=== PATIENT | male | born 1970 | race Caucasian/White ===

== ENCOUNTER 2017-11-14 10:12 | Inpatient (IN) | payer MEDICAID, SELFPAY ==
[2017-11-14] VITALS (13 sets, daily range): BP systolic 116–226; BP diastolic 73–149; PULSE 81–112; RESP 14–24; TEMP 35.8–37.2; O2SAT 96–100; BMI 23.8
[2017-11-14 11:03] LABS: Amphetamine Urine VISTA NEGATIVE (<1000 ng/mL); Barbiturate Urine VISTA NEGATIVE (< 200 ng/mL); Benzodiazepine Urine VISTA NEGATIVE (< 200 ng/mL); Cocaine Urine VISTA NEGATIVE (< 300 ng/mL); Ecstacy Urine VISTA NEGATIVE (< 500 ng/mL); Methadone Urine VISTA NEGATIVE (< 300 ng/mL); PCP Urine VISTA NEGATIVE (< 25 ng/mL); THC Urine VISTA NEGATIVE (< 50 ng/mL); Vista UDS pH Range 5
[2017-11-14 11:04] LABS: Absolute Lymphocyte Count 1.09 X10^3/ul (0.83-4.51); Absolute Neutrophil Count 4.4 X10^3/uL (2.0-7.7); Basophil# 0.05 X10^3/uL; Basophil% 0.7 % (0-1); Differential Indicated SCAN CRITERIA MET; Eosinophil# 0.01 X10^3/uL; Eosinophils% 0.1 % (0-5); Hematocrit 39.2 % (40-54); Hemoglobin 13.6 g/dl (13.0-16.5); Lymphocyte # 1.09 X10^3/ul (4.0); Lymphocyte % 14.9 % (19-41); Mean Corp Hgb Conc 34.7 g/gl (32-36); Mean Corpuscular Hgb 35.1 pg (27.0-32.0); Mean Platelet Vol. 9.4 fl (6.2-12.0); Monocyte# 1.79 X10^3/uL; Monocyte% 24.4 % (0-10); Neutrophil # 4.37 X10^3/uL (2.7-7.7); Neutrophil % 59.6 % (47-70); POSITIVE COUNT NO; POSITIVE DIFFERENTIAL YES; POSITIVE MORPHOLOGY NO; Platelet Count 292 K/mm3 (150-450); RBC Distribution Width CV 13.3 % (11.6-14.6); RBC Distribution Width SD 48.6 fl (35.1-43.9); Red Blood Count 3.88 M/mm3 (4.6-6.2); White Blood Count 7.3 K/mm3 (4.4-11.0)
[2017-11-14 11:14] LABS: Anion Gap 12 (5-15); BUN 10 mg/dL (7-18); BUN/Creat Ratio 17.3 RATIO (10-20); Chloride 108 mmol/L (98-107); Creatinine, Serum 0.58 mg/dL (0.70-1.30); EST Glomerular Filtration Rate 159 mL/min (>60); Est Glom Filt Rate - Afr Amer 193 mL/min (>60); Estimated Creatinine Clearance 150.69 ml/min; Glucose 91 mg/dL (74-106); Potassium 3.6 mmol/L (3.5-5.1); Sodium Level 143 mmol/L (136-145)
[2017-11-14 11:21] LABS: Alcohol, Blood (Medical)-Serum < 3.0 mg/dL
--- NOTE | 2017-11-14 11:27 | ED.VISSUMM ---
- ER Visit Summary Date of Service: 11/14/17 Chief Complaint: Paranoid and hallucinations History of Present Illness: The patient is a 47 M who is a very poor informant. He reports he does not see a primary care physician or psychiatrist. Please reports that the patient has been calling in speaking about motorcycle gangs and police in the area. He is very paranoid and is not taking care of himself at home. They report that he is defecating and urinating in his home. Physical Examination: Vitals: Stable. Afebrile. General: Well-nourished and well-developed. Head: Normocephalic atraumatic. Neck: Supple, no lymphadenopathy. No JVD. Nontender. Cardiovascular: Regular rate and rhythm. No murmurs. Respiratory: No respiratory distress. Clear to auscultation bilaterally. Abdominal: Soft, nontender, nondistended, normal bowel sounds. No guarding, rebound, or peritoneal signs. Back: Nontender. Extremities: Nontender, no edema. Skin: Normal color, no rash. Neurologic: Alert and oriented ?3. Cranial nerves II through XII are intact. Normal strength and sensation. Mental status exam: Patient appears their stated age. Good posture and grooming. Good eye contact. Normal rate, volume, and latency of speech. No suicidal homicidal ideation. Patient has obvious delusions and visual hallucinations when spoken to. Flow of thought is logical. Insight and judgment is fair. Test Results: CBC is marked for hematocrit of 39.2, lymphocytes 15, monocytes 24. Chem-7 is more for chloride 108 and creatinine 0.58. Tox screen is negative. Alcohol level is normal. Emergency Department Course and Treatment: Patient is resting comfortably without complaint. Treatment Plan: Patient will be seen by mental health. Police report that the patient needs to be hospitalized. I agree with them. Disposition: Pending Impression: 1. Paranoia. 2. Delusions. This note was generated with [employer] dictation software. It may contain incorrect words, spelling, and punctuation that were not noted in review of the chart prior to signing ED Disposition - Plan for ED Patient: Chief Complaint: Mental Health Referrals: Care Physician,No Primary [Primary Care Provider] -
--- NOTE | 2017-11-14 11:34 | NURSING ---
CALLED CRISIS, TALKED TO [place]. SOMEONE WILL BE OVER.
--- NOTE | 2017-11-14 12:23 | ED.RN ---
PT DOES NOT KNOW HIS MEDICATIONS
--- NOTE | 2017-11-14 13:07 | NURSING ---
crisis in er
--- NOTE | 2017-11-14 13:50 | ED.RN ---
PT OUT AT NURSES STATION ASKING FOR A GLASS TO GET BEER. PT WAS TOLD THAT THE HOSPITAL WOULD NOT BE SERVING BEER TO HIM. HE WAS GIVEN A GLASS OF ICE WATER. PT WAS THEN FOUND USING THE PUSH HANDLE ON THE BED A BEER TAP.
[2017-11-14] MEDS: LORazepam 1 MG Tablet 2 MG PO (18:04)
[2017-11-14] MEDS: Haloperidol 5 MG Tablet PO (18:47)
[2017-11-14] MEDS: DiphenhydrAMINE 50 MG/ML Syringe IM (20:44)
[2017-11-14] MEDS: Ziprasidone IM 20 MG/ML VIAL IM (20:44)
[2017-11-14] MEDS: LORazepam 2 MG/ML Syringe IM (20:44)
--- NOTE | 2017-11-14 20:53 | ED.RN ---
AT APPROX 2030 LOUD NURSES HEARD FROM ROOM. PT FOUND TO BE THROWING THE CHAIRS IN HIS ROOM AGAINST THE DOOR AND WALL. PATIENT ASKED TO CALM DOWN AND EMOTIONAL SUPPORT GIVEN. CHAIRS REMOVED FROM ROOM. DR. TREVINO NOTIFIED AND ORDERS FOR IM MEDICATIONS GIVEN
[2017-11-14] MEDS: Rocuronium Bromide 50 MG/5 ML Vial 100 MG IV (21:38)
[2017-11-14] MEDS: Etomidate 20 MG/10 ML Vial IV (21:38)
[2017-11-14] MEDS: Midazolam 5 MG/ML Syringe IV (21:44)
--- NOTE | 2017-11-14 21:44 | ED.RN ---
2114 PT becoming increasingly more restless and aggressive. pt banging head on side rails. Not able to reorient patient. Pin point pupils. Dr. Lange notified and came to bedside. Upon assessment and communication with PD and SO we learned patient is daily drinker. ETOH was negative on arrival. Withdraw and probable DT's noted. Pt is unsafe and a safety threat to self and staff. Decision made to intubate by Dr. Barakat. Respiratory called to bedside. Pt sedated, intubated and placed on vent as documented.
[2017-11-14] MEDS: Thiamine Hydrochloride 200 MG/2 ML Vial 100 MG IV (21:55)
[2017-11-14] MEDS: Phenobarbital Sodium 130 MG/ML Vial 150 MG IV (22:02)
--- NOTE | 2017-11-14 22:05 | PCM.HP.STD ---
Problem List (1) Delirium tremens Status: Acute (2) Acute respiratory failure Status: Acute History of Present Illness Date of Admission: 11/14/17 Chief Complaint: paranoia and hallucinations The patient is a 47 year old M with a 39-year-old white male is brought in because of paranoid delusions. Patient was reported to be defecating and urinating in his home and complaining of seeing motorcycle gangs and placed in the area when there were not. Patient was pink slip to go to a psych unit this morning. Patient remained in the emergency room awaiting a bed but while he was in the emergency room patient became much more confused and concern was for delirium tremens. Patient was intubated for airway protection and also for further sedation. Currently, the patient is intubated and sedated and unable to provide any history. [] Past Medical History Allergies Penicillins Adverse Reaction (Verified 11/14/17 10:13) Nausea Home Medications: Ambulatory Orders Medication Instructions Recorded Lorazepam [Ativan] 1 mg PO TID PRN PRN #6 tablet 01/02/16 Smoking Status: Current every day smoker Review of Systems Comment: Unable to specify social history, family history, medications, allergies and review of systems with patient as he has been intubated and received sedation with Versed and propofol. VTE Information - Inpt Only VTE Present on Admission: No VTE Pharm Prophylaxis ordered?: Yes Patient Problems: Active and Suspected Problems Delirium tremens (Acute) Acute respiratory failure (Acute) - Physical Exam General: - - Intubated and sedated HEENT: Atraumatic, Normocephalic, - - No scleral icterus Oral: - - The tracheal tube and orogastric tube in place Neck: No Nodes, Thyroid Normal Size and Texture Lungs: Clear to auscultation, Normal air movement, No rhonchi, No wheeze Cardiovascular: Regular rate, Regular Rhythm, Normal S1, Normal S2, No murmurs Abdomen: Bowel Sounds Present, Soft, Non Tender, Non-Distended, No Hepato-splenomegaly Extremities: No edema, No Calf Tenderness Skin: No rashes, No breakdown Musculoskeletal: No Tenderness to Palpation of Joints or Extremities, No Muscle Wasting Neurological: Muscle tone normal, - - No clonus Psych/Mental Status: - - Intubated and sedated. Vital Signs Temp Pulse Resp BP Pulse Ox 36.6 C 93 14 158/101 H 98 11/14/17 21:48 11/14/17 21:48 11/14/17 21:48 11/14/17 21:48 11/14/17 21:48 Oxygen Delivery Method Mechanical Ventilator Weight: 71 kg Body Mass Index (BMI) 23.8 Laboratory Tests Past 24 Hrs 11/14/17 11/14/17 11/14/17 10:40 10:46 10:46 WBC 7.3 RBC 3.88 L Hgb 13.6 Hct 39.2 L MCV 101.0 H MCH 35.1 H MCHC 34.7 RDW 13.3 RDW Differential 48.6 H Plt Count 292 MPV 9.4 Immature Gran % (Auto) 0.300 Neut % (Auto) 59.6 Lymph % (Auto) 14.9 L [place] % (Auto) 24.4 H Eos % (Auto) 0.1 Baso % (Auto) 0.7 Absolute Neuts (auto) 4.4 Absolute Lymphs (auto) 1.09 Total Counted Not Reportable Sodium 143 Potassium 3.6 Chloride 108 H Carbon Dioxide 23.0 Anion Gap 12 BUN 10 Creatinine 0.58 L Estim Creat Clear Calc 150.69 Est GFR (MDRD) Af Amer 193 Est GFR (MDRD) Non-Af 159 BUN/Creatinine Ratio 17.3 Glucose 91 Calcium 9.0 Urine Opiates Screen NEGATIVE Urine Methadone Screen NEGATIVE Ur Barbiturates Screen NEGATIVE Ur Phencyclidine Scrn NEGATIVE Ur Amphetamines Screen NEGATIVE U Methamphetamin-MDMA NEGATIVE U Benzodiazepines Scrn NEGATIVE Urine Cocaine Screen NEGATIVE U Cannabinoids Screen NEGATIVE Ur Drug Screen Comment Ethyl Alcohol 11/14/17 10:46 WBC RBC Hgb Hct MCV MCH MCHC RDW RDW Differential Plt Count MPV Immature Gran % (Auto) Neut % (Auto) Lymph % (Auto) [place] % (Auto) Eos % (Auto) Baso % (Auto) Absolute Neuts (auto) Absolute Lymphs (auto) Total Counted Sodium Potassium Chloride Carbon Dioxide Anion Gap BUN Creatinine Estim Creat Clear Calc Est GFR (MDRD) Af Amer Est GFR (MDRD) Non-Af BUN/Creatinine Ratio Glucose Calcium Urine Opiates Screen Urine Methadone Screen Ur Barbiturates Screen Ur Phencyclidine Scrn Ur Amphetamines Screen U Methamphetamin-MDMA U Benzodiazepines Scrn Urine Cocaine Screen U Cannabinoids Screen Ur Drug Screen Comment Ethyl Alcohol < 3.0 Assessment/Plan Active and Suspected Problems Delirium tremens (Acute) Acute respiratory failure (Acute) 1. Delirium tremens Presumed. Unable to elaborate how much patient actually drinks. Patient is intubated for airway protection and will be placed on a Precedex drip 2. Acute respiratory failure Primarily for impending airway compromise and also for sedation purposes Patient will be on the vent with assist control at this point time. Critical care will be on consultation for further assistance in regards to ventilator management Follow-up chest x-ray pending 3. Paranoia and delusions Patient does have previous psych history but comp getting this is what appears to be delirium tremens Patient will require further psychiatric involvement after he has been extubated and more medically stable. 4. DVT prophylaxis with Lovenox Code Visit Inpatient E&M: 70558 Init Hosp L3
[2017-11-14] MEDS: Propofol 10MG/Ml 1,000 MG/100 ML Bottle 2.13 MG CONT INF (22:10)
--- NOTE | 2017-11-14 22:12 | HP.PCM_ITS ---
Problem List (1) Delirium tremens Status: Acute (2) Acute respiratory failure Status: Acute History of Present Illness Date of Admission: 11/14/17 Chief Complaint: paranoia and hallucinations The patient is a 47 year old M with a 39-year-old white male is brought in because of paranoid delusions. Patient was reported to be defecating and urinating in his home and complaining of seeing motorcycle gangs and placed in the area when there were not. Patient was pink slip to go to a psych unit this morning. Patient remained in the emergency room awaiting a bed but while he was in the emergency room patient became much more confused and concern was for delirium tremens. Patient was intubated for airway protection and also for further sedation. Currently, the patient is intubated and sedated and unable to provide any history. [] Past Medical History Allergies Penicillins Adverse Reaction (Verified 11/14/17 10:13) Nausea Home Medications: Ambulatory Orders Medication Instructions Recorded Lorazepam [Ativan] 1 mg PO TID PRN PRN #6 tablet 01/02/16 Smoking Status: Current every day smoker Review of Systems Comment: Unable to specify social history, family history, medications, allergies and review of systems with patient as he has been intubated and received sedation with Versed and propofol. VTE Information - Inpt Only VTE Present on Admission: No VTE Pharm Prophylaxis ordered?: Yes Patient Problems: Active and Suspected Problems Delirium tremens (Acute) Acute respiratory failure (Acute) - Physical Exam General: - - Intubated and sedated HEENT: Atraumatic, Normocephalic, - - No scleral icterus Oral: - - The tracheal tube and orogastric tube in place Neck: No Nodes, Thyroid Normal Size and Texture Lungs: Clear to auscultation, Normal air movement, No rhonchi, No wheeze Cardiovascular: Regular rate, Regular Rhythm, Normal S1, Normal S2, No murmurs Abdomen: Bowel Sounds Present, Soft, Non Tender, Non-Distended, No Hepato- splenomegaly Extremities: No edema, No Calf Tenderness Skin: No rashes, No breakdown Musculoskeletal: No Tenderness to Palpation of Joints or Extremities, No Muscle Wasting Neurological: Muscle tone normal, - - No clonus Psych/Mental Status: - - Intubated and sedated. Vital Signs Temp Pulse Resp BP Pulse Ox 36.6 C 93 14 158/101 H 98 11/14/17 21:48 11/14/17 21:48 11/14/17 21:48 11/14/17 21:48 11/14/17 21:48 Oxygen Delivery Method Mechanical Ventilator Weight: 71 kg Body Mass Index (BMI) 23.8 Laboratory Tests Past 24 Hrs 11/14/17 11/14/17 11/14/17 10:40 10:46 10:46 WBC 7.3 RBC 3.88 L Hgb 13.6 Hct 39.2 L MCV 101.0 H MCH 35.1 H MCHC 34.7 RDW 13.3 RDW Differential 48.6 H Plt Count 292 MPV 9.4 Immature Gran % (Auto) 0.300 Neut % (Auto) 59.6 Lymph % (Auto) 14.9 L [place] % (Auto) 24.4 H Eos % (Auto) 0.1 Baso % (Auto) 0.7 Absolute Neuts (auto) 4.4 Absolute Lymphs (auto) 1.09 Total Counted Not Reportable Sodium 143 Potassium 3.6 Chloride 108 H Carbon Dioxide 23.0 Anion Gap 12 BUN 10 Creatinine 0.58 L Estim Creat Clear Calc 150.69 Est GFR (MDRD) Af Amer 193 Est GFR (MDRD) Non-Af 159 BUN/Creatinine Ratio 17.3 Glucose 91 Calcium 9.0 Urine Opiates Screen NEGATIVE Urine Methadone Screen NEGATIVE Ur Barbiturates Screen NEGATIVE Ur Phencyclidine Scrn NEGATIVE Ur Amphetamines Screen NEGATIVE U Methamphetamin-MDMA NEGATIVE U Benzodiazepines Scrn NEGATIVE Urine Cocaine Screen NEGATIVE U Cannabinoids Screen NEGATIVE Ur Drug Screen Comment Ethyl Alcohol 11/14/17 10:46 WBC RBC Hgb Hct MCV MCH MCHC RDW RDW Differential Plt Count MPV Immature Gran % (Auto) Neut % (Auto) Lymph % (Auto) [place] % (Auto) Eos % (Auto) Baso % (Auto) Absolute Neuts (auto) Absolute Lymphs (auto) Total Counted Sodium Potassium Chloride Carbon Dioxide Anion Gap BUN Creatinine Estim Creat Clear Calc Est GFR (MDRD) Af Amer Est GFR (MDRD) Non-Af BUN/Creatinine Ratio Glucose Calcium Urine Opiates Screen Urine Methadone Screen Ur Barbiturates Screen Ur Phencyclidine Scrn Ur Amphetamines Screen U Methamphetamin-MDMA U Benzodiazepines Scrn Urine Cocaine Screen U Cannabinoids Screen Ur Drug Screen Comment Ethyl Alcohol < 3.0 Assessment/Plan Active and Suspected Problems Delirium tremens (Acute) Acute respiratory failure (Acute) 1. Delirium tremens * Presumed. Unable to elaborate how much patient actually drinks. * Patient is intubated for airway protection and will be placed on a Precedex drip 2. Acute respiratory failure * Primarily for impending airway compromise and also for sedation purposes * Patient will be on the vent with assist control at this point time. * Critical care will be on consultation for further assistance in regards to ventilator management * Follow-up chest x-ray pending 3. Paranoia and delusions * Patient does have previous psych history but comp getting this is what appears to be delirium tremens * Patient will require further psychiatric involvement after he has been extubated and more medically stable. 4. DVT prophylaxis with Lovenox Code Visit Inpatient E&M: 47349 Init Hosp L3
--- NOTE | 2017-11-14 22:20 | RAD_ITS ---
STUDY: X-RAY CHEST REASON FOR EXAM: Male, 47 years old. Intubation NG tube placement TECHNIQUE: Single frontal view COMPARISON: January 11, 2015 FINDINGS: Endotracheal tube with tip 40 mm above the milagros. Nasogastric tube extends into the stomach with the sidehole at the GE junction. It should be advanced by another 4 cm. The lungs are clear and expanded. There is no demonstrated pleural abnormality. Normal size heart. Normal mediastinum and pavan. Normal visualized pulmonary arteries. Normal visualized aortic arch and descending thoracic aorta. Normal visualized thoracic spine. Old right clavicular fracture. There is no demonstrated abnormality of the visualized soft tissue structures of the upper abdomen. RAD/Chest 1 View (Portable) IMPRESSION: No acute pulmonary pathology. NG tube with sidehole at the GE junction. It should be expanded 4 cm further into the stomach. Electronically Signed: Sam Hancock DO at 22:44 EDT Tel [phone], Service support ,
[2017-11-14 22:38] LABS: Lactic Acid 0.7 mmol/L (0.4-2.0)
[2017-11-14 22:39] LABS: AST(SGOT) 69 U/L (15-37); Alanine Aminotransfer ALT/SGPT 170 U/L (16-61); Albumin, Serum 3.3 g/dL (3.2-5.0); Alkaline Phosphatase 51 U/L (45-117); Bilirubin, Direct 0.28 mg/dL (0.00-0.30); CPK Total, Creatine Kinase 588 U/L (39-308); Globulin 2.9 g/dL (2.2-4.2); Protein, Total 6.2 g/dL (6.4-8.2)
[2017-11-15] VITALS (46 sets, daily range): BP systolic 106–170; BP diastolic 74–122; PULSE 72–101; RESP 14–28; TEMP 35.6–38.7; O2SAT 99–100; BMI 23.8
--- NOTE | 2017-11-15 01:30 | RAD_ITS ---
STUDY: X-RAY CHEST REASON FOR EXAM: Male, 47 years old. ETT and OG tube placement TECHNIQUE: Single frontal view of the chest. COMPARISON: 11/14/2017 FINDINGS: Endotracheal tube tip is now 3.4 cm from milagros, in appropriate position. Enteric tube tip is now in the fundus of the stomach. The lungs are clear and expanded. There is no demonstrated pleural abnormality. Normal size heart. Normal mediastinum and pavan. Normal visualized pulmonary arteries. Normal visualized aortic arch and descending thoracic aorta. Carotid calcifications. Normal visualized thoracic spine. Normal visualized ribs, clavicles, and shoulders. There is no demonstrated abnormality of the visualized soft tissue structures of the upper abdomen. RAD/Chest 1 View (Portable) IMPRESSION: Endotracheal tube tip is now 3.4 cm from milagros, in appropriate position. Enteric tube tip is now in the fundus of the stomach. Electronically Signed: Tom Rios MD at 2:24 EDT Tel , Service support ,
[2017-11-15] MEDS: 0.9% NaCl Peripheral Flush Adult/Peds IV ×8 (01:33→23:51)
[2017-11-15] MEDS: LORazepam 2 MG/ML Syringe IV ×8 (01:33→23:51)
[2017-11-15] MEDS: Chlorhexidine 15 ML PO ×3 (02:00→21:48)
[2017-11-15 02:01] LABS: Base Excess -5 mmol/L (-2 to +2); Bicarbonate 21.5 mmol/L (22-26); Blood Gas Specimen Type ART; FI02 30; Mode A-C; O2 Delivery Device Vent; PEEP 5; PO2 95 mmHG (75-100); RR 14; SITE R Radial; SO2 96 % (95-99); Time Given 148; Total Carbon Dioxide 23 mmol/L; Vt 450; pCO2 44.1 mmHg (35-45)
[2017-11-15 03:22] LABS: M R Staph aureus DNA By PCR Negative (Negative); Probe Check PASS; Specimen Processing Control PASS
[2017-11-15] MEDS: Propofol 10MG/Ml 1,000 MG/100 ML Bottle 2.136 MG CONT INF ×5 (03:46→23:27)
[2017-11-15 04:30] LABS: Hematocrit 36.2 % (40-54); Hemoglobin 12.1 g/dl (13.0-16.5); Mean Corp Hgb Conc 33.4 g/gl (32-36); Mean Corpuscular Hgb 34.9 pg (27.0-32.0); Mean Corpuscular Volume 104.3 fL (80-94); Mean Platelet Vol. 9.3 fl (6.2-12.0); Platelet Count 272 K/mm3 (150-450); RBC Distribution Width CV 13.5 % (11.6-14.6); RBC Distribution Width SD 50.7 fl (35.1-43.9); Red Blood Count 3.47 M/mm3 (4.6-6.2); Scan Indicated on CBC? Y/N NO; White Blood Count 5.9 K/mm3 (4.4-11.0)
[2017-11-15 04:42] LABS: Anion Gap 9 (5-15); BUN 12 mg/dL (7-18); BUN/Creat Ratio 25.2 RATIO (10-20); Calcium,Total 8.2 mg/dL (8.5-10.1); Chloride 111 mmol/L (98-107); Creatinine, Serum 0.48 mg/dL (0.70-1.30); EST Glomerular Filtration Rate 199 mL/min (>60); Est Glom Filt Rate - Afr Amer 240 mL/min (>60); Estimated Creatinine Clearance 182.08 ml/min; Glucose 73 mg/dL (74-106); Potassium 3.5 mmol/L (3.5-5.1); Sodium Level 143 mmol/L (136-145)
[2017-11-15 04:50] LABS: CPK Total, Creatine Kinase 504 U/L (39-308); Triglycerides 65 mg/dL
[2017-11-15] MEDS: Albuterol 2.5 MG/3 ML VIAL.NEB. INHALATION ×5 (06:33→22:06)
--- NOTE | 2017-11-15 07:21 | PCM.CON.CC ---
Problem List (1) Delirium tremens Status: Suspected (2) Acute respiratory failure Status: Acute Qualifiers: Respiratory failure complication: unspecified whether with hypoxia or hypercapnia Qualified Code(s): J96.00 - Acute respiratory failure, unspecified whether with hypoxia or hypercapnia (3) Schizophrenia, chronic with acute exacerbation Status: Suspected Reason for Consult Date of Consultation: 11/15/17 Reason for Consultation: Respiratory failure History of Present Illness: The patient is a 47 year old M with past medical history listed below, who presented to [facility] on 11/14/2017 secondary to paranoia and hallucinations. Patient reportedly was defecating and urinating in his home while complaining of motorcycle gangs in the area. Patient was seen by police and had a pink slip to go to a psych unit. Patient was awaiting a bed in the emergency room, but became more confused and there was some concern for the development of DTs. Patient was reportedly given Geodon among other medications to attempt to control behavior. Per report, patient was throwing chairs and hitting his head against the side rail. Patient was intubated for airway protection and so that further sedation could be used. Overnight, patient had significant hypertension and anxiety with any decrease in sedation. Patient did have Ativan added to propofol and an attempt to keep behavior controlled. Nursing did report significant thin clear secretions, but no fever or hemodynamic instability. Patient did not have a spontaneous breathing trial this morning secondary to recent intubation and failure of sedation trial. History is very limited and patient is unable to provide any more information at this time. He is unknown where he fills his prescriptions, his psychiatrist or his drinking history at this time. Past Medical History Allergies Penicillins Adverse Reaction (Verified 11/14/17 10:13) Nausea Home Medications: Ambulatory Orders Medication Instructions Recorded Lorazepam [Ativan] 1 mg PO TID PRN PRN #6 tablet 01/02/16 Smoking Status: Current every day smoker Review of Systems Unable to obtain accurate/complete ROS d/t: Intubated and sedated Patient Problems: Active and Suspected Problems Delirium tremens (Suspected) Acute respiratory failure (Acute) Schizophrenia, chronic with acute exacerbation (Suspected) Objective: All imaging was personally reviewed. No infiltrates are appreciated on chest x-ray. Supportive devices are in appropriate position. - Physical Exam General: - - Intubated and sedated. RASS -3. Fair vent synchrony noted. HEENT: Atraumatic, PERRLA, EOMI, Normocephalic, - - Scleral icterus or injection noted. Oral: Moist Mucosa, No Gingival or Mucosal Lesions/ Ulcerations, - - Fair to good dentition noted. Slight underbite noted. Neck: Supple, No JVD, No Nodes, Trachea Midline Lungs: Clear to auscultation, Normal air movement, No rhonchi, No wheeze, No rales, - - Symmetric expansion. No dullness to percussion. Cardiovascular: Regular rate, Regular Rhythm, Normal S1, Normal S2, No murmurs, No rub noted, No Gallop Abdomen: Bowel Sounds Present, Soft, Non Tender, Non-Distended Extremities: No clubbing, No cyanosis, No edema Skin: No rashes, No breakdown, - - No ecchymosis noted of the head or extremities. Musculoskeletal: No Tenderness to Palpation of Joints or Extremities, No Muscle Wasting Lymphatic: No Cervical, Supraclavicular, or Inguinal Adenopathy Neurological: Cranial nerves II-XII grossly intact, Neuro grossly intact, Motor Exam 5/5 strength throughout, - - Responds to stimulus appropriately. Positive cough and gag reflex Psych/Mental Status: Flat Affect Vital Signs Temp Pulse Resp BP Pulse Ox 37.2 C 84 16 124/83 H 100 11/15/17 06:00 11/15/17 07:12 11/15/17 07:12 11/15/17 06:00 11/15/17 07:12 Oxygen Delivery Method Mechanical Ventilator Weight: 71.2 kg Body Mass Index (BMI) 23.8 Intake and Output for Last 24 Hours 11/13/17 11/14/17 11/15/17 23:59 23:59 23:59 Intake Total 708 / 708 Output Total 800 / 800 Balance -92 / -92 Laboratory Tests Past 24 Hrs 11/14/17 11/14/17 11/15/17 22:06 22:06 00:40 WBC RBC Hgb Hct MCV MCH MCHC RDW RDW Differential Plt Count MPV Specimen Type Sample Site pH Bicarbonate Actual POC Total CO2 Base Excess O2 Saturation O2 % ABG pCO2 ABG pO2 Respiration Rate O2 Delivery Device Minute Volume Vent Mode Tidal Volume POC PEEP Blood Gas Notified Whom Blood Gas Notified Time Sodium Potassium Chloride Carbon Dioxide Anion Gap BUN Creatinine Estim Creat Clear Calc Est GFR (MDRD) Af Amer Est GFR (MDRD) Non-Af BUN/Creatinine Ratio Glucose Lactic Acid 0.7 Calcium Magnesium 2.0 Total Bilirubin 0.70 Direct Bilirubin 0.28 AST 69 H ALT 170 H Alkaline Phosphatase 51 Total Creatine Kinase 588 H Total Protein 6.2 L Albumin 3.3 Globulin 2.9 Triglycerides MRSA (PCR) Negative 11/15/17 11/15/17 11/15/17 01:55 04:15 04:15 WBC 5.9 RBC 3.47 L Hgb 12.1 L Hct 36.2 L MCV 104.3 H MCH 34.9 H MCHC 33.4 RDW 13.5 RDW Differential 50.7 H Plt Count 272 MPV 9.3 Specimen Type ART Sample Site R Radial pH 7.30 L Bicarbonate Actual 21.5 L POC Total CO2 23 Base Excess -5 L O2 Saturation 96 O2 % 30 ABG pCO2 44.1 ABG pO2 95 Respiration Rate 14 O2 Delivery Device Vent Minute Volume 6.00 Vent Mode A-C Tidal Volume 450 POC PEEP 5 Blood Gas Notified Whom [facility] Blood Gas Notified Time 148 Sodium 143 Potassium 3.5 Chloride 111 H Carbon Dioxide 23.0 Anion Gap 9 BUN 12 Creatinine 0.48 L Estim Creat Clear Calc 182.08 Est GFR (MDRD) Af Amer 240 Est GFR (MDRD) Non-Af 199 BUN/Creatinine Ratio 25.2 H Glucose 73 L Lactic Acid Calcium 8.2 L Magnesium Total Bilirubin Direct Bilirubin AST ALT Alkaline Phosphatase Total Creatine Kinase Total Protein Albumin Globulin Triglycerides MRSA (PCR) 11/15/17 04:15 WBC RBC Hgb Hct MCV MCH MCHC RDW RDW Differential Plt Count MPV Specimen Type Sample Site pH Bicarbonate Actual POC Total CO2 Base Excess O2 Saturation O2 % ABG pCO2 ABG pO2 Respiration Rate O2 Delivery Device Minute Volume Vent Mode Tidal Volume POC PEEP Blood Gas Notified Whom Blood Gas Notified Time Sodium Potassium Chloride Carbon Dioxide Anion Gap BUN Creatinine Estim Creat Clear Calc Est GFR (MDRD) Af Amer Est GFR (MDRD) Non-Af BUN/Creatinine Ratio Glucose Lactic Acid Calcium Magnesium Total Bilirubin Direct Bilirubin AST ALT Alkaline Phosphatase Total Creatine Kinase 504 H Total Protein Albumin Globulin Triglycerides 65 MRSA (PCR) Clinical Impression(s) from Imaging Studies Chest X-Ray 11/14/17 22:20 IMPRESSION: No acute pulmonary pathology. NG tube with sidehole at the GE junction. It should be expanded 4 cm further into the stomach. Electronically Signed: Sam Hancock DO at 22:44 EDT Tel [phone], Service support , Chest X-Ray 11/15/17 01:30 IMPRESSION: Endotracheal tube tip is now 3.4 cm from milagros, in appropriate position. Enteric tube tip is now in the fundus of the stomach. Electronically Signed: Tom Rios MD at 2:24 EDT Tel , Service support , Assessment/Plan Active and Suspected Problems Delirium tremens (Suspected) Acute respiratory failure (Acute) Schizophrenia, chronic with acute exacerbation (Suspected) RECOMMENDATIONS: 1. Attempt to find patient psychiatrist 2. Observe for DTs 3. Reinitiate psychiatric medications when available 4. Spontaneous breathing and awakening trials as indicated 5. Possible need for Precedex to facilitate extubation IMPRESSIONS: 1. Possible delirium tremens ER is reporting that law enforcement had stated the patient does have an issue with alcohol in the past. No information from patient's family or patient was available to indicate the patient had stopped drinking. Unknown baseline consumption. We will continue with propofol for now. Monitor for signs and symptoms of withdrawal. Patient does not have a significant leukocytosis, infiltrate or fever at this time to suggest aspiration pneumonia. Likely initiate tube feeds later today. 2. Acute respiratory failure Patient required intubation secondary to airway protection. Patient had received significant amounts of sedation in an attempt to control behavior. ABG following intubation showed a mixed metabolic and respiratory acidosis. Supportive devices are in appropriate position. Spontaneous awakening and breathing trials as indicated. May require Precedex to facilitate extubation given history of behavior. Will attempt to reinitiate antipsychotic medications as soon as possible once further information can be obtained. 3. Reported schizophrenia Patient was having active hallucinations when picked up and brought to the emergency room. It is unclear what patient's baseline medications are. Will attempt to contact patient's psychiatrist through crisis evaluation. Reinitiate medications once home regimen is known. This will likely be necessary prior to any attempts at extubation. TIME: 33 minutes of critical care time spent addressing patient's possible DTs, acute respiratory failure, review of all data and collaboration with care team. Code Visit 9xxxx: [id number] Critical care first hour
[2017-11-15] MEDS: 0.9% Normal Saline 1,000 ML 100 ML IV ×2 (09:46→20:12)
[2017-11-15] MEDS: Enoxaparin 40 MG/0.4 ML Syringe SC (09:47)
--- NOTE | 2017-11-15 11:11 | CASEMGMT ---
Social Work Pt came to the ER yesterday and was seen by Paulette from Crisis. Pt is currently intubated and not able to respond. Physician requesting information regarding pt psychiatrist and current psychiatric medications. Phone call to the Crisis Center and spoke with Michael as Paulette is out. Pt is not a client at the [facility]. Per Michael, Pt was seen by crisis in [facility] ED on 11/13/17 with similar symptoms as pt presented with at this current hospitalization. Michael reports that pt informed him he does not fill his medications as he does not have financial resources. Michael states Pt did have three medicine bottles for Seroquel, Librium and Trazodone that were empty and out of date. Pt informed Michael that he was at [place] in 2015 and two prescriptions were from that time and the third from a pcp (uncertain which one). SW inquired if pt has a relationship with his mother which is listed on pt face sheet. Michael states that on Saturday pt informed him that his parents are his primary support and he was intending to call them for a ride home. Dr. Correa updated with above information. When pt is extubated and medically stable, Crisis will meet with pt to pursue psychiatric hospitalization. Phone call placed to pt mother listed on demographic sheet Arlen Hernandez. No answer and no voice mail set up. KENDAL Paredes
[2017-11-15] MEDS: RisperiDONE 0.5 MG Tablet PO (14:59)
--- NOTE | 2017-11-15 15:45 | NURSING ---
Received call from pt's father, Galileo Steiner. Unable to provide much info on pt hx other than he last spoke to pt on Saturday and that he was hallucinating at the time. Pt's father does not confirm that pt has ever been diagnosed with any mental illness nor that he takes any medications on a regular basis. Father states that he lives alone as well. Updated that pt was currently stable and that ideally, he will be placed in a psychiatric facility upon discharge. Pt's father verbalized understanding.
--- NOTE | 2017-11-15 15:54 | CASEMGMT ---
Social Work Attempts to contact pt mother have been unsuccessful. No answer and voicemail has not been set up. RN notified. KENDAL Paredes
[2017-11-15] MEDS: Vital AF 1.2 Cal Liquid 1,000 ML 60 ML GT (16:00)
--- NOTE | 2017-11-15 18:58 | PN_ITS ---
Patient Problems: Active and Suspected Problems Delirium tremens (Suspected) Acute respiratory failure (Acute) Schizophrenia, chronic with acute exacerbation (Suspected) Subjective: Patient was seen and examined today, I discussed his care with pulmonary medicine. Patient remains on the ventilator at this time and he is sedated. - Physical Exam General: No apparent distress, Well developed, Confused HEENT: Atraumatic, PERRLA, Normocephalic Oral: Moist Mucosa Neck: Supple, No JVD, No Nuchal Rigidity, Trachea Midline, Thyroid Normal Size and Texture Lungs: Clear to auscultation, Normal air movement, No rhonchi, No wheeze, No rales Cardiovascular: Regular rate, Regular Rhythm, Normal S1, Normal S2, No murmurs, No Ectopic Activity, PMI Normal, No rub noted, No Gallop Abdomen: Bowel Sounds Present, Soft, Non Tender, Non-Distended, No hernias noted Extremities: No clubbing, No cyanosis, No edema, Capillary Refill Less than 3 Seconds Skin: No rashes, No breakdown Neurological: - - Patient is sedated and on the ventilator at this time Psych/Mental Status: - - Sedated on ventilator at this time Vital Signs Temp Pulse Resp BP Pulse Ox 100.8 F H 88 17 132/87 H 100 11/15/17 18:00 11/15/17 18:00 11/15/17 18:00 11/15/17 18:00 11/15/17 18:00 Oxygen Delivery Method Mechanical Ventilator Weight: 71.2 kg Body Mass Index (BMI) 23.8 Intake and Output for Last 24 Hours 11/13/17 11/14/17 11/15/17 23:59 23:59 23:59 Intake Total 2330 / 2330 Output Total 1650 / 1650 Balance 680 / 680 Microbiology Past 72 Hours 11/15/17 06:25 Gram Stain - Final Sputum, Induced/Lukens Laboratory Tests Past 24 Hrs 11/14/17 11/14/17 11/15/17 22:06 22:06 00:40 WBC RBC Hgb Hct MCV MCH MCHC RDW RDW Differential Plt Count MPV Specimen Type Sample Site pH Bicarbonate Actual POC Total CO2 Base Excess O2 Saturation O2 % ABG pCO2 ABG pO2 Respiration Rate O2 Delivery Device Minute Volume Vent Mode Tidal Volume POC PEEP Blood Gas Notified Whom Blood Gas Notified Time Sodium Potassium Chloride Carbon Dioxide Anion Gap BUN Creatinine Estim Creat Clear Calc Est GFR (MDRD) Af Amer Est GFR (MDRD) Non-Af BUN/Creatinine Ratio Glucose Lactic Acid 0.7 Calcium Magnesium 2.0 Total Bilirubin 0.70 Direct Bilirubin 0.28 AST 69 H ALT 170 H Alkaline Phosphatase 51 Total Creatine Kinase 588 H Total Protein 6.2 L Albumin 3.3 Globulin 2.9 Triglycerides MRSA (PCR) Negative 11/15/17 11/15/17 11/15/17 01:55 04:15 04:15 WBC 5.9 RBC 3.47 L Hgb 12.1 L Hct 36.2 L MCV 104.3 H MCH 34.9 H MCHC 33.4 RDW 13.5 RDW Differential 50.7 H Plt Count 272 MPV 9.3 Specimen Type ART Sample Site R Radial pH 7.30 L Bicarbonate Actual 21.5 L POC Total CO2 23 Base Excess -5 L O2 Saturation 96 O2 % 30 ABG pCO2 44.1 ABG pO2 95 Respiration Rate 14 O2 Delivery Device Vent Minute Volume 6.00 Vent Mode A-C Tidal Volume 450 POC PEEP 5 Blood Gas Notified Whom [facility] MD Blood Gas Notified Time 148 Sodium 143 Potassium 3.5 Chloride 111 H Carbon Dioxide 23.0 Anion Gap 9 BUN 12 Creatinine 0.48 L Estim Creat Clear Calc 182.08 Est GFR (MDRD) Af Amer 240 Est GFR (MDRD) Non-Af 199 BUN/Creatinine Ratio 25.2 H Glucose 73 L Lactic Acid Calcium 8.2 L Magnesium Total Bilirubin Direct Bilirubin AST ALT Alkaline Phosphatase Total Creatine Kinase Total Protein Albumin Globulin Triglycerides MRSA (PCR) 11/15/17 04:15 WBC RBC Hgb Hct MCV MCH MCHC RDW RDW Differential Plt Count MPV Specimen Type Sample Site pH Bicarbonate Actual POC Total CO2 Base Excess O2 Saturation O2 % ABG pCO2 ABG pO2 Respiration Rate O2 Delivery Device Minute Volume Vent Mode Tidal Volume POC PEEP Blood Gas Notified Whom Blood Gas Notified Time Sodium Potassium Chloride Carbon Dioxide Anion Gap BUN Creatinine Estim Creat Clear Calc Est GFR (MDRD) Af Amer Est GFR (MDRD) Non-Af BUN/Creatinine Ratio Glucose Lactic Acid Calcium Magnesium Total Bilirubin Direct Bilirubin AST ALT Alkaline Phosphatase Total Creatine Kinase 504 H Total Protein Albumin Globulin Triglycerides 65 MRSA (PCR) Medical Necessity - Tobacco Use Smoking Status: Current every day smoker Assessment/Plan Active and Suspected Problems Delirium tremens (Suspected) Acute respiratory failure (Acute) Schizophrenia, chronic with acute exacerbation (Suspected) #1 possible delirium tremens-patient remains sedated on the ventilator at this time, pulmonary medicine is participating in his care #2 mechanical ventilation secondary to airway protection #3 history of schizophrenia Code Visit Inpatient E&M: [id number] Subs Hosp L2
[2017-11-15] MEDS: RisperiDONE 0.5 MG Tablet GT (21:47)
[2017-11-16] VITALS (38 sets, daily range): BP systolic 84–156; BP diastolic 54–101; PULSE 72–130; RESP 16–26; TEMP 37.4–38.9; O2SAT 97–100
[2017-11-16] MEDS: Acetaminophen 650 MG/20 ML UDC 500 MG GT ×2 (00:53→17:51)
[2017-11-16] MEDS: Albuterol 2.5 MG/3 ML VIAL.NEB. INHALATION ×6 (02:55→23:25)
[2017-11-16] MEDS: Propofol 10MG/Ml 1,000 MG/100 ML Bottle 2.136 MG CONT INF ×3 (03:37→19:50)
[2017-11-16] MEDS: LORazepam 2 MG/ML Syringe IV ×5 (04:23→23:44)
[2017-11-16] MEDS: 0.9% NaCl Peripheral Flush Adult/Peds IV ×4 (04:23→23:44)
--- NOTE | 2017-11-16 05:00 | RAD_ITS ---
STUDY: X-RAY CHEST REASON FOR EXAM: Male, 47 years old. Shortness of breath TECHNIQUE: Single frontal view COMPARISON: November 15, 2017 FINDINGS: Endotracheal tube with tip 38 mm above the milagros. Nasogastric tube extends into the stomach. The lungs are clear and expanded. There is no demonstrated pleural abnormality. Normal size heart. Normal mediastinum and pavan. Normal visualized pulmonary arteries. Normal visualized aortic arch and descending thoracic aorta. Normal visualized thoracic spine. Normal visualized ribs, clavicles, and shoulders. There is no demonstrated abnormality of the visualized soft tissue structures of the upper abdomen. RAD/Chest 1 View (Portable) IMPRESSION: No pulmonary infiltrates or effusion. Electronically Signed: Sam Hancock DO at 9:24 EDT Tel [phone], Service support ,
[2017-11-16 05:23] LABS: Anion Gap 7 (5-15); BUN 4 mg/dL (7-18); BUN/Creat Ratio 7.1 RATIO (10-20); Calcium,Total 8.5 mg/dL (8.5-10.1); Chloride 110 mmol/L (98-107); Creatinine, Serum 0.56 mg/dL (0.70-1.30); EST Glomerular Filtration Rate 164 mL/min (>60); Est Glom Filt Rate - Afr Amer 198 mL/min (>60); Estimated Creatinine Clearance 156.07 ml/min; Glucose 97 mg/dL (74-106); Magnesium 2.2 mg/dL (1.6-2.6); Sodium Level 144 mmol/L (136-145)
[2017-11-16] MEDS: 0.9% Normal Saline 1,000 ML 100 ML IV ×2 (06:28→18:01)
[2017-11-16] MEDS: CHLORHEXIDINE GLUC 2% CLOTH 1 EACH TOWELETTE TOPICAL (06:28)
[2017-11-16] MEDS: RisperiDONE 1 MG Tablet PO ×2 (07:34→21:19)
--- NOTE | 2017-11-16 08:00 | NURSING ---
unable to perform CAM assessment patient unable to cooperate at this time.
--- NOTE | 2017-11-16 08:03 | NURSING ---
unable to complete cam d/t pt condition
--- NOTE | 2017-11-16 08:48 | PN_ITS ---
Subjective: Patient did okay overnight. Patient has remained on high sedatives to allow for events synchronization. Patient did develop a fever overnight and nursing is reporting copious oral secretions. Patient did have a change in endotracheal secretions, so culture was sent. Patient's mother and father have called in, but are unable to provide much history other than the fact the patient is a known drinker. Exact quantities are unclear. Patient has been tolerating tube feeds. Patient was able to tolerate only 8 minutes of spontaneous awakening trial. Objective: Chest x-ray was personally reviewed and shows no acute infiltrate. General: - - Intubated and sedated. RASS -4 HEENT: Atraumatic, PERRLA, EOMI, Normocephalic, - - Lateral injection without icterus Oral: Moist Mucosa, No Gingival or Mucosal Lesions/ Ulcerations, - - Fair dentition Neck: Supple, No JVD, No Nodes, Trachea Midline Lungs: Clear to auscultation, Normal air movement, No rhonchi, No wheeze, No rales, - - Symmetric expansion. No dullness to percussion. Cardiovascular: Regular rate, Regular Rhythm, Normal S1, Normal S2, No murmurs, No rub noted, No Gallop Abdomen: Bowel Sounds Present, Soft, Non Tender, Non-Distended Extremities: No clubbing, No cyanosis, No edema, Capillary Refill Less than 3 Seconds Skin: No rashes, No breakdown Musculoskeletal: No Tenderness to Palpation of Joints or Extremities Lymphatic: No Cervical, Supraclavicular, or Inguinal Adenopathy Neurological: - - Positive cough and gag reflex is noted. Appropriate response to stimulus. Not following commands. Vital Signs Temp Pulse Resp BP Pulse Ox 37.9 C H 89 17 121/87 H 100 11/16/17 06:00 11/16/17 06:52 11/16/17 06:52 11/16/17 06:00 11/16/17 06:52 Oxygen Delivery Method Mechanical Ventilator Weight: 72.7 kg Body Mass Index (BMI) 23.8 Intake and Output for Last 24 Hours 11/14/17 11/15/17 11/16/17 23:59 23:59 23:59 Intake Total 3337 / 3337 1241 / 1241 Output Total 2300 / 2300 1100 / 1100 Balance 1037 / 1037 141 / 141 Labs (Last 48 Hours) 03/11/14/17 11/15/17 22:06 22:06 00:40 WBC RBC Hgb Hct MCV MCH MCHC RDW RDW Differential Plt Count MPV Specimen Type Sample Site pH Bicarbonate Actual POC Total CO2 Base Excess O2 Saturation O2 % ABG pCO2 ABG pO2 Respiration Rate O2 Delivery Device Minute Volume Vent Mode Tidal Volume POC PEEP Blood Gas Notified Whom Blood Gas Notified Time Sodium Potassium Chloride Carbon Dioxide Anion Gap BUN Creatinine Estim Creat Clear Calc Est GFR (MDRD) Af Amer Est GFR (MDRD) Non-Af BUN/Creatinine Ratio Glucose Lactic Acid 0.7 Calcium Phosphorus Magnesium 2.0 Total Bilirubin 0.70 Direct Bilirubin 0.28 AST 69 H ALT 170 H Alkaline Phosphatase 51 Total Creatine Kinase 588 H Total Protein 6.2 L Albumin 3.3 Globulin 2.9 Triglycerides MRSA (PCR) Negative 11/15/17 11/15/17 11/15/17 01:55 04:15 04:15 WBC 5.9 RBC 3.47 L Hgb 12.1 L Hct 36.2 L MCV 104.3 H MCH 34.9 H MCHC 33.4 RDW 13.5 RDW Differential 50.7 H Plt Count 272 MPV 9.3 Specimen Type ART Sample Site R Radial pH 7.30 L Bicarbonate Actual 21.5 L POC Total CO2 23 Base Excess -5 L O2 Saturation 96 O2 % 30 ABG pCO2 44.1 ABG pO2 95 Respiration Rate 14 O2 Delivery Device Vent Minute Volume 6.00 Vent Mode A-C Tidal Volume 450 POC PEEP 5 Blood Gas Notified Whom [facility] Blood Gas Notified Time 148 Sodium 143 Potassium 3.5 Chloride 111 H Carbon Dioxide 23.0 Anion Gap 9 BUN 12 Creatinine 0.48 L Estim Creat Clear Calc 182.08 Est GFR (MDRD) Af Amer 240 Est GFR (MDRD) Non-Af 199 BUN/Creatinine Ratio 25.2 H Glucose 73 L Lactic Acid Calcium 8.2 L Phosphorus Magnesium Total Bilirubin Direct Bilirubin AST ALT Alkaline Phosphatase Total Creatine Kinase Total Protein Albumin Globulin Triglycerides MRSA (PCR) 11/15/17 11/16/17 04:15 05:00 WBC RBC Hgb Hct MCV MCH MCHC RDW RDW Differential Plt Count MPV Specimen Type Sample Site pH Bicarbonate Actual POC Total CO2 Base Excess O2 Saturation O2 % ABG pCO2 ABG pO2 Respiration Rate O2 Delivery Device Minute Volume Vent Mode Tidal Volume POC PEEP Blood Gas Notified Whom Blood Gas Notified Time Sodium 144 Potassium 4.0 Chloride 110 H Carbon Dioxide 27.0 Anion Gap 7 BUN 4 L Creatinine 0.56 L Estim Creat Clear Calc 156.07 Est GFR (MDRD) Af Amer 198 Est GFR (MDRD) Non-Af 164 BUN/Creatinine Ratio 7.1 L Glucose 97 Lactic Acid Calcium 8.5 Phosphorus 3.0 Magnesium 2.2 Total Bilirubin Direct Bilirubin AST ALT Alkaline Phosphatase Total Creatine Kinase 504 H Total Protein Albumin Globulin Triglycerides 65 MRSA (PCR) Microbiology 11/15/17 06:25 Sputum, Induced/Lukens Gram Stain - Final Medical Necessity - Tobacco Use Smoking Status: Current every day smoker Assessment/Plan Active and Suspected Problems Delirium tremens (Suspected) Acute respiratory failure (Acute) Schizophrenia, chronic with acute exacerbation (Suspected) RECOMMENDATIONS: 1. Titrate up risperidone as tolerated 2. Observe for DTs 3. Spontaneous breathing and awakening trials as indicated 4. Possible need for Precedex to facilitate extubation IMPRESSIONS: 1. Possible delirium tremens Family is supporting reports the patient does drink alcohol in excess. Unfortunately, they are unable to quantify intake. Unknown last drink. Unclear if patient is using alcohol to treat underlying schizophrenia. Conflicting reports on hallucination frequency. 2. Acute respiratory failure Patient required intubation secondary to airway protection. Patient had received significant amounts of sedation in an attempt to control behavior. ABG following intubation showed a mixed metabolic and respiratory acidosis. Supportive devices are in appropriate position. Spontaneous awakening and breathing trials as indicated. May require Precedex to facilitate extubation given history of behavior. Initiated risperidone therapy. We will continue to titrate up as tolerated. Patient does have a history of back pain at baseline, so a fentanyl drip will be added to see if this will allow for decrease in propofol sedation. 3. Reported schizophrenia Patient was having active hallucinations when picked up and brought to the emergency room. It is unclear what patient's baseline medications are. Unable to find a psychiatrist of record. Patient is being initiated on risperidone therapy. TIME: 37 minutes of critical care time spent addressing patient's possible DTs, acute respiratory failure, review of all data and collaboration with care team. (5:30 AM to 7:30 AM) Code Visit 9xxxx: [id number] Critical care first hour
[2017-11-16] MEDS: Enoxaparin 40 MG/0.4 ML Syringe SC (10:34)
[2017-11-16] MEDS: Chlorhexidine 15 ML PO ×2 (10:36→21:19)
--- NOTE | 2017-11-16 11:21 | PN_ITS ---
Patient Problems: Active and Suspected Problems Delirium tremens (Suspected) Acute respiratory failure (Acute) Schizophrenia, chronic with acute exacerbation (Suspected) Subjective: Patient was seen and examined. Intubated in ICU. He was said to be very aggressive, failed spontaneous awakening trial. On fentanyl and propofol. Objective: Physical exam: General: Intubated and sedated, not pale of jaundiced HEENT: Atraumatic, PERRLA, EOMI, Normocephalic, Oral: Moist Mucosa, No Gingival or Mucosal Lesions/ Ulcerations, Neck: Supple, No JVD, No Nodes, Trachea Midline Lungs: Clear to auscultation, Normal air movement, No rhonchi, No wheeze, No rales, - - Symmetric expansion. No dullness to percussion. Cardiovascular: Regular rate, Regular Rhythm, Normal S1, Normal S2, No murmurs, No rub noted, No Gallop Abdomen: Bowel Sounds Present, Soft, Non Tender, Non-Distended Extremities: No edema, Capillary Refill Less than 3 Seconds Skin: No rashes, No breakdown Musculoskeletal: No Tenderness to Palpation of Joints or Extremities Lymphatic: No Cervical, Supraclavicular, or Inguinal Adenopathy Neurological: -Sedated Vitals/I&O's: Vital Signs Temp Pulse Resp BP Pulse Ox 100.2 F H 81 16 121/87 H 98 11/16/17 06:00 11/16/17 10:18 11/16/17 10:18 11/16/17 06:00 11/16/17 10:18 Oxygen Delivery Method Mechanical Ventilator Weight: 72.7 kg Body Mass Index (BMI) 23.8 Intake and Output for Last 24 Hours 11/14/17 11/15/17 11/16/17 23:59 23:59 23:59 Intake Total 3337 / 3337 1241 / 1241 Output Total 2300 / 2300 1100 / 1100 Balance 1037 / 1037 141 / 141 Microbiology Past 72 Hours 11/15/17 06:25 Sputum, Induced/Lukens Gram Stain - Final 11/15/17 06:25 Sputum, Induced/Lukens Respiratory Culture - Preliminary Appears to be normal respiratory rishi. Further studies to follow. Laboratory Results 11/16/17 05:00: Sodium 144, Potassium 4.0, Chloride 110 H, Carbon Dioxide 27.0, Anion Gap 7, BUN 4 L, Creatinine 0.56 L, Estim Creat Clear Calc 156.07, Est GFR (MDRD) Af Amer 198, Est GFR (MDRD) Non-Af 164, BUN/Creatinine Ratio 7.1 L, Glucose 97, Calcium 8.5, Phosphorus 3.0, Magnesium 2.2 Current Medications Acetaminophen (Tylenol Liquid) 500 mg GT Q4H PRN PRN PRN Reason: fever/pain Last Admin: 11/16/17 00:53 Dose: 500 mg Albuterol Sulfate (Ventolin Aerosols) 2.5 mg INHALATION Q2H PRN PRN PRN Reason: SHORTNESS OF BREATH Albuterol Sulfate (Ventolin Aerosols) 2.5 mg INHALATION Q4H.RT [facility] Last Admin: 11/16/17 10:17 Dose: 2.5 mg Chlorhexidine Gluconate () 15 ml PO BID [facility] Last Admin: 11/16/17 10:36 Dose: 15 ml Chlorhexidine Gluconate () 1 each TOPICAL DAILY [facility] Last Admin: 11/16/17 06:28 Dose: 1 each Enoxaparin Sodium (Lovenox) 40 mg SC DAILY@1000 [facility] Last Admin: 11/16/17 10:34 Dose: 40 mg Sodium Chloride () 1,000 mls @ 100 mls/hr IV .Q10H [facility] Last Admin: 11/16/17 06:28 Dose: 100 mls/hr Sodium Chloride () 250 mls @ 15 mls/hr IV .[id number] PRN PRN Reason: SALINE FLUSH Propofol (Diprivan) 1,000 mg in 100 mls @ 2.136 mls/hr CONT INF .Q12H [facility]; 5 MCG/KG/MIN PRN Reason: Protocol Last Admin: 11/16/17 03:37 Dose: 2.136 mls/hr Famotidine (Pepcid 20mg) 20 mg in 50 mls @ 150 mls/hr IV Q12 [facility] Last Admin: 11/16/17 10:38 Dose: 150 mls/hr Enteral Nutritional Formula (Vital Af 1.2 James Liquid) 1,000 mls @ 60 mls/hr GT .[id number] [facility] Last Admin: 11/15/17 16:00 Dose: 60 mls/hr Lorazepam (Ativan) 2 mg IV Q2H PRN PRN PRN Reason: AGITATION Last Admin: 11/16/17 11:16 Dose: 2 mg Magnesium Hydroxide (Milk Of Magnesia) 30 ml GT DAILY PRN PRN PRN Reason: Constipation Risperidone (Risperdal) 1 mg PO BID [facility] Last Admin: 11/16/17 07:34 Dose: 1 mg Sodium Chloride () 5 - 30 ml IV UD PRN PRN Reason: SALINE FLUSH Last Admin: 11/16/17 11:16 Dose: 30 ml Medical Necessity - Tobacco Use Smoking Status: Current every day smoker Tobacco Use: Cigarettes Assessment/Plan Active and Suspected Problems Delirium tremens (Suspected) Acute respiratory failure (Acute) Schizophrenia, chronic with acute exacerbation (Suspected) 47-year-old male with chronic alcohol dependence comes in with delusions, worsening confusion and concern for delirium tremens. 1. Status post intubated for airway protection, remains on mechanical ventilation, unable to wean off this morning, on fentanyl and propofol, billing machine operator following, possible trial of spontaneous awakening trial tomorrow 2. possible delirium tremens, remains sedated, no electrolyte imbalances, billing machine operator following, on ativan prn 3. history of schizophrenia, with agitation, on risperdal 4. DVT PPx - Lovenox SC Code Visit Inpatient E&M: 17255 Subs Hosp L3
[2017-11-16] MEDS: Vital AF 1.2 Cal Liquid 1,000 ML 60 ML GT (16:03)
[2017-11-16 17:36] LABS: Bedside Glucose 98 mg/dL (70-110)
[2017-11-16] MEDS: Famotidine 20 MG Tablet GT (21:19)
[2017-11-16] MEDS: Acetaminophen 650 MG/20 ML UDC GT (23:16)
[2017-11-16 23:56] LABS: Bedside Glucose 110 mg/dL (70-110)
[2017-11-17] VITALS (40 sets, daily range): BP systolic 91–118; BP diastolic 55–78; PULSE 65–111; RESP 16–30; TEMP 36.9–38.7; O2SAT 97–100
[2017-11-17] MEDS: CHLORHEXIDINE GLUC 2% CLOTH 1 EACH TOWELETTE TOPICAL (02:31)
[2017-11-17] MEDS: Propofol 10MG/Ml 1,000 MG/100 ML Bottle 2.136 MG CONT INF ×4 (02:31→21:24)
[2017-11-17] MEDS: Albuterol 2.5 MG/3 ML VIAL.NEB. INHALATION ×4 (03:15→18:45)
[2017-11-17] MEDS: 0.9% NaCl Peripheral Flush Adult/Peds IV ×2 (04:27→12:21)
[2017-11-17 04:35] LABS: Absolute Lymphocyte Count 1.24 X10^3/ul (0.83-4.51); Absolute Neutrophil Count 5.8 X10^3/uL (2.0-7.7); Basophil# 0.04 X10^3/uL; Basophil% 0.4 % (0-1); Eosinophil# 0.21 X10^3/uL; Eosinophils% 2.3 % (0-5); Hematocrit 34.9 % (40-54); Hemoglobin 11.6 g/dl (13.0-16.5); Lymphocyte # 1.24 X10^3/ul (4.0); Lymphocyte % 13.7 % (19-41); Mean Corp Hgb Conc 33.2 g/gl (32-36); Mean Corpuscular Hgb 34.7 pg (27.0-32.0); Mean Corpuscular Volume 104.5 fL (80-94); Mean Platelet Vol. 9.2 fl (6.2-12.0); Monocyte# 1.74 X10^3/uL; Monocyte% 19.2 % (0-10); Neutrophil % 64.1 % (47-70); Platelet Count 340 K/mm3 (150-450); RBC Distribution Width CV 13.4 % (11.6-14.6); Red Blood Count 3.34 M/mm3 (4.6-6.2); White Blood Count 9.1 K/mm3 (4.4-11.0)
[2017-11-17 04:37] LABS: Anion Gap 7 (5-15); BUN 4 mg/dL (7-18); BUN/Creat Ratio 9.5 RATIO (10-20); Calcium,Total 7.8 mg/dL (8.5-10.1); Chloride 110 mmol/L (98-107); Creatinine, Serum 0.42 mg/dL (0.70-1.30); EST Glomerular Filtration Rate 229 mL/min (>60); Est Glom Filt Rate - Afr Amer 278 mL/min (>60); Glucose 115 mg/dL (74-106); Potassium 3.2 mmol/L (3.5-5.1); Sodium Level 143 mmol/L (136-145)
[2017-11-17 04:43] LABS: Differential Indicated SCAN CRITERIA MET; POSITIVE COUNT NO; POSITIVE DIFFERENTIAL YES; POSITIVE MORPHOLOGY NO
[2017-11-17] MEDS: LORazepam 2 MG/ML Syringe IV ×3 (04:48→12:21)
[2017-11-17] MEDS: Acetaminophen 650 MG/20 ML UDC GT ×2 (05:52→21:59)
[2017-11-17] MEDS: 0.9% Normal Saline 1,000 ML 100 ML IV ×2 (05:53→18:10)
[2017-11-17 06:01] LABS: Bedside Glucose 119 mg/dL (70-110)
--- NOTE | 2017-11-17 06:22 | PCM.PN.INT ---
Subjective: Patient did okay overnight. Patient has been febrile, but no hemodynamic instability is been reported. Patient did have a spontaneous awakening trial this morning, but after 30 minutes became severely agitated. Patient is tolerating tube feeds, but has had no bowel movements. Patient is not following commands my evaluation, but does open his eyes quickly with verbal stimuli. General: - - RASS -2. Improve synchrony. Diaphoretic. Appears older than stated age. HEENT: Atraumatic, PERRLA, EOMI, Normocephalic, - - No scleral icterus or injection noted. Oral: Moist Mucosa, No Gingival or Mucosal Lesions/ Ulcerations Neck: Supple, No JVD, No Nodes, Trachea Midline Lungs: No wheeze, No rales, Diminished, Rhonchi - Scattered, - - Symmetric expansion. No dullness to percussion. Cardiovascular: Regular rate, Regular Rhythm, Normal S1, Normal S2, No murmurs, No rub noted, No Gallop Abdomen: Bowel Sounds Present, Soft, Non Tender, Non-Distended Extremities: No clubbing, No cyanosis, No edema, Capillary Refill Less than 3 Seconds Skin: No rashes, No breakdown Musculoskeletal: No Tenderness to Palpation of Joints or Extremities Lymphatic: No Cervical, Supraclavicular, or Inguinal Adenopathy Neurological: Cranial nerves II-XII grossly intact, Neuro grossly intact, - - Positive gag and cough reflexes. Psych/Mental Status: Anxious, Restless Vital Signs Temp Pulse Resp BP Pulse Ox 38.5 C H 77 16 98/63 98 11/17/17 06:00 11/17/17 06:00 11/17/17 06:00 11/17/17 06:00 11/17/17 06:00 Oxygen Delivery Method Mechanical Ventilator Weight: 70.9 kg Body Mass Index (BMI) 23.8 Intake and Output for Last 24 Hours 11/15/17 11/16/17 11/17/17 23:59 23:59 23:59 Intake Total 3337 / 3337 5299.7 / 5299.7 1524 / 1524 Output Total 2300 / 2300 2425 / 2425 600 / 600 Balance 1037 / 1037 2874.7 / 2874.7 924 / 924 Labs (Last 48 Hours) 11/16/17 11/16/17 11/16/17 05:00 17:31 23:23 WBC RBC Hgb Hct MCV MCH MCHC RDW RDW Differential Plt Count MPV Immature Gran % (Auto) Neut % (Auto) Lymph % (Auto) [place] % (Auto) Eos % (Auto) Baso % (Auto) Absolute Neuts (auto) Absolute Lymphs (auto) Total Counted Differential Comment Sodium 144 Potassium 4.0 Chloride 110 H Carbon Dioxide 27.0 Anion Gap 7 BUN 4 L Creatinine 0.56 L Estim Creat Clear Calc 156.07 Est GFR (MDRD) Af Amer 198 Est GFR (MDRD) Non-Af 164 BUN/Creatinine Ratio 7.1 L Glucose 97 Calcium 8.5 Phosphorus 3.0 Magnesium 2.2 POC Glucose 98 110 11/17/17 11/17/17 11/17/17 04:10 04:10 05:48 WBC 9.1 RBC 3.34 L Hgb 11.6 L Hct 34.9 L MCV 104.5 H MCH 34.7 H MCHC 33.2 RDW 13.4 RDW Differential 50.0 H Plt Count 340 MPV 9.2 Immature Gran % (Auto) 0.300 Neut % (Auto) 64.1 Lymph % (Auto) 13.[address] [place] % (Auto) 19.2 H Eos % (Auto) 2.3 Baso % (Auto) 0.4 Absolute Neuts (auto) 5.8 Absolute Lymphs (auto) 1.24 Total Counted Not Reportable Differential Comment Sodium 143 Potassium 3.2 L Chloride 110 H Carbon Dioxide 26.0 Anion Gap 7 BUN 4 L Creatinine 0.42 L Estim Creat Clear Calc 208.10 Est GFR (MDRD) Af Amer 278 Est GFR (MDRD) Non-Af 229 BUN/Creatinine Ratio 9.5 L Glucose 115 H Calcium 7.8 L Phosphorus Magnesium POC Glucose 119 H Microbiology 11/15/17 22:10 Sputum, Induced/Lukens Gram Stain - Final 11/15/17 06:25 Sputum, Induced/Lukens Gram Stain - Final 11/15/17 06:25 Sputum, Induced/Lukens Respiratory Culture - Preliminary Appears to be normal respiratory rishi. Further studies to follow. Clinical Impression(s) from Imaging Studies Chest X-Ray 11/16/17 05:00 IMPRESSION: No pulmonary infiltrates or effusion. Electronically Signed: Sam Hancock DO at 9:24 EDT Tel [phone], Service support , Medical Necessity - Tobacco Use Smoking Status: Current every day smoker Tobacco Use: Cigarettes Assessment/Plan Active and Suspected Problems Delirium tremens (Suspected) Acute respiratory failure (Acute) Schizophrenia, chronic with acute exacerbation (Suspected) RECOMMENDATIONS: 1. Titrate up risperidone as tolerated 2. Observe for DTs 3. Spontaneous breathing and awakening trials as indicated 4. Possible need for Precedex to facilitate extubation 5. Replete potassium, possible Lasix later today given increased fluid status 6. Repeat chest x-ray IMPRESSIONS: 1. Possible delirium tremens Family is supporting reports the patient does drink alcohol in excess. Unfortunately, they are unable to quantify intake. Unknown last drink. Unclear if patient is using alcohol to treat underlying schizophrenia. Patient remains on propofol, Ativan and fentanyl was added yesterday. Patient appears to be tolerating spontaneous awakening trial better, but still has not been able to have a spontaneous breathing trial. 2. Acute respiratory failure Patient required intubation secondary to airway protection. Patient had received significant amounts of sedation in an attempt to control behavior. Nursing has reported increased secretions, but patient's oxygenation remained stable. Will obtain a chest x-ray. Patient does not have any leukocytosis to suggest a ventilator associated infection. Clinical suspicion for increased secretions secondary to increased sympathetic tone. Hold on antibiotics for now. Previous sputum cultures come back with only normal rishi. 3. Reported schizophrenia Patient was having active hallucinations when picked up and brought to the emergency room. Patient's mother is reporting that he has been on Seroquel 300 mg nightly previously, along with trazodone. Patient also reportedly was on Librium. Unable to find a psychiatrist of record. Patient is being initiated on risperidone therapy. 4. Fever Exact etiology is unclear at this time. Sputum cultures have yielded only normal rishi. Patient is not having any leukocytosis. Clinical suspicion for drug fever versus withdrawal. No infectious source noted at this time. Patient does not have any invasive lines. If fever were to persist, evaluation for possible DVT be appropriate. No diarrhea has been reported. TIME: 44 minutes of critical care time spent addressing patient's possible DTs, acute respiratory failure, review of all data and collaboration with care team. (5:30 AM to 6:30 AM) Code Visit 9xxxx: [id number] Critical care first hour
--- NOTE | 2017-11-17 06:30 | RAD_ITS ---
STUDY: X-RAY CHEST REASON FOR EXAM: Male, 47 years old. Fever TECHNIQUE: Single frontal view COMPARISON: November 16, 2017 FINDINGS: Endotracheal tube with tip 47 mm above the milagros. Nasogastric tube extends into the stomach. The lungs are clear and expanded. Mild left basilar atelectasis.Mild right basilar interstitial prominence medially. Normal size heart. Normal mediastinum and pavan. Normal visualized pulmonary arteries. Normal visualized aortic arch and descending thoracic aorta. Normal visualized thoracic spine. Old right clavicular fracture. There is no demonstrated abnormality of the visualized soft tissue structures of the upper abdomen. RAD/Chest 1 View (Portable) IMPRESSION: Mild left basilar atelectasis. Mild right basilar interstitial prominence. Electronically Signed: Sam Hancock DO at 9:29 EDT Tel [phone], Service support ,
--- NOTE | 2017-11-17 08:01 | PN_ITS ---
Patient Problems: Active and Suspected Problems Delirium tremens (Suspected) Acute respiratory failure (Acute) Schizophrenia, chronic with acute exacerbation (Suspected) Subjective: Patient was seen and examined. Remains sedated and intubated. On fentanyl and propofol drip. Attempt at spontaneous awakening trial lasted 30mins compared to previous 8 mins the dy prior. He failed and became very agitated. Been febrile the whole night. CXR shows no infiltrates. Tube feeds are ongoing. Objective: Physical exam: General: Intubated and sedated, not pale of jaundiced HEENT: Atraumatic, PERRLA, EOMI, Normocephalic, Oral: Moist Mucosa, No Gingival or Mucosal Lesions/ Ulcerations, Neck: Supple, No JVD, No Nodes, Trachea Midline Lungs: Clear to auscultation, Normal air movement, No rhonchi, No wheeze, No rales, - - Symmetric expansion. No dullness to percussion. Cardiovascular: Regular rate, Regular Rhythm, Normal S1, Normal S2, No murmurs, No rub noted, No Gallop Abdomen: Bowel Sounds Present, Soft, Non Tender, Non-Distended Extremities: No edema, Capillary Refill Less than 3 Seconds Skin: No rashes, No breakdown Musculoskeletal: No Tenderness to Palpation of Joints or Extremities Lymphatic: No Cervical, Supraclavicular, or Inguinal Adenopathy Neurological: Sedated Vitals/I&O's: Vital Signs Temp Pulse Resp BP Pulse Ox 100.5 F H 74 16 95/62 98 11/17/17 07:00 11/17/17 07:25 11/17/17 07:25 11/17/17 07:00 11/17/17 07:25 Oxygen Delivery Method Mechanical Ventilator Weight: 70.9 kg Body Mass Index (BMI) 23.8 Intake and Output for Last 24 Hours 11/15/17 11/16/17 11/17/17 23:59 23:59 23:59 Intake Total 3337 / 3337 5299.7 / 5299.7 1524 / 1524 Output Total 2300 / 2300 2425 / 2425 600 / 600 Balance 1037 / 1037 2874.7 / 2874.7 924 / 924 Microbiology Past 72 Hours 11/15/17 22:10 Sputum, Induced/Lukens Gram Stain - Final 11/15/17 06:25 Sputum, Induced/Lukens Gram Stain - Final 11/15/17 06:25 Sputum, Induced/Lukens Respiratory Culture - Preliminary Appears to be normal respiratory rishi. Further studies to follow. Laboratory Results 11/16/17 17:31: POC Glucose 98 11/16/17 23:23: POC Glucose 110 11/17/17 04:10: WBC 9.1, RBC 3.34 L, Hgb 11.6 L, Hct 34.9 L, MCV 104.5 H, MCH 34.7 H, MCHC 33.2, RDW 13.4, RDW Differential 50.0 H, Plt Count 340, MPV 9.2, Immature Gran % (Auto) 0.300, Neut % (Auto) 64.1, Lymph % (Auto) 13.7 L, [place] % (Auto) 19.2 H, Eos % (Auto) 2.3, Baso % (Auto) 0.4, Absolute Neuts (auto) 5.8, Absolute Lymphs (auto) 1.24, Total Counted Not Reportable, Differential Comment 11/17/17 04:10: Sodium 143, Potassium 3.2 L, Chloride 110 H, Carbon Dioxide 26.0 , Anion Gap 7, BUN 4 L, Creatinine 0.42 L, Estim Creat Clear Calc 208.10, Est GFR (MDRD) Af Amer 278, Est GFR (MDRD) Non-Af 229, BUN/Creatinine Ratio 9.5 L, Glucose 115 H, Calcium 7.8 L 11/17/17 05:48: POC Glucose 119 H Current Medications Acetaminophen (Tylenol Liquid) 650 mg GT Q6H PRN PRN PRN Reason: fever/pain Last Admin: 11/17/17 05:52 Dose: 650 mg Albuterol Sulfate (Ventolin Aerosols) 2.5 mg INHALATION Q2H PRN PRN PRN Reason: SHORTNESS OF BREATH Albuterol Sulfate (Ventolin Aerosols) 2.5 mg INHALATION Q4H.RT [facility] Last Admin: 11/17/17 07:26 Dose: 2.5 mg Chlorhexidine Gluconate () 15 ml PO BID [facility] Last Admin: 11/16/17 21:19 Dose: 15 ml Chlorhexidine Gluconate () 1 each TOPICAL DAILY [facility] Last Admin: 11/17/17 02:31 Dose: 1 each Enoxaparin Sodium (Lovenox) 40 mg SC DAILY@1000 [facility] Last Admin: 11/16/17 10:34 Dose: 40 mg Famotidine (Pepcid) 20 mg GT BID [facility] Last Admin: 11/16/17 21:19 Dose: 20 mg Sodium Chloride () 1,000 mls @ 100 mls/hr IV .Q10H [facility] Last Admin: 11/17/17 05:53 Dose: 100 mls/hr Sodium Chloride () 250 mls @ 15 mls/hr IV .[id number] PRN PRN Reason: SALINE FLUSH Propofol (Diprivan) 1,000 mg in 100 mls @ 2.136 mls/hr CONT INF .Q12H [facility]; 5 MCG/KG/MIN PRN Reason: Protocol Last Admin: 11/17/17 02:31 Dose: 2.136 mls/hr Enteral Nutritional Formula (Vital Af 1.2 James Liquid) 1,000 mls @ 60 mls/hr GT .[id number] [facility] Last Admin: 11/17/17 00:08 Dose: Not Given Fentanyl () 100 mls @ 5 mls/hr IV .Q20H [facility] Last Admin: 11/16/17 23:47 Dose: 5 mls/hr Lorazepam (Ativan) 2 mg IV Q2H PRN PRN PRN Reason: AGITATION Last Admin: 11/17/17 04:48 Dose: 2 mg Magnesium Hydroxide (Milk Of Magnesia) 30 ml GT DAILY PRN PRN PRN Reason: Constipation Polyethylene Glycol (Miralax) 17 gm GT BID [facility] Potassium Bicarb/Potassium Chloride (Potassium Chl 25 Meq Eff (For Liquid)) [facility] Stop: 11/17/17 17:01 Risperidone (Risperdal) 1.5 mg PO BID [facility] Sodium Chloride () 5 - 30 ml IV UD PRN PRN Reason: SALINE FLUSH Last Admin: 11/17/17 04:27 Dose: 20 ml Medical Necessity - Tobacco Use Smoking Status: Current every day smoker Tobacco Use: Cigarettes Assessment/Plan Active and Suspected Problems Delirium tremens (Suspected) Acute respiratory failure (Acute) Schizophrenia, chronic with acute exacerbation (Suspected) 47-year-old male with chronic alcohol dependence comes in with delusions, worsening confusion and concern for delirium tremens. Patient was brought in with paranoid delusions/hallucinations. He was reported to be defecating and urinating all over. He was reported treated with antipsychotic, benzodiazepines with no improvements. He was tachycardic and diaphoretic with worsening hallucinations. He was intubated and admitted to ICU. 1. Fever, unclear etiology, no source of infection, not likely due to neuroleptic malignant syndrome, may be medication-related vs atelectasis, will get blood cultures, CXR negative for infiltrates, will continue to monitor. 2. Status post intubated for airway protection, remains on mechanical ventilation, failed spontaneous awakening trials, on fentanyl and propofol, java j2ee technical lead following. 3. possible delirium tremens, remains sedated, no electrolyte imbalances, java j2ee technical lead following, on ativan prn 4. history of schizophrenia, with agitation, on increased dose of risperdal 4. DVT PPx - Lovenox SC Code Visit Inpatient E&M: 34054 Subs Hosp L2
[2017-11-17] MEDS: Enoxaparin 40 MG/0.4 ML Syringe SC (10:18)
[2017-11-17] MEDS: Chlorhexidine 15 ML PO ×2 (10:18→21:50)
[2017-11-17] MEDS: Polyethylene Glycol 3350 17 GM PACKET GT ×2 (10:19→21:49)
[2017-11-17] MEDS: RisperiDONE 0.5 MG Tablet 1.5 MG PO ×2 (10:20→21:50)
[2017-11-17] MEDS: Famotidine 20 MG Tablet GT ×2 (10:24→21:49)
[2017-11-17] MEDS: Vital AF 1.2 Cal Liquid 1,000 ML 60 ML GT (10:36)
[2017-11-17 12:11] LABS: Bedside Glucose 105 mg/dL (70-110)
--- NOTE | 2017-11-17 19:02 | NURSING ---
charting completed by others reviewed.
[2017-11-17 19:06] LABS: Bedside Glucose 94 mg/dL (70-110)
[2017-11-18] VITALS (40 sets, daily range): BP systolic 91–132; BP diastolic 60–86; PULSE 59–100; RESP 16–22; TEMP 37.3–38.4; O2SAT 97–100
[2017-11-18 00:26] LABS: Bedside Glucose 114 mg/dL (70-110)
[2017-11-18] MEDS: Albuterol 2.5 MG/3 ML VIAL.NEB. INHALATION ×4 (01:16→18:27)
[2017-11-18] MEDS: Propofol 10MG/Ml 1,000 MG/100 ML Bottle 2.136 MG CONT INF ×5 (02:56→21:17)
[2017-11-18] MEDS: CHLORHEXIDINE GLUC 2% CLOTH 1 EACH TOWELETTE TOPICAL (03:08)
[2017-11-18] MEDS: LORazepam 2 MG/ML Syringe IV ×3 (04:41→23:26)
[2017-11-18] MEDS: 0.9% NaCl Peripheral Flush Adult/Peds IV ×4 (04:48→23:26)
[2017-11-18] MEDS: Vital AF 1.2 Cal Liquid 1,000 ML 60 ML GT ×2 (05:17→23:26)
[2017-11-18 05:20] LABS: Bedside Glucose 92 mg/dL (70-110)
[2017-11-18 05:26] LABS: Anion Gap 8 (5-15); BUN 5 mg/dL (7-18); BUN/Creat Ratio 10.6 RATIO (10-20); Calcium,Total 8.5 mg/dL (8.5-10.1); Chloride 110 mmol/L (98-107); Creatinine, Serum 0.47 mg/dL (0.70-1.30); EST Glomerular Filtration Rate 201 mL/min (>60); Est Glom Filt Rate - Afr Amer 243 mL/min (>60); Estimated Creatinine Clearance 185.96 ml/min; Glucose 107 mg/dL (74-106); Potassium 3.9 mmol/L (3.5-5.1); Sodium Level 144 mmol/L (136-145)
[2017-11-18 05:27] LABS: Absolute Neutrophil Count 5.8 X10^3/uL (2.0-7.7); Basophil# 0.04 X10^3/uL; Basophil% 0.4 % (0-1); Eosinophil# 0.35 X10^3/uL; Eosinophils% 3.4 % (0-5); Hematocrit 36.9 % (40-54); Hemoglobin 12.1 g/dl (13.0-16.5); Lymphocyte % 17.4 % (19-41); Mean Corp Hgb Conc 32.8 g/gl (32-36); Mean Corpuscular Hgb 34.7 pg (27.0-32.0); Mean Corpuscular Volume 105.7 fL (80-94); Monocyte# 2.25 X10^3/uL; Monocyte% 21.8 % (0-10); Neutrophil # 5.84 X10^3/uL (2.7-7.7); Neutrophil % 56.6 % (47-70); Platelet Count 374 K/mm3 (150-450); RBC Distribution Width CV 13.6 % (11.6-14.6); RBC Distribution Width SD 51.4 fl (35.1-43.9); Red Blood Count 3.49 M/mm3 (4.6-6.2); White Blood Count 10.3 K/mm3 (4.4-11.0)
[2017-11-18 06:01] LABS: Differential Indicated SCAN CRITERIA MET; POSITIVE COUNT NO; POSITIVE DIFFERENTIAL YES; POSITIVE MORPHOLOGY NO
[2017-11-18 06:12] LABS: Differential Comment SCANNED
[2017-11-18] MEDS: Furosemide 20 MG/2 ML VIAL IV (06:25)
[2017-11-18] MEDS: levoFLOXacin IV 750 MG/150 ML BAG 100 MG IV (06:25)
[2017-11-18] MEDS: 0.9% NaCl IVPB Med Flush (250 mL) 15 ML IV (06:25)
--- NOTE | 2017-11-18 07:03 | PCM.PN.INT ---
Subjective: Patient did okay overnight. Nursing is reporting patient is following commands better than previously. Patient continues to spike fevers, but secretions have not changed. Patient was able to make it only 30 minutes on spontaneous awakening trial today prior to agitation leading to vent dyssynchrony. General: - - RASS -1 to +2. Fair vent synchrony noted. HEENT: Atraumatic, PERRLA, EOMI, Normocephalic, - - Light scleral injection without icterus Oral: Moist Mucosa, No Gingival or Mucosal Lesions/ Ulcerations Neck: Supple, No JVD, No Nodes, Trachea Midline Lungs: No rhonchi, No wheeze, No rales, Diminished, - - Check expansion. No dullness to percussion. Cardiovascular: Regular rate, Regular Rhythm, Normal S1, Normal S2, No murmurs, No rub noted, No Gallop Abdomen: Bowel Sounds Present, Soft, Non Tender, Non-Distended, - - Tolerating tube feeds Extremities: No clubbing, No cyanosis, No edema, Capillary Refill Less than 3 Seconds Skin: No rashes, No breakdown Musculoskeletal: No Tenderness to Palpation of Joints or Extremities Lymphatic: No Cervical, Supraclavicular, or Inguinal Adenopathy Neurological: Cranial nerves II-XII grossly intact, Neuro grossly intact, Motor Exam 5/5 strength throughout, - - Positive gag and cough reflexes. Psych/Mental Status: Anxious, Impulsive Vital Signs Temp Pulse Resp BP Pulse Ox 37.9 C H 69 16 104/68 99 11/18/17 06:00 11/18/17 06:00 11/18/17 06:00 11/18/17 06:00 11/18/17 06:00 Oxygen Delivery Method Mechanical Ventilator Weight: 76.5 kg Body Mass Index (BMI) 23.8 Intake and Output for Last 24 Hours 11/16/17 11/17/17 11/18/17 23:59 23:59 23:59 Intake Total 5299.7 / 5299.7 4677 / 4677 2650 / 2650 Output Total 2425 / 2425 1850 / 1850 1600 / 1600 Balance 2874.7 / 2874.7 2827 / 2827 1050 / 1050 Labs (Last 48 Hours) 11/16/17 11/16/17 11/17/17 17:31 23:23 04:10 WBC 9.1 RBC 3.34 L Hgb 11.6 L Hct 34.9 L MCV 104.5 H MCH 34.7 H MCHC 33.2 RDW 13.4 RDW Differential 50.0 H Plt Count 340 MPV 9.2 Immature Gran % (Auto) 0.300 Neut % (Auto) 64.1 Lymph % (Auto) 13.7 L [place] % (Auto) 19.2 H Eos % (Auto) 2.3 Baso % (Auto) 0.4 Absolute Neuts (auto) 5.8 Absolute Lymphs (auto) 1.24 Total Counted Not Reportable Differential Comment Sodium Potassium Chloride Carbon Dioxide Anion Gap BUN Creatinine Estim Creat Clear Calc Est GFR (MDRD) Af Amer Est GFR (MDRD) Non-Af BUN/Creatinine Ratio Glucose Calcium POC Glucose 98 110 11/17/17 11/17/17 11/17/17 04:10 05:48 11:45 WBC RBC Hgb Hct MCV MCH MCHC RDW RDW Differential Plt Count MPV Immature Gran % (Auto) Neut % (Auto) Lymph % (Auto) [place] % (Auto) Eos % (Auto) Baso % (Auto) Absolute Neuts (auto) Absolute Lymphs (auto) Total Counted Differential Comment Sodium 143 Potassium 3.2 L Chloride 110 H Carbon Dioxide 26.0 Anion Gap 7 BUN 4 L Creatinine 0.42 L Estim Creat Clear Calc 208.10 Est GFR (MDRD) Af Amer 278 Est GFR (MDRD) Non-Af 229 BUN/Creatinine Ratio 9.5 L Glucose 115 H Calcium 7.8 L POC Glucose 119 H 105 11/17/17 11/18/17 11/18/17 19:02 00:03 04:45 WBC 10.3 RBC 3.49 L Hgb 12.1 L Hct 36.9 L MCV 105.7 H MCH 34.7 H MCHC 32.8 RDW 13.6 RDW Differential 51.4 H Plt Count 374 MPV 10.0 Immature Gran % (Auto) 0.400 Neut % (Auto) 56.6 Lymph % (Auto) 17.4 L [place] % (Auto) 21.8 H Eos % (Auto) 3.4 Baso % (Auto) 0.4 Absolute Neuts (auto) 5.8 Absolute Lymphs (auto) 1.80 Total Counted Not Reportable Differential Comment SCANNED Sodium Potassium Chloride Carbon Dioxide Anion Gap BUN Creatinine Estim Creat Clear Calc Est GFR (MDRD) Af Amer Est GFR (MDRD) Non-Af BUN/Creatinine Ratio Glucose Calcium POC Glucose 94 114 H 11/18/17 11/18/17 04:45 05:05 WBC RBC Hgb Hct MCV MCH MCHC RDW RDW Differential Plt Count MPV Immature Gran % (Auto) Neut % (Auto) Lymph % (Auto) [place] % (Auto) Eos % (Auto) Baso % (Auto) Absolute Neuts (auto) Absolute Lymphs (auto) Total Counted Differential Comment Sodium 144 Potassium 3.9 Chloride 110 H Carbon Dioxide 26.0 Anion Gap 8 BUN 5 L Creatinine 0.47 L Estim Creat Clear Calc 185.96 Est GFR (MDRD) Af Amer 243 Est GFR (MDRD) Non-Af 201 BUN/Creatinine Ratio 10.6 Glucose 107 H Calcium 8.5 POC Glucose 92 Microbiology 11/15/17 22:10 Sputum, Induced/Lukens Gram Stain - Final 11/15/17 22:10 Sputum, Induced/Lukens Respiratory Culture - Preliminary Gram negative cocco bacillus Gram negative diplococci 11/15/17 06:25 Sputum, Induced/Lukens Gram Stain - Final 11/15/17 06:25 Sputum, Induced/Lukens Respiratory Culture - Final Mixed normal respiratory rishi. No Haemophilus, Streptococcus pneumoniae, beta-hemolytic Streptococcus or Staphylococcus aureus isolated. Clinical Impression(s) from Imaging Studies Chest X-Ray 11/17/17 06:30 IMPRESSION: Mild left basilar atelectasis. Mild right basilar interstitial prominence. Electronically Signed: Sam Hancock DO at 9:29 EDT Tel [phone], Service support , Medical Necessity - Tobacco Use Smoking Status: Current every day smoker Tobacco Use: Cigarettes Assessment/Plan Active and Suspected Problems Delirium tremens (Suspected) Acute respiratory failure (Acute) Schizophrenia, chronic with acute exacerbation (Suspected) RECOMMENDATIONS: 1. Continue with current dose of risperidone 2. Possible transition to Precedex in 24 hours 3. Spontaneous breathing and awakening trials as indicated 4. Dose with Lasix given positive fluid status 5. Replete potassium, possible Lasix later today given increased fluid status 6. Empiric antibiotics until culture of sputum resulted IMPRESSIONS: 1. Possible delirium tremens Family is supporting reports the patient does drink alcohol in excess. Unfortunately, they are unable to quantify intake. Unknown last drink. Unclear if patient is using alcohol to treat underlying schizophrenia. Patient remains on propofol, Ativan and fentanyl. Patient appears to be tolerating spontaneous awakening trial better, but still has not been able to have a spontaneous breathing trial. Patient has required only 1 dose of IV Ativan over the last 24 hours, which is a significant improvement from previous. Possible transition to Precedex therapy tomorrow to facilitate liberation from the ventilator if continues to improve. 2. Acute respiratory failure Patient required intubation secondary to airway protection. Patient had received significant amounts of sedation in an attempt to control behavior. Nursing has reported increased secretions initially, but patient's oxygenation remained stable. X-ray completed yesterday was relatively unremarkable. Patient does not have any leukocytosis to suggest a ventilator associated infection. Clinical suspicion for increased secretions secondary to increased sympathetic tone. Recent sputum culture does have a positive Gram stain. It is unclear if this is just normal rishi. However, given persistent fevers, will initiate empiric Levaquin therapy until culture resulted. Previous sputum cultures have come back with only normal rishi. 3. Reported schizophrenia Patient was having active hallucinations when picked up and brought to the emergency room. Patient's mother is reporting that he has been on Seroquel 300 mg nightly previously, along with trazodone. Patient also reportedly was on Librium. None of these medications were continued reportedly because mother thought they were temporary. Unable to find a psychiatrist of record. Patient is currently on risperidone therapy and moderate dosing. 4. Fever Exact etiology is unclear at this time. Sputum cultures have yielded only normal rishi. Patient is not having any leukocytosis. Clinical suspicion for drug fever versus withdrawal. Sputum Gram stain is now showing organisms. Empiric antibiotics have been initiated.. Patient does not have any invasive lines. If fever were to persist, evaluation for possible DVT be appropriate. No diarrhea has been reported. TIME: 32 minutes of critical care time spent addressing patient's possible DTs, acute respiratory failure, review of all data and collaboration with care team. (5:30 AM to 6:30 AM) Code Visit 9xxxx: [id number] Critical care first hour
[2017-11-18] MEDS: Chlorhexidine 15 ML PO ×2 (07:45→21:15)
[2017-11-18] MEDS: Enoxaparin 40 MG/0.4 ML Syringe SC (09:38)
[2017-11-18] MEDS: Famotidine 20 MG Tablet GT ×2 (09:38→21:16)
[2017-11-18] MEDS: RisperiDONE 0.5 MG Tablet 1.5 MG GT (09:39)
[2017-11-18] MEDS: Magnesium Citrate 300 ML 150 ML GT ×2 (11:36→14:01)
[2017-11-18 12:26] LABS: Bedside Glucose 103 mg/dL (70-110)
[2017-11-18] MEDS: RisperiDONE 0.5 MG Tablet GT (12:40)
--- NOTE | 2017-11-18 17:45 | PCM.PROGNOTE ---
Patient Problems: Active and Suspected Problems Delirium tremens (Suspected) Acute respiratory failure (Acute) Schizophrenia, chronic with acute exacerbation (Suspected) Subjective: Patient was seen and examined today, he remains on the ventilator, sputum culture grew out Haemophilus influenza and Moraxella. Patient is now on Levaquin, I talked to pulmonary medicine briefly about his care today, patient is unable to follow spontaneous breathing trial according to pulmonary medicine. - Physical Exam General: No apparent distress HEENT: Atraumatic, PERRLA, EOMI, Normocephalic Oral: Moist Mucosa Neck: Supple, No JVD, No Nuchal Rigidity, Trachea Midline, Thyroid Normal Size and Texture Lungs: Clear to auscultation, Normal air movement, No rales, Wheezes - Scattered expiratory wheezes are noted bilaterally Cardiovascular: Regular rate, Regular Rhythm, Normal S1, Normal S2, No murmurs, No Ectopic Activity, PMI Normal, No rub noted, No Gallop Abdomen: Bowel Sounds Present, Soft, Non Tender, Non-Distended, No hernias noted Extremities: No clubbing, No cyanosis, No edema, Capillary Refill Less than 3 Seconds Skin: No rashes, No breakdown Musculoskeletal: No Tenderness to Palpation of Joints or Extremities Neurological: Cranial nerves II-XII grossly intact, - - Is sedated and on the ventilator Psych/Mental Status: - - Patient is sedated and on the ventilator Vital Signs Temp Pulse Resp BP Pulse Ox 100.3 F H 71 16 118/84 H 99 11/18/17 16:00 11/18/17 17:10 11/18/17 17:10 11/18/17 16:00 11/18/17 17:10 Oxygen Delivery Method Mechanical Ventilator Weight: 76.5 kg Body Mass Index (BMI) 23.8 Intake and Output for Last 24 Hours 11/16/17 11/17/17 11/18/17 23:59 23:59 23:59 Intake Total 5299.7 / 5299.7 4677 / 4677 4197 / 4197 Output Total 2425 / 2425 1850 / 1850 3400 / 3400 Balance 2874.7 / 2874.7 2827 / 2827 797 / 797 Microbiology Past 72 Hours 11/15/17 22:10 Gram Stain - Final Sputum, Induced/Lukens Respiratory Culture - Final Haemophilus influenzae Moraxella(Cher.)Catarrhalis 11/15/17 06:25 Gram Stain - Final Sputum, Induced/Lukens Respiratory Culture - Final Mixed normal respiratory rishi. No Haemophilus, Streptococcus pneumoniae, beta-hemolytic Streptococcus or Staphylococcus aureus isolated. Laboratory Tests Past 24 Hrs 11/18/17 11/18/17 04:45 04:45 WBC 10.3 RBC 3.49 L Hgb 12.1 L Hct 36.9 L MCV 105.7 H MCH 34.7 H MCHC 32.8 RDW 13.6 RDW Differential 51.4 H Plt Count 374 MPV 10.0 Immature Gran % (Auto) 0.400 Neut % (Auto) 56.6 Lymph % (Auto) 17.4 L [place] % (Auto) 21.8 H Eos % (Auto) 3.4 Baso % (Auto) 0.4 Absolute Neuts (auto) 5.8 Absolute Lymphs (auto) 1.80 Total Counted Not Reportable Differential Comment SCANNED Sodium 144 Potassium 3.9 Chloride 110 H Carbon Dioxide 26.0 Anion Gap 8 BUN 5 L Creatinine 0.47 L Estim Creat Clear Calc 185.96 Est GFR (MDRD) Af Amer 243 Est GFR (MDRD) Non-Af 201 BUN/Creatinine Ratio 10.6 Glucose 107 H Calcium 8.5 POC Glucose 11/18/17 11/18/17 11/18/17 12:23 05:05 00:03 POC Glucose 103 92 114 H 11/17/17 19:02 POC Glucose 94 Medical Necessity - Tobacco Use Smoking Status: Current every day smoker Tobacco Use: Cigarettes Assessment/Plan Active and Suspected Problems Delirium tremens (Suspected) Acute respiratory failure (Acute) Schizophrenia, chronic with acute exacerbation (Suspected) #1 possible delirium tremens-patient remains sedated on the ventilator at this time, pulmonary medicine is participating in his care #2 mechanical ventilation secondary to airway protection #3 history of schizophrenia #4 community-acquired pneumonia-right lower lobe- Haemophilus influenza and Moraxella, day #1 Levaquin, not detected on admission Code Visit Inpatient E&M: 89350 Subs Hosp L2
[2017-11-18 18:31] LABS: Bedside Glucose 99 mg/dL (70-110)
--- NOTE | 2017-11-18 19:04 | NURSING ---
henry Arana's charting and agree with assessments
[2017-11-18] MEDS: RisperiDONE 0.5 MG Tablet 2 MG GT (21:16)
[2017-11-18] MEDS: Acetaminophen 650 MG/20 ML UDC GT (21:16)
[2017-11-19] VITALS (34 sets, daily range): BP systolic 89–169; BP diastolic 60–106; PULSE 60–105; RESP 16–34; TEMP 37.1–38.6; O2SAT 97–100
[2017-11-19] MEDS: Albuterol 2.5 MG/3 ML VIAL.NEB. INHALATION ×4 (00:20→19:06)
[2017-11-19 00:51] LABS: Bedside Glucose 97 mg/dL (70-110)
[2017-11-19] MEDS: CHLORHEXIDINE GLUC 2% CLOTH 1 EACH TOWELETTE TOPICAL (01:53)
[2017-11-19] MEDS: Propofol 10MG/Ml 1,000 MG/100 ML Bottle 2.136 MG CONT INF (01:54)
[2017-11-19] MEDS: 0.9% NaCl Peripheral Flush Adult/Peds IV ×2 (04:44→10:32)
[2017-11-19 05:03] LABS: Absolute Lymphocyte Count 1.45 X10^3/ul (0.83-4.51); Absolute Neutrophil Count 5.1 X10^3/uL (2.0-7.7); Basophil# 0.08 X10^3/uL; Basophil% 0.9 % (0-1); Eosinophil# 0.38 X10^3/uL; Eosinophils% 4.4 % (0-5); Hematocrit 37.1 % (40-54); Hemoglobin 12.1 g/dl (13.0-16.5); Lymphocyte # 1.45 X10^3/ul (4.0); Lymphocyte % 16.8 % (19-41); Mean Corp Hgb Conc 32.6 g/gl (32-36); Mean Corpuscular Hgb 34.4 pg (27.0-32.0); Mean Corpuscular Volume 105.4 fL (80-94); Mean Platelet Vol. 9.5 fl (6.2-12.0); Monocyte# 1.59 X10^3/uL; Monocyte% 18.4 % (0-10); Neutrophil # 5.13 X10^3/uL (2.7-7.7); Neutrophil % 59.3 % (47-70); Platelet Count 414 K/mm3 (150-450); RBC Distribution Width CV 13.5 % (11.6-14.6); RBC Distribution Width SD 51.3 fl (35.1-43.9); Red Blood Count 3.52 M/mm3 (4.6-6.2); White Blood Count 8.7 K/mm3 (4.4-11.0)
[2017-11-19 05:04] LABS: Differential Indicated SCAN CRITERIA MET; POSITIVE COUNT NO; POSITIVE DIFFERENTIAL YES; POSITIVE MORPHOLOGY NO
[2017-11-19 05:12] LABS: Anion Gap 8 (5-15); BUN 8 mg/dL (7-18); BUN/Creat Ratio 17.9 RATIO (10-20); Calcium,Total 8.6 mg/dL (8.5-10.1); Chloride 106 mmol/L (98-107); Creatinine, Serum 0.45 mg/dL (0.70-1.30); EST Glomerular Filtration Rate 214 mL/min (>60); Est Glom Filt Rate - Afr Amer 259 mL/min (>60); Estimated Creatinine Clearance 194.22 ml/min; Glucose 113 mg/dL (74-106); Sodium Level 144 mmol/L (136-145)
[2017-11-19 05:26] LABS: Bedside Glucose 115 mg/dL (70-110)
--- NOTE | 2017-11-19 06:50 | PN_ITS ---
Subjective: The patient was seen and examined at the bedside this morning. Events from the last 24 hours have been reviewed. The patient is currently febrile with a temperature of 101.4?F. He remains hemodynamically stable. He has been tolerant of CPAP this morning. Minimal secretions were noted by the nursing staff. The patient is alert and appropriately interactive. Objective: The patient's most recent lab work, culture data and imaging studies have all been personally reviewed. Sputum culture dated November 15 was positive for both Haemophilus influenza and Moraxella. Blood cultures are pending. General: Alert, Cooperative, - - Remains intubated. Currently tolerating CPAP mode mechanical ventilation. HEENT: Atraumatic, PERRLA, Normocephalic Oral: - - Endotracheal and OG tubes in place Neck: Supple, No Nodes, Trachea Midline Lungs: No rhonchi, No wheeze, No rales, Diminished Cardiovascular: Normal S1, Normal S2, No murmurs, Tachycardic - Mild Abdomen: Bowel Sounds Present, Soft, Non Tender, Non-Distended Extremities: No clubbing, No cyanosis, No edema Skin: No rashes, No breakdown Musculoskeletal: No Tenderness to Palpation of Joints or Extremities Lymphatic: No Cervical, Supraclavicular, or Inguinal Adenopathy Neurological: - - No focal neurological deficits. Moves all extremities spontaneously. Alert and following commands appropriately. Psych/Mental Status: Restless Vital Signs Temp Pulse Resp BP Pulse Ox 101.4 F H 98 25 H 149/93 H 99 11/19/17 06:00 11/19/17 06:00 11/19/17 06:00 11/19/17 06:00 11/19/17 06:00 Oxygen Delivery Method Mechanical Ventilator Weight: 165 lb 2.02 oz Body Mass Index (BMI) 23.8 Intake and Output for Last 24 Hours 11/17/17 11/18/17 11/19/17 23:59 23:59 23:59 Intake Total 4677 / 4677 5603 / 5603 1007 / 1007 Output Total 1850 / 1850 4650 / 4650 375 / 375 Balance 2827 / 2827 953 / 953 632 / 632 Labs (Last 48 Hours) 11/17/17 11/17/17 11/18/17 11:45 19:02 00:03 WBC RBC Hgb Hct MCV MCH MCHC RDW RDW Differential Plt Count MPV Immature Gran % (Auto) Neut % (Auto) Lymph % (Auto) [place] % (Auto) Eos % (Auto) Baso % (Auto) Absolute Neuts (auto) Absolute Lymphs (auto) Total Counted Differential Comment Sodium Potassium Chloride Carbon Dioxide Anion Gap BUN Creatinine Estim Creat Clear Calc Est GFR (MDRD) Af Amer Est GFR (MDRD) Non-Af BUN/Creatinine Ratio Glucose Calcium POC Glucose 105 94 114 H 11/18/17 11/18/17 11/18/17 04:45 04:45 05:05 WBC 10.3 RBC 3.49 L Hgb 12.1 L Hct 36.9 L MCV 105.7 H MCH 34.7 H MCHC 32.8 RDW 13.6 RDW Differential 51.4 H Plt Count 374 MPV 10.0 Immature Gran % (Auto) 0.400 Neut % (Auto) 56.6 Lymph % (Auto) 17.4 L [place] % (Auto) 21.8 H Eos % (Auto) 3.4 Baso % (Auto) 0.4 Absolute Neuts (auto) 5.8 Absolute Lymphs (auto) 1.80 Total Counted Not Reportable Differential Comment SCANNED Sodium 144 Potassium 3.9 Chloride 110 H Carbon Dioxide 26.0 Anion Gap 8 BUN 5 L Creatinine 0.47 L Estim Creat Clear Calc 185.96 Est GFR (MDRD) Af Amer 243 Est GFR (MDRD) Non-Af 201 BUN/Creatinine Ratio 10.6 Glucose 107 H Calcium 8.5 POC Glucose 92 11/18/17 11/18/17 11/19/17 12:23 18:24 00:46 WBC RBC Hgb Hct MCV MCH MCHC RDW RDW Differential Plt Count MPV Immature Gran % (Auto) Neut % (Auto) Lymph % (Auto) [place] % (Auto) Eos % (Auto) Baso % (Auto) Absolute Neuts (auto) Absolute Lymphs (auto) Total Counted Differential Comment Sodium Potassium Chloride Carbon Dioxide Anion Gap BUN Creatinine Estim Creat Clear Calc Est GFR (MDRD) Af Amer Est GFR (MDRD) Non-Af BUN/Creatinine Ratio Glucose Calcium POC Glucose 103 99 97 11/19/17 11/19/17 11/19/17 04:50 04:50 05:09 WBC 8.7 RBC 3.52 L Hgb 12.1 L Hct 37.1 L MCV 105.4 H MCH 34.4 H MCHC 32.6 RDW 13.5 RDW Differential 51.3 H Plt Count 414 MPV 9.5 Immature Gran % (Auto) 0.200 Neut % (Auto) 59.3 Lymph % (Auto) 16.8 L [place] % (Auto) 18.4 H Eos % (Auto) 4.4 Baso % (Auto) 0.9 Absolute Neuts (auto) 5.1 Absolute Lymphs (auto) 1.45 Total Counted Not Reportable Differential Comment Sodium 144 Potassium 4.0 Chloride 106 Carbon Dioxide 30.0 Anion Gap 8 BUN 8 Creatinine 0.45 L Estim Creat Clear Calc 194.22 Est GFR (MDRD) Af Amer 259 Est GFR (MDRD) Non-Af 214 BUN/Creatinine Ratio 17.9 Glucose 113 H Calcium 8.6 POC Glucose 115 H Microbiology 11/15/17 22:10 Sputum, Induced/Lukens Gram Stain - Final 11/15/17 22:10 Sputum, Induced/Lukens Respiratory Culture - Final Haemophilus influenzae Moraxella(Cher.)Catarrhalis 11/15/17 06:25 Sputum, Induced/Lukens Gram Stain - Final 11/15/17 06:25 Sputum, Induced/Lukens Respiratory Culture - Final Mixed normal respiratory rishi. No Haemophilus, Streptococcus pneumoniae, beta-hemolytic Streptococcus or Staphylococcus aureus isolated. Clinical Impression(s) from Imaging Studies Chest X-Ray 11/14/17 22:20 IMPRESSION: No acute pulmonary pathology. NG tube with sidehole at the GE junction. It should be expanded 4 cm further into the stomach. Electronically Signed: Sam Hancock DO at 22:44 EDT Tel [phone], Service support , Chest X-Ray 11/15/17 01:30 IMPRESSION: Endotracheal tube tip is now 3.4 cm from milagros, in appropriate position. Enteric tube tip is now in the fundus of the stomach. Electronically Signed: Tom Rios MD at 2:24 EDT Tel , Service support , Chest X-Ray 11/16/17 05:00 IMPRESSION: No pulmonary infiltrates or effusion. Electronically Signed: Sam Hancock DO at 9:24 EDT Tel [phone], Service support , Chest X-Ray 11/17/17 06:30 IMPRESSION: Mild left basilar atelectasis. Mild right basilar interstitial prominence. Electronically Signed: Sam Hancock DO at 9:29 EDT Tel [phone], Service support , Medical Necessity - Tobacco Use Smoking Status: Current every day smoker Tobacco Use: Cigarettes Assessment/Plan Active and Suspected Problems Delirium tremens (Suspected) Acute respiratory failure (Acute) Schizophrenia, chronic with acute exacerbation (Suspected) RECOMMENDATIONS: 1. Proceed with a trial of extubation 2. Once extubated, wean supplemental oxygen to maintain saturations at or above 90% 3. Perform bedside swallow evaluation. 4. Discontinue Ativan 5. Decreased dose of Risperdal 6. Continue antibiotics 7. Send urine for culture 8. Encourage incentive spirometer use and mobilize patient as tolerated IMPRESSIONS: 1. Possible delirium tremens Family is supporting reports the patient does drink alcohol in excess. Unfortunately, they are unable to quantify intake. Unknown last drink. Unclear if patient is using alcohol to treat underlying schizophrenia. The patient did require an initial heavy sedation, but this has been weaned. The patient passed a spontaneous breathing trial and is a candidate for extubation. Would plan to discontinue Ativan at this time. Will decrease the patient's Risperdal dose. 2. Acute respiratory failure Patient required intubation secondary to airway protection. Patient had received significant amounts of sedation in an attempt to control behavior. The patient has improved clinically and will be extubated accordingly. Would wean oxygen as tolerated and perform bedside swallow evaluation once extubated. 3. Haemophilus/Moraxella tracheobronchitis Continue antibiotics as ordered. Given persistent low-grade fevers, will also send urine for culture. 4. Reported schizophrenia Patient was having active hallucinations when picked up and brought to the emergency room. Patient's mother is reporting that he has been on Seroquel 300 mg nightly previously, along with trazodone. Patient also reportedly was on Librium. None of these medications were continued reportedly because mother thought they were temporary. Unable to find a psychiatrist of record. Patient is currently on risperidone therapy with plans to decrease dosing today. Plan for behavioral health evaluation once medically stable. TIME: 35 minutes of critical care time, independent of procedures, was spent addressing the patient's alcohol withdrawal/delirium tremens, acute respiratory failure, tracheobronchitis, suspected schizophrenia, review of all data and collaboration with the care team. ([id number]) Code Visit 9xxxx: [id number] Critical care first hour
[2017-11-19] MEDS: Enoxaparin 40 MG/0.4 ML Syringe SC (10:32)
[2017-11-19] MEDS: levoFLOXacin IV 750 MG/150 ML BAG 100 MG IV (10:32)
[2017-11-19] MEDS: Acetaminophen 650 MG Suppository RECTAL (13:46)
--- NOTE | 2017-11-19 16:16 | PCM.PROGNOTE ---
Patient Problems: Active and Suspected Problems Delirium tremens (Suspected) Acute respiratory failure (Acute) Schizophrenia, chronic with acute exacerbation (Suspected) Subjective: Seen and examined today, he was extubated earlier this morning he remains off the ventilator at this time - Physical Exam General: Alert, Oriented x3, Cooperative, No apparent distress, Well developed HEENT: Atraumatic, PERRLA, EOMI, Normocephalic Oral: Moist Mucosa Neck: Supple, No JVD, No Nuchal Rigidity, Trachea Midline, Thyroid Normal Size and Texture Lungs: Clear to auscultation, Normal air movement, No rhonchi, No wheeze, No rales Cardiovascular: Regular rate, Regular Rhythm, Normal S1, Normal S2, No murmurs, No Ectopic Activity Abdomen: Bowel Sounds Present, Soft, Non Tender, Non-Distended Extremities: No clubbing, No cyanosis, No edema, Capillary Refill Less than 3 Seconds Skin: No rashes, No breakdown Musculoskeletal: No Tenderness to Palpation of Joints or Extremities, No Muscle Wasting Neurological: Cranial nerves II-XII grossly intact, Neuro grossly intact, Sensory exam intact to light touch and pain, Coordination normal Psych/Mental Status: Normal Affect, Appropriate, - - Patient is alert and responds to simple questions appropriately Vital Signs Temp Pulse Resp BP Pulse Ox 100.6 F H 89 22 H 142/89 H 98 11/19/17 15:00 11/19/17 15:32 11/19/17 15:00 11/19/17 15:00 11/19/17 15:00 Oxygen Flow Rate (L/min) 2 Oxygen Delivery Method Room Air Weight: 74.9 kg Body Mass Index (BMI) 23.8 Intake and Output for Last 24 Hours 11/17/17 11/18/17 11/19/17 23:59 23:59 23:59 Intake Total 4677 / 4677 5603 / 5603 1215 / 1215 Output Total 1850 / 1850 4650 / 4650 1425 / 1425 Balance 2827 / 2827 953 / 953 -210 / -210 Microbiology Past 72 Hours 11/17/17 08:15 Blood Culture - Preliminary Blood Culture (Wb) - Left Hand No growth in 48 hours. 11/17/17 08:00 Blood Culture - Preliminary Blood Culture (Wb) - Femoral Artery No growth in 48 hours. 11/15/17 22:10 Gram Stain - Final Sputum, Induced/Lukens Respiratory Culture - Final Haemophilus influenzae Moraxella(Cher.)Catarrhalis 11/15/17 06:25 Gram Stain - Final Sputum, Induced/Lukens Respiratory Culture - Final Mixed normal respiratory rishi. No Haemophilus, Streptococcus pneumoniae, beta-hemolytic Streptococcus or Staphylococcus aureus isolated. Laboratory Tests Past 24 Hrs 11/19/17 11/19/17 04:50 04:50 WBC 8.7 RBC 3.52 L Hgb 12.1 L Hct 37.1 L MCV 105.4 H MCH 34.4 H MCHC 32.6 RDW 13.5 RDW Differential 51.3 H Plt Count 414 MPV 9.5 Immature Gran % (Auto) 0.200 Neut % (Auto) 59.3 Lymph % (Auto) 16.8 L [place] % (Auto) 18.4 H Eos % (Auto) 4.4 Baso % (Auto) 0.9 Absolute Neuts (auto) 5.1 Absolute Lymphs (auto) 1.45 Total Counted Not Reportable Sodium 144 Potassium 4.0 Chloride 106 Carbon Dioxide 30.0 Anion Gap 8 BUN 8 Creatinine 0.45 L Estim Creat Clear Calc 194.22 Est GFR (MDRD) Af Amer 259 Est GFR (MDRD) Non-Af 214 BUN/Creatinine Ratio 17.9 Glucose 113 H Calcium 8.6 POC Glucose 11/19/17 11/19/17 11/18/17 05:09 00:46 18:24 POC Glucose 115 H 97 99 Medical Necessity - Tobacco Use Smoking Status: Current every day smoker Tobacco Use: Cigarettes Assessment/Plan Active and Suspected Problems Delirium tremens (Suspected) Acute respiratory failure (Acute) Schizophrenia, chronic with acute exacerbation (Suspected) #1 possible delirium tremens-this appears to have resolved, patient will be seen by crisis intervention soon #2 mechanical ventilation secondary to airway protection- patient is now extubated #3 history of schizophrenia #4 community-acquired pneumonia-right lower lobe- Haemophilus influenza and Moraxella, day #2 Levaquin, not detected on admission, repeat chest x-ray tomorrow Code Visit Inpatient E&M: 07275 Subs Hosp L2
--- NOTE | 2017-11-19 18:56 | NURSING ---
reviewed Emile ruth RN charting and agree with assessments
[2017-11-20] VITALS (16 sets, daily range): BP systolic 111–151; BP diastolic 66–98; PULSE 65–89; RESP 11–32; TEMP 37–38.1; O2SAT 96–100
[2017-11-20 04:22] LABS: Absolute Lymphocyte Count 1.74 X10^3/ul (0.83-4.51); Absolute Neutrophil Count 4.9 X10^3/uL (2.0-7.7); Basophil# 0.09 X10^3/uL; Eosinophil# 0.33 X10^3/uL; Eosinophils% 3.7 % (0-5); Hematocrit 38.2 % (40-54); Hemoglobin 12.7 g/dl (13.0-16.5); Lymphocyte # 1.74 X10^3/ul (4.0); Lymphocyte % 19.6 % (19-41); Mean Corp Hgb Conc 33.2 g/gl (32-36); Mean Corpuscular Hgb 34.1 pg (27.0-32.0); Mean Corpuscular Volume 102.7 fL (80-94); Mean Platelet Vol. 9.3 fl (6.2-12.0); Monocyte# 1.76 X10^3/uL; Monocyte% 19.8 % (0-10); Neutrophil # 4.92 X10^3/uL (2.7-7.7); Neutrophil % 55.4 % (47-70); Platelet Count 457 K/mm3 (150-450); RBC Distribution Width CV 13.2 % (11.6-14.6); RBC Distribution Width SD 49.4 fl (35.1-43.9); Red Blood Count 3.72 M/mm3 (4.6-6.2); White Blood Count 8.9 K/mm3 (4.4-11.0)
[2017-11-20 04:23] LABS: Differential Indicated SCAN CRITERIA MET; POSITIVE COUNT NO; POSITIVE DIFFERENTIAL YES; POSITIVE MORPHOLOGY NO
[2017-11-20 05:00] LABS: Bacteria 0 SEEN /hpf (None Seen); Mucous, Urine 0 SEEN /hpf (<or=2+); Squamous Epithelial Cells - UA 0 SEEN /hpf (0-5); White Blood Cells 0 SEEN /hpf (0-5)
[2017-11-20 05:25] LABS: Color, Urine Amber (Yellow); Glucose, Dipstick Normal (Normal); Ketone-Dipstick 15 mg/dl (Negative); Leukocyte Esterase-Dipstick 25 /ul (Negative); Nitrite-Dipstick Negative (Negative); Occult Blood-Urine 250 /ul (Negative); Protein-Dipstick 30 mg/dl (Negative); Urine Bilirubin Dipstick Negative (Negative); Urine Clarity Sl. Cloudy (Clear); Urine Urobilinogen 1 mg/dl (Normal)
[2017-11-20 05:43] LABS: Red Blood Cells-Urine > 100 SEEN /hpf (0-5)
--- NOTE | 2017-11-20 05:55 | RAD_ITS ---
STUDY: X-RAY CHEST REASON FOR EXAM: Male, 47 years old. Shortness of breath. TECHNIQUE: Single AP upright portable chest image. COMPARISON: 11/17/2017 through 11/15/2017. FINDINGS: Since last chest study/, endotracheal and NG tubes have been removed. EKG wires overlie chest. The lungs appear clear and well expanded. There is no demonstrated pleural abnormality. No large gross pneumothorax suggested. Normal size heart. Normal mediastinum and pavan. Normal visualized pulmonary arteries. Normal visualized aortic arch and descending thoracic aorta. Normal visualized thoracic spine. Normal visualized ribs, clavicles, and shoulders. There is no demonstrated abnormality of the visualized soft tissue structures of the upper abdomen. No subdiaphragmatic free air seen grossly. RAD/Chest 1 View (Portable) IMPRESSION: Normal x-ray examination of the chest. No finding of active cardiopulmonary disease identified. Electronically Signed: Jacobo Cisneros, at 8:18 EDT Tel , Service support ,
--- NOTE | 2017-11-20 06:58 | PCM.PN.INT ---
Subjective: The patient was seen and examined at the bedside this morning. Events from the last 24 hours have been reviewed. The patient currently has a low-grade fever but remains hemodynamically stable. He is currently maintaining appropriate oxygen saturations on room air. The patient did fail his swallow evaluation by speech therapy yesterday. He remains n.p.o. accordingly. Objective: The patient's most recent lab work, culture data and imaging studies have all been personally reviewed. Sputum culture dated November 15 was positive for the presence of both Haemophilus influenza and Moraxella catarrhalis. Blood and urine cultures have shown no growth to date. General: Alert, Cooperative, No apparent distress HEENT: Atraumatic, PERRLA, Normocephalic Oral: Dry Mucosa Neck: Supple, No Nodes, Trachea Midline Lungs: No rhonchi, No wheeze, No rales, Diminished Cardiovascular: Regular rate, Regular Rhythm, Normal S1, Normal S2, No murmurs Abdomen: Soft, Non Tender, Hypoactive Bowel Sounds Extremities: No clubbing, No cyanosis, No edema Skin: No rashes, No breakdown Musculoskeletal: No Tenderness to Palpation of Joints or Extremities Lymphatic: No Cervical, Supraclavicular, or Inguinal Adenopathy Neurological: Neuro grossly intact Psych/Mental Status: Flat Affect Vital Signs Temp Pulse Resp BP Pulse Ox 99.5 F H 69 26 H 121/79 H 100 11/20/17 06:00 11/20/17 06:00 11/20/17 06:00 11/20/17 06:00 11/20/17 06:00 Oxygen Flow Rate (L/min) 2 Oxygen Delivery Method Room Air Weight: 163 lb 12.855 oz Body Mass Index (BMI) 23.8 Intake and Output for Last 24 Hours 11/18/17 11/19/17 11/20/17 23:59 23:59 23:59 Intake Total 5603 / 5603 1215 / 1215 Output Total 4650 / 4650 2275 / 2275 1165 / 1165 Balance 953 / 953 -1060 / -1060 -1165 / -1165 Labs (Last 48 Hours) 11/18/17 11/18/17 11/19/17 12:23 18:24 00:46 WBC RBC Hgb Hct MCV MCH MCHC RDW RDW Differential Plt Count MPV Immature Gran % (Auto) Neut % (Auto) Lymph % (Auto) [place] % (Auto) Eos % (Auto) Baso % (Auto) Absolute Neuts (auto) Absolute Lymphs (auto) Total Counted Sodium Potassium Chloride Carbon Dioxide Anion Gap BUN Creatinine Estim Creat Clear Calc Est GFR (MDRD) Af Amer Est GFR (MDRD) Non-Af BUN/Creatinine Ratio Glucose Calcium Urine Color Urine Clarity Urine pH Ur Specific Agar Urine Protein Urine Glucose (UA) Urine Ketones Urine Occult Blood Urine Nitrite Urine Bilirubin Urine Urobilinogen Ur Leukocyte Esterase Urine RBC Urine WBC Ur Squamous Epith Cells Urine Bacteria Urine Mucus POC Glucose 103 99 97 11/19/17 11/19/17 11/19/17 04:50 04:50 05:09 WBC 8.7 RBC 3.52 L Hgb 12.1 L Hct 37.1 L MCV 105.4 H MCH 34.4 H MCHC 32.6 RDW 13.5 RDW Differential 51.3 H Plt Count 414 MPV 9.5 Immature Gran % (Auto) 0.200 Neut % (Auto) 59.3 Lymph % (Auto) 16.8 L [place] % (Auto) 18.4 H Eos % (Auto) 4.4 Baso % (Auto) 0.9 Absolute Neuts (auto) 5.1 Absolute Lymphs (auto) 1.45 Total Counted Not Reportable Sodium 144 Potassium 4.0 Chloride 106 Carbon Dioxide 30.0 Anion Gap 8 BUN 8 Creatinine 0.45 L Estim Creat Clear Calc 194.22 Est GFR (MDRD) Af Amer 259 Est GFR (MDRD) Non-Af 214 BUN/Creatinine Ratio 17.9 Glucose 113 H Calcium 8.6 Urine Color Urine Clarity Urine pH Ur Specific Agar Urine Protein Urine Glucose (UA) Urine Ketones Urine Occult Blood Urine Nitrite Urine Bilirubin Urine Urobilinogen Ur Leukocyte Esterase Urine RBC Urine WBC Ur Squamous Epith Cells Urine Bacteria Urine Mucus POC Glucose 115 H 11/20/17 11/20/17 04:12 05:00 WBC 8.9 RBC 3.72 L Hgb 12.7 L Hct 38.2 L MCV 102.7 H MCH 34.1 H MCHC 33.2 RDW 13.2 RDW Differential 49.4 H Plt Count 457 H MPV 9.3 Immature Gran % (Auto) 0.500 Neut % (Auto) 55.4 Lymph % (Auto) 19.6 [place] % (Auto) 19.8 H Eos % (Auto) 3.7 Baso % (Auto) 1.0 Absolute Neuts (auto) 4.9 Absolute Lymphs (auto) 1.74 Total Counted Not Reportable Sodium Potassium Chloride Carbon Dioxide Anion Gap BUN Creatinine Estim Creat Clear Calc Est GFR (MDRD) Af Amer Est GFR (MDRD) Non-Af BUN/Creatinine Ratio Glucose Calcium Urine Color Kerri Urine Clarity Sl. Cloudy Urine pH 7.0 Ur Specific [place] 1.010 Urine Protein 30 H Urine Glucose (UA) Normal Urine Ketones 15 H Urine Occult Blood 250 H Urine Nitrite Negative Urine Bilirubin Negative Urine Urobilinogen 1 H Ur Leukocyte Esterase 25 H Urine RBC > 100 SEEN Urine WBC 0 SEEN Ur Squamous Epith Cells 0 SEEN Urine Bacteria 0 SEEN Urine Mucus 0 SEEN POC Glucose Microbiology 11/17/17 08:15 Blood Culture (Wb) - Left Hand Blood Culture - Preliminary No growth in 48 hours. 11/17/17 08:00 Blood Culture (Wb) - Femoral Artery Blood Culture - Preliminary No growth in 48 hours. 11/15/17 22:10 Sputum, Induced/Lukens Gram Stain - Final 11/15/17 22:10 Sputum, Induced/Lukens Respiratory Culture - Final Haemophilus influenzae Moraxella(Cher.)Catarrhalis Clinical Impression(s) from Imaging Studies Chest X-Ray 11/14/17 22:20 IMPRESSION: No acute pulmonary pathology. NG tube with sidehole at the GE junction. It should be expanded 4 cm further into the stomach. Electronically Signed: Sam Hancock DO at 22:44 EDT Tel [phone], Service support , Chest X-Ray 11/15/17 01:30 IMPRESSION: Endotracheal tube tip is now 3.4 cm from milagros, in appropriate position. Enteric tube tip is now in the fundus of the stomach. Electronically Signed: Tom Rios MD at 2:24 EDT Tel , Service support , Chest X-Ray 11/16/17 05:00 IMPRESSION: No pulmonary infiltrates or effusion. Electronically Signed: Sam Hancock DO at 9:24 EDT Tel [phone], Service support , Chest X-Ray 11/17/17 06:30 IMPRESSION: Mild left basilar atelectasis. Mild right basilar interstitial prominence. Electronically Signed: Sam HancockDO at 9:29 EDT Tel [phone], Service support , Medical Necessity - Tobacco Use Smoking Status: Current every day smoker Tobacco Use: Cigarettes Assessment/Plan Active and Suspected Problems Delirium tremens (Suspected) Acute respiratory failure (Acute) Schizophrenia, chronic with acute exacerbation (Suspected) RECOMMENDATIONS: 1. Await reevaluation by speech therapy and advance diet accordingly 2. Continue Unasyn until swallow evaluation is completed. If the patient passes, he can be transitioned to Augmentin. 3. Change aerosol treatments to as needed 4. Physical therapy to work with patient 5. Case management to assist with disposition needs 6. Encourage incentive spirometer use and mobilize patient as tolerated IMPRESSIONS: 1. Possible delirium tremens Family is supporting reports the patient does drink alcohol in excess. Unfortunately, they are unable to quantify intake. Unknown last drink. Unclear if patient is using alcohol to treat underlying schizophrenia. The patient did require initial heavy sedation, but this has been weaned. The patient has done well from a respiratory perspective following extubation. Continue to encourage incentive spirometer use and mobilize patient as tolerated. 2. Acute respiratory failure Patient required intubation secondary to airway protection. Patient had received significant amounts of sedation in an attempt to control behavior. The patient has improved clinically and was extubated accordingly. 3. Haemophilus/Moraxella tracheobronchitis Continue antibiotics as ordered. There does not appear to be a focal infiltrate on plain film chest imaging. 4. Reported schizophrenia Patient was having active hallucinations when picked up and brought to the emergency room. Patient's mother is reporting that he has been on Seroquel 300 mg nightly previously, along with trazodone. Patient also reportedly was on Librium. None of these medications were continued reportedly because mother thought they were temporary. Unable to find a psychiatrist of record. Anticipate need for some form of alf upon disposition. This note was generated with [employer] software. It may contain incorrect words, spelling, and punctuation that were not noted in checking the note before signing. DISPOSITION: The patient is medically stable for transfer out of the intensive care unit. Given his lack of ongoing ICU needs, will sign off. Please call with any additional questions. Code Visit Inpatient E&M: 14715 Subs Hosp L3
--- NOTE | 2017-11-20 09:48 | CASEMGMT ---
Addendum entered by Milly Weinstein 11/20/17 10:37: Received call from Veronica at [facility] and they are going to decline patient as he may be more than what they can handle. Patient has now moved to [facility] so CHARY called [facility] SW and left her a voice mail and sent packet to her. Milly REESE LAB TECH Original Note: In rounds this am patient's mom said patient would like to go to [facility] for rehab at d/c. Crisis is also to see patient, however if he requires assist with daily activities he would likely not be able to go to a psych unit. Crisis would still be able to make sure he is connected with mental health resources. CHARY called [facility] and left a voice mail with referral as well as faxed over referral. Patient will be moving to [facility] so CHARY also passed along this information to [facility] CHARY. Plan: Crisis to see patient when medically ready. Referral made to [facility] as patient would like to go here for rehab. Milly REESE LAB TECH
[2017-11-20] MEDS: Enoxaparin 40 MG/0.4 ML Syringe SC (10:00)
--- NOTE | 2017-11-20 10:12 | NURSING ---
report called to med-surg3 for transfer to room 301 per bed with belongings, mother present & aware of transfer
[2017-11-20] MEDS: 0.9% NaCl Peripheral Flush Adult/Peds IV ×2 (10:41→15:27)
--- NOTE | 2017-11-20 11:22 | NURSING ---
female phoned in states she was Karma Bryant from crisis center- states she will be up to see pt around 1300, states she has other appointments to attend to.
--- NOTE | 2017-11-20 12:01 | CASEMGMT ---
Social Work Note Met with pt to discuss discharge planning and to assist needs. Per CHON Atkins, pt was interested in fpc facility placement at discharge. CHON Atkins states that she faxed a referral to [facility] but they are unable to accept patient. CHARY met with patient to inform him of this and asked if he had other options for [facility] placement. Pt states that he is interested in [facility]. SW informed pt that this worker will make the referral to [facility] but encouraged client to have other options in case [facility] can't accept. SW provided pt with list of nursing homes that accept his insurance. SW informed pt that he is doing fairly well with therapy and his insurance may not accept pt. SW asked pt if he felt that he needed the extra rehabilitation at discharge. Pt states well I don't know it just depends on how I continue to do. SW informed pt that this social service technician will make the referral to [facility] and if the pt decides he doesn't need placement after discharge to let SW or staff know. Hot Braider will continue to follow. Pt denied additional needs at this time. SW called [facility] and spoke with Kate to inform her of referral. SW faxed referral to [facility]. Plan: Discharge to [facility] pending acceptance from facility. Kiki Orozco TICKET COLLECTOR OR USHER, CEMENT PRODUCTION PLANT OPERATOR.
[2017-11-20] MEDS: 0.9% NaCl IVPB Med Flush (250 mL) 15 ML IV (15:26)
--- NOTE | 2017-11-20 15:33 | CASEMGMT ---
[facility] unable to accept patient. SW informed client of this and asked what other facilities he would like to try. Pt states [facility] and [facility]. SW faxed referrals to SW and W. Placed call to SW and W to inform of referral. Television Engineering Teacher will continue to follow. Plan: Discharge to SNF pending acceptance from facility. Kiki Orozco MSW, TELEGRAPH OFFICE TELEPHONE CLERK.
--- NOTE | 2017-11-20 16:20 | CASEMGMT ---
Social Work Note [facility] can't accept patient. Event Technician will continue to follow and assist with discharge planning. Plan: Discharge to alf facility pending acceptance from a facility.
--- NOTE | 2017-11-20 19:51 | PCM.PROGNOTE ---
Patient Problems: Active and Suspected Problems Delirium tremens (Suspected) Acute respiratory failure (Acute) Schizophrenia, chronic with acute exacerbation (Suspected) Subjective: Patient was seen and examined today, he was alert and totally appropriate. Patient denied any history of schizophrenia or bipolar disorder, I talked at length with the patient and his mother who was in his room later on. Patient evidently had a psychotic episode approximately 2 years ago, according to the patient and his mother, patient has never been through structured detox and has been a continuous drinker for many years. I felt the patient could be moved out to the [facility] floor, crisis saw the patient later on today and felt that he did not need to be hospitalized in a psych facility and could follow-up as an outpatient at the counseling center. Records from [facility] that were reviewed by crisis intervention revealed the patient had no definite diagnosis of schizophrenia or bipolar disorder but had a psychotic episode with an overlying withdrawal from alcohol approximately 2 years ago. At this time, I do not feel the patient needs respite all, I will place him on trazodone at night for sleep, he had been taking this in the past. PT and OT will work with the patient, I told him it may be necessary for him to go to a assisted facility short-term due to his overall weakness. Patient had no problems with this approach - Physical Exam General: Alert, Oriented x3, Cooperative, No apparent distress, Well developed HEENT: Atraumatic, PERRLA, EOMI, Normocephalic Oral: Moist Mucosa Neck: Supple, No JVD, Negative Carotid Bruits Lungs: Clear to auscultation, Normal air movement, No rhonchi, No wheeze, No rales Cardiovascular: Regular rate, Regular Rhythm, Normal S1, Normal S2, No murmurs, No Ectopic Activity, PMI Normal, No rub noted, No Gallop Abdomen: Bowel Sounds Present, Soft, Non Tender, Non-Distended, No hernias noted Extremities: No clubbing, No cyanosis, No edema, Capillary Refill Less than 3 Seconds Skin: No rashes, No breakdown Musculoskeletal: No Tenderness to Palpation of Joints or Extremities Neurological: Cranial nerves II-XII grossly intact, Neuro grossly intact, Sensory exam intact to light touch and pain, Coordination normal Psych/Mental Status: Normal Affect, Appropriate, Alert and oriented to time, place, person, mood and affect Vital Signs Temp Pulse Resp BP Pulse Ox 98.9 F 89 16 114/66 98 11/20/17 15:35 11/20/17 15:35 11/20/17 15:35 11/20/17 15:35 11/20/17 15:35 Oxygen Flow Rate (L/min) 2 Oxygen Delivery Method Room Air Weight: 74.3 kg Body Mass Index (BMI) 23.8 Intake and Output for Last 24 Hours 11/18/17 11/19/17 11/20/17 23:59 23:59 23:59 Intake Total 5603 / 5603 1215 / 1215 800 / 800 Output Total 4650 / 4650 2275 / 2275 1165 / 1165 Balance 953 / 953 -1060 / -1060 -365 / -365 Microbiology Past 72 Hours 11/19/17 12:16 Urine Culture - Preliminary Urine Catheter - Reed Culture exhibits no growth. 11/17/17 08:15 Blood Culture - Preliminary Blood Culture (Wb) - Left Hand No growth in 48 hours. 11/17/17 08:00 Blood Culture - Preliminary Blood Culture (Wb) - Femoral Artery No growth in 48 hours. 11/15/17 22:10 Gram Stain - Final Sputum, Induced/Lukens Respiratory Culture - Final Haemophilus influenzae Moraxella(Cher.)Catarrhalis Laboratory Tests Past 24 Hrs 11/20/17 11/20/17 04:12 05:00 WBC 8.9 RBC 3.72 L Hgb 12.7 L Hct 38.2 L MCV 102.7 H MCH 34.1 H MCHC 33.2 RDW 13.2 RDW Differential 49.4 H Plt Count 457 H MPV 9.3 Immature Gran % (Auto) 0.500 Neut % (Auto) 55.4 Lymph % (Auto) 19.6 [place] % (Auto) 19.8 H Eos % (Auto) 3.7 Baso % (Auto) 1.0 Absolute Neuts (auto) 4.9 Absolute Lymphs (auto) 1.74 Total Counted Not Reportable Urine Color Kerri Urine Clarity Sl. Cloudy Urine pH 7.0 Ur Specific [place] 1.010 Urine Protein 30 H Urine Glucose (UA) Normal Urine Ketones 15 H Urine Occult Blood 250 H Urine Nitrite Negative Urine Bilirubin Negative Urine Urobilinogen 1 H Ur Leukocyte Esterase 25 H Urine RBC > 100 SEEN Urine WBC 0 SEEN Ur Squamous Epith Cells 0 SEEN Urine Bacteria 0 SEEN Urine Mucus 0 SEEN Medical Necessity - Tobacco Use Smoking Status: Current every day smoker Tobacco Use: Cigarettes Assessment/Plan Active and Suspected Problems Delirium tremens (Suspected) Acute respiratory failure (Acute) Schizophrenia, chronic with acute exacerbation (Suspected) #1 possible delirium tremens-this appears to have resolved, patient will be placed on trazodone for sleep at night, PT and OT will see the patient, he may need temporary placement in a assisted facility #2 mechanical ventilation secondary to airway protection- patient is now extubated, doing well #3 No documented history of schizophrenia #4 Tracheobronchitis with haemophilus influenza and Moraxella, appears to be no evidence of pneumonia, patient will continue on Augmentin Code Visit Inpatient E&M: [id number] Subs Hosp L2
--- NOTE | 2017-11-20 19:58 | PN_ITS ---
Patient Problems: Active and Suspected Problems Delirium tremens (Suspected) Acute respiratory failure (Acute) Schizophrenia, chronic with acute exacerbation (Suspected) Subjective: Patient was seen and examined today, he was alert and totally appropriate. Patient denied any history of schizophrenia or bipolar disorder, I talked at length with the patient and his mother who was in his room later on. Patient evidently had a psychotic episode approximately 2 years ago, according to the patient and his mother, patient has never been through structured detox and has been a continuous drinker for many years. I felt the patient could be moved out to the [facility] floor, crisis saw the patient later on today and felt that he did not need to be hospitalized in a psych facility and could follow-up as an outpatient at the counseling center. Records from [facility] that were reviewed by crisis intervention revealed the patient had no definite diagnosis of schizophrenia or bipolar disorder but had a psychotic episode with an overlying withdrawal from alcohol approximately 2 years ago. At this time, I do not feel the patient needs respite all, I will place him on trazodone at night for sleep, he had been taking this in the past. PT and OT will work with the patient, I told him it may be necessary for him to go to a jail facility short-term due to his overall weakness. Patient had no problems with this approach - Physical Exam General: Alert, Oriented x3, Cooperative, No apparent distress, Well developed HEENT: Atraumatic, PERRLA, EOMI, Normocephalic Oral: Moist Mucosa Neck: Supple, No JVD, Negative Carotid Bruits Lungs: Clear to auscultation, Normal air movement, No rhonchi, No wheeze, No rales Cardiovascular: Regular rate, Regular Rhythm, Normal S1, Normal S2, No murmurs, No Ectopic Activity, PMI Normal, No rub noted, No Gallop Abdomen: Bowel Sounds Present, Soft, Non Tender, Non-Distended, No hernias noted Extremities: No clubbing, No cyanosis, No edema, Capillary Refill Less than 3 Seconds Skin: No rashes, No breakdown Musculoskeletal: No Tenderness to Palpation of Joints or Extremities Neurological: Cranial nerves II-XII grossly intact, Neuro grossly intact, Sensory exam intact to light touch and pain, Coordination normal Psych/Mental Status: Normal Affect, Appropriate, Alert and oriented to time, place, person, mood and affect Vital Signs Temp Pulse Resp BP Pulse Ox 98.9 F 89 16 114/66 98 11/20/17 15:35 11/20/17 15:35 11/20/17 15:35 11/20/17 15:35 11/20/17 15:35 Oxygen Flow Rate (L/min) 2 Oxygen Delivery Method Room Air Weight: 74.3 kg Body Mass Index (BMI) 23.8 Intake and Output for Last 24 Hours 11/18/17 11/19/17 11/20/17 23:59 23:59 23:59 Intake Total 5603 / 5603 1215 / 1215 800 / 800 Output Total 4650 / 4650 2275 / 2275 1165 / 1165 Balance 953 / 953 -1060 / -1060 -365 / -365 Microbiology Past 72 Hours 11/19/17 12:16 Urine Culture - Preliminary Urine Catheter - Reed Culture exhibits no growth. 11/17/17 08:15 Blood Culture - Preliminary Blood Culture (Wb) - Left Hand No growth in 48 hours. 11/17/17 08:00 Blood Culture - Preliminary Blood Culture (Wb) - Femoral Artery No growth in 48 hours. 11/15/17 22:10 Gram Stain - Final Sputum, Induced/Lukens Respiratory Culture - Final Haemophilus influenzae Moraxella(Cher.)Catarrhalis Laboratory Tests Past 24 Hrs 11/20/17 11/20/17 04:12 05:00 WBC 8.9 RBC 3.72 L Hgb 12.7 L Hct 38.2 L MCV 102.7 H MCH 34.1 H MCHC 33.2 RDW 13.2 RDW Differential 49.4 H Plt Count 457 H MPV 9.3 Immature Gran % (Auto) 0.500 Neut % (Auto) 55.4 Lymph % (Auto) 19.6 [place] % (Auto) 19.8 H Eos % (Auto) 3.7 Baso % (Auto) 1.0 Absolute Neuts (auto) 4.9 Absolute Lymphs (auto) 1.74 Total Counted Not Reportable Urine Color Kerri Urine Clarity Sl. Cloudy Urine pH 7.0 Ur Specific [place] 1.010 Urine Protein 30 H Urine Glucose (UA) Normal Urine Ketones 15 H Urine Occult Blood 250 H Urine Nitrite Negative Urine Bilirubin Negative Urine Urobilinogen 1 H Ur Leukocyte Esterase 25 H Urine RBC > 100 SEEN Urine WBC 0 SEEN Ur Squamous Epith Cells 0 SEEN Urine Bacteria 0 SEEN Urine Mucus 0 SEEN Medical Necessity - Tobacco Use Smoking Status: Current every day smoker Tobacco Use: Cigarettes Assessment/Plan Active and Suspected Problems Delirium tremens (Suspected) Acute respiratory failure (Acute) Schizophrenia, chronic with acute exacerbation (Suspected) #1 possible delirium tremens-this appears to have resolved, patient will be placed on trazodone for sleep at night, PT and OT will see the patient, he may need temporary placement in a jail facility #2 mechanical ventilation secondary to airway protection- patient is now extubated, doing well #3 No documented history of schizophrenia #4 Tracheobronchitis with haemophilus influenza and Moraxella, appears to be no evidence of pneumonia, patient will continue on Augmentin Code Visit Inpatient E&M: [id number] Subs Hosp L2
[2017-11-20] MEDS: traZODone 100 MG Tablet PO (22:36)
[2017-11-20] MEDS: Amox/Clavulanate 875 MG Tablet PO (22:36)
[2017-11-21 03:03] VITALS: BP 145/86; PULSE 58; RESP 16; TEMP 36.9; O2SAT 100
--- NOTE | 2017-11-21 09:44 | CASEMGMT ---
Social Work Note Placed call to [facility] to check on their determination regarding referral. According to [facility] they are waiting to hear back from corporate regarding ability to accept. Arianna inquires if the pt would be willing to go to their sister facility in [place] if [facility] was unable to accept. Pt lives in [place] towards [place] and inform that if [facility] is not able to accept and [facility] is SW will explore this option with the pt. Arianna to notify once determination made. Will continue to follow and assist with discharge planning. Plan: SNF pending acceptance and pre-cert. Lupe Amador, U.S. SENATOR, COUNTER TOP MAKER
[2017-11-21 09:58] VITALS: BP 117/76; PULSE 75; RESP 20; TEMP 37; O2SAT 95
[2017-11-21] MEDS: Amox/Clavulanate 875 MG Tablet PO (10:02)
[2017-11-21] MEDS: Enoxaparin 40 MG/0.4 ML Syringe SC (10:04)
[2017-11-21 10:50] VITALS: O2SAT 95
--- NOTE | 2017-11-21 11:56 | CASEMGMT ---
Social Work Note [facility] can't accept pt but their sister facility [facility] can accept pt. SW met with pt to discuss this information with him. Pt states that he will be going home. 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 Plan: Discharge Home Kiki Orozco PROCUREMENT CLERK, AUTO DISMANTLER.
--- NOTE | 2017-11-21 13:52 | PCM.DC ---
- Discharge Diagnoses Current Active Problems: Current Active and Chronic Problems Acute respiratory failure (Acute) You will use the following diet at home:: No restrictions Your food should be the consistency of: Regular Your liquids should be the consistency of: Regular/Thin Discharge Activity: Return to Normal Activity Weight Bearing Status: Full weight bearing Allergies/Adverse Reactions: Allergies Penicillins Adverse Reaction (Verified 11/14/17 10:13) Nausea Medications to take at Discharge Amox/Clavulanate Tablet [Augmentin Tablet] 875 mg PO BID #14 tab 11/21/17 traZODone [Desyrel] 100 mg PO QHS #30 tab 11/21/17 The following prescriptions were given: traZODone [Desyrel] 100 mg PO QHS #30 tab Amox/Clavulanate Tablet [Augmentin Tablet] 875 mg PO BID #14 tab Primary Care Physician: Care Physician,No Primary [Primary Care Provider] - Please follow up with your Primary Care Physician in: in 2 weeks Please Follow Up With: [facility] When: 11/25/17 at 9:45 am
[2017-11-21 14:52] VITALS: BP 123/79; PULSE 73; RESP 18; TEMP 37.2; O2SAT 97
--- NOTE | 2017-11-23 19:17 | PCM.DC.SUM ---
Discharge Date and Diagnosis Date of Admission: 11/14/17 Date of Discharge: 11/21/17 - Primary Discharge Diagnosis #1 delirium tremens #2 prolonged mechanical ventilation secondary to need for airway protection from DTs #3 chronic alcoholism #4 tracheobronchitis more Moraxella and Haemophilus influenza Hospital Course and Treatment Consultations 11/20/17 10:08 Consult: Mental Health/Crisis Routine Reason for consult?: please have then re-eval patient. questionable schizophrenia Date Notified:: 11/20/17 Time notified:: 10:08 Operations: None Procedures: None Summary of Care Provided: The patient is a 47 year old M who came to the emergency room at [facility] by the [employer] Department due to paranoid behavior and hallucinations. Please reported that he was defecating and urinating in his home, he was brought in for evaluation. Patient had a past history of alcohol abuse and alcohol withdrawal. Evaluation in the emergency room revealed the patient to be a poor historian, he had delusional speech and was noted to have visual hallucinations when spoken to. We will being evaluated in the emergency room, patient had worsening delirium and he became tachycardic and diaphoretic. Despite treatments with antipsychotics and benzodiazepines in the emergency room, the patient's symptoms worsened and he was intubated in order to sedate him more effectively and preserve his airway. Patient was given phenobarbital, Versed, and propofol. Patient was admitted to the ICU and seen by critical care. It was not known whether the patient was on chronic medications for any psychiatric illness. Patient underwent a prolonged period of ventilatory support in the ICU, sputum cultures were positive for Moraxella and Haemophilus and this was felt to be tracheobronchitis. He was treated with antibiotics. Patient was finally extubated and was able to tell examiners that he was not on any occasions chronically and that he was a heavy drinker. He was seen by crisis intervention and not felt to be dangerous to himself to warrant a psychiatric hospitalization. Patient was subsequently moved to the medical floor. On 11/21/17, patient was seen and examined felt to be in stable condition for discharge home, he was due to follow up with the counseling center in [facility] within a few days of discharge. Discharge Activity: Return to Normal Activity Weight Bearing Status: Full weight bearing Home Medications: Medications to take at Discharge Amox/Clavulanate Tablet [Augmentin Tablet] 875 mg PO BID #14 tab 11/21/17 traZODone [Desyrel] 100 mg PO QHS #30 tab 11/21/17 Following Prescrptions Were Given to Patient: traZODone [Desyrel] 100 mg PO QHS #30 tab Amox/Clavulanate Tablet [Augmentin Tablet] 875 mg PO BID #14 tab Primary Care Physician: Care Physician,No Primary [Primary Care Provider] - Please follow up with your Primary Care Physician in: in 2 weeks Please Follow Up With: [facility] When: 11/25/17 at 9:45 am Disposition: Home Minutes spent on discharge:: 32 Patient Condition:: Stable Medical Necessity - Tobacco Use Smoking Status: Current every day smoker Tobacco Use: Cigarettes Meaningful Use Info Meaningful Use Diagnoses (Choose all that apply): None applicable Code Visit Inpatient E&M: 04259 Disch Hosp
== END 2017-11-21 15:01 | disposition home or self-care (01) | DRG 434 ==
LOC: ED 18:28 → ICU 22:34 → MS3 11-20 10:27
PROVIDERS: Emergency Medicine; Internal Medicine; Internal Medicine Critical Care Medicine; Emergency Provider Emergency Medicine; Visit Provider Internal Medicine
DX: F10.231 Alcohol dependence with withdrawal delirium (principal); J96.00 Acute respiratory failure, unspecified whether with hypoxia or hypercapnia; E87.4 Mixed disorder of acid-base balance; F20.9 Schizophrenia, unspecified; Z79.899 Other long term (current) drug therapy; F17.210 Nicotine dependence, cigarettes, uncomplicated; F41.9 Anxiety disorder, unspecified; J40 Bronchitis, not specified as acute or chronic
CPT/HCPCS: 31500; 31720; 36415; 36600; 51702; 71045; 80048; 80076; 80307; 80320; 81001; 82550; 82803; 82962; 83605; 83735; 84100; 84478; 85025; 85027; 87040; 87070; 87077; 87086; 87205; 87641; 92526; 94002; 94003; 94640; 94660; 95831; 97110; 97116; 97162; 97165; 97530; 97802; 99251; 99285; J7030; J7050; A4216; G0463; G0480; J0295; J1940; J3486; J3490

== ENCOUNTER 2020-07-27 12:12 | Inpatient (IN) | payer MEDICAID, SELFPAY ==
[2020-07-27] VITALS (7 sets, daily range): BP systolic 154–176; BP diastolic 93–130; PULSE 92–121; RESP 18–32; TEMP 36.7–37.2; O2SAT 96–99; BMI 23.6; BMI 21.7; BMI 21.8
[2020-07-27] MEDS: LORazepam 2 MG/ML Syringe 1 MG IV (12:51)
[2020-07-27] MEDS: Ondansetron 4 MG/2 ML Vial IV (12:51)
[2020-07-27] MEDS: Phenobarbital 32.4 MG Tablet 97.2 MG PO (12:53)
--- NOTE | 2020-07-27 13:11 | RAD_ITS ---
STUDY: X-RAY CHEST REASON FOR EXAM: Male, 50 years old. Cough, alcohol detox TECHNIQUE: Single AP portable view of the chest. COMPARISON: Comparison is made with prior study dated 11/20/2017. FINDINGS: EKG electrode are seen. The lungs are clear and expanded. There is no demonstrated pleural abnormality. Normal size heart. Normal mediastinum and pavan. Normal visualized pulmonary arteries. Normal visualized aortic arch and descending thoracic aorta. Normal visualized thoracic spine. Normal visualized ribs, clavicles, and shoulders. There is no demonstrated abnormality of the visualized soft tissue structures of the upper abdomen. RAD/Chest 1 View (Portable) IMPRESSION: Normal x-ray examination of the chest. Electronically Signed: Shadi Addison, at 13:26 EST , Service support ,
[2020-07-27 13:15] LABS: ALB/GLOB Ratio 0.9 RATIO (0.9-2.4); AST(SGOT) 154 U/L (15-37); Alanine Aminotransfer ALT/SGPT 111 U/L (16-61); Albumin, Serum 3.5 g/dL (3.2-5.0); Alkaline Phosphatase 111 U/L (45-117); Anion Gap 16 (5-15); BUN 7 mg/dL (7-18); BUN/Creat Ratio 8.3 RATIO (10-20); Calcium,Total 8.8 mg/dL (8.5-10.1); Chloride 105 mmol/L (98-107); Creatinine, Serum 0.84 mg/dL (0.70-1.30); EST Glomerular Filtration Rate 102 mL/min (>60); Est Glom Filt Rate - Afr Amer 123 mL/min (>60); Estimated Creatinine Clearance 100.65 ml/min; Globulin 4.1 g/dL (2.2-4.2); Glucose 83 mg/dL (74-106); Lipase 273 U/L (73-393); Potassium 3.6 mmol/L (3.5-5.1); Protein, Total 7.6 g/dL (6.4-8.2); Sodium Level 142 mmol/L (136-145)
[2020-07-27 13:16] LABS: Absolute Lymphocyte Count 0.43 X10^3/uL (0.83-4.51); Absolute Neutrophil Count 6.4 X10^3/uL (2.0-7.7); Basophil# 0.04 X10^3/uL; Basophil% 0.5 % (0-1); Eosinophil# 1.07 X10^3/uL; Eosinophils% 12.1 % (0-5); Hematocrit 38.3 % (40-54); Hemoglobin 13.1 g/dL (13.0-16.5); Lymphocyte # 0.43 X10^3/ul (4.0); Lymphocyte % 4.9 % (19-41); Mean Corp Hgb Conc 34.2 g/dL (32-36); Mean Corpuscular Hgb 33.6 pg (27.0-32.0); Mean Corpuscular Volume 98.2 fL (80-94); Mean Platelet Vol. 9.5 fl (6.2-12.0); Monocyte# 0.78 X10^3/uL; Monocyte% 8.8 % (0-10); NRBC Flagged by Analyzer 0 % (0-5); Neutrophil # 6.44 X10^3/uL (2.7-7.7); Neutrophil % 72.9 % (47-70); POSITIVE DIFFERENTIAL YES; POSITIVE MORPHOLOGY YES; Platelet Count 153 K/mm3 (150-450); RBC Distribution Width CV 14.6 % (11.6-14.6); RBC Distribution Width SD 52.8 fl (35.1-43.9); White Blood Count 8.8 K/mm3 (4.4-11.0)
[2020-07-27 13:22] LABS: Differential Indicated SCAN CRITERIA MET
--- NOTE | 2020-07-27 13:52 | ED.VISSUMM ---
- ER Visit Summary Date of Service: 07/27/20 Chief Complaint: Alcohol withdrawal History of Present Illness: The patient is a 50 M with no primary care physician. He is a poor informant. When asked how much he drinks he reports I can drink half a gallon a day. He states that he drinks vodka and beer. His last drink was 3 days ago. He would like help with his alcohol withdrawal. On review of systems patient complains of objective fever and chills. He has a sore throat. He had a cough productive of white sputum for the past week. No blood in his sputum. He has had mild shortness of breath. He has had abdominal pain for the past day and been nauseated. No vomiting or diarrhea. He has an aching headache that 7 out of 10 severity. He does have a history of similar headaches. Physical Examination: Vitals: 98.9, 167/103, 112, 22, 99% on room air which is not hypoxic. General: Well-nourished and well-developed. Unkempt. Head: Normocephalic atraumatic. Neck: Supple, no lymphadenopathy. No JVD. Nontender. Cardiovascular: Tachycardic regular rhythm no murmurs. Respiratory: No respiratory distress. Clear to auscultation bilaterally. Abdominal: Soft, mild epigastric tenderness to palpation, nondistended, normal bowel sounds. No guarding, rebound, or peritoneal signs. Back: Nontender. Extremities: Nontender, no edema. Skin: Normal color, no rash. Neurologic: Alert and oriented ?3. Cranial nerves II through XII are intact. Normal strength and sensation. Tremulous Psych: Depressed affect. Test Results: CBC shows segmented 2 is a 73 lymphocytes of 5. Chem-7 shows an anion gap of 16. I suspect this is from ketosis. LFTs show total bili 1.1, ALT of 111, AST 154. Lipase is normal. COVID-19 is negative. Clinical Impression(s) from Imaging Studies Chest X-Ray 07/27/20 13:11 IMPRESSION: Normal x-ray examination of the chest. Electronically Signed: Shadi Addison, at 13:26 EST , Service support , Emergency Department Course and Treatment: Patient is clearly in alcohol withdrawal. He was given Zofran and Ativan IV. He was given phenobarbital and Tylenol p.o. He is resting more comfortably. Treatment Plan: Patient was discussed with Dr. Suarez. He will be admitted the hospital for further evaluation and treatment. Disposition: Admitted in serious condition. Impression: 1. Alcohol withdrawal. This note was generated with [employer] dictation software. It may contain incorrect words, spelling, and punctuation that were not noted in review of the chart prior to signing ED Disposition - Plan for ED Patient: Referrals: Care Physician,No Primary [Primary Care Provider] -
[2020-07-27 13:55] LABS: Alcohol, Blood (Medical)-Serum < 3.0 mg/dL
--- NOTE | 2020-07-27 14:19 | NURSING ---
Rebecca CHADWICK ALCOHOL WITHDRAWAL
[2020-07-27 14:53] LABS: Amphetamine Urine VISTA NEGATIVE (<1000 ng/mL); Barbiturate Urine VISTA POSITIVE (< 200 ng/mL); Benzodiazepine Urine VISTA NEGATIVE (< 200 ng/mL); Cocaine Urine VISTA NEGATIVE (< 300 ng/mL); Ecstacy Urine VISTA NEGATIVE (< 500 ng/mL); Methadone Urine VISTA NEGATIVE (< 300 ng/mL); PCP Urine VISTA NEGATIVE (< 25 ng/mL); THC Urine VISTA NEGATIVE (< 50 ng/mL); Vista UDS pH Range 7
--- NOTE | 2020-07-27 15:19 | HP.PCM_ITS ---
Problem List (1) Alcohol withdrawal Status: Acute (2) Alcoholism Status: Chronic (3) HTN (hypertension) Status: Chronic (4) Nicotine abuse Status: Chronic (5) Homelessness Status: Chronic History of Present Illness Date of Admission: 07/27/20 Chief Complaint: alcohol withdrawal The patient is a 50 year old M with pmhx of alcoholism, homelessness, untreated htn, nicotine abuse who presented to the ER with alcohol withdrawal and requested assistance with detox. He presented with severe tremor and had not drank in 3 days. He has last been through detox 5 years prior. He has difficulty walking as well. He reports drinking a mix of vodka and beer, but he is not sure on the quantities. He denies a hx of withdrawal seizure. He states he has been in an ICU for detox before. He received ativan and phenobarbital in the ER and is now much less tremulous and relaxed in bed. He denies other drug use, and smokes about 1.5 ppd.[] Past Medical History Past Medical History (Chronic Problems): Chronic Problems Alcoholism (Chronic) HTN (hypertension) (Chronic) Nicotine abuse (Chronic) Homelessness (Chronic) Allergies Penicillins Adverse Reaction (Verified 07/27/20 12:22) Nausea Home Medications: Ambulatory Orders Medication Instructions Recorded NK 07/27/20 Surgical History: no surgical history Psychiatric History: No pertinent psych hx Lives: Homeless Smoking Status: Current every day smoker Tobacco Use: Cigarettes Alcohol: Heavy Drugs: None - *Family History Maternal History Items: Dementia, Hypertension Review of Systems Constitutional: Denies: Chills, Fever, Weight Change HEENT: Denies: Head Aches, Sinus Congestion, Sinus Drainage Cardiovascular: Denies: Chest Pain, Palpitations Respiratory: Denies: Cough, Shortness of breath at rest, Sputum production Gastrointestinal: Denies: Abdominal Pain, Nausea, Vomiting Genitourinary: Denies: Dysuria Musculoskeletal: Denies: Joint Pain, Joint Tenderness Skin: Denies: Rash, Wounds Neurological: Reports: Tremor. Denies: Focal weakness, Numbness, Tingling Psychiatric: Denies: Anxiety, Depression, Homicidal Ideations, Suicidal Ideations Hematologic/ Lymphatic: Denies: Easy Bruising, Easy Bleeding VTE Information - Inpt Only VTE Present on Admission: No VTE Mechan Device Prophylaxis: None VTE Pharm Prophylaxis ordered?: Yes - Physical Exam Vitals/I&O's: Vital Signs Temp Pulse Resp BP Pulse Ox 98.2 F 113 H 19 H 168/99 H 98 07/27/20 14:06 07/27/20 14:06 07/27/20 14:06 07/27/20 14:06 07/27/20 14:06 Oxygen Delivery Method Room Air Weight: 155 lb 3.287 oz Body Mass Index (BMI) 23.6 General: Alert, Oriented x3, Cooperative, - - malodorous, unkempt HEENT: Atraumatic, PERRLA, EOMI, Normocephalic Neck: Supple, No JVD, Negative Carotid Bruits Lungs: Clear to auscultation, Normal air movement Cardiovascular: Regular rate, No murmurs Abdomen: Bowel Sounds Present, Soft, Non Tender Extremities: No edema, Capillary Refill Less than 3 Seconds Skin: No rashes, No breakdown Musculoskeletal: No Tenderness to Palpation of Joints or Extremities Neurological: Cranial nerves II-XII grossly intact, - - mild tremor BL UE Psych/Mental Status: Normal Affect, Appropriate, Alert and oriented to time, place, person, mood and affect Microbiology Past 72 Hours 07/27/20 12:45 Mucosa - Nose SARS-CoV-2 Antigen (Rapid) - Final Laboratory Results 07/27/20 12:40: WBC 8.8, RBC 3.90 L, Hgb 13.1, Hct 38.3 L, MCV 98.2 H, MCH 33.6 H, MCHC 34.2, RDW Std Deviation 52.8 H, RDW Coeff of Roger 14.6, Plt Count 153, MPV 9.5, Immature Gran % (Auto) 0.800, Neut % (Auto) 72.9 H, Lymph % (Auto) 4.9 L, [place] % (Auto) 8.8, Eos % (Auto) 12.1 H, Baso % (Auto) 0.5, Absolute Neuts (auto) 6.4, Absolute Lymphs (auto) 0.43 L, Nucleated RBC % 0, Differential Comment 07/27/20 12:45: Sodium 142, Potassium 3.6, Chloride 105, Carbon Dioxide 21.0, Anion Gap 16 H, BUN 7, Creatinine 0.84, Estim Creat Clear Calc 100.65, Est GFR (MDRD) Af Amer 123, Est GFR (MDRD) Non-Af 102, BUN/Creatinine Ratio 8.3 L, Glucose 83, Calcium 8.8, Total Bilirubin 1.10 H, AST 154 H, ALT 111 H, Alkaline Phosphatase 111, Total Protein 7.6, Albumin 3.5, Globulin 4.1, Albumin/Globulin Ratio 0.9, Lipase 273 07/27/20 12:45: Ethyl Alcohol < 3.0 07/27/20 14:00: Urine Opiates Screen NEGATIVE, Urine Methadone Screen NEGATIVE, Ur Barbiturates Screen POSITIVE H, Ur Phencyclidine Scrn NEGATIVE, Ur Amphetamines Screen NEGATIVE, U Methamphetamin-MDMA NEGATIVE, U Benzodiazepines Scrn NEGATIVE, Urine Cocaine Screen NEGATIVE, U Cannabinoids Screen NEGATIVE, Ur Drug Screen Comment Assessment/Plan All Active Problems Alcohol withdrawal (Acute) Acute respiratory failure (Acute) Schizophrenia, chronic with acute exacerbation (Ruled-out) 1. Alcoholism with withdrawal - phenobarbital and ativan started in the ER. Denies hx w/d seizure however he admits to ICU admits for withdrawal. He is not sure how much he is drinking. 2. Uncontrolled HTN - start clonidine 3. Nicotine abuse -1.5 ppd - provide patch 4. Abnormal LFTs - likely due to alcoholism - needs followed as o/p DC planning: pt is homeless, complicating the above and worsening prognosis significantly. This patient was seen by Jason Diamond PA-C under the supervision of Dr. Suarez
[2020-07-27] MEDS: cloNIDine HCl 0.1 MG Tablet PO ×2 (16:04→22:43)
[2020-07-27] MEDS: Phenobarbital 32.4 MG Tablet PO ×2 (16:05→20:12)
[2020-07-27] MEDS: LORazepam 1 MG Tablet 2 MG PO (16:57)
[2020-07-27] MEDS: Ibuprofen 600 MG Tablet PO (20:20)
[2020-07-28] MEDS: Phenobarbital 32.4 MG Tablet PO ×6 (00:18→19:41)
[2020-07-28 02:30] VITALS: BP 163/99; PULSE 85; RESP 18; TEMP 36.7; O2SAT 100
[2020-07-28] MEDS: LORazepam 1 MG Tablet 2 MG PO (04:09)
--- NOTE | 2020-07-28 07:34 | PCM.PN.HOSP ---
Patient Problems: Active and Suspected Problems Alcohol withdrawal (Acute) Reason for Visit: Follow-up for acute alcohol withdrawal syndrome. Objective: Patient admitted with acute alcohol withdrawal syndrome, homeless. Systolic blood pressure is in 160s elevated. No fever. Heart rate is controlled. Patient very drowsy, tremors, lethargic and rolling on the bed with restlessness. Severe anxiety. Feeling nausea. Patient also has mild diarrhea and abdominal cramps. Physical exam General: Drowsy, confused. Oriented x3, HEENT: Atraumatic, PERRLA, EOMI, Normocephalic Oral: No Gingival or Mucosal Lesions/ Ulcerations Neck: Supple, No JVD, Negative Carotid Bruits Lungs: Air entry diminished in bilateral lung bases. No crepitation/rhonchi Cardiovascular: Regular rate, Regular Rhythm, Normal S1, Normal S2, No murmurs Abdomen: Bowel Sounds Present, Soft, Non Tender, Non-Distended : No renal angle tenderness. No suprapubic tenderness. Extremities: No edema, Capillary Refill Less than 3 Seconds Skin: No rashes, No breakdown Musculoskeletal: No Tenderness to Palpation of Joints or Extremities. Mild tremors. Neurological: Cranial nerves II-XII grossly intact, Deep Tendon Reflexes 2+/4 and Symmetrical, Neuro grossly intact Psych/Mental Status: Normal Affect, Appropriate. Vitals/I&O's: Vital Signs Temp Pulse Resp BP Pulse Ox 98.1 F 85 18 163/99 H 100 07/28/20 02:30 07/28/20 02:30 07/28/20 02:30 07/28/20 02:30 07/28/20 02:30 Oxygen Delivery Method Room Air Weight: 143 lb 3.2 oz Body Mass Index (BMI) 21.7 Intake and Output for Last 24 Hours 07/26/20 07/27/20 07/28/20 23:59 23:59 23:59 Intake Total 1000 / 1000 300 / 300 Output Total 950 / 950 450 / 450 Balance 50 / 50 -150 / -150 Microbiology Past 72 Hours 07/27/20 12:45 Mucosa - Nose SARS-CoV-2 Antigen (Rapid) - Final Laboratory Results 07/27/20 12:40: WBC 8.8, RBC 3.90 L, Hgb 13.1, Hct 38.3 L, MCV 98.2 H, MCH 33.6 H, MCHC 34.2, RDW Std Deviation 52.8 H, RDW Coeff of Roger 14.6, Plt Count 153, MPV 9.5, Immature Gran % (Auto) 0.800, Neut % (Auto) 72.9 H, Lymph % (Auto) 4.9 L, [place] % (Auto) 8.8, Eos % (Auto) 12.1 H, Baso % (Auto) 0.5, Absolute Neuts (auto) 6.4, Absolute Lymphs (auto) 0.43 L, Nucleated RBC % 0, Differential Comment 07/27/20 12:45: Sodium 142, Potassium 3.6, Chloride 105, Carbon Dioxide 21.0, Anion Gap 16 H, BUN 7, Creatinine 0.84, Estim Creat Clear Calc 100.65, Est GFR (MDRD) Af Amer 123, Est GFR (MDRD) Non-Af 102, BUN/Creatinine Ratio 8.3 L, Glucose 83, Calcium 8.8, Total Bilirubin 1.10 H, AST 154 H, ALT 111 H, Alkaline Phosphatase 111, Total Protein 7.6, Albumin 3.5, Globulin 4.1, Albumin/Globulin Ratio 0.9, Lipase 273 07/27/20 12:45: Ethyl Alcohol < 3.0 07/27/20 14:00: Urine Opiates Screen NEGATIVE, Urine Methadone Screen NEGATIVE, Ur Barbiturates Screen POSITIVE H, Ur Phencyclidine Scrn NEGATIVE, Ur Amphetamines Screen NEGATIVE, U Methamphetamin-MDMA NEGATIVE, U Benzodiazepines Scrn NEGATIVE, Urine Cocaine Screen NEGATIVE, U Cannabinoids Screen NEGATIVE, Ur Drug Screen Comment Current Medications Acetaminophen (Acetaminophen 500 Mg Tablet) 500 mg PO Q4H PRN PRN PRN Reason: Temp > 100.4 F Clonidine (Clonidine Hcl 0.1 Mg Tablet) 0.1 mg PO BID COUNTS INCLUDE 234 BEDS AT THE [facility] Last Admin: 07/27/20 22:43 Dose: 0.1 mg Documented by: Folic Acid (Folic Acid 1 Mg Tablet) 1 mg PO DAILY@0800 COUNTS INCLUDE 234 BEDS AT THE [facility] Ibuprofen (Ibuprofen 600 Mg Tablet) 600 mg PO Q8H PRN PRN PRN Reason: Pain Score 1-10 Last Admin: 07/27/20 20:20 Dose: 600 mg Documented by: Lorazepam (Lorazepam 1 Mg Tablet) 2 mg PO Q2H PRN PRN; Protocol PRN Reason: CIWA score > 8 but <15 Last Admin: 07/28/20 04:09 Dose: 2 mg Documented by: Lorazepam (Lorazepam 1 Mg Tablet) 2 mg PO UD PRN; Protocol PRN Reason: CIWA score >/=15. Last Admin: 07/27/20 16:57 Dose: 2 mg Documented by: Lorazepam (Lorazepam 2 Mg/Ml Syringe) 2 mg IV Q2H PRN PRN; Protocol PRN Reason: CIWA score > 8 but <15 Lorazepam (Lorazepam 2 Mg/Ml Syringe) 2 mg IV UD PRN; Protocol PRN Reason: CIWA score >/=15. Nicotine (Nicotine 21 Mg Patch) 21 mg TD DAILY PADMINI Last Admin: 07/27/20 18:57 Dose: 21 mg Documented by: Ondansetron HCl (Ondansetron 8 Mg Tablet) 8 mg PO Q8H PRN PRN PRN Reason: NAUSEA Phenobarbital (Phenobarbital 32.4 Mg Tablet) 97.2 mg PO Q4H PADMINI; Taper Stop: 07/31/20 23:59 Last Admin: 07/28/20 04:09 Dose: 97.2 mg Documented by: Sodium Chloride (0.9% Saline Lock 10 Ml Syringe) 10 - 40 ml IV UD PRN PRN Reason: SALINE FLUSH Thiamine HCl (Thiamine Hydrochloride 100 Mg Tablet) 100 mg PO DAILYCM PADMINI Medical Necessity - Tobacco Use Smoking Status: Current every day smoker Tobacco Use: Cigarettes Assessment/Plan All Active Problems Alcohol withdrawal (Acute) Acute respiratory failure (Acute) Schizophrenia, chronic with acute exacerbation (Ruled-out) This is a 50-year-old gentleman with history of schizophrenia, hypertension and homelessness is admitted with acute alcohol withdrawal 1. Acute alcohol withdrawal syndrome with history of chronic alcohol use and dependence: Patient is admitted on MedSurg floor. She looks dehydrated therefore started on Ringer lactate 125 mill per hour. On phenobarbitone scheduled and taper as per protocol. Other supportive medications include trazodone, hydroxyzine, gabapentin and dicyclomine as needed. Patient does not have seizure withdrawal. 2. Uncontrolled HTN - Blood pressure is controlled. Clonidine continued with holding parameters. 3. Nicotine abuse -1.5 ppd -on nicotine patch. 4. Acute on chronic alcoholic hepatitis with chronic alcohol use and dependence. AST and ALT are chronically elevated since 2016. Advised quitting alcohol. Follow-up with PCP for further work-up. Microbiology Past 72 Hours 07/27/20 12:45 Mucosa - Nose SARS-CoV-2 Antigen (Rapid) - Final Laboratory Results 07/27/20 14:00: Urine Opiates Screen NEGATIVE, Urine Methadone Screen NEGATIVE, Ur Barbiturates Screen POSITIVE H, Ur Phencyclidine Scrn NEGATIVE, Ur Amphetamines Screen NEGATIVE, U Methamphetamin-MDMA NEGATIVE, U Benzodiazepines Scrn NEGATIVE, Urine Cocaine Screen NEGATIVE, U Cannabinoids Screen NEGATIVE Inpatient E&M: 13607 Subs Hosp L2
[2020-07-28 07:59] VITALS: BP 151/106; PULSE 89; RESP 18; TEMP 36.7; O2SAT 96
[2020-07-28] MEDS: Ibuprofen 600 MG Tablet PO (08:08)
[2020-07-28] MEDS: Thiamine Hydrochloride 100 MG Tablet PO (08:09)
[2020-07-28] MEDS: cloNIDine HCl 0.1 MG Tablet PO ×2 (08:09→22:03)
[2020-07-28] MEDS: Folic Acid 1 MG Tablet PO (08:09)
--- NOTE | 2020-07-28 09:48 | CASEMGMT ---
Social Work Note Pt is RAMP pt. SW placed a call to Lynn at [facility] and left message that pt will need to be seen. Kiki Orozco BUSINESS PERFORMANCE SPECIALIST, RESEARCH DEVELOPMENT DIRECTOR
--- NOTE | 2020-07-28 10:17 | ADDICTION ---
This information writer attempted to meet with patient in his room this morning. Patient was alert but requested to complete assessments and to begin d/c planning tomorrow as he is not feeling well and is having some trouble staying awake. This information writer plans to meet with patient to complete assessments and d/c planning on 07/29/2020.
--- NOTE | 2020-07-28 10:54 | CASEMGMT ---
Social Work Note SW reviewed chart. Pt is currently homeless. SW in to speak with pt. SW introduced self and role at [facility]. Pt is alert and orientated. Pt confirms that he is currently homeless. SW provided pt with housing resources including [facility], [place] [id number], Homeless shelters, [facility] housing information. SW informed pt that [facility] will be back in tomorrow to continue discussion of treatment options for pt. Pt states understanding, denied additional needs or concerns at this time. Kiki Orozco EMERGENCY ROOM CLERK, SPECIAL WARFARE COMBATANT CREWMAN
[2020-07-28 11:47] VITALS: BP 127/83; PULSE 89; RESP 18; TEMP 35.8; O2SAT 99
[2020-07-28 16:00] VITALS: BP 139/93; PULSE 110; RESP 18; TEMP 36.7; O2SAT 100
[2020-07-28] MEDS: hydrOXYzine PAM 25 MG Capsule 50 MG PO (16:04)
[2020-07-28 19:40] VITALS: BP 141/94; PULSE 105; RESP 18; TEMP 37.2; O2SAT 99
[2020-07-28] MEDS: traZODone 100 MG Tablet PO (22:08)
[2020-07-29] VITALS (7 sets, daily range): BP systolic 97–149; BP diastolic 66–95; PULSE 71–103; RESP 16–20; TEMP 36.3–37.1; O2SAT 98–100
[2020-07-29] MEDS: Phenobarbital 32.4 MG Tablet PO ×6 (00:26→20:23)
[2020-07-29] MEDS: hydrOXYzine PAM 25 MG Capsule 50 MG PO ×2 (02:19→22:59)
[2020-07-29 06:42] LABS: ALB/GLOB Ratio 0.8 RATIO (0.9-2.4); AST(SGOT) 214 U/L (15-37); Alanine Aminotransfer ALT/SGPT 149 U/L (16-61); Albumin, Serum 3.1 g/dL (3.2-5.0); Alkaline Phosphatase 109 U/L (45-117); Anion Gap 6 (5-15); BUN 12 mg/dL (7-18); BUN/Creat Ratio 23.5 RATIO (10-20); Calcium,Total 8.8 mg/dL (8.5-10.1); Chloride 102 mmol/L (98-107); Creatinine, Serum 0.51 mg/dL (0.70-1.30); EST Glomerular Filtration Rate 181 mL/min (>60); Est Glom Filt Rate - Afr Amer 220 mL/min (>60); Estimated Creatinine Clearance 157.43 ml/min; Globulin 4.1 g/dL (2.2-4.2); Glucose 81 mg/dL (74-106); Potassium 3.6 mmol/L (3.5-5.1); Protein, Total 7.2 g/dL (6.4-8.2); Sodium Level 136 mmol/L (136-145)
[2020-07-29 07:58] LABS: Magnesium 1.9 mg/dL (1.6-2.6)
[2020-07-29] MEDS: Thiamine Hydrochloride 100 MG Tablet PO (08:29)
[2020-07-29] MEDS: Gabapentin 300 MG Capsule PO (08:29)
[2020-07-29] MEDS: Folic Acid 1 MG Tablet PO (08:30)
--- NOTE | 2020-07-29 10:16 | ADDICTION ---
This senior mortgage underwriter met with patient in his room to conduct ASAM, MSE and AUDIT assessments and to plan for discharge. Patient plans to remain at [facility] until Saturday08/01/2020. He is interested in Residential treatment. This senior mortgage underwriter contacted multiple residential facilities in the area- all full. This senior mortgage underwriter will attempt to continue to coordinate discharge plan in preparation for his discharge on Saturday.
--- NOTE | 2020-07-29 14:04 | CASEMGMT ---
Social Work Note SW received call from Lynn at [facility] stating pt has been accepted to [facility] in [place]. Peer Support from [facility] will be in Saturday at 11:00am to transport pt. Kiki Orozco BRANCH CUSTOMER SERVICE REPRESENTATIVE, BUSINESS WRITER
--- NOTE | 2020-07-29 14:44 | PN_ITS ---
Patient Problems: Active and Suspected Problems Alcohol withdrawal (Acute) Objective: Patient is more awake alert. Symptoms of shaking, tremors anxiety, nausea and abdominal cramps are much better controlled today. Physical exam General: Alert, Oriented x3, Cooperative HEENT: Atraumatic, PERRLA, EOMI, Normocephalic Oral: No Gingival or Mucosal Lesions/ Ulcerations Neck: Supple, No JVD, Negative Carotid Bruits Lungs: Air entry diminished in bilateral lung bases. No crepitation/rhonchi Cardiovascular: Regular rate, Regular Rhythm, Normal S1, Normal S2, No murmurs Abdomen: Bowel Sounds Present, Soft, Non Tender, Non-Distended : No renal angle tenderness. No suprapubic tenderness. Extremities: No edema, Capillary Refill Less than 3 Seconds Skin: No rashes, No breakdown Musculoskeletal: No Tenderness to Palpation of Joints or Extremities Neurological: Mild tremors generalized. Cranial nerves II-XII grossly intact, Deep Tendon Reflexes 2+/4 and Symmetrical, Neuro grossly intact Psych/Mental Status: Normal Affect, Appropriate. Vitals/I&O's: Vital Signs Temp Pulse Resp BP Pulse Ox 98.0 F 98 16 97/66 100 07/29/20 08:33 07/29/20 08:33 07/29/20 08:33 07/29/20 08:33 07/29/20 08:33 Oxygen Delivery Method Room Air Weight: 143 lb 3.185 oz Body Mass Index (BMI) 21.7 Intake and Output for Last 24 Hours 07/27/20 07/28/20 07/29/20 23:59 23:59 23:59 Intake Total 1000 / 1000 1900 / 1900 600 / 600 Output Total 950 / 950 850 / 850 400 / 400 Balance 50 / 50 1050 / 1050 200 / 200 Microbiology Past 72 Hours 07/27/20 12:45 Mucosa - Nose SARS-CoV-2 Antigen (Rapid) - Final Laboratory Results 07/29/20 05:51: Sodium 136, Potassium 3.6, Chloride 102, Carbon Dioxide 28.0, Anion Gap 6, BUN 12, Creatinine 0.51 L, Estim Creat Clear Calc 157.43, Est GFR (MDRD) Af Amer 220, Est GFR (MDRD) Non-Af 181, BUN/Creatinine Ratio 23.5 H, Glucose 81, Calcium 8.8, Total Bilirubin 1.20 H, AST 214 H, ALT 149 H, Alkaline Phosphatase 109, Total Protein 7.2, Albumin 3.1 L, Globulin 4.1, Albumin/Globulin Ratio 0.8 L 07/29/20 05:51: Magnesium 1.9 Current Medications Acetaminophen (Acetaminophen 500 Mg Tablet) 500 mg PO Q4H PRN PRN PRN Reason: Temp > 100.4 F Al Hydroxide/Mg Hydroxide (Mag Hydrox/Al Hydrox/Simeth 30 Ml Udc) 30 ml PO Q6H PRN PRN PRN Reason: dyspesia Bisacodyl (Bisacodyl 10 Mg Suppository) 10 mg RECTAL DAILY PRN PRN Reason: Constipation Clonidine (Clonidine Hcl 0.1 Mg Tablet) 0.1 mg PO BID [facility] Last Admin: 07/29/20 11:21 Dose: Not Given Documented by: Dicyclomine HCl (Dicyclomine 10 Mg Capsule) 20 mg PO Q6H PRN PRN PRN Reason: abdominal discomfort Folic Acid (Folic Acid 1 Mg Tablet) 1 mg PO DAILY@0800 [facility] Last Admin: 07/29/20 08:30 Dose: 1 mg Documented by: Gabapentin (Gabapentin 300 Mg Capsule) 300 mg PO Q8H PRN PRN PRN Reason: moderate to severe anxiety Last Admin: 07/29/20 08:29 Dose: 300 mg Documented by: Hydroxyzine Pamoate (Hydroxyzine Lupis 25 Mg Capsule) 50 mg PO Q4H PRN PRN PRN Reason: mild anxiety Last Admin: 07/29/20 02:19 Dose: 50 mg Documented by: Ibuprofen (Ibuprofen 600 Mg Tablet) 600 mg PO Q8H PRN PRN PRN Reason: Pain Score 1-10 Last Admin: 07/28/20 08:08 Dose: 600 mg Documented by: Loperamide HCl (Loperamide 2 Mg Capsule) 2 mg PO Q4H PRN PRN PRN Reason: LOOSE STOOLS Lorazepam (Lorazepam 1 Mg Tablet) 2 mg PO Q2H PRN PRN; Protocol PRN Reason: CIWA score > 8 but <15 Last Admin: 07/28/20 04:09 Dose: 2 mg Documented by: Lorazepam (Lorazepam 1 Mg Tablet) 2 mg PO UD PRN; Protocol PRN Reason: CIWA score >/=15. Last Admin: 07/27/20 16:57 Dose: 2 mg Documented by: Lorazepam (Lorazepam 2 Mg/Ml Syringe) 2 mg IV Q2H PRN PRN; Protocol PRN Reason: CIWA score > 8 but <15 Lorazepam (Lorazepam 2 Mg/Ml Syringe) 2 mg IV UD PRN; Protocol PRN Reason: CIWA score >/=15. Nicotine (Nicotine 21 Mg Patch) 21 mg TD DAILY [facility] Last Admin: 07/29/20 08:48 Dose: 21 mg Documented by: Ondansetron HCl (Ondansetron 8 Mg Tablet) 8 mg PO Q8H PRN PRN PRN Reason: NAUSEA Phenobarbital (Phenobarbital 32.4 Mg Tablet) 64.8 mg PO Q4H [facility]; Taper Stop: 07/31/20 23:59 Last Admin: 07/29/20 11:31 Dose: 64.8 mg Documented by: Potassium Chloride (Potassium Chloride 20 Meq Tablet) 40 meq PO DAILYCM [facility] Stop: 07/31/20 08:01 Last Admin: 07/29/20 08:29 Dose: 40 meq Documented by: Senna (Senna Tablet) 2 tablet PO QHS PRN PRN Reason: Constipation Sodium Chloride (0.9% Saline Lock 10 Ml Syringe) 10 - 40 ml IV UD PRN PRN Reason: SALINE FLUSH Thiamine HCl (Thiamine Hydrochloride 100 Mg Tablet) [facility] Last Admin: 07/29/20 08:29 Dose: 100 mg Documented by: Trazodone HCl (Trazodone 100 Mg Tablet) 100 mg PO QHS PRN PRN Reason: INSOMNIA Last Admin: 07/28/20 22:08 Dose: 100 mg Documented by: Medical Necessity - Tobacco Use Smoking Status: Current every day smoker Tobacco Use: Cigarettes Assessment/Plan All Active Problems Alcohol withdrawal (Acute) Acute respiratory failure (Acute) Schizophrenia, chronic with acute exacerbation (Ruled-out) This is a 50-year-old gentleman with history of schizophrenia, hypertension and homelessness is admitted with acute alcohol withdrawal 1. Acute alcohol withdrawal syndrome with history of chronic alcohol use and dependence: Patient is admitted on MedSurg floor. She looks dehydrated therefore started on Ringer lactate 125 mill per hour. On phenobarbitone scheduled and taper as per protocol. Other supportive medications include trazodone, hydroxyzine, gabapentin and dicyclomine as needed. Patient does not have seizure withdrawal. 12/4: K3.6, K. Dur 40 M EQ 1 dose. Electrolytes are in normal range. 2. Uncontrolled HTN - Blood pressure is controlled. 07/29: Blood pressure is on the lower side. Clonidine discontinued. 3. Nicotine abuse -1.5 ppd -on nicotine patch. 4. Acute on chronic alcoholic hepatitis with chronic alcohol use and dependence. AST and ALT are chronically elevated since 2016. ALT and AST el evated but improving. Albumin 3.1 history of chronic alcoholic liver disease. Advised quitting alcohol. Follow-up with PCP for further work-up. Microbiology Past 72 Hours 07/27/20 12:45 Mucosa - Nose SARS-CoV-2 Antigen (Rapid) - Final Laboratory Results 07/29/20 05:51: Sodium 136, Potassium 3.6, Chloride 102, Carbon Dioxide 28.0, Anion Gap 6, BUN 12, Creatinine 0.51 L, Estim Creat Clear Calc 157.43, Est GFR (MDRD) Af Amer 220, Est GFR (MDRD) Non-Af 181, BUN/Creatinine Ratio 23.5 H, Glucose 81, Calcium 8.8, Total Bilirubin 1.20 H, AST 214 H, ALT 149 H, Alkaline Phosphatase 109, Total Protein 7.2, Albumin 3.1 L, Globulin 4.1, Albumin/Globulin Ratio 0.8 L 07/29/20 05:51: Magnesium 1.9 Inpatient E&M: 46865 Subs Hosp L2
[2020-07-29] MEDS: LORazepam 1 MG Tablet 2 MG PO ×2 (15:29→22:59)
[2020-07-29] MEDS: Ibuprofen 600 MG Tablet PO (20:24)
[2020-07-29] MEDS: traZODone 100 MG Tablet PO (20:24)
[2020-07-30 05:30] VITALS: BP 138/88; PULSE 70; RESP 16; TEMP 36.6; O2SAT 97
[2020-07-30 05:47] VITALS: BP 138/88; PULSE 70; RESP 16; TEMP 36.6; O2SAT 97
[2020-07-30] MEDS: Phenobarbital 32.4 MG Tablet PO ×3 (05:57→17:15)
--- NOTE | 2020-07-30 06:10 | NURSING ---
Pt assisted into bathroom. Gait unsteady. Wanted to take a shower but did not feel it was safe at this time. Clean gown given & complete bed change done. Returned to bed safely. Bed exit on.
[2020-07-30 08:36] LABS: ALB/GLOB Ratio 0.7 RATIO (0.9-2.4); AST(SGOT) 158 U/L (15-37); Alanine Aminotransfer ALT/SGPT 161 U/L (16-61); Alkaline Phosphatase 108 U/L (45-117); Anion Gap 7 (5-15); BUN 16 mg/dL (7-18); BUN/Creat Ratio 33.1 RATIO (10-20); Calcium,Total 8.7 mg/dL (8.5-10.1); Chloride 110 mmol/L (98-107); Creatinine, Serum 0.48 mg/dL (0.70-1.30); EST Glomerular Filtration Rate 193 mL/min (>60); Est Glom Filt Rate - Afr Amer 234 mL/min (>60); Estimated Creatinine Clearance 167.27 ml/min; Globulin 4.1 g/dL (2.2-4.2); Glucose 88 mg/dL (74-106); Potassium 4.1 mmol/L (3.5-5.1); Protein, Total 7.1 g/dL (6.4-8.2); Sodium Level 139 mmol/L (136-145)
[2020-07-30] MEDS: Folic Acid 1 MG Tablet PO (09:57)
[2020-07-30] MEDS: Thiamine Hydrochloride 100 MG Tablet PO (09:58)
[2020-07-30 11:42] VITALS: BP 156/99; PULSE 85; RESP 22; TEMP 37.4; O2SAT 99
--- NOTE | 2020-07-30 15:32 | PCM.PN.HOSP ---
Patient Problems: Active and Suspected Problems Alcohol withdrawal (Acute) Reason for Visit: Follow-up for alcohol withdrawal syndrome. Objective: Nursing staff states that patient has a moist cough. When I saw the patient in the morning he was having shaking in the 3 movements. Blood pressure elevated after clonidine was discontinued. Yesterday her blood pressure dropped down to 97/66. Physical exam General: Alert, Oriented x3, Cooperative HEENT: Atraumatic, PERRLA, EOMI, Normocephalic Oral: No Gingival or Mucosal Lesions/ Ulcerations Neck: Supple, No JVD, Negative Carotid Bruits Lungs: Air entry diminished in bilateral lung bases. No crepitation/rhonchi Cardiovascular: Regular rate, Regular Rhythm, Normal S1, Normal S2, No murmurs Abdomen: Bowel Sounds Present, Soft, Non Tender, Non-Distended : No renal angle tenderness. No suprapubic tenderness. Extremities: No edema, Capillary Refill Less than 3 Seconds Skin: No rashes, No breakdown Musculoskeletal: No Tenderness to Palpation of Joints or Extremities Neurological: Cranial nerves II-XII grossly intact, Deep Tendon Reflexes 2+/4 and Symmetrical, Neuro grossly intact Psych/Mental Status: Normal Affect, Appropriate. Vitals/I&O's: Vital Signs Temp Pulse Resp BP Pulse Ox 99.4 F H 85 22 H 156/99 H 99 07/30/20 11:42 07/30/20 11:42 07/30/20 11:42 07/30/20 11:42 07/30/20 11:42 Oxygen Delivery Method Room Air Weight: 143 lb 3.185 oz Body Mass Index (BMI) 21.7 Intake and Output for Last 24 Hours 07/28/20 07/29/20 07/30/20 23:59 23:59 23:59 Intake Total 1900 / 1900 600 / 600 200 / 200 Output Total 850 / 850 900 / 900 Balance 1050 / 1050 -300 / -300 200 / 200 Microbiology Past 72 Hours 07/27/20 12:45 Mucosa - Nose SARS-CoV-2 Antigen (Rapid) - Final Laboratory Results 07/30/20 08:00: Sodium 139, Potassium 4.1, Chloride 110 H, Carbon Dioxide 22.0, Anion Gap 7, BUN 16, Creatinine 0.48 L, Estim Creat Clear Calc 167.27, Est GFR (MDRD) Af Amer 234, Est GFR (MDRD) Non-Af 193, BUN/Creatinine Ratio 33.1 H, Glucose 88, Calcium 8.7, Total Bilirubin 0.70, AST 158 H, ALT 161 H, Alkaline Phosphatase 108, Total Protein 7.1, Albumin 3.0 L, Globulin 4.1, Albumin/Globulin Ratio 0.7 L Current Medications Acetaminophen (Acetaminophen 500 Mg Tablet) 500 mg PO Q4H PRN PRN PRN Reason: Temp > 100.4 F Al Hydroxide/Mg Hydroxide (Mag Hydrox/Al Hydrox/Simeth 30 Ml Udc) 30 ml PO Q6H PRN PRN PRN Reason: dyspesia Bisacodyl (Bisacodyl 10 Mg Suppository) 10 mg RECTAL DAILY PRN PRN Reason: Constipation Dicyclomine HCl (Dicyclomine 10 Mg Capsule) 20 mg PO Q6H PRN PRN PRN Reason: abdominal discomfort Folic Acid (Folic Acid 1 Mg Tablet) 1 mg PO DAILY@0800 [facility] Last Admin: 07/30/20 09:57 Dose: 1 mg Documented by: Gabapentin (Gabapentin 300 Mg Capsule) 300 mg PO Q8H PRN PRN PRN Reason: moderate to severe anxiety Last Admin: 07/29/20 08:29 Dose: 300 mg Documented by: Hydroxyzine Pamoate (Hydroxyzine Lupis 25 Mg Capsule) 50 mg PO Q4H PRN PRN PRN Reason: mild anxiety Last Admin: 07/29/20 22:59 Dose: 50 mg Documented by: Ibuprofen (Ibuprofen 600 Mg Tablet) 600 mg PO Q8H PRN PRN PRN Reason: Pain Score 1-10 Last Admin: 07/29/20 20:24 Dose: 600 mg Documented by: Loperamide HCl (Loperamide 2 Mg Capsule) 2 mg PO Q4H PRN PRN PRN Reason: LOOSE STOOLS Lorazepam (Lorazepam 1 Mg Tablet) 2 mg PO Q2H PRN PRN; Protocol PRN Reason: CIWA score > 8 but <15 Last Admin: 07/29/20 15:29 Dose: 2 mg Documented by: Lorazepam (Lorazepam 1 Mg Tablet) 2 mg PO UD PRN; Protocol PRN Reason: CIWA score >/=15. Last Admin: 07/29/20 22:59 Dose: 2 mg Documented by: Lorazepam (Lorazepam 2 Mg/Ml Syringe) 2 mg IV Q2H PRN PRN; Protocol PRN Reason: CIWA score > 8 but <15 Lorazepam (Lorazepam 2 Mg/Ml Syringe) 2 mg IV UD PRN; Protocol PRN Reason: CIWA score >/=15. Nicotine (Nicotine 21 Mg Patch) 21 mg TD DAILY [facility] Last Admin: 07/30/20 09:58 Dose: 21 mg Documented by: Ondansetron HCl (Ondansetron 8 Mg Tablet) 8 mg PO Q8H PRN PRN PRN Reason: NAUSEA Phenobarbital (Phenobarbital 32.4 Mg Tablet) 64.8 mg PO Q6H [facility]; Taper Stop: 07/31/20 23:59 Last Admin: 07/30/20 11:47 Dose: 64.8 mg Documented by: Potassium Chloride (Potassium Chloride 20 Meq Tablet) [facility] Stop: 07/31/20 08:01 Last Admin: 07/30/20 09:57 Dose: 40 meq Documented by: Senna (Senna Tablet) 2 tablet PO QHS PRN PRN Reason: Constipation Sodium Chloride (0.9% Saline Lock 10 Ml Syringe) 10 - 40 ml IV UD PRN PRN Reason: SALINE FLUSH Thiamine HCl (Thiamine Hydrochloride 100 Mg Tablet) [facility] Last Admin: 07/30/20 09:58 Dose: 100 mg Documented by: Trazodone HCl (Trazodone 100 Mg Tablet) 100 mg PO QHS PRN PRN Reason: INSOMNIA Last Admin: 07/29/20 20:24 Dose: 100 mg Documented by: STROKE Vital Signs/Narrative: Vital Signs Temp Pulse Resp BP Pulse Ox 07/30/20 11:42 99.4 F H 85 22 H 156/99 H 99 Medical Necessity - Tobacco Use Smoking Status: Current every day smoker Tobacco Use: Cigarettes Assessment/Plan All Active Problems Alcohol withdrawal (Acute) Acute respiratory failure (Acute) Schizophrenia, chronic with acute exacerbation (Ruled-out) This is a 50-year-old gentleman with history of schizophrenia, hypertension and homelessness is admitted with acute alcohol withdrawal 1. Acute alcohol withdrawal syndrome with history of chronic alcohol use and dependence: Patient is admitted on MedSurg floor. She looks dehydrated therefore started on Ringer lactate 125 mill per hour. On phenobarbitone scheduled and taper as per protocol. Other supportive medications include trazodone, hydroxyzine, gabapentin and dicyclomine as needed. Patient does not have seizure withdrawal. 07/29: K3.6, K. Dur 40 M EQ 1 dose. Electrolytes are in normal range. 07/30: Patient had moist cough. Rapid COVID-19 antigen is negative. Electrolytes are in normal limit. 2. Uncontrolled HTN - Blood pressure is controlled. 07/29: Blood pressure is on the lower side. Clonidine discontinued. 07/30: Blood pressure elevated. Put back on clonidine 0.1 mg twice daily with holding parameters. 3. Nicotine abuse -1.5 ppd -on nicotine patch. 4. Acute on chronic alcoholic hepatitis with chronic alcohol use and dependence. AST and ALT are chronically elevated since 2016. ALT and AST elevated but improving. Albumin 3.1 history of chronic alcoholic liver disease. Advised quitting alcohol. Follow-up with PCP for further work-up. 07/30: Serum AST is decreasing but ALT slightly going up. Monitor liver chemistry. Microbiology Past 72 Hours 07/27/20 12:45 Mucosa - Nose SARS-CoV-2 Antigen (Rapid) - Final Laboratory Results 07/30/20 08:00: Sodium 139, Potassium 4.1, Chloride 110 H, Carbon Dioxide 22.0, Anion Gap 7, BUN 16, Creatinine 0.48 L, Estim Creat Clear Calc 167.27, Est GFR (MDRD) Af Amer 234, Est GFR (MDRD) Non-Af 193, BUN/Creatinine Ratio 33.1 H, Glucose 88, Calcium 8.7, Total Bilirubin 0.70, AST 158 H, ALT 161 H, Alkaline Phosphatase 108, Total Protein 7.1, Albumin 3.0 L, Globulin 4.1, Albumin/Globulin Ratio 0.7 L Inpatient E&M: 86182 Subs Hosp L2
[2020-07-30] MEDS: cloNIDine HCl 0.1 MG Tablet PO ×2 (17:15→21:13)
[2020-07-30 17:19] VITALS: BP 170/120; PULSE 95; RESP 18; TEMP 36.4; O2SAT 99
[2020-07-30 21:00] VITALS: BP 156/85; PULSE 72; RESP 18; TEMP 36.8; O2SAT 97
[2020-07-30] MEDS: hydrOXYzine PAM 25 MG Capsule 50 MG PO (21:13)
[2020-07-30] MEDS: traZODone 100 MG Tablet PO (21:13)
[2020-07-31] VITALS (7 sets, daily range): BP systolic 126–197; BP diastolic 85–171; PULSE 64–85; RESP 16–18; TEMP 36.3–36.9; O2SAT 99–100
[2020-07-31] MEDS: Phenobarbital 32.4 MG Tablet PO ×4 (00:20→16:57)
[2020-07-31 06:40] LABS: ALB/GLOB Ratio 0.7 RATIO (0.9-2.4); AST(SGOT) 115 U/L (15-37); Alanine Aminotransfer ALT/SGPT 152 U/L (16-61); Alkaline Phosphatase 105 U/L (45-117); Anion Gap 6 (5-15); BUN 14 mg/dL (7-18); BUN/Creat Ratio 23.5 RATIO (10-20); Calcium,Total 8.6 mg/dL (8.5-10.1); Chloride 107 mmol/L (98-107); EST Glomerular Filtration Rate 152 mL/min (>60); Est Glom Filt Rate - Afr Amer 184 mL/min (>60); Estimated Creatinine Clearance 133.82 ml/min; Globulin 4.3 g/dL (2.2-4.2); Glucose 94 mg/dL (74-106); Potassium 4.1 mmol/L (3.5-5.1); Protein, Total 7.3 g/dL (6.4-8.2); Sodium Level 138 mmol/L (136-145)
[2020-07-31] MEDS: Folic Acid 1 MG Tablet PO (08:09)
[2020-07-31] MEDS: cloNIDine HCl 0.1 MG Tablet PO ×2 (08:10→20:05)
[2020-07-31] MEDS: Thiamine Hydrochloride 100 MG Tablet PO (08:10)
[2020-07-31] MEDS: LORazepam 1 MG Tablet 2 MG PO (10:07)
[2020-07-31 11:13] LABS: Phosphorus 3.8 mg/dL (2.5-4.9)
[2020-07-31] MEDS: Lactated Ringers 1,000 ML 100 ML IV (12:41)
--- NOTE | 2020-07-31 12:54 | PN_ITS ---
Patient Problems: Active and Suspected Problems Alcohol withdrawal (Acute) Reason for Visit: Follow-up for acute alcohol withdrawal Objective: Seen and examined. Patient undergoing alcohol withdrawal and has sweating. He also having weird dreams and hallucinations. No seizures. Physical exam General: Alert, Oriented x3, Cooperative HEENT: Atraumatic, PERRLA, EOMI, Normocephalic Oral: No Gingival or Mucosal Lesions/ Ulcerations. Tongue looks dry Neck: Supple, No JVD, Negative Carotid Bruits Lungs: Air entry diminished in bilateral lung bases. No crepitation/rhonchi Cardiovascular: Regular rate, Regular Rhythm, Normal S1, Normal S2, No murmurs Abdomen: Bowel Sounds Present, Soft, Non Tender, Non-Distended : No renal angle tenderness. No suprapubic tenderness. Extremities: No edema, Capillary Refill Less than 3 Seconds Skin: No rashes, No breakdown Musculoskeletal: No Tenderness to Palpation of Joints or Extremities Neurological: Cranial nerves II-XII grossly intact, Deep Tendon Reflexes 2+/4 and Symmetrical, Neuro grossly intact. Tremors Psych/Mental Status: Restless, anxious, hallucinations Vitals/I&O's: Vital Signs Temp Pulse Resp BP Pulse Ox 97.3 F L 78 18 149/98 H 99 07/31/20 10:04 07/31/20 08:07 07/31/20 08:07 07/31/20 08:07 07/31/20 08:07 Oxygen Delivery Method Room Air Weight: 143 lb 3.185 oz Body Mass Index (BMI) 21.7 Intake and Output for Last 24 Hours 07/29/20 07/30/20 07/31/20 23:59 23:59 23:59 Intake Total 600 / 600 800 / 1600 1750 / 1750 Output Total 900 / 900 400 / 400 400 / 400 Balance -300 / -300 400 / 1200 1350 / 1350 Laboratory Results 07/31/20 06:00: Sodium 138, Potassium 4.1, Chloride 107, Carbon Dioxide 25.0, Anion Gap 6, BUN 14, Creatinine 0.60 L, Estim Creat Clear Calc 133.82, Est GFR (MDRD) Af Amer 184, Est GFR (MDRD) Non-Af 152, BUN/Creatinine Ratio 23.5 H, Glucose 94, Calcium 8.6, Total Bilirubin 0.50, AST 115 H, ALT 152 H, Alkaline Phosphatase 105, Total Protein 7.3, Albumin 3.0 L, Globulin 4.3 H, Albumin/Globulin Ratio 0.7 L 07/31/20 06:00: Phosphorus 3.8, Magnesium 2.0 Current Medications Acetaminophen (Acetaminophen 500 Mg Tablet) 500 mg PO Q4H PRN PRN PRN Reason: Temp > 100.4 F Al Hydroxide/Mg Hydroxide (Mag Hydrox/Al Hydrox/Simeth 30 Ml Udc) 30 ml PO Q6H PRN PRN PRN Reason: dyspesia Bisacodyl (Bisacodyl 10 Mg Suppository) 10 mg RECTAL DAILY PRN PRN Reason: Constipation Clonidine (Clonidine Hcl 0.1 Mg Tablet) 0.1 mg PO BID [facility] Last Admin: 07/31/20 08:10 Dose: 0.1 mg Documented by: Dicyclomine HCl (Dicyclomine 10 Mg Capsule) 20 mg PO Q6H PRN PRN PRN Reason: abdominal discomfort Folic Acid (Folic Acid 1 Mg Tablet) 1 mg PO DAILY@0800 [facility] Last Admin: 07/31/20 08:09 Dose: 1 mg Documented by: Gabapentin (Gabapentin 300 Mg Capsule) 300 mg PO Q8H PRN PRN PRN Reason: moderate to severe anxiety Last Admin: 07/29/20 08:29 Dose: 300 mg Documented by: Hydroxyzine Pamoate (Hydroxyzine Lupis 25 Mg Capsule) 50 mg PO Q4H PRN PRN PRN Reason: mild anxiety Last Admin: 07/30/20 21:13 Dose: 50 mg Documented by: Lactated Ringer's () 1,000 mls @ 100 mls/hr IV .Q10H [facility] Stop: 08/01/20 06:44 Last Admin: 07/31/20 12:41 Dose: 100 mls/hr Documented by: Ibuprofen (Ibuprofen 600 Mg Tablet) 600 mg PO Q8H PRN PRN PRN Reason: Pain Score 1-10 Last Admin: 07/29/20 20:24 Dose: 600 mg Documented by: Loperamide HCl (Loperamide 2 Mg Capsule) 2 mg PO Q4H PRN PRN PRN Reason: LOOSE STOOLS Lorazepam (Lorazepam 1 Mg Tablet) 2 mg PO Q2H PRN PRN; Protocol PRN Reason: CIWA score > 8 but <15 Last Admin: 07/31/20 10:07 Dose: 2 mg Documented by: Lorazepam (Lorazepam 1 Mg Tablet) 2 mg PO UD PRN; Protocol PRN Reason: CIWA score >/=15. Last Admin: 07/29/20 22:59 Dose: 2 mg Documented by: Lorazepam (Lorazepam 2 Mg/Ml Syringe) 2 mg IV Q2H PRN PRN; Protocol PRN Reason: CIWA score > 8 but <15 Lorazepam (Lorazepam 2 Mg/Ml Syringe) 2 mg IV UD PRN; Protocol PRN Reason: CIWA score >/=15. Nicotine (Nicotine 21 Mg Patch) 21 mg TD DAILY [facility] Last Admin: 07/31/20 08:10 Dose: 21 mg Documented by: Ondansetron HCl (Ondansetron 8 Mg Tablet) 8 mg PO Q8H PRN PRN PRN Reason: NAUSEA Phenobarbital (Phenobarbital 32.4 Mg Tablet) 32.4 mg PO Q6H [facility]; Taper Stop: 07/31/20 23:59 Last Admin: 07/31/20 08:09 Dose: 32.4 mg Documented by: Senna (Senna Tablet) 2 tablet PO QHS PRN PRN Reason: Constipation Sodium Chloride (0.9% Saline Lock 10 Ml Syringe) 10 - 40 ml IV UD PRN PRN Reason: SALINE FLUSH Thiamine HCl (Thiamine Hydrochloride 100 Mg Tablet) 100 mg PO DAILYCM [facility] Last Admin: 07/31/20 08:10 Dose: 100 mg Documented by: Trazodone HCl (Trazodone 100 Mg Tablet) 100 mg PO QHS PRN PRN Reason: INSOMNIA Last Admin: 07/30/20 21:13 Dose: 100 mg Documented by: STROKE Vital Signs/Narrative: Vital Signs Temp 07/31/20 10:04 97.3 F L Medical Necessity - Tobacco Use Smoking Status: Current every day smoker Tobacco Use: Cigarettes Assessment/Plan All Active Problems Alcohol withdrawal (Acute) Acute respiratory failure (Acute) Schizophrenia, chronic with acute exacerbation (Ruled-out) This is a 50-year-old gentleman with history of schizophrenia, hypertension and homelessness is admitted with acute alcohol withdrawal 1. Acute alcohol withdrawal syndrome with history of chronic alcohol use and dependence: Patient is admitted on MedSurg floor. She looks dehydrated therefore started on Ringer lactate 125 mill per hour. On phenobarbitone scheduled and taper as per protocol. Other supportive medications include trazodone, hydroxyzine, gabapentin and dicyclomine as needed. Patient does not have seizure withdrawal. 07/29: K3.6, K. Dur 40 M EQ 1 dose. Electrolytes are in normal range. 07/30: Patient had moist cough. Rapid COVID-19 antigen is negative. Electrolytes are in normal limit. 10/01: Patient looks dehydrated with a lot of sweating and diaphoresis. Ringer lactate 100 mL/h for 2 L. 2. Uncontrolled HTN - Blood pressure is controlled. 07/29: Blood pressure is on the lower side. Clonidine discontinued. 07/30: Blood pressure elevated. Put back on clonidine 0.1 mg twice daily with holding parameters. Magnesium 2.0, phosphorus 3.8 potassium 4.1. 3. Nicotine abuse -1.5 ppd -on nicotine patch. 4. Acute on chronic alcoholic hepatitis with chronic alcohol use and dependence. AST and ALT are chronically elevated since 2016. ALT and AST elevated but improving. Albumin 3.1 history of chronic alcoholic liver disease. Advised quitting alcohol. Follow-up with PCP for further work-up. 07/30: Serum AST is decreasing but ALT slightly going up. Monitor liver chemistry. 07/31: Improving trend on AST and ALT. Laboratory Results 07/31/20 06:00: Sodium 138, Potassium 4.1, Chloride 107, Carbon Dioxide 25.0, Anion Gap 6, BUN 14, Creatinine 0.60 L, Estim Creat Clear Calc 133.82, Est GFR (MDRD) Af Amer 184, Est GFR (MDRD) Non-Af 152, BUN/Creatinine Ratio 23.5 H, Glucose 94, Calcium 8.6, Total Bilirubin 0.50, AST 115 H, ALT 152 H, Alkaline Phosphatase 105, Total Protein 7.3, Albumin 3.0 L, Globulin 4.3 H, Albumin/Globulin Ratio 0.7 L 07/31/20 06:00: Phosphorus 3.8, Magnesium 2.0 Discharge plan: 180 nurse is following the patient. Plan for discharge to inpatient alcohol rehab to [facility] on Saturday. Inpatient E&M: [id number] [facility] Hosp L2
[2020-07-31] MEDS: Clonidine HCl 0.1 MG, Clonidine HCl 0.2 MG 0.3 MG PO (16:25)
[2020-07-31] MEDS: hydrOXYzine PAM 25 MG Capsule 50 MG PO (20:05)
[2020-07-31] MEDS: Gabapentin 300 MG Capsule PO (20:05)
[2020-07-31] MEDS: Ibuprofen 600 MG Tablet PO (20:05)
[2020-07-31] MEDS: traZODone 100 MG Tablet PO (22:38)
[2020-08-01 03:57] VITALS: BP 112/74; PULSE 62; RESP 16; TEMP 36.5; O2SAT 100
--- NOTE | 2020-08-01 08:40 | ADDICTION ---
This lead technical writer contacted [facility] to plan for client's discharge. This lead technical writer was informed that they could not accept patient due to lack of significant mental health barriers noted in documentation. This lead technical writer was told on 07/29/2020 that he would be accepted and that intake planning is done same-day with this agency. He will be discharging to the community. Patient will be picked up by [facility] peer supporter, Bal, at 11 am and will be transported to [facility]'s main office for assessment. Patient will be notified. Hospital staff will be notified.
[2020-08-01 08:52] VITALS: BP 140/88; PULSE 89; RESP 18; TEMP 36.3; O2SAT 100
[2020-08-01] MEDS: Folic Acid 1 MG Tablet PO (08:53)
[2020-08-01] MEDS: Thiamine Hydrochloride 100 MG Tablet PO (08:53)
[2020-08-01] MEDS: cloNIDine HCl 0.1 MG Tablet PO (08:54)
--- NOTE | 2020-08-01 09:21 | CASEMGMT ---
Social Work Note SW received call from Lynn at [facility] stating she spoke with [employer], residential door installer, who is willing to accept pt to [facility] next Saturday. Lynn confirms plan is still for [facility] to be at [facility] at 11:00am to transport pt to [facility] for initial assessment today. Kiki Orozco CAREER TRANSITION SPECIALIST, LIGHTING TECHNICIAN
--- NOTE | 2020-08-01 09:36 | DCINST_ITS ---
- Discharge Diagnoses Current Active Problems: Current Active and Chronic Problems Alcoholism (Chronic) Alcohol withdrawal (Acute) HTN (hypertension) (Chronic) Nicotine abuse (Chronic) Homelessness (Chronic) You will use the following diet at home:: No restrictions Discharge Activity: Return to Normal Activity Call your doctor if you observe: Shortness of breath, Dizziness, Fainting spells, Chest pain Allergies/Adverse Reactions: Allergies Penicillins Adverse Reaction (Verified 07/27/20 12:22) Nausea Medications to take at Discharge NK 07/27/20 Primary Care Physician: Care Physician,No Primary [Primary Care Provider] - Please follow up with your Primary Care Physician in: 1 Week Test Results: Test results from this visit will be discussed in further detail at your follow- up appointment, if applicable. Proposed Discharge Date: 08/01/20
--- NOTE | 2020-08-01 09:38 | PCM.DC.SUM ---
<Lupe Garcia NP - Last Filed: 08/01/20 09:43> Discharge Date and Diagnosis - Problem List Patient Problems: Active and Suspected Problems Alcohol withdrawal (Acute) Date of Admission: 07/27/20 Date of Discharge: 08/01/20 - Primary Discharge Diagnosis Acute Problems: Active Problems 1. Acute alcohol withdrawal on chronic alcohol dependence 2. Tobacco dependence 3. Alcoholic hepatitis 4. Elevated blood pressure without history of hypertension - Secondary Discharge Diagnosis Chronic Problems: Chronic Problems Alcoholism (Chronic) HTN (hypertension) (Chronic) Nicotine abuse (Chronic) Homelessness (Chronic) Hospital Course and Treatment Imaging Results: Diagnostic Data Chest X-Ray 07/27/20 13:11 IMPRESSION: Normal x-ray examination of the chest. Electronically Signed: Shadi Azael, at 13:26 EST , Service support , [facility] Operations[facility] None Procedures: None Summary of Care Provided: The patient is a 50 year old M admitted 07/27/2020 due to alcohol withdrawal. 1. Acute alcohol withdrawal on chronic alcohol dependence-medical stabilization per protocol. Completed phenobarb taper. Follow-up with [facility] as scheduled. 2. Tobacco dependence-encourage cessation. 3. Alcoholic hepatitis-chronically elevated. Outpatient follow-up. 4. Elevated blood pressure without history of hypertension-blood pressure has fluctuated during admission, suspect secondary to acute alcohol withdrawal. Will not begin regimen at this time, recommend outpatient follow-up for further monitoring. Patient seen and examined prior to discharge. Physical assessment as noted below. Patient is stable for discharge with follow up recommendations as noted above. This patient was seen by Lupe Garcia NP-C under the supervision of Dr. Sanchez. Patient Problems: Active and Suspected Problems Alcohol withdrawal (Acute) - Physical Exam Vitals/I&O's: Vital Signs Temp Pulse Resp BP Pulse Ox 97.4 F L 89 18 140/88 H 100 08/01/20 08:52 08/01/20 08:52 08/01/20 08:52 08/01/20 08:52 08/01/20 08:52 Oxygen Delivery Method Room Air Weight: 143 lb 3.185 oz Body Mass Index (BMI) 21.7 Intake and Output for Last 24 Hours 07/30/20 07/31/20 08/01/20 23:59 23:59 23:59 Intake Total 800 / 1600 2098.33 / 8.33 Output Total 400 / 400 400 / 400 Balance 400 / 1200 1698.33 / 1698.33 General: Alert, Oriented x3, Cooperative HEENT: Atraumatic, PERRLA, EOMI, Normocephalic Neck: Supple, No JVD, Negative Carotid Bruits Lungs: Clear to auscultation, Normal air movement Cardiovascular: Regular rate, No murmurs Abdomen: Bowel Sounds Present, Soft, Non Tender Extremities: No clubbing, No cyanosis, No edema, Capillary Refill Less than 3 Seconds Skin: No rashes, No breakdown Musculoskeletal: No Tenderness to Palpation of Joints or Extremities Neurological: Cranial nerves II-XII grossly intact, Neuro grossly intact Psych/Mental Status: Flat Affect Laboratory Results 07/31/20 06:00: Phosphorus 3.8, Magnesium 2.0 Current Medications Acetaminophen (Acetaminophen 500 Mg Tablet) 500 mg PO Q4H PRN PRN PRN Reason: Temp > 100.4 F Al Hydroxide/Mg Hydroxide (Mag Hydrox/Al Hydrox/Simeth 30 Ml Udc) 30 ml PO Q6H PRN PRN PRN Reason: dyspesia Bisacodyl (Bisacodyl 10 Mg Suppository) 10 mg RECTAL DAILY PRN PRN Reason: Constipation Clonidine (Clonidine Hcl 0.1 Mg Tablet) 0.1 mg PO BID [facility] Last Admin: 08/01/20 08:54 Dose: 0.1 mg Documented by: Dicyclomine HCl (Dicyclomine 10 Mg Capsule) 20 mg PO Q6H PRN PRN PRN Reason: abdominal discomfort Folic Acid (Folic Acid 1 Mg Tablet) 1 mg PO DAILY@0800 [facility] Last Admin: 08/01/20 08:53 Dose: 1 mg Documented by: Gabapentin (Gabapentin 300 Mg Capsule) 300 mg PO Q8H PRN PRN PRN Reason: moderate to severe anxiety Last Admin: 07/31/20 20:05 Dose: 300 mg Documented by: Hydroxyzine Pamoate (Hydroxyzine Lupis 25 Mg Capsule) 50 mg PO Q4H PRN PRN PRN Reason: mild anxiety Last Admin: 07/31/20 20:05 Dose: 50 mg Documented by: Ibuprofen (Ibuprofen 600 Mg Tablet) 600 mg PO Q8H PRN PRN PRN Reason: Pain Score 1-10 Last Admin: 07/31/20 20:05 Dose: 600 mg Documented by: Loperamide HCl (Loperamide 2 Mg Capsule) 2 mg PO Q4H PRN PRN PRN Reason: LOOSE STOOLS Lorazepam (Lorazepam 1 Mg Tablet) 2 mg PO Q2H PRN PRN; Protocol PRN Reason: CIWA score > 8 but <15 Last Admin: 07/31/20 10:07 Dose: 2 mg Documented by: Lorazepam (Lorazepam 1 Mg Tablet) 2 mg PO UD PRN; Protocol PRN Reason: CIWA score >/=15. Last Admin: 07/29/20 22:59 Dose: 2 mg Documented by: Lorazepam (Lorazepam 2 Mg/Ml Syringe) 2 mg IV Q2H PRN PRN; Protocol PRN Reason: CIWA score > 8 but <15 Lorazepam (Lorazepam 2 Mg/Ml Syringe) 2 mg IV UD PRN; Protocol PRN Reason: CIWA score >/=15. Nicotine (Nicotine 21 Mg Patch) 21 mg TD DAILY [facility] Last Admin: 08/01/20 08:54 Dose: 21 mg Documented by: Ondansetron HCl (Ondansetron 8 Mg Tablet) 8 mg PO Q8H PRN PRN PRN Reason: NAUSEA Senna (Senna Tablet) 2 tablet PO QHS PRN PRN Reason: Constipation Sodium Chloride (0.9% Saline Lock 10 Ml Syringe) 10 - 40 ml IV UD PRN PRN Reason: SALINE FLUSH Thi[facility] ([facility] Last Admin: 08/01/20 08:53 Dose: 100 mg Documented by: Trazodone HCl (Trazodone 100 Mg Tablet) 100 mg PO QHS PRN PRN Reason: INSOMNIA Last Admin: 07/31/20 22:38 Dose: 100 mg Documented by: Discharge Diet: No Restrictions Discharge Activity: Return to Normal Activity Call your doctor if you observe: Shortness of breath, Dizziness, Fainting spells, Chest pain Home Medications: Medications to take at Discharge NK 07/27/20 Primary Care Physician: Care Physician,No Primary [Primary Care Provider] - Please follow up with your Primary Care Physician in: 1 Week Disposition: Home Minutes spent on discharge:: 35 Patient Condition:: Stable Medical Necessity - Tobacco Use Smoking Status: Current every day smoker Tobacco Use: Cigarettes Meaningful Use Info Meaningful Use Diagnoses (Choose all that apply): None applicable <Asad Sanchez - Last Filed: 08/01/20 14:16> Discharge Date and Diagnosis - Primary Discharge Diagnosis Acute Problems: Active Problems Alcohol withdrawal (Acute) - Secondary Discharge Diagnosis Chronic Problems: Chronic Problems Alcoholism (Chronic) HTN (hypertension) (Chronic) Nicotine abuse (Chronic) Homelessness (Chronic) Hospital Course and Treatment Operations: None Procedures: None Summary of Care Provided: Patient seen and examined independently. Data reviewed. I agree with the above note by the nurse practitioner. The patient is a 50 year old M presents with acute alcohol withdrawal. Patient was placed on a phenobarbital taper. Patient did well during the course of his hospitalization. Patient will be discharged to [facility].[] - Physical Exam Vitals/I&O's: Vital Signs Temp Pulse Resp BP Pulse Ox 36.3 C L 89 18 140/88 H 100 08/01/20 08:52 08/01/20 08:52 08/01/20 08:52 08/01/20 08:52 08/01/20 08:52 Oxygen Delivery Method Room Air Weight: 64.954 kg Body Mass Index (BMI) 21.7 Intake and Output for Last 24 Hours 07/30/20 07/31/20 08/01/20 23:59 23:59 23:59 Intake Total 800 / 1600 2098.33 / 2098.33 360 / 360 Output Total 400 / 400 400 / 400 Balance 400 / 1200 1698.33 / 1698.33 360 / 360 General: Alert HEENT: Atraumatic, Normocephalic Discharge Diet: No Restrictions Discharge Activity: Return to Normal Activity Call your doctor if you observe: Shortness of breath, Dizziness, Fainting spells, Chest pain Disposition: Home Minutes spent on discharge:: 35 Patient Condition:: Stable Medical Necessity - Tobacco Use Smoking Status: Current every day smoker Tobacco Use: Cigarettes Meaningful Use Info Meaningful Use Diagnoses (Choose all that apply): None applicable Inpatient E&M: 42914 Disch Hosp
== END 2020-08-01 11:25 | disposition home or self-care (01) | DRG 775 ==
LOC: ED 13:02 → MS3 14:34
PROVIDERS: Internal Medicine; Admitting Provider Internal Medicine; Emergency Provider Emergency Medicine
DX: F10.239 Alcohol dependence with withdrawal, unspecified (principal); I10 Essential (primary) hypertension; Z59.0 Homelessness; F17.210 Nicotine dependence, cigarettes, uncomplicated; K70.10 Alcoholic hepatitis without ascites; E86.0 Dehydration
CPT/HCPCS: 36415; 71045; 80053; 80307; 80320; 83690; 83735; 84100; 85025; 87426; 92610; 97802; 99285; 99406; J7120; G0480; J2405

== ENCOUNTER 2020-08-30 13:50 | Emergency (ER) | payer MEDICAID, SELFPAY ==
[2020-07-27 16:52] VITALS: BMI 21.7
[2020-08-30 13:53] VITALS: BP 142/102; PULSE 104; RESP 16; TEMP 37.2; O2SAT 97
--- NOTE | 2020-08-30 14:14 | RAD_ITS ---
STUDY: X-RAY CHEST REASON FOR EXAM: Male, 50 years old. CHEST PAIN TECHNIQUE: Single AP portable view of the chest. COMPARISON: None. FINDINGS: The lungs are clear and expanded. There is no demonstrated pleural abnormality. Normal size heart. Normal mediastinum and pavan. Normal visualized pulmonary arteries. Normal visualized aortic arch and descending thoracic aorta. There are diffuse degenerative changes of the visualized thoracic spine. Healed right midclavicular fracture. There is no demonstrated abnormality of the visualized soft tissue structures of the upper abdomen. RAD/Chest 1 View (Portable) IMPRESSION: Healed right midclavicular fracture. The lungs are clear. Electronically Signed: Shadi Addison, at 14:32 EST , Service support ,
--- NOTE | 2020-08-30 14:14 | EKG12_ITS ---
Test Reason : CP Blood Pressure : / mmHG Vent. Rate : 084 BPM Atrial Rate : 084 BPM P-R Int : 148 ms QRS Dur : 080 ms QT Int : 358 ms P-R-T Axes : 066 013 039 degrees QTc Int : 423 ms Normal sinus rhythm Septal infarct , age undetermined , cannot be excluded Abnormal ECG Confirmed by CAMILA WOOD, CRUZ ([id number]), art editor LUIS ALBERTO LITTLE ([id number]) on 08/31/2020 9:34:42 AM Referred By: ALAN Confirmed By:CRUZ JENSEN MD
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
[2020-08-30 14:40] LABS: Absolute Neutrophil Count 2.9 X10^3/uL (2.0-7.7); Basophil# 0.08 X10^3/uL; Basophil% 1.1 % (0-1); Eosinophils% 4.2 % (0-5); Hematocrit 46.1 % (40-54); Hemoglobin 16.3 g/dL (13.0-16.5); Lymphocyte % 43.1 % (19-41); Mean Corp Hgb Conc 35.4 g/dL (32-36); Mean Corpuscular Hgb 34.2 pg (27.0-32.0); Mean Corpuscular Volume 96.6 fL (80-94); Mean Platelet Vol. 9.2 fl (6.2-12.0); Monocyte# 0.77 X10^3/uL; Monocyte% 10.7 % (0-10); NRBC Flagged by Analyzer 0 % (0-5); Neutrophil # 2.94 X10^3/uL (2.7-7.7); Neutrophil % 40.8 % (47-70); Platelet Count 307 K/mm3 (150-450); RBC Distribution Width CV 12.1 % (11.6-14.6); RBC Distribution Width SD 43.7 fl (35.1-43.9); Red Blood Count 4.77 M/mm3 (4.6-6.2); White Blood Count 7.2 K/mm3 (4.4-11.0)
[2020-08-30 14:54] LABS: Anion Gap 11 (5-15); BUN 8 mg/dL (7-18); BUN/Creat Ratio 12.6 RATIO (10-20); Calcium,Total 9.3 mg/dL (8.5-10.1); Chloride 108 mmol/L (98-107); Creatinine, Serum 0.63 mg/dL (0.70-1.30); EST Glomerular Filtration Rate 142 mL/min (>60); Est Glom Filt Rate - Afr Amer 171 mL/min (>60); Glucose 96 mg/dL (74-106); Potassium 4.2 mmol/L (3.5-5.1); Sodium Level 143 mmol/L (136-145)
[2020-08-30 15:17] VITALS: BP 131/79; PULSE 81; RESP 16; O2SAT 97
--- NOTE | 2020-08-30 15:23 | ED.RN ---
THIS NURSE REVIEWED D/C INSTRUCTIONS WITH PT. PT VERBALIZED UNDERSTANDING OF INSTRUCTIONS. PT IV D/C. IV CATHETER INTACT. PT TOLERATED WELL. PT DENIES FURTHER NEEDS OR QUESTIONS AT THIS TIME
== END 2020-08-30 15:24 | disposition home or self-care (01) ==
PROVIDERS: Emergency Provider Emergency Medicine
DX: F41.9 Anxiety disorder, unspecified (principal); R07.9 Chest pain, unspecified; F17.200 Nicotine dependence, unspecified, uncomplicated
CPT/HCPCS: 71045; 80048; 84484; 85025; 93005; 99285; A4216

== ENCOUNTER 2020-12-24 00:04 | Emergency (ER) | payer MEDICAID, SELFPAY ==
[2020-12-24 00:05] VITALS: BP 175/103; PULSE 92; RESP 16; TEMP 36.4; O2SAT 100; BMI 21.8
[2020-12-24 00:21] VITALS: BP 131/84; PULSE 82; RESP 16; O2SAT 96
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
[2020-12-24 04:04] VITALS: BP 102/71; PULSE 99; RESP 16; O2SAT 100
== END 2020-12-24 04:07 | disposition home or self-care (01) ==
PROVIDERS: Emergency Provider Emergency Medicine
DX: F41.0 Panic disorder [episodic paroxysmal anxiety] (principal); F41.9 Anxiety disorder, unspecified; F17.200 Nicotine dependence, unspecified, uncomplicated
CPT/HCPCS: 99283

== ENCOUNTER 2020-12-24 08:44 | Emergency (ER) | payer MEDICAID, SELFPAY ==
[2020-12-24] VITALS (8 sets, daily range): BP systolic 100–155; BP diastolic 69–101; PULSE 69–90; RESP 15–23; TEMP 36.5; O2SAT 95–98; BMI 21.8; BMI 21.7
--- NOTE | 2020-12-24 09:12 | EKG12_ITS ---
Test Reason : CP Blood Pressure : / mmHG Vent. Rate : 078 BPM Atrial Rate : 078 BPM P-R Int : 164 ms QRS Dur : 094 ms QT Int : 382 ms P-R-T Axes : 045 045 046 degrees QTc Int : 435 ms Normal sinus rhythm Normal ECG Confirmed by CAMILA WOOD, CRUZ ([id number]), video effects editor LUIS ALBERTO LITTLE ([id number]) on 12/27/2020 11:03:17 AM Referred By: MARIAN Confirmed By:CRUZ JENSEN MD
[2020-12-24] MEDS: hydrOXYzine PAM 25 MG Capsule 50 MG PO (09:34)
[2020-12-24] MEDS: Ondansetron 4 MG/2 ML Vial IV (09:35)
--- NOTE | 2020-12-24 09:37 | RAD_ITS ---
STUDY: X-RAY CHEST REASON FOR EXAM: Male, 50 years old. Chest pain TECHNIQUE: Single AP portable view of the chest. COMPARISON: 08/30/2020 FINDINGS: The lungs are clear and expanded. There is no demonstrated pleural abnormality. Normal size heart. Normal mediastinum and pavan. Normal visualized pulmonary arteries. Normal visualized aortic arch and descending thoracic aorta. Normal visualized thoracic spine. Healed fracture the right clavicle. There is no demonstrated abnormality of the visualized soft tissue structures of the upper abdomen. RAD/Chest 1 View (Portable) IMPRESSION: Normal x-ray examination of the chest. Electronically Signed: Bartolome Pennington MD at 10:28 EDT Tel , Service support ,
--- NOTE | 2020-12-24 09:38 | EDS_ITS ---
HPI History of Present Illness Chief Complaint: Anxiety Narrative Narrative: Patient reports that he had a panic attack last night and then has had another one this morning. Reports that during these he feels as though his heart is racing, he feels disoriented, he is short of breath and nauseated. He reports that he feels foggy during these. Patient is unable to give further details about the chest pain and is of a poor informant. He denies chest pain currently. He reports that he was nauseated and vomited with this last night. He denies any shortness of breath or cough. No fever or chills. He does complain of a slight headache. Patient does admit to anxiety. Reports that he does not see a psychiatrist. He used to be on trazodone years ago but is not on anything now. He denies any suicidal or homicidal ideation. No auditory or visual hallucinations. PFSH PFSH Home Medications hydroxyzine pamoate 50 mg PO TID PRN PRN #30 cap 12/24/20 [Rx Last Taken Unknown] Allergy/AdvReac Type Severity Reaction Status Date / Time Penicillins AdvReac Nausea Verified 12/24/20 08:45 Social History Smoking Status: Current every day smoker ROS ROS ED Constitutional Constitutional ED: Denies chills, fever(s) or sweats Eyes Eyes: Denies change in vision ENT ENT ED: Denies sore throat Cardiovascular Cardiovascular: Reports chest pain and palpitations Respiratory/Chest Respiratory/Chest: Denies cough, dyspnea or dyspnea on exertion Gastrointestinal Gastrointestinal: Reports nausea and vomiting; Denies abdominal pain, diarrhea or melena Genitourinary Genitourinary ED: Denies dysuria or urinary frequency Musculoskeletal Musculoskeletal: Denies myalgias Integumentary Denies rash Neurologic Neurologic: Reports headache(s); Denies paresthesias or weakness Psychiatric Psychiatric: Reports anxiety and other Details: No auditory or visual hallucinations. ; Denies depression, suicidal ideation or suicidal thoughts EXAM Physical Exam Const Vital Signs: 12/24/20 08:45 12/24/20 09:53 12/24/20 12:53 Temperature 97.7 F L Temperature Source Oral Pulse Rate 78 69 73 Respiratory Rate 16 16 16 Blood Pressure 155/101 H Blood Pressure Mean 119 Pulse Ox 98 98 97 Oxygen Delivery Method Room Air Room Air Room Air 12/24/20 14:33 Temperature Temperature Source Pulse Rate 73 Respiratory Rate 18 Blood Pressure 113/79 Blood Pressure Mean 90 Pulse Ox 96 Oxygen Delivery Method Room Air Positive well nourished and well developed General Appearance ED: well developed HEENT normocephalic and atraumatic Eyes PERRL Neck no lymphadenopathy, supple and no JVD General: Negative for tenderness Chest Wall Chest: Negative for tenderness Resp clear to auscultation bilaterally Effort and Inspection: Negative for respiratory distress Cardio regular rate, regular rhythm and no murmurs GI normal to inspection, nondistended, normoactive bowel sounds, soft to palpation and non-tender GI Narrative: No guarding, rebound, or peritoneal signs. Back/Spine no thoracic nor lumbar tenderness Extremity General Extremety ED: Negative for edema or tenderness General Extremity: Negative for edema Neuro oriented x3, CN's II-XII intact bilaterally and no sensory deficits noted Sensorium / Orientation: awake and alert Motor Exam: strength 5/5 throughout Psych Psych Narrative: Mental status exam: Patient appears their stated age. Good posture and grooming. Good eye contact. Normal rate, volume, and latency of speech. No suicidal or homicidal ideation. No auditory or visual hallucinations. Flow of thought is tangential. Insight and judgment is poor. Skin no rashes or lesions noted MDM MDM MDM Narrative Medical decision making narrative: Patient was given a dose of Vistaril p.o. He is resting more comfortably. Unfortunately the patient does not have someone that can come and pick him up. His blood alcohol level is 387 at 9:35 AM. The patient was discussed with case management who spoke with counseling center. They have been in contact with him multiple times today. He has had intermittent complaints of suicidal ideation. The patient is far too intoxicated at this point to be able to accurately assess or have him seen by the counseling center. He will be observed until his blood alcohol level is less than 100 and then will be discussed with the counseling center. Disposition: Pending. Lab Data Labs: Laboratory Results - last 24 hr 12/24/20 12/24/20 12/24/20 09:35 09:35 09:35 WBC 6.6 RBC 4.85 Hgb 15.8 Hct 44.7 MCV 92.2 MCH 32.6 H MCHC 35.3 RDW Std Deviation 44.2 H RDW Coeff of Roger 13.0 Plt Count 114 L MPV 9.8 Immature Gran % (Auto) 0.500 Neut % (Auto) 46.7 L Lymph % (Auto) 32.6 [place] % (Auto) 19.3 H Eos % (Auto) 0.3 Baso % (Auto) 0.6 Absolute Neuts (auto) 3.1 Absolute Lymphs (auto) 2.16 Nucleated RBC % 0 Sodium 136 Potassium 3.1 L Chloride 97 L Carbon Dioxide 30.0 Anion Gap 9 BUN 10 Creatinine 0.79 Estim Creat Clear Calc 101.55 Est GFR (MDRD) Af Amer 133 Est GFR (MDRD) Non-Af 110 BUN/Creatinine Ratio 12.7 Glucose 99 Calcium 9.2 Total Bilirubin 0.50 AST 135 H ALT 124 H Alkaline Phosphatase 67 Troponin I < 0.015 Total Protein 8.7 H Albumin 4.3 Globulin 4.4 H Albumin/Globulin Ratio 1.0 Lipase 546 H Urine Opiates Screen Urine Methadone Screen Ur Barbiturates Screen Ur Phencyclidine Scrn Ur Amphetamines Screen U Methamphetamin-MDMA U Benzodiazepines Scrn Urine Cocaine Screen U Cannabinoids Screen Ur Drug Screen Comment Ethyl Alcohol 387.0 H* 12/24/20 14:30 WBC RBC Hgb Hct MCV MCH MCHC RDW Std Deviation RDW Coeff of Roger Plt Count MPV Immature Gran % (Auto) Neut % (Auto) Lymph % (Auto) [place] % (Auto) Eos % (Auto) Baso % (Auto) Absolute Neuts (auto) Absolute Lymphs (auto) Nucleated RBC % Sodium Potassium Chloride Carbon Dioxide Anion Gap BUN Creatinine Estim Creat Clear Calc Est GFR (MDRD) Af Amer Est GFR (MDRD) Non-Af BUN/Creatinine Ratio Glucose Calcium Total Bilirubin AST ALT Alkaline Phosphatase Troponin I Total Protein Albumin Globulin Albumin/Globulin Ratio Lipase Urine Opiates Screen NEGATIVE Urine Methadone Screen NEGATIVE Ur Barbiturates Screen NEGATIVE Ur Phencyclidine Scrn NEGATIVE Ur Amphetamines Screen NEGATIVE U Methamphetamin-MDMA NEGATIVE U Benzodiazepines Scrn NEGATIVE Urine Cocaine Screen NEGATIVE U Cannabinoids Screen NEGATIVE Ur Drug Screen Comment Ethyl Alcohol Radiography Diagnostic Testing: Radiology Impression Chest X-Ray 12/24/20 09:37 IMPRESSION: Normal x-ray examination of the chest. Electronically Signed: Bartolome Pennington MD at 10:28 EDT Tel , Service support , EKG Initial EKG: Attestation: I personally reviewed and interpreted this EKG as follows: Interpretation: Sinus Rhythm and Non-Specific ST Changes Comments: [id number]@78 Prior: Unchanged (From August 2020.) Discharge Plan Triage Chief Complaint: Anxiety ED Provider: Chiki Irizarry Dx/Rx/DC Orders Clinical Impression: Alcohol abuse, Anxiety Instructions: ED Alcohol Abuse Prescriptions: New hydroxyzine pamoate [hydroxyzine pamoate] 25 MG capsule 50 mg PO TID PRN PRN (Reason: Anxiety) Qty: 30 RF: 0 Primary Care Provider: Care Physician,No Primary Referrals: Nina Cao [NON-STAFF] - 2 Days Care Physician,No Primary [Primary Care Provider] - [facility] [STAFF PHYSICIAN] - As soon as possible
[2020-12-24 09:49] LABS: Absolute Lymphocyte Count 2.16 X10^3/uL (0.83-4.51); Absolute Neutrophil Count 3.1 X10^3/uL (2.0-7.7); Basophil# 0.04 X10^3/uL; Basophil% 0.6 % (0-1); Eosinophil# 0.02 X10^3/uL; Eosinophils% 0.3 % (0-5); Hematocrit 44.7 % (40-54); Hemoglobin 15.8 g/dL (13.0-16.5); Lymphocyte # 2.16 X10^3/ul (0.83-4.51); Lymphocyte % 32.6 % (19-41); Mean Corp Hgb Conc 35.3 g/dL (32-36); Mean Corpuscular Hgb 32.6 pg (27.0-32.0); Mean Corpuscular Volume 92.2 fL (80-94); Mean Platelet Vol. 9.8 fl (6.2-12.0); Monocyte# 1.28 X10^3/uL; Monocyte% 19.3 % (0-10); NRBC Flagged by Analyzer 0 % (0-5); Neutrophil % 46.7 % (47-70); Platelet Count 114 K/mm3 (150-450); RBC Distribution Width SD 44.2 fl (35.1-43.9); Red Blood Count 4.85 M/mm3 (4.6-6.2); White Blood Count 6.6 K/mm3 (4.4-11.0)
[2020-12-24 10:17] LABS: AST(SGOT) 135 U/L (15-37); Alanine Aminotransfer ALT/SGPT 124 U/L (16-61); Albumin, Serum 4.3 g/dL (3.2-5.0); Alkaline Phosphatase 67 U/L (45-117); Anion Gap 9 (5-15); BUN 10 mg/dL (7-18); BUN/Creat Ratio 12.7 RATIO (10-20); Calcium,Total 9.2 mg/dL (8.5-10.1); Chloride 97 mmol/L (98-107); Creatinine, Serum 0.79 mg/dL (0.70-1.30); EST Glomerular Filtration Rate 110 mL/min (>60); Est Glom Filt Rate - Afr Amer 133 mL/min (>60); Estimated Creatinine Clearance 101.55 ml/min; Globulin 4.4 g/dL (2.2-4.2); Glucose 99 mg/dL (74-106); Lipase 546 U/L (73-393); Potassium 3.1 mmol/L (3.5-5.1); Protein, Total 8.7 g/dL (6.4-8.2); Sodium Level 136 mmol/L (136-145)
--- NOTE | 2020-12-24 12:40 | CM.ED ---
SOCIAL WORK Discussed case with Dr. Irizarry. Patient intoxicated. Reviewed chart and spoke with Candelaria from Crisis as they assessed patient early this morning. Per Paulette Gaona assessed patient and then Candelaria spoke with patient at 8am this morning prior to patient coming back to ER. Patient refused services. Candelaria reports patient did make a suicidal comment and when further asked denied suicidal ideation. Patient does not have a safe ride home and due to intoxication unable to discharge patient at this time. Dr. Irizarry informed of patient's interaction with Crisis prior to arrival to ER. Patient to continue to be observed at this time. Will continue to follow as needed. May require Crisis consult once no longer intoxicated. Candy Gabriel, LINING MACHINE OPERATOR, CEMETERY COUNSELOR
[2020-12-24 15:03] LABS: Amphetamine Urine VISTA NEGATIVE (<1000 ng/mL); Barbiturate Urine VISTA NEGATIVE (< 200 ng/mL); Benzodiazepine Urine VISTA NEGATIVE (< 200 ng/mL); Cocaine Urine VISTA NEGATIVE (< 300 ng/mL); Ecstacy Urine VISTA NEGATIVE (< 500 ng/mL); Methadone Urine VISTA NEGATIVE (< 300 ng/mL); PCP Urine VISTA NEGATIVE (< 25 ng/mL); THC Urine VISTA NEGATIVE (< 50 ng/mL); Vista UDS pH Range 6
[2020-12-25] VITALS: PULSE 78; RESP 15; O2SAT 99
[2020-12-25 00:08] LABS: Alcohol, Blood (Medical)-Serum < 3.0 mg/dL
[2020-12-25 02:00] VITALS: PULSE 75; RESP 15; O2SAT 95
[2020-12-25 04:38] VITALS: RESP 16
[2020-12-25 06:00] VITALS: RESP 14
== END 2020-12-25 06:41 | disposition home or self-care (01) ==
PROVIDERS: Emergency Medicine; Emergency Provider Emergency Medicine
DX: F10.10 Alcohol abuse, uncomplicated (principal); F41.9 Anxiety disorder, unspecified; F17.200 Nicotine dependence, unspecified, uncomplicated; F41.0 Panic disorder [episodic paroxysmal anxiety]
CPT/HCPCS: 36415; 71045; 80053; 80307; 82077; 83690; 84484; 85025; 87426; 93005; 96374; 99283; 99285; J7040; A4216; J2405

== ENCOUNTER 2021-01-31 11:14 | Emergency (ER) | payer MEDICAID, SELFPAY ==
[2020-12-24 08:45] VITALS: BMI 21.7
[2021-01-31 11:15] VITALS: BP 154/91; PULSE 84; RESP 16; TEMP 36.2; O2SAT 99; BMI 22.8
--- NOTE | 2021-01-31 11:32 | EX.ED.DYSGE1 ---
HPI History of Present Illness Chief Complaint: Wound Informant: patient Onset/Context/Timing Onset: Days Current Severity: Mild Maximum Severity: Moderate Narrative Narrative: Patient is a 50-year-old male presents to the emergency department multiple complaints. He states he has blisters on bilateral feet, pain in both wrists that has had for months, and a bump on his face. He states his big concern is that he has a red bump just to the lateral aspect of his eye. He states he noticed it today. He denies any fevers or chills. He has not tried anything for it. He states that he also has to walk a significant amount for work and because of this, will get blisters on his feet. 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 He denies any trauma. Prior similar symptoms: No Recent Illness/Hospitalization: No PFSH PFSH Home Medications hydroxyzine pamoate 50 mg PO TID PRN PRN #30 cap 12/24/20 [Rx Last Taken Unknown] nystatin 1 applic TOPICAL BID #60 g 01/31/21 [Rx Last Taken Unknown] sulfamethoxazole-trimethoprim [Bactrim DS] 1 tab PO BID #14 tab 01/31/21 [Rx Last Taken Unknown] Allergy/AdvReac Type Severity Reaction Status Date / Time Penicillins AdvReac Nausea Verified 01/31/21 11:16 Social History Smoking Status: Current every day smoker ROS [facility] ED Constitutional Constitutional ED: Denies chills or fever(s) Eyes Eyes: Denies blurry vision or change in vision ENT ENT ED: Denies ear pain or sore throat Cardiovascular Cardiovascular: Denies chest pain or palpitations Respiratory/Chest Respiratory/Chest: Denies cough, dyspnea or dyspnea on exertion Gastrointestinal Gastrointestinal: Denies abdominal pain, nausea or vomiting Genitourinary Genitourinary ED: Denies dysuria or urinary frequency Musculoskeletal Musculoskeletal: Denies arthralgias or myalgias Integumentary Denies rash Neurologic Neurologic: Denies headache(s) or paresthesias Psychiatric Psychiatric: Denies anxiety or depression Endocrine Endocrinology: Denies polydipsia or polyuria Allergic/Immunologic Allergic/Immunologic ED: Denies urticaria EXAM Physical Exam Const Vital Signs: 01/31/21 11:15 Temperature 97.1 F L Temperature Source Temporal Pulse Rate 84 Respiratory Rate 16 Blood Pressure 154/91 H Blood Pressure Mean 112 Pulse Ox 99 Oxygen Delivery Method Room Air Positive well nourished and well developed General Appearance ED: well developed HEENT Reports normocephalic, head/scalp atraumatic and moist mucous membranes HEENT Narrative: Patient has a less than 1 cm ovoid area of abscess to the lateral aspect of the zygomatic arch. There is no cellulitis. There is no significant fluctuance but there is mild induration. Eyes PERRL and EOMs intact bilaterally Neck no lymphadenopathy and supple General: Negative for tenderness Chest Wall inspection of chest normal Resp normal respiratory effort and clear to auscultation bilaterally Cardio regular rate, regular rhythm and no murmurs GI normal to inspection, nondistended, normoactive bowel sounds Palpation: Negative for tender, guarding or rebound tenderness present Back/Spine no CVA tenderness Cervical Spine: Negative for cervical spine tenderness Thoracic Spine / Upper Back: Negative for thoracic spinal tenderness Extremity normal to inspection Extremity Narrative: Patient's wrist have normal pulses. Is diminished range of motion secondary to pain. He said no trauma. Examination of the feet shows small blisters on bilateral feet without evidence of infection. General Extremety ED: Negative for tenderness Neuro oriented x3 and CN's II-XII intact bilaterally Neuro Narrative: No focal deficits appreciated. Sensorium / Orientation: alert Psych mental status grossly normal Skin no rashes or lesions noted, no wounds and skin turgor normal MDM MDM MDM Narrative Medical decision making narrative: Patient presents with multiple complaints. He does have a small facial abscess without significant fluctuance. I do feel the risk of scarring and bleeding is much higher than treating with antibiotics and warm compresses. The patient be placed on Bactrim. He will also be given topical antifungal powder for his feet and was counseled to keep them warm and dry. He will be placed in a Velcro wrist splint for comfort as I do feel he may have underlying carpal tunnel. He will be discharged home. Impression 1. Facial abscess 2. Blisters bilateral feet 3. Bilateral wrist pain Discharge Plan Triage Chief Complaint: Wound ED Provider: Osmar Barakat Dx/Rx/DC Orders Instructions: ED Abscess Antibiotic Treatment Only, ED Skin Avulsion Prescriptions: New sulfamethoxazole-trimethoprim [Bactrim DS] 800-160 mg tablet 1 tab PO BID Qty: 14 RF: 0 nystatin 100,000 unit/gram powder 1 applic topical BID Qty: 60 RF: 0 No Action hydroxyzine pamoate [hydroxyzine pamoate] 25 MG capsule 50 mg PO TID PRN PRN (Reason: Anxiety) Qty: 30 RF: 0 Primary Care Provider: Care Physician,No Primary Referrals: Care Physician,No Primary [Primary Care Provider] -
[2021-01-31] MEDS: HYDROcodone Bitartrate/Apap 5/325 Tablet PO (11:42)
== END 2021-01-31 12:00 | disposition home or self-care (01) ==
PROVIDERS: Emergency Provider Emergency Medicine
DX: L02.01 Cutaneous abscess of face (principal); S90.821A Blister (nonthermal), right foot, initial encounter; S90.822A Blister (nonthermal), left foot, initial encounter; M25.532 Pain in left wrist; M25.531 Pain in right wrist; F17.200 Nicotine dependence, unspecified, uncomplicated; X58.XXXA Exposure to other specified factors, initial encounter
CPT/HCPCS: 99285

== ENCOUNTER 2021-02-24 14:01 | Inpatient (IN) | payer MEDICAID, SELFPAY ==
[2021-02-24] VITALS (8 sets, daily range): BP systolic 125–161; BP diastolic 94–127; PULSE 89–94; RESP 12–16; TEMP 36.8; O2SAT 97–99; BMI 25.0
--- NOTE | 2021-02-24 14:20 | EX.ED.DYSGE1 ---
HPI History of Present Illness Chief Complaint: Mental Health Informant: patient Onset/Context/Timing Onset: Days Context: Gradual Onset Timing: Continuous Current Severity: Mild Maximum Severity: Mild Narrative Narrative: Middle-age male past medical history of alcoholism. Denies any specific diagnosis of psychiatric disease. Currently on no medications. Denies seeing a psychiatrist or counselor. Denies any prior suicide attempt. States he is depressed he has been drinking and he is contemplating suicide but has no specific plan. Prior similar symptoms: Yes Recent Illness/Hospitalization: No PFSH PFSH Medical History Anxiety Depression Hypertension Schizophrenia Home Medications nystatin 1 applic TOPICAL BID #60 g 01/31/21 [Rx Last Taken Unknown] sulfamethoxazole-trimethoprim [Bactrim DS] 1 tab PO BID #14 tab 01/31/21 [Rx Last Taken Unknown] Allergy/AdvReac Type Severity Reaction Status Date / Time Penicillins AdvReac Nausea Verified 02/24/21 14:12 Social History Smoking Status: Current every day smoker tobacco type: cigarettes ROS ROS ED ROS Narrative Denies any recent illness. Review of Systems ROS Unobtainable: Denies due to encephalopathy Constitutional Constitutional ED: Denies chills Eyes Eyes: Denies blindness or change in vision Cardiovascular Cardiovascular: Denies abdominal pain Respiratory/Chest Respiratory/Chest: Denies chest congestion or chest tightness Gastrointestinal Gastrointestinal: Denies cramping or diarrhea Genitourinary Genitourinary ED: Denies flank pain or hematuria Musculoskeletal Musculoskeletal: Denies back pain Integumentary Denies bleeding lesions or jaundice Neurologic Neurologic: Denies abnormal hearing or dizziness Psychiatric Psychiatric: Reports as per HPI, anxiety, depression, suicidal ideation and suicidal thoughts Endocrine Endocrinology: Denies cold intolerance, excessive sweating, fatigue or palpitations Hematologic/Lymphatic Hematologic/Lymphatic: Denies none or easy bruising Allergic/Immunologic Allergic/Immunologic ED: Denies itchy eyes or wheezing EXAM Physical Exam Narrative Exam Narrative: Range male in acute distress. Vital signs stable afebrile. His initial blood pressure is elevated 161/127. He seems anxious. Is somewhat disheveled. But he is awake alert. He is cooperative. H EENT exam unremarkable. Smell of alcohol. Neck nontender. No signs of trauma. Lungs clear to auscultation bilaterally. Heart tachycardic rate about 110 no murmur. Chest wall nontender. Abdomen soft nontender normal bowel sounds no peritoneal signs. Patient moving all 4 extremities. No edema. No trauma or lacerations. Back nontender. Neurologically is awake alert with no focal motor deficits. Const Vital Signs: 02/24/21 14:04 02/24/21 16:23 Temperature 98.2 F Temperature Source Oral Pulse Rate 94 89 Respiratory Rate 16 12 Blood Pressure 161/127 H 140/102 H Blood Pressure Mean 138 114 Pulse Ox 99 97 Oxygen Delivery Method Room Air Room Air Positive well nourished, well developed, unkempt and oriented x3 General Appearance ED: active, cooperative, unkempt and well developed Orientation / Consciousness: awake, oriented to person, oriented to place and oriented to time; Negative for comatose, confused, disoriented or obtunded Exam Limitations: no limitations HEENT Reports normocephalic, head/scalp atraumatic, hearing grossly normal bilaterally, external ears normal, external nose normal and moist mucous membranes normocephalic and normal to inspection Nose: external nose normal Eyes PERRL and EOMs intact bilaterally General Eye ED: Yes normal appearance of both eyes Neck full ROM, No nuchal rigidity, No no lymphadenopathy, supple, no meningeal signs and no JVD General: normal visual inspection Lymph Lymphatic: no lymphadenopathy noted and no lymphedema noted Chest Wall inspection of chest normal and palpation of chest normal Resp normal respiratory effort, normal air movement, no retractions and no use of accessory muscles Resp Narrative: Few scattered wheezes with a history of smoking. Effort and Inspection: able to speak in complete sentences Cardio regular rhythm, S1 normal heart sound, S2 normal heart sound and no murmurs Cardio Narrative: Tachycardic with a rate of 110. Rate: tachycardic GI normal to inspection, nondistended, normoactive bowel sounds, soft to palpation, non-tender and non-distended Back/Spine no CVA tenderness, normal ROM, normal to inspection, thoracic and lumbar spine normal to inspection and no thoracic nor lumbar tenderness Extremity normal to inspection, full ROM, normal capillary refill, no joint enlargement, no clubbing, cyanosis or edema, no calf tenderness and no pedal edema Neuro oriented x3, CN's II-XII intact bilaterally, moves all extremities, no focal motor deficits and no sensory deficits noted Psych mental status grossly normal and speech normal Appearance: unkempt Attitude: calm and engaged Activity / Motor Behavior: appropriate eye contact Speech: normal speech Thought Process: normal thought process Skin no rashes or lesions noted and no wounds MDM MDM MDM Narrative Medical decision making narrative: Middle-age male history of alcohol abuse states has been more depressed and is having thoughts of suicide without a specific plan. Denies any prior attempt. Will go through an ED mental health lab evaluation and also speak with our social sciences department chair and then will determine a plan. Repeat exam the patient is doing well at 4:35 PM. Awaiting alcohol level to substantially reduce and come down to a legal limit before can be thoroughly interviewed and evaluated by social media content manager and/or crisis if needed. Lab Data Attestation: I reviewed the patient's lab results. Lab results narrative: CBC unremarkable white count of 5. Hemoglobin 16. Electrolytes unremarkable gap at 9 normal creatinine. Glucose 110. Tox screen negative. Alcohol elevated at 498. Once the alcohol level comes down to a much more reasonable range the patient will then be interviewed by social sciences department chair. Labs: Laboratory Results - last 24 hr 02/24/21 02/24/21 02/24/21 14:11 14:15 14:15 WBC 5.7 RBC 5.04 Hgb 16.7 H Hct 47.2 MCV 93.7 MCH 33.1 H MCHC 35.4 RDW Std Deviation 42.6 RDW Coeff of Roger 12.4 Plt Count 121 L MPV 9.2 Immature Gran % (Auto) 0.400 Neut % (Auto) 41.5 L Lymph % (Auto) 40.9 [place] % (Auto) 15.3 H Eos % (Auto) 1.2 Baso % (Auto) 0.7 Absolute Neuts (auto) 2.4 Absolute Lymphs (auto) 2.33 Nucleated RBC % 0 Platelet Estimate SLT DEC RBC Morphology NORM C+C Sodium 137 Potassium 3.9 Chloride 105 Carbon Dioxide 23.0 Anion Gap 9 BUN 5 L Creatinine 0.65 L Estim Creat Clear Calc 116.96 Est GFR (MDRD) Af Amer 165 Est GFR (MDRD) Non-Af 137 BUN/Creatinine Ratio 7.7 L Glucose 110 H Calcium 9.1 Urine Opiates Screen NEGATIVE Urine Methadone Screen NEGATIVE Ur Barbiturates Screen NEGATIVE Ur Phencyclidine Scrn NEGATIVE Ur Amphetamines Screen NEGATIVE U Methamphetamin-MDMA NEGATIVE U Benzodiazepines Scrn NEGATIVE Urine Cocaine Screen NEGATIVE U Cannabinoids Screen NEGATIVE Ur Drug Screen Comment Ethyl Alcohol 02/24/21 14:15 WBC RBC Hgb Hct MCV MCH MCHC RDW Std Deviation RDW Coeff of Roger Plt Count MPV Immature Gran % (Auto) Neut % (Auto) Lymph % (Auto) [place] % (Auto) Eos % (Auto) Baso % (Auto) Absolute Neuts (auto) Absolute Lymphs (auto) Nucleated RBC % Platelet Estimate RBC Morphology Sodium Potassium Chloride Carbon Dioxide Anion Gap BUN Creatinine Estim Creat Clear Calc Est GFR (MDRD) Af Amer Est GFR (MDRD) Non-Af BUN/Creatinine Ratio Glucose Calcium Urine Opiates Screen Urine Methadone Screen Ur Barbiturates Screen Ur Phencyclidine Scrn Ur Amphetamines Screen U Methamphetamin-MDMA U Benzodiazepines Scrn Urine Cocaine Screen U Cannabinoids Screen Ur Drug Screen Comment Ethyl Alcohol 498.0 H* Discharge Plan Triage Chief Complaint: Mental Health Other Complaint: Suicidal ED Provider: Michael Nugent Dx/Rx/DC Orders Clinical Impression: Alcoholism, Acute depression, Suicidal ideation, Acute alcohol intoxication Prescriptions: No Action sulfamethoxazole-trimethoprim [Bactrim DS] 800-160 mg tablet 1 tab PO BID Qty: 14 RF: 0 nystatin 100,000 unit/gram powder 1 applic topical BID Qty: 60 RF: 0 Primary Care Provider: Care Physician,No Primary Referrals: Care Physician,No Primary [Primary Care Provider] -
[2021-02-24 14:38] LABS: Anion Gap 9 (5-15); BUN 5 mg/dL (7-18); BUN/Creat Ratio 7.7 RATIO (10-20); Calcium,Total 9.1 mg/dL (8.5-10.1); Chloride 105 mmol/L (98-107); Creatinine, Serum 0.65 mg/dL (0.70-1.30); EST Glomerular Filtration Rate 137 mL/min (>60); Est Glom Filt Rate - Afr Amer 165 mL/min (>60); Estimated Creatinine Clearance 116.96 ml/min; Glucose 110 mg/dL (74-106); Potassium 3.9 mmol/L (3.5-5.1); Sodium Level 137 mmol/L (136-145)
[2021-02-24 14:49] LABS: Amphetamine Urine VISTA NEGATIVE (<1000 ng/mL); Barbiturate Urine VISTA NEGATIVE (< 200 ng/mL); Benzodiazepine Urine VISTA NEGATIVE (< 200 ng/mL); Cocaine Urine VISTA NEGATIVE (< 300 ng/mL); Ecstacy Urine VISTA NEGATIVE (< 500 ng/mL); Methadone Urine VISTA NEGATIVE (< 300 ng/mL); PCP Urine VISTA NEGATIVE (< 25 ng/mL); THC Urine VISTA NEGATIVE (< 50 ng/mL); Vista UDS pH Range 5
[2021-02-24 14:56] LABS: Absolute Lymphocyte Count 2.33 X10^3/uL (0.83-4.51); Absolute Neutrophil Count 2.4 X10^3/uL (2.0-7.7); Basophil# 0.04 X10^3/uL; Basophil% 0.7 % (0-1); Differential Indicated SCAN CRITERIA MET; Eosinophil# 0.07 X10^3/uL; Eosinophils% 1.2 % (0-5); Hematocrit 47.2 % (40-54); Hemoglobin 16.7 g/dL (13.0-16.5); Lymphocyte # 2.33 X10^3/ul (0.83-4.51); Lymphocyte % 40.9 % (19-41); Mean Corp Hgb Conc 35.4 g/dL (32-36); Mean Corpuscular Hgb 33.1 pg (27.0-32.0); Mean Corpuscular Volume 93.7 fL (80-94); Mean Platelet Vol. 9.2 fl (6.2-12.0); Monocyte# 0.87 X10^3/uL; Monocyte% 15.3 % (0-10); NRBC Flagged by Analyzer 0 % (0-5); Neutrophil # 2.37 X10^3/uL (2.7-7.7); Neutrophil % 41.5 % (47-70); POSITIVE COUNT YES; Platelet Count 121 K/mm3 (150-450); RBC Distribution Width CV 12.4 % (11.6-14.6); RBC Distribution Width SD 42.6 fl (35.1-43.9); Red Blood Count 5.04 M/mm3 (4.6-6.2); White Blood Count 5.7 K/mm3 (4.4-11.0)
[2021-02-24 14:58] LABS: Platelet Estimate SLT DEC (ADEQ)
[2021-02-24 14:59] LABS: Red Cell Morphology NORM C+C NORMAL (NORM C&C)
[2021-02-25] VITALS (14 sets, daily range): BP systolic 90–204; BP diastolic 51–131; PULSE 75–104; RESP 14–24; TEMP 36.7–37.1; O2SAT 92–100
--- NOTE | 2021-02-25 05:56 | PCM.HP.STD ---
HPI - General General Date of Admission: 02/25/21 Date of Service: 02/25/21 Chief Complaint: Acute EtOH Withdrawal treatment HPI Narrative The patient is a 50 y/o M w/ PMHx: EtOH abuse w/ Hx DT (> 8 tall boys daily, prior to initial ED presentation last intake ~ 16 hours ago), Tobacco use, Schizophrenia/Anxiety and Depression who presents to the [facility] ED on 02/25/21 with history of initially presented to the ED intoxicated with suicidal ideations however following 15 hours of evaluation treatment in the ED patient then denied suicidal ideations but at that point started to have alcohol withdrawal symptoms and following being approached by the ED physician noted being amenable to alcohol withdrawal treatment with noted nausea, tremors, mild agitation. Work-up in the ED included T 98.2, heart rate 78, BP 138/80, respiratory rate 16, 99% on room air, CBC with WC 5.7, hemoglobin 16.7, platelet 121 without marked shift, BMP with BUN/creatinine 5/0.65 glucose 110, urine drug screen negative, ethyl alcohol level 498 however this was performed at 1415 the day prior to current request evaluation of patient in the ED. In the ED patient ministered 2 mg IV Ativan x1. PFSH Medical History Alcohol abuse Anxiety Depression Hypertension Schizophrenia Tobacco use Home Medications NK 02/25/21 [History Last Taken Unknown] Allergy/AdvReac Type Severity Reaction Status Date / Time Penicillins AdvReac Nausea Verified 02/24/21 14:12 Family History (Updated 02/25/21 @ 06:[address] Michelle Gonzalez MD) Father Heart disease Hypertension HLD (hyperlipidemia) Mother Alzheimer's dementia no surgical history Social History (Updated 02/25/21 @ 06:[address] Michelle Gonzalez MD) housing: homeless Smoking Status: Current every day smoker tobacco type: cigarettes Smoking packs per day: 1 Smoking cigarettes per day: 20.0 alcohol intake: current alcohol intake frequency: other Alcohol type: beer details: > 8 tall boys daily. substance use type: does not use ROS ROS Narrative Admission Review of Systems: CONSTITUTIONAL: No weight loss, fever, chills, + weakness or fatigue. HEENT: Eyes: No visual loss, blurred vision, double vision or yellow sclerae. Ears, Nose, Throat: No hearing loss, sneezing, congestion, runny nose or sore throat. SKIN: No rash or itching, lesions, wounds. CARDIOVASCULAR: No chest pain, chest pressure or chest discomfort, palpitations, edema, orthopnea, syncopal events. RESPIRATORY: No shortness of breath, cough or sputum, wheezing, hemoptysis. GASTROINTESTINAL: + anorexia, No nausea, vomiting or diarrhea, abdominal pain, melena, BRBPR. GENITOURINARY: No dysuria, frequency, urgency or retention. NEUROLOGICAL: + Agitation, tremors, tactile disturbances. No headache, dizziness, syncope, paralysis, ataxia, focal weakness, change in bowel or bladder control, seizure. MUSCULOSKELETAL: + muscle, back pain, joint pain or stiffness. HEMATOLOGIC: No anemia, bleeding or bruising. LYMPHATICS: No enlarged nodes. No history of splenectomy. PSYCHIATRIC: + history of depression or anxiety. ENDOCRINOLOGIC: No reports of sweating, cold or heat intolerance. No polyuria or polydipsia. ALLERGIES: No history of asthma, hives, eczema or rhinitis. Vital Signs Vital Signs Vital Signs: 02/24/21 14:04 02/24/21 16:23 02/24/21 17:12 Temperature 98.2 F Temperature Source Oral Pulse Rate 94 89 Respiratory Rate 16 12 Blood Pressure 161/127 H 140/102 H 125/94 H Blood Pressure Mean 138 114 104 Pulse Ox 99 97 Oxygen Delivery Method Room Air Room Air 02/24/21 18:07 02/24/21 19:25 02/24/21 20:34 Temperature Temperature Source Pulse Rate Respiratory Rate 14 16 16 Blood Pressure Blood Pressure Mean Pulse Ox Oxygen Delivery Method 02/24/21 21:12 02/24/21 22:10 02/25/21 00:20 Temperature Temperature Source Pulse Rate 78 Respiratory Rate 14 16 16 Blood Pressure 130/80 H Blood Pressure Mean 96 Pulse Ox 99 Oxygen Delivery Method Room Air 02/25/21 01:04 02/25/21 04:07 Temperature Temperature Source Pulse Rate Respiratory Rate 14 16 Blood Pressure Blood Pressure Mean Pulse Ox Oxygen Delivery Method Weight Weight: 150 lb 5.684 oz Body Mass Index (BMI) 25.0 Physical Exam Narrative Physical Examination: General: Awake, alert, oriented x 3 and cooperative, seated upright in the ED bed, restless, mildly agitated, denies any SI. Skin: Normal color, normal turgor, no icterus, no cyanosis. HEENT: AT/NC, EOMI, PERRLA, dry MM, no carotid bruits or JVD noted. Lungs: CTA bilaterally, moderate effort, mild decrease BL bases, no rales, ronchi or wheezing. Heart: Regular rate and rhythm; no gallop, rub audible. Abdomen: Soft, NTTP, ND, normal BS, no HSM. Extremities: No cyanosis, clubbing, or edema. Neurological: Patient awake, alert, oriented as noted, cognitive function appears improved, no longer intoxicated; pupils equally reactive to light and accommodation, cranial nerves grossly normal, moving all 4 extremities, no focal deficits, strength moderately globally decreased acutely, restless, tremors evidence. Psychiatric: Affect appears restless, current denies initially reported SI and has been cleared per ED, history of depression or anxiety but currently no evident acute feelings. Results Lab / Micro Data Result Diagrams: 02/24/21 14:15 02/24/21 14:15 Labs: Laboratory Results - last 24 hr 02/24/21 02/24/21 02/24/21 14:11 14:15 14:15 WBC 5.7 RBC 5.04 Hgb 16.7 H Hct 47.2 MCV 93.7 MCH 33.1 H MCHC 35.4 RDW Std Deviation 42.6 RDW Coeff of Roger 12.4 Plt Count 121 L MPV 9.2 Immature Gran % (Auto) 0.400 Neut % (Auto) 41.5 L Lymph % (Auto) 40.9 [place] % (Auto) 15.3 H Eos % (Auto) 1.2 Baso % (Auto) 0.7 Absolute Neuts (auto) 2.4 Absolute Lymphs (auto) 2.33 Nucleated RBC % 0 Platelet Estimate SLT DEC RBC Morphology NORM C+C Sodium 137 Potassium 3.9 Chloride 105 Carbon Dioxide 23.0 Anion Gap 9 BUN 5 L Creatinine 0.65 L Estim Creat Clear Calc 116.96 Est GFR (MDRD) Af Amer 165 Est GFR (MDRD) Non-Af 137 BUN/Creatinine Ratio 7.7 L Glucose 110 H Calcium 9.1 Urine Opiates Screen NEGATIVE Urine Methadone Screen NEGATIVE Ur Barbiturates Screen NEGATIVE Ur Phencyclidine Scrn NEGATIVE Ur Amphetamines Screen NEGATIVE U Methamphetamin-MDMA NEGATIVE U Benzodiazepines Scrn NEGATIVE Urine Cocaine Screen NEGATIVE U Cannabinoids Screen NEGATIVE Ur Drug Screen Comment Ethyl Alcohol 02/24/21 14:15 WBC RBC Hgb Hct MCV MCH MCHC RDW Std Deviation RDW Coeff of Roger Plt Count MPV Immature Gran % (Auto) Neut % (Auto) Lymph % (Auto) [place] % (Auto) Eos % (Auto) Baso % (Auto) Absolute Neuts (auto) Absolute Lymphs (auto) Nucleated RBC % Platelet Estimate RBC Morphology Sodium Potassium Chloride Carbon Dioxide Anion Gap BUN Creatinine Estim Creat Clear Calc Est GFR (MDRD) Af Amer Est GFR (MDRD) Non-Af BUN/Creatinine Ratio Glucose Calcium Urine Opiates Screen Urine Methadone Screen Ur Barbiturates Screen Ur Phencyclidine Scrn Ur Amphetamines Screen U Methamphetamin-MDMA U Benzodiazepines Scrn Urine Cocaine Screen U Cannabinoids Screen Ur Drug Screen Comment Ethyl Alcohol 498.0 H* Assessment & Plan Assessment/Plan (1) Alcohol withdrawal: QUALIFIERS: Complication of substance-induced condition: with unspecified complication Qualified Code(s): F10.239 - Alcohol dependence with withdrawal, unspecified PLAN: The patient is a 50 y/o M w/ PMHx: EtOH abuse w/ Hx DT, HTN, Tobacco use, Schizophrenia/Anxiety and Depression who presents to the [facility] ED on 02/25/21 with history of initially presented to the ED intoxicated with suicidal ideations however following 15 hours of evaluation treatment in the ED patient then denied suicidal ideations but at that point started to have alcohol withdrawal symptoms and following being approached by the ED physician noted being amenable to alcohol withdrawal treatment. 1. Acute EtOH Withdrawal with Hx DT: Will admit to [facility], routine labs obtained in the ED upon presentation. Given interest in sobriety, will initiate and continue on protocol with taper course of Phenobarbital, scheduled gabapentin for seizure prophylaxis, as needed Catapres, Bentyl, Vistaril, IV fluids, IV antiemetics, Tylenol as needed for pain. Will consult Case management for assistance for transition to next level of rehabilitation care. Mag, phos pending. Maintain on CIWA protocol concurrently. 2. Hypertension, Untreated: No current regimen listed and denies, will add lisinopril/hctz and continue to monitor, add/adjust as needed, PRN IV hydralazine. 3. Anxiety depression/schizophrenia with recent suicidal ideations reported: Initially reported suicidal ideations, currently now denying, will plan to continue with crisis evaluation given patient initial presentation. 4. Tobacco Abuse: Encouraged cessation, inpatient consultation per RT, NR if desired. 5. DVT prophylaxis: Low risk, encourage ambulation. Charges/Coding Visit Charges Inpatient E&M: 94750 Init Hosp L3
[2021-02-25] MEDS: LORazepam 2 MG/ML Syringe IV (05:57)
[2021-02-25 06:43] LABS: Magnesium 2.1 mg/dL (1.6-2.6)
[2021-02-25] MEDS: 0.9% Saline Lock 10 ML Syringe IV ×2 (07:05→14:43)
[2021-02-25] MEDS: Phenobarbital 32.4 MG Tablet 64.8 MG PO ×5 (07:06→23:04)
[2021-02-25] MEDS: hydrOXYzine PAM 25 MG Capsule 50 MG PO ×3 (07:06→17:56)
[2021-02-25] MEDS: Ondansetron 8 MG Tablet PO ×2 (07:06→17:56)
[2021-02-25] MEDS: hydrALAZINE 20 MG/ML Vial 10 MG IV (07:06)
[2021-02-25] MEDS: Lactated Ringers 1,000 ML 125 ML IV (07:06)
[2021-02-25] MEDS: hydroCHLOROthiazide 12.5mg 12.5 MG PO (07:07)
[2021-02-25] MEDS: Lisinopril 20 MG Tablet PO (07:07)
--- NOTE | 2021-02-25 07:28 | NURSING ---
spoke with [facility] at [facility]- states will be up to see pt in next hour or so.
[2021-02-25] MEDS: Dicyclomine 10 MG Capsule 20 MG PO ×2 (09:22→17:56)
[2021-02-25] MEDS: Thiamine Hydrochloride 100 MG Tablet PO (09:22)
[2021-02-25] MEDS: Gabapentin 300 MG Capsule PO (09:22)
[2021-02-25] MEDS: Folic Acid 1 MG Tablet PO (09:22)
--- NOTE | 2021-02-25 14:09 | CASEMGMT ---
CHARY Note CHARY Referral Source: [facility] Reason for Referral: Patient reports he was suicidal when in the ED. [facility] and requested call back. CHARY received call back from Alanna. Alanna said that Xiomara from Crisis completed the assessment. She recommended Alcohol, drug treatment and patient declined. She said that patient can be discharged when medically ready. Plan: Home for patient per [facility] Alanna [facility]. Initialized on 02/25/21 13:51 - END OF NOTE
[2021-02-25] MEDS: Mag Hydrox/Al Hydrox/Simeth 30 ML UDC PO (14:41)
[2021-02-25] MEDS: Ibuprofen 600 MG Tablet PO (17:56)
[2021-02-25] MEDS: Loperamide 2 MG Capsule PO (19:35)
[2021-02-25] MEDS: traZODone 100 MG Tablet PO (23:04)
[2021-02-26] MEDS: Phenobarbital 32.4 MG Tablet 64.8 MG PO ×6 (02:55→22:38)
[2021-02-26 06:51] VITALS: BP 94/61; PULSE 75; RESP 16; TEMP 37; O2SAT 96
[2021-02-26 07:15] VITALS: O2SAT 94
[2021-02-26 10:00] VITALS: BP 95/62; PULSE 83; RESP 16; TEMP 36.6; O2SAT 97
[2021-02-26] MEDS: Folic Acid 1 MG Tablet PO (10:39)
[2021-02-26] MEDS: hydroCHLOROthiazide 12.5mg 12.5 MG PO (10:40)
[2021-02-26] MEDS: Thiamine Hydrochloride 100 MG Tablet PO (10:40)
[2021-02-26] MEDS: Lisinopril 20 MG Tablet PO (10:40)
--- NOTE | 2021-02-26 10:42 | PCM.PN.HOSP ---
Subjective Subjective See paper chart for billing and note Objective Data Objective Data Vital Signs: Vital Signs Temp Pulse Resp BP Pulse Ox 98.6 F 75 16 94/61 94 02/26/21 06:51 02/26/21 06:51 02/26/21 06:51 02/26/21 06:51 02/26/21 07:15 Oxygen Delivery Method Room Air Weight: 144 lb Body Mass Index (BMI) 20.0 Intake & Output: Intake and Output for Last 24 Hours 02/25/21 02/26/21 02/27/21 03:59 03:59 03:59 Intake Total 952.08 / 952.08 Balance 952.08 / 952.08 Lab / Micro Data Result Diagrams: 02/24/21 14:15 02/24/21 14:15
[2021-02-26 15:37] VITALS: BP 76/46; PULSE 110; RESP 16; TEMP 36.7; O2SAT 99
[2021-02-26 18:03] VITALS: BP 102/61; PULSE 98; RESP 16; TEMP 36.6; O2SAT 95
[2021-02-26] MEDS: Gabapentin 300 MG Capsule PO (18:46)
[2021-02-26] MEDS: Loperamide 2 MG Capsule PO (18:46)
[2021-02-26] MEDS: hydrOXYzine PAM 25 MG Capsule 50 MG PO (21:00)
[2021-02-26] MEDS: traZODone 100 MG Tablet PO (21:01)
[2021-02-26 21:03] VITALS: BP 102/62; PULSE 91; RESP 16; TEMP 36.8; O2SAT 97
[2021-02-26] MEDS: Acetaminophen 325 MG Tablet 650 MG PO (21:09)
[2021-02-27 02:54] VITALS: BP 119/75; PULSE 76; RESP 16; TEMP 36.5; O2SAT 97
[2021-02-27] MEDS: Phenobarbital 32.4 MG Tablet 64.8 MG PO ×5 (02:54→21:29)
[2021-02-27 07:13] VITALS: O2SAT 97
[2021-02-27] MEDS: Thiamine Hydrochloride 100 MG Tablet PO (08:54)
[2021-02-27] MEDS: Folic Acid 1 MG Tablet PO (08:54)
[2021-02-27] MEDS: hydroCHLOROthiazide 12.5mg 12.5 MG PO (08:55)
[2021-02-27] MEDS: Lisinopril 20 MG Tablet PO (08:55)
--- NOTE | 2021-02-27 09:17 | ADDICTION ---
This science writer met with PT to conduct ASAM, MSE, AUDIT assessments and to plan for d/c. PT A+Ox4 and participated appropriately. All documentation completed, faxed to [facility], and placed in PT chart. PT is scheduled for assessment with [facility] on 02/28/21 and is being referred to [facility] Residential Treatment.
[2021-02-27 10:00] VITALS: BP 124/75; PULSE 70; RESP 16; TEMP 36.9; O2SAT 98
--- NOTE | 2021-02-27 11:04 | PN_ITS ---
Progress Note Doing well, no issues overnight, feels much better. Met with 180 and plan is for inpatient residential treatment on discharge tomorrow. Assessment/Plan (1) Alcohol withdrawal: QUALIFIERS: Complication of substance-induced condition: with unspecified complication Qualified Code(s): F10.239 - Alcohol dependence with withdrawal, unspecified PLAN: 1. Acute EtOH Withdrawal with Hx DT/anxiety/depression/schizophrenia with recent suicidal ideations -Continue with alcohol withdrawal protocol, met with 180 and plan for residenti al treatment on the 02/28/2021 -He does have a history with schizophrenia and recent suicidal ideation though was cleared by crisis -We will need outpatient medication regimen for his mood disorder 2. Hypertension, Untreated -Tolerating the lisinopril and hydrochlorothiazide -We will check a BMP in the morning to monitor renal function 3. Tobacco Abuse -Encouraged cessation, inpatient consultation per RT, NR if desired. DVT: Low risk, encourage ambulation. Physical Exam Narrative Blood pressure 124/75, pulse 70, respiratory rate 16, temp 98.4, O2 sat 98% Const alert, oriented x3 and no apparent distress General Appearance: cooperative HEENT normocephalic and moist oral mucous membranes Eyes PERRL, EOMs intact bilaterally and conjunctivae normal Neck supple and no JVD Resp normal respiratory effort, normal air movement, no retractions, no use of accessory muscles and clear to auscultation bilaterally Auscultation: Negative for crackles, rales, rhonchi or wheezes Cardio regular rate, regular rhythm, S1 normal heart sound, S2 normal heart sound and no murmurs GI soft to palpation, non-tender and non-distended; Negative for hepatosplenomegaly Extremity no clubbing, cyanosis or edema Skin no rashes or lesions noted Neuro no focal motor deficits and no sensory deficits noted Psych affect normal Appearance: appropriate Visit Charges Inpatient E&M: 22262 Subs Hosp L2
[2021-02-27 16:06] VITALS: BP 132/50; PULSE 69; RESP 16; TEMP 37.1; O2SAT 98
--- NOTE | 2021-02-27 17:07 | CHAPLAIN ---
Type of Pastoral Visit _x__ Initial Visit ___ Follow-up Visit ___ On-call Visit ___ General Patient Visit ___ Spiritual Assessment ___ Family Conference ___ Bereavement ___ Rapid Response ___ Code Blue ___ Other (describe below) Pastoral Care Referral From _x__ Patient ___ Family ___ Nurse ___ Physician ___ Field Technical Support Consultant ___ Senior Functional Analyst ___ Other (describe below) Sacrament/Intervention _x__ Active listening ___ Anointing ___ Sikhism ___ Bereavement ___ Communion _x__ Isidra exploration ___ _x__ Life review _x__ Prayer ___ Reconciliation ___ Sacrament of Sick _x__ Supportive presence ___ Wedding ___ Other (describe below) Pastoral Comments patient was standing at his doorway when this buncher machine was going down hallway; pt asked for assistance with his menu; stop for help resulted in this patient talking about his life; time given and the patient revealed some life history, family relationships, and dreams for his future; pt is open to spiritual care support and prayer; affirmed patient desire to get into recovery and move ahead with his life
[2021-02-27 21:24] VITALS: BP 117/67; PULSE 93; RESP 16; TEMP 37.3; O2SAT 99
[2021-02-27] MEDS: traZODone 100 MG Tablet PO (21:29)
[2021-02-27] MEDS: Acetaminophen 325 MG Tablet 650 MG PO (21:29)
[2021-02-28] MEDS: Phenobarbital 32.4 MG Tablet 64.8 MG PO (03:36)
[2021-02-28 03:41] VITALS: BP 113/91; PULSE 81; RESP 16; TEMP 37.2; O2SAT 98
[2021-02-28 06:57] LABS: Anion Gap 3 (5-15); BUN 18 mg/dL (7-18); BUN/Creat Ratio 26.2 RATIO (10-20); Calcium,Total 9.1 mg/dL (8.5-10.1); Chloride 102 mmol/L (98-107); Creatinine, Serum 0.69 mg/dL (0.70-1.30); EST Glomerular Filtration Rate 129 mL/min (>60); Est Glom Filt Rate - Afr Amer 156 mL/min (>60); Estimated Creatinine Clearance 117.01 ml/min; Glucose 91 mg/dL (74-106); Potassium 4.4 mmol/L (3.5-5.1); Sodium Level 134 mmol/L (136-145)
--- NOTE | 2021-02-28 07:02 | PCM.DC ---
Discharge Instructions Diet Discharge Diet: No restrictions Activity Discharge Activity: Return to Normal Activity Dressing / Incision Call your doctor if you observe: Fever of 101 or Higher, Shortness of breath, Dizziness, Swelling in the ankles, Chest pain and Increased palpitations (irregular heartbeat) Follow Up Care Test Results: Test results from this visit will be discussed in further detail at your follow-up appointment, if applicable. Discharge Plan Admission Admit Date/Time: 02/25/21 06:08 Attending Provider: Josef Lieberman Primary Care Provider: Care Physician,Rosalie Primary Instructions Patient Instructions: Hypertension Dc Discharge Orders/Prescriptions Prescriptions: New lisinopril-hydrochlorothiazide 20-12.5 mg tablet 1 tab PO DAILY Qty: 30 RF: 0 No Action NK RF: 0 Referrals / Follow Up: Care Physician,Rosalie Primary [Primary Care Provider] - Disposition Disposition (needs filled in before D/C Order can be placed): Home, Self Care
--- NOTE | 2021-02-28 09:33 | PCM.DC.SUM ---
Providers Date of Admission: 02/25/21 Primary Care Physician: Rosalie Primary Care Phys Reason For Visit: ACUTE ETOH WITHDRAWAL Diagnosis Discharge Diagnosis (1) Alcohol withdrawal: Status: Acute Code(s): F10.239 - Alcohol dependence with withdrawal, unspecified Qualifiers: Complication of substance-induced condition: with unspecified complication Qualified Code(s): F10.239 - Alcohol dependence with withdrawal, unspecified Medications at Discharge Home Medications NK 02/25/21 lisinopril-hydrochlorothiazide 1 tab PO DAILY #30 tab 02/28/21 Hospital Course Operations None Procedures None Summary of Care Provided Minutes Spent on Discharge: 37 Hospital Course: Per HPI: The patient is a 50 y/o M w/ PMHx: EtOH abuse w/ Hx DT (> 8 tall boys daily, prior to initial ED presentation last intake ~ 16 hours ago), Tobacco use, Schizophrenia/Anxiety and Depression who presents to the [facility] ED on 02/25/21 with history of initially presented to the ED intoxicated with suicidal ideations however following 15 hours of evaluation treatment in the ED patient then denied suicidal ideations but at that point started to have alcohol withdrawal symptoms and following being approached by the ED physician noted being amenable to alcohol withdrawal treatment with noted nausea, tremors, mild agitation. Work-up in the ED included T 98.2, heart rate 78, BP 138/80, respiratory rate 16, 99% on room air, CBC with WC 5.7, hemoglobin 16.7, platelet 121 without marked shift, BMP with BUN/creatinine 5/0.65 glucose 110, urine drug screen negative, ethyl alcohol level 498 however this was performed at 1415 the day prior to current request evaluation of patient in the ED. In the ED patient ministered 2 mg IV Ativan x1. Hospital Course: 1. Acute alcohol withdrawal with a history of DTs/anxiety and depression with recent [id number] male with alcohol withdrawal and suicidal ideation presents to the hospital requesting detox. He is try to get into a residential treatment and did complete the alcohol withdrawal protocol very well. Unsure as to where his history of schizophrenia came from he has not taken any medications for this and he denies any hallucinations for me though talking to crisis he did endorse some auditory hallucinations that were nonviolent. I think the best case for him would be residential treatment center so he can obtain that the behavioral and mental health that he needs to be stable and functional in society. Plan will be for discharge today, and I did discuss this with him and he expressed understanding of the risk benefits of going home and would like to go home today and be evaluated for residential treatment. 2. Hypertension-started on lisinopril and hydrochlorothiazide, creatinine has been stable on the day of discharge would recommend he continue this combination pill and have an outpatient BMP performed sometime next week to monitor his renal function. Blood per sugars with initiation of this medication has been stable. Physical Exam Const alert, oriented x3 and no apparent distress General Appearance: cooperative HEENT normocephalic and moist oral mucous membranes Eyes PERRL, EOMs intact bilaterally and conjunctivae normal Neck supple and no JVD Resp normal respiratory effort, normal air movement, no retractions, no use of accessory muscles and clear to auscultation bilaterally Auscultation: Negative for crackles, rales, rhonchi or wheezes Cardio regular rate, regular rhythm, S1 normal heart sound, S2 normal heart sound and no murmurs GI soft to palpation, non-tender and non-distended; Negative for hepatosplenomegaly Extremity no clubbing, cyanosis or edema Skin no rashes or lesions noted Neuro no focal motor deficits and no sensory deficits noted Psych affect normal Appearance: appropriate Weight / BMI Weight Weight: 144 lb Body Mass Index (BMI) 20.0 ABG / Lab / Microbiology Data Result Diagrams: 02/24/21 14:15 02/28/21 06:14 Laboratory: Laboratory Results - last 24 hr 02/28/21 06:14 Sodium 134 L Potassium 4.4 Chloride 102 Carbon Dioxide 29.0 Anion Gap 3 L BUN 18 Creatinine 0.69 L Estim Creat Clear Calc 117.01 Est GFR (MDRD) Af Amer 156 Est GFR (MDRD) Non-Af 129 BUN/Creatinine Ratio 26.2 H Glucose 91 Calcium 9.1 D/C Instructions Discharge Diet: No restrictions Call your doctor if you observe: Fever of 101 or Higher, Shortness of breath, Dizziness, Swelling in the ankles, Chest pain and Increased palpitations (irregular heartbeat) Meaningful Use Info Meaningful Use Diagnoses (Choose all that apply): None applicable Discharge Plan Admission Admit Date/Time: 02/25/21 06:08 Attending Provider: Josef Lieberman Primary Care Provider: Care Physician,No Primary Instructions Patient Instructions: Hypertension Dc Discharge Orders/Prescriptions Prescriptions: New lisinopril-hydrochlorothiazide 20-12.5 mg tablet 1 tab PO DAILY Qty: 30 RF: 0 No Action NK RF: 0 Referrals / Follow Up: Care Physician,No Primary [Primary Care Provider] - Disposition Disposition (needs filled in before D/C Order can be placed): Home, Self Care Charges/Coding Visit Charges Inpatient E&M: 40806 Disch Hosp
== END 2021-02-28 09:00 | disposition home or self-care (01) | DRG 775 ==
LOC: ED 02-25 05:54 → MS3 02-25 06:17
PROVIDERS: Emergency Medicine; Admitting Provider Family Medicine; Emergency Provider Emergency Medicine; Visit Provider Family Medicine
DX: F10.239 Alcohol dependence with withdrawal, unspecified (principal); F10.229 Alcohol dependence with intoxication, unspecified; Y90.8 Blood alcohol level of 240 mg/100 ml or more; I10 Essential (primary) hypertension; R45.851 Suicidal ideations; F32.9 Major depressive disorder, single episode, unspecified; F41.9 Anxiety disorder, unspecified; F17.210 Nicotine dependence, cigarettes, uncomplicated
CPT/HCPCS: 36415; 80048; 80307; 82077; 83735; 84100; 85025; 99285; 99406; J7120; A4216

== ENCOUNTER 2021-03-11 08:34 | Inpatient (IN) | payer MEDICAID, SELFPAY ==
[2021-03-11] VITALS (8 sets, daily range): BP systolic 126–184; BP diastolic 76–124; PULSE 81–115; RESP 16–24; TEMP 37.1–37.3; O2SAT 95–98; BMI 22.4; BMI 21.4
[2021-03-11 09:20] LABS: Absolute Lymphocyte Count 2.62 X10^3/uL (0.83-4.51); Absolute Neutrophil Count 3.3 X10^3/uL (2.0-7.7); Basophil# 0.07 X10^3/uL; Basophil% 1.1 % (0-1); Eosinophil# 0.04 X10^3/uL; Eosinophils% 0.6 % (0-5); Hematocrit 42.9 % (40-54); Hemoglobin 15.1 g/dL (13.0-16.5); Lymphocyte # 2.62 X10^3/ul (0.83-4.51); Lymphocyte % 39.4 % (19-41); Mean Corp Hgb Conc 35.2 g/dL (32-36); Mean Corpuscular Hgb 32.9 pg (27.0-32.0); Mean Corpuscular Volume 93.5 fL (80-94); Mean Platelet Vol. 9.3 fl (6.2-12.0); Monocyte# 0.63 X10^3/uL; Monocyte% 9.5 % (0-10); NRBC Flagged by Analyzer 0 % (0-5); Neutrophil # 3.27 X10^3/uL (2.7-7.7); Neutrophil % 49.1 % (47-70); Platelet Count 167 K/mm3 (150-450); RBC Distribution Width CV 12.6 % (11.6-14.6); RBC Distribution Width SD 43.4 fl (35.1-43.9); Red Blood Count 4.59 M/mm3 (4.6-6.2); White Blood Count 6.7 K/mm3 (4.4-11.0)
[2021-03-11 09:25] LABS: AST(SGOT) 168 U/L (15-37); Alanine Aminotransfer ALT/SGPT 166 U/L (16-61); Albumin, Serum 4.2 g/dL (3.2-5.0); Alkaline Phosphatase 68 U/L (45-117); Anion Gap 15 (5-15); BUN 11 mg/dL (7-18); BUN/Creat Ratio 14.4 RATIO (10-20); Calcium,Total 8.5 mg/dL (8.5-10.1); Chloride 99 mmol/L (98-107); Creatinine, Serum 0.76 mg/dL (0.70-1.30); EST Glomerular Filtration Rate 114 mL/min (>60); Est Glom Filt Rate - Afr Amer 138 mL/min (>60); Estimated Creatinine Clearance 107.75 ml/min; Globulin 4.3 g/dL (2.2-4.2); Glucose 95 mg/dL (74-106); Potassium 3.6 mmol/L (3.5-5.1); Protein, Total 8.5 g/dL (6.4-8.2); Sodium Level 135 mmol/L (136-145)
[2021-03-11] MEDS: LORazepam 2 MG/ML Syringe 1 MG IV (09:40)
[2021-03-11] MEDS: Phenobarbital 32.4 MG Tablet 97.2 MG PO (09:42)
--- NOTE | 2021-03-11 09:50 | PCM.HP.STD ---
HPI - General General Date of Admission: 03/11/21 Date of Service: 03/11/21 Chief Complaint: Acute EtOH withdrawal HPI Narrative The patient is a 50 y/o M w/ PMHx: EtOH abuse w/ Hx DT (> 8 tall boys daily, prior to initial ED presentation last intake ~ 16 hours ago), Tobacco use, ? Schizophrenia/Anxiety and Depression (denied during prior admission, but noted in history and admits to auditory hallucinations even when no in withdrawal) recently admitted to 02/25/21 secondary to EtOH withdrawal who now re-presents to the [facility] ED on 03/11/21 with history of immediately restarting EtOH abuse within 1-2 days of his recent discharge reporting that when he had been evaluated and treated the prior admission he still had EtOH left in him home. He notes prior to current presentation he removed all EtOH from his home. He reports interest in re-attempting treatment/sobriety because he wants to be a better father and grandfather. He notes last intake in the very early AM with mild stomach upset, nausea, tremors, agitation, tactile disturbances. Work-up in the ED included T 99, heart rate 114, BP initially 184/114 with repeat 176/106, respiratory rate 24, 96% on room air, CBC with WBC 6.7, hemoglobin 15.1, platelet 167 without marked shift CMP with sodium 135, total bilirubin 0.80, AST/ALT 168/166, alk phos 68 otherwise not marked appearing hepatic profile, EtOH level 150, UDS pending upon requested evaluation of patient. In the ED patient administered NR, ativan and phenobarbital. PFSH Medical History Alcohol abuse Anxiety Depression Hypertension Migraines Schizophrenia Smoker Tobacco use Home Medications lisinopril-hydrochlorothiazide 1 tab PO DAILY #30 tab 02/28/21 [Rx Last Taken 03/09/21] Allergy/AdvReac Type Severity Reaction Status Date / Time Penicillins AdvReac Nausea Verified 03/11/21 08:40 Family History Father Heart disease Hypertension HLD (hyperlipidemia) Mother Alzheimer's dementia no surgical history Social History housing: homeless Smoking Status: Current every day smoker tobacco type: cigarettes alcohol intake: current alcohol intake frequency: other Alcohol type: beer details: > 8 tall boys daily. substance use type: does not use ROS ROS Narrative Admission Review of Systems: CONSTITUTIONAL: No weight loss, fever, chills, + weakness or fatigue. HEENT: Eyes: No visual loss, blurred vision, double vision or yellow sclerae. Ears, Nose, Throat: No hearing loss, sneezing, congestion, runny nose or sore throat. SKIN: No rash or itching, lesions, wounds. CARDIOVASCULAR: No chest pain, chest pressure or chest discomfort, palpitations, edema, orthopnea, syncopal events. RESPIRATORY: No shortness of breath, cough or sputum, wheezing, hemoptysis. GASTROINTESTINAL: + anorexia, nausea, mild stomach upset, No vomiting, diarrhea, melena, BRBPR. GENITOURINARY: No dysuria, frequency, urgency or retention. NEUROLOGICAL: + Tremors, tactile disturbances. No headache, dizziness, syncope, paralysis, ataxia, focal weakness, change in bowel or bladder control, seizure. MUSCULOSKELETAL: + Muscle, back pain, joint pain or stiffness. HEMATOLOGIC: No anemia, bleeding or bruising. LYMPHATICS: No enlarged nodes. No history of splenectomy. PSYCHIATRIC: + History of depression or anxiety, ? schizophrenia. ENDOCRINOLOGIC: No reports of sweating, cold or heat intolerance. No polyuria or polydipsia. ALLERGIES: No history of asthma, hives, eczema or rhinitis. Vital Signs Vital Signs Vital Signs: 03/11/21 08:36 03/11/21 09:21 03/11/21 09:44 Temperature 99.0 F 99.0 F Temperature Source Oral Oral Pulse Rate 115 H 114 H 107 H Respiratory Rate 24 H 24 H 22 H Blood Pressure 175/124 H 184/114 H 176/106 H Blood Pressure Mean 141 137 129 Blood Pressure Source Monitor Blood Pressure Position Supine Blood Pressure Location Right Arm Pulse Ox 97 95 96 Oxygen Delivery Method Room Air Room Air Room Air Weight Weight: 147 lb 11.355 oz Body Mass Index (BMI) 22.4 Physical Exam Narrative Physical Examination: General: Awake, alert, oriented x 3 and cooperative, seated upright in the ED bed, restless, contrite. Skin: Normal color, normal turgor, no icterus, no cyanosis. HEENT: AT/NC, EOMI, PERRLA, dry MM, no carotid bruits or JVD noted. Lungs: Mildly diminished, > bases, appropriate effort, no rales, ronchi or wheezing. Heart: Tachycardic with regular rhythm; no gallop, rub audible. Abdomen: Soft, NTTP, ND, normal BS, no HSM. Extremities: No cyanosis, clubbing, or edema. Neurological: Patient awake, alert, oriented as noted, cognitive function appears intact; pupils equally reactive to light and accommodation, cranial nerves grossly normal, moving all 4 extremities, no focal deficits, strength mildly globally decreased acutely, tremors evident. Psychiatric: Affect appears fatigued, mild tremors noted, history of depression or anxiety, possibly schizophrenia, denies any SI as had presented prior with this history. Results Lab / Micro Data Result Diagrams: 03/11/21 08:50 03/11/21 08:50 Labs: Laboratory Results - last 24 hr 03/11/21 08:50: WBC 6.7, RBC 4.59 L, Hgb 15.1, Hct 42.9, MCV 93.5, MCH 32.9 H, MCHC 35.2, RDW Std Deviation 43.4, RDW Coeff of Roger 12.6, Plt Count 167, MPV 9.3, Immature Gran % (Auto) 0.300, Neut % (Auto) 49.1, Lymph % (Auto) 39.4, [place] % (Auto) 9.5, Eos % (Auto) 0.6, Baso % (Auto) 1.1 H, Absolute Neuts (auto) 3.3, Absolute Lymphs (auto) 2.62, Nucleated RBC % 0 03/11/21 08:50: Sodium 135 L, Potassium 3.6, Chloride 99, Carbon Dioxide 21.0, Anion Gap 15, BUN 11, Creatinine 0.76, Estim Creat Clear Calc 107.75, Est GFR (MDRD) Af Amer 138, Est GFR (MDRD) Non-Af 114, BUN/Creatinine Ratio 14.4, Glucose 95, Calcium 8.5, Total Bilirubin 0.80, AST 168 H, ALT 166 H, Alkaline Phosphatase 68, Total Protein 8.5 H, Albumin 4.2, Globulin 4.3 H, Albumin/Globulin Ratio 1.0 03/11/21 08:50: Ethyl Alcohol 150.0 Assessment & Plan Assessment/Plan (1) Alcohol withdrawal: QUALIFIERS: Complication of substance-induced condition: with unspecified complication Qualified Code(s): F10.239 - Alcohol dependence with withdrawal, unspecified PLAN: The patient is a 50 y/o M w/ PMHx: EtOH abuse w/ Hx DT, Tobacco use, ? Schizophrenia/Anxiety and Depression recently admitted to 02/25/21 secondary to EtOH withdrawal who now re-presents to the [facility] ED on 03/11/21 with history of immediately restarting EtOH abuse within 1-2 days of his recent discharge reporting that when he had been evaluated and treated the prior admission he still had EtOH left in him home. 1. Acute EtOH Withdrawal with Hx DT: Will admit to [facility], routine labs obtained in the ED upon presentation. Given interest continued interest in sobriety following discussions in the ED as patient recently went through treatment program and started intake again within 24-48 hours, will initiate and continue on protocol with taper course of Phenobarbital, scheduled gabapentin for seizure prophylaxis, as needed Catapres, Bentyl, Vistaril, IV fluids, IV antiemetics, Tylenol as needed for pain. Will consult Case management for assistance for transition to next level of rehabilitation care. Would be a good residential treatment candidate following current treatment. Mag, phos pending. Maintain on CIWA protocol concurrently. 2. Hypertension: BPs elevated in the ED as noted. Will resume patient lisinopril, HCTZ given appropriate CMP and elevated BPs, likely has not been taking per discussions, will monitor BP and alter/add further as needed,PRN IV hydralazine. 3. Chart Hx of Anxiety depression/schizophrenia, recent ED evaluation prior with suicidal ideations: Patient during prior presentation with suicidal ideations however once he clinically improved he denied. He did deny any history of schizophrenia to prior physician however he did admit to auditory hallucinations and confirms that these are even when he is not withdrawing. Do suspect underlying history and would benefit from continued follow-up with counseling. 4. Tobacco Abuse: Encouraged cessation, inpatient consultation per RT, NR if desired. 5. DVT prophylaxis: Low risk, encourage ambulation. Charges/Coding Visit Charges Inpatient E&M: 78242 Init Hosp L3
--- NOTE | 2021-03-11 09:55 | EDS_ITS ---
HPI History of Present Illness Chief Complaint: Substance Abuse Narrative Narrative: Patient presenting for evaluation secondary to alcohol dependence and withdrawal. Patient has a history of alcohol dependence. He typically drinks multiple beers a day. Patient states that he went through the detox program earlier this month, but was not able to stay sober. Patient states that he now is motivated by his children and grandchildren that he would like to stay sober. Last drink was this morning. Patient does state that he has a past history of withdrawal and withdrawal seizures, currently states that he feels tremulous has skin sensations as well as reports having auditory and visual hallucinations and disturbances. He does endorse some nausea. No vomiting. He also states that he has some abdominal pain. Review of systems otherwise negative. PFSH PFSH Medical History Alcohol abuse Anxiety Depression Hypertension Migraines Schizophrenia Smoker Tobacco use Home Medications lisinopril-hydrochlorothiazide 1 tab PO DAILY #30 tab 02/28/21 [Rx Last Taken Unknown] Allergy/AdvReac Type Severity Reaction Status Date / Time Penicillins AdvReac Nausea Verified 03/11/21 08:40 Family History Father Heart disease Hypertension HLD (hyperlipidemia) Mother Alzheimer's dementia Social History housing: homeless Smoking Status: Current every day smoker tobacco type: cigarettes alcohol intake: current alcohol intake frequency: other Alcohol type: beer details: > 8 tall boys daily. substance use type: does not use ROS ROS ED Constitutional Constitutional ED: Denies chills, fever(s) or weight loss Eyes Eyes: Denies change in vision ENT ENT ED: Denies rhinorrhea or sore throat Cardiovascular Cardiovascular: Denies chest pain Respiratory/Chest Respiratory/Chest: Denies cough Gastrointestinal Gastrointestinal: Reports abdominal pain and nausea; Denies constipation, diarrhea or vomiting Genitourinary Genitourinary ED: Denies dysuria Musculoskeletal Musculoskeletal: Denies myalgias Integumentary Reports other Details: Abnormal skin sensations Neurologic Neurologic: Reports other Details: Tremulousness Psychiatric Psychiatric: Reports other Details: Alcohol dependence and hallucinations Endocrine Endocrinology: Denies polydipsia or polyuria Hematologic/Lymphatic Hematologic/Lymphatic: Denies easy bleeding or easy bruising Allergic/Immunologic Allergic/Immunologic ED: Denies urticaria EXAM Physical Exam Const Vital Signs: 03/11/21 08:36 03/11/21 09:21 03/11/21 09:44 Temperature 99.0 F 99.0 F Temperature Source Oral Oral Pulse Rate 115 H 114 H 107 H Respiratory Rate 24 H 24 H 22 H Blood Pressure 175/124 H 184/114 H 176/106 H Blood Pressure Mean 141 137 129 Blood Pressure Source Monitor Blood Pressure Position Supine Blood Pressure Location Right Arm Pulse Ox 97 95 96 Oxygen Delivery Method Room Air Room Air Room Air Positive well nourished and well developed General Appearance ED: well developed and NAD HEENT atraumatic; Negative for tenderness Eyes EOMs intact bilaterally General Eye ED: Negative for pale conjunctiva or scleral icterus Neck no lymphadenopathy and supple Chest Wall inspection of chest normal Resp normal respiratory effort and clear to auscultation bilaterally Cardio regular rhythm, no murmurs and peripheral pulses 2+ throughout Rate: tachycardic GI soft to palpation, non-distended and no masses Rectal Exam: other Other Details: Diffusely tender no guarding or rebound no localization no palpable masses Extremity General Extremety ED: Negative for edema or tenderness General Extremity: Negative for edema Neuro oriented x3 and no sensory deficits noted Neuro Narrative: Patient has a mild tremor at rest Sensorium / Orientation: alert Motor Exam: strength 5/5 throughout Psych mental status grossly normal Psych Narrative: No suicidal homicidal ideations, no signs of hallucinations He does seem somewhat anxious, reports alcohol dependency Skin Skin Narrative: Mild diaphoresis no piloerection Lesions: no lesions Rashes: no rashes MDM MDM MDM Narrative Medical decision making narrative: Patient presented secondary to alcohol dependency. His alcohol was 150 he was tachycardic and exhibiting some evidence of mild withdrawal he was given phenobarbital as well as Ativan. Patient did have some abdominal tenderness but his laboratory work-up is negative his abdominal tenderness is nonlocalizing he does not have a surgical abdomen I do not feel that imaging is indicated. Patient will be admitted for alcohol withdrawal treatment and detox. Lab Data Labs: Laboratory Results - last 24 hr 03/11/21 03/11/21 03/11/21 08:50 08:50 08:50 WBC 6.7 RBC 4.59 L Hgb 15.1 Hct 42.9 MCV 93.5 MCH 32.9 H MCHC 35.2 RDW Std Deviation 43.4 RDW Coeff of Roger 12.6 Plt Count 167 MPV 9.3 Immature Gran % (Auto) 0.300 Neut % (Auto) 49.1 Lymph % (Auto) 39.4 [place] % (Auto) 9.5 Eos % (Auto) 0.6 Baso % (Auto) 1.1 H Absolute Neuts (auto) 3.3 Absolute Lymphs (auto) 2.62 Nucleated RBC % 0 Sodium 135 L Potassium 3.6 Chloride 99 Carbon Dioxide 21.0 Anion Gap 15 BUN 11 Creatinine 0.76 Estim Creat Clear Calc 107.75 Est GFR (MDRD) Af Amer 138 Est GFR (MDRD) Non-Af 114 BUN/Creatinine Ratio 14.4 Glucose 95 Calcium 8.5 Total Bilirubin 0.80 AST 168 H ALT 166 H Alkaline Phosphatase 68 Total Protein 8.5 H Albumin 4.2 Globulin 4.3 H Albumin/Globulin Ratio 1.0 Ethyl Alcohol 150.0 Discharge Plan Triage Chief Complaint: Substance Abuse ED Provider: Osmar Orellana Dx/Rx/DC Orders Clinical Impression: Alcohol withdrawal Prescriptions: No Action lisinopril-hydrochlorothiazide 20-12.5 mg tablet 1 tab PO DAILY Qty: 30 RF: 0 Primary Care Provider: Care Physician,No Primary Referrals: Care Physician,No Primary [Primary Care Provider] - Disposition Disposition: Acute Care [facility]
--- NOTE | 2021-03-11 10:00 | NURSING ---
MED SURG WHITE ALCOHOL WITHDRAWAL
--- NOTE | 2021-03-11 10:10 | ED.RN ---
PT BACKPACK LEFT WITH SECURITY
[2021-03-11 10:37] LABS: Phosphorus 3.4 mg/dL (2.5-4.9)
[2021-03-11] MEDS: Multivitamins,Therapeutic Tablet 1 TABLET PO (10:56)
[2021-03-11] MEDS: Ibuprofen 600 MG Tablet PO (10:56)
[2021-03-11] MEDS: hydrOXYzine PAM 25 MG Capsule 50 MG PO ×2 (10:56→16:29)
[2021-03-11] MEDS: Lactated Ringers 1,000 ML 125 ML IV (10:56)
[2021-03-11] MEDS: Phenobarbital 32.4 MG Tablet 64.8 MG PO ×4 (10:56→23:28)
[2021-03-11] MEDS: Gabapentin 300 MG Capsule PO ×2 (13:17→23:31)
[2021-03-11] MEDS: hydroCHLOROthiazide 12.5mg 12.5 MG PO (13:18)
[2021-03-11] MEDS: Lisinopril 20 MG Tablet PO (13:18)
--- NOTE | 2021-03-11 18:04 | CASEMGMT ---
CHARY Note Referral Source: Case Find Referral Reason: JEREMY DIEZ met with patient in his room. He reports he is not linked with [facility]. He reports his drug of choice is alcohol. He reports he drinks alot which he said was 9 beets tall boys and 1-2 4 Alvino. Patient was in [facility] room and in agreement with contract for [facility] program. Chary called Nedra at [facility] [employer]. Nedra was provided all necessary referral information for patient. Nedra will be in on Monday 03/12 to meet with patient. CHARY remains available if needs arise. Plan: JEREMY REESE
[2021-03-11] MEDS: Loperamide 2 MG Capsule PO (23:31)
[2021-03-11] MEDS: Ondansetron 8 MG Tablet PO (23:31)
[2021-03-11] MEDS: traZODone 100 MG Tablet PO (23:31)
[2021-03-12] MEDS: Phenobarbital 32.4 MG Tablet 64.8 MG PO ×6 (03:33→22:40)
[2021-03-12 05:52] LABS: ALB/GLOB Ratio 1.1 RATIO (0.9-2.4); AST(SGOT) 93 U/L (15-37); Alanine Aminotransfer ALT/SGPT 115 U/L (16-61); Albumin, Serum 3.5 g/dL (3.2-5.0); Alkaline Phosphatase 58 U/L (45-117); Anion Gap 7 (5-15); BUN 16 mg/dL (7-18); BUN/Creat Ratio 28.8 RATIO (10-20); Calcium,Total 8.5 mg/dL (8.5-10.1); Chloride 100 mmol/L (98-107); Creatinine, Serum 0.56 mg/dL (0.70-1.30); EST Glomerular Filtration Rate 165 mL/min (>60); Est Glom Filt Rate - Afr Amer 199 mL/min (>60); Globulin 3.1 g/dL (2.2-4.2); Glucose 91 mg/dL (74-106); Potassium 3.7 mmol/L (3.5-5.1); Protein, Total 6.6 g/dL (6.4-8.2); Sodium Level 135 mmol/L (136-145)
--- NOTE | 2021-03-12 06:17 | PCM.PN.HOSP ---
Subjective Subjective Patient fatigued, but notes that he slept well and has been up and showered this morning. He is attempting to eat breakfast and tremors are more pronounced than day prior, having some difficulty. He does report irritability with staff as he reports they ordered his meals however once discussed with staff he in fact did fill out the paperwork himself but cannot recall likely secondary to his withdrawal component. Patient denies fevers, chills, nausea, emesis, abdominal pain, chest pain or dyspnea. Objective Data Objective Data Vital Signs: Vital Signs Temp Pulse Resp BP Pulse Ox 98.7 F 81 16 126/76 H 98 03/11/21 18:33 03/11/21 18:33 03/11/21 18:33 03/11/21 18:33 03/11/21 18:33 Oxygen Delivery Method Room Air Weight: 141 lb 5.061 oz Body Mass Index (BMI) 21.4 Intake & Output: Intake and Output for Last 24 Hours 03/10/21 03/11/21 03/12/21 23:59 23:59 23:59 Intake Total 1783.33 / 1783.33 Balance 1783.33 / 1783.33 Lab / Micro Data Result Diagrams: 03/11/21 08:50 03/12/21 05:18 Labs: Laboratory Results - last 24 hr 03/11/21 08:50: WBC 6.7, RBC 4.59 L, Hgb 15.1, Hct 42.9, MCV 93.5, MCH 32.9 H, MCHC 35.2, RDW Std Deviation 43.4, RDW Coeff of Roger 12.6, Plt Count 167, MPV 9.3, Immature Gran % (Auto) 0.300, Neut % (Auto) 49.1, Lymph % (Auto) 39.4, [place] % (Auto) 9.5, Eos % (Auto) 0.6, Baso % (Auto) 1.1 H, Absolute Neuts (auto) 3.3, Absolute Lymphs (auto) 2.62, Nucleated RBC % 0 03/11/21 08:50: Sodium 135 L, Potassium 3.6, Chloride 99, Carbon Dioxide 21.0, Anion Gap 15, BUN 11, Creatinine 0.76, Estim Creat Clear Calc 107.75, Est GFR (MDRD) Af Amer 138, Est GFR (MDRD) Non-Af 114, BUN/Creatinine Ratio 14.4, Glucose 95, Calcium 8.5, Total Bilirubin 0.80, AST 168 H, ALT 166 H, Alkaline Phosphatase 68, Total Protein 8.5 H, Albumin 4.2, Globulin 4.3 H, Albumin/Globulin Ratio 1.0 03/11/21 08:50: Ethyl Alcohol 150.0 03/11/21 08:50: Phosphorus 3.4, Magnesium 2.0 03/12/21 05:18: Sodium 135 L, Potassium 3.7, Chloride 100, Carbon Dioxide 28.0, Anion Gap 7, BUN 16, Creatinine 0.56 L, Estim Creat Clear Calc 139.90, Est GFR (MDRD) Af Amer 199, Est GFR (MDRD) Non-Af 165, BUN/Creatinine Ratio 28.8 H, Glucose 91, Calcium 8.5, Total Bilirubin 1.00, AST 93 H, ALT 115 H, Alkaline Phosphatase 58, Total Protein 6.6, Albumin 3.5, Globulin 3.1, Albumin/Globulin Ratio 1.1 Physical Exam Narrative Physical Examination: General: Awake, alert, oriented x 3 and cooperative, laying in the bed, fatigued, tremors evident while attempting to eat. Skin: Normal color, normal turgor, no icterus, no cyanosis. HEENT: AT/NC, EOMI, PERRLA, mildly dry MM. Lungs: Mildly diminished, > bases, appropriate effort, no rales, ronchi or wheezing. Heart: Remains mildly tachycardic with regular rhythm; no gallop, rub audible. Abdomen: Soft, NTTP, ND, hyperactive BS. Extremities: No cyanosis, clubbing, or edema. Neurological: Patient awake, alert, oriented as noted, cognitive function appears intact; pupils equally reactive to light and accommodation, cranial nerves grossly normal, moving all 4 extremities, no focal deficits, strength mildly globally decreased acutely, tremors mildly more pronounced than day prior. Psychiatric: Affect appears fatigued, history of depression or anxiety, possibly schizophrenia, denies any SI as had presented prior with this history. Assessment & Plan Assessment/Plan (1) Alcohol withdrawal: QUALIFIERS: Complication of substance-induced condition: with unspecified complication Qualified Code(s): F10.239 - Alcohol dependence with withdrawal, unspecified PLAN: The patient is a 50 y/o M w/ PMHx: EtOH abuse w/ Hx DT, Tobacco use, ? Schizophrenia/Anxiety and Depression recently admitted to 02/25/21 secondary to EtOH withdrawal who now re-presents to the [facility] ED on 03/11/21 with history of immediately restarting EtOH abuse within 1-2 days of his recent discharge reporting that when he had been evaluated and treated the prior admission he still had EtOH left in him home. 1. Acute EtOH Withdrawal with Hx DT with elevated LFTs: Patient admitted to [facility] routine labs obtained in the ED upon presentation. Given interest continued interest in sobriety following discussions in the ED as patient recently went through treatment program and started intake again within 24-48 hours, patient was initiated and continued on protocol with taper course of Phenobarbital, scheduled gabapentin for seizure prophylaxis, as needed Catapres, Bentyl, Vistaril, IV fluids, IV antiemetics, Tylenol as needed for pain. Case management consulted for assistance for transition to next level of rehabilitation care. Would be a good residential treatment candidate following current treatment. Mag, phos normal. Admission AST/ALT 168/166, judiciously hydrated, likely secondary to higher alcohol intake recently, repeat 03/12/2021 improved, AST/ALT 93/115. 2. Hypertension: BPs elevated in the ED as noted. Upon admission resumed patient lisinopril, HCTZ given appropriate CMP and elevated BPs, likely has not been taking per discussions, will monitor BP and alter/add further as needed, PRN IV hydralazine. CMP with sodium 135. BP elevated this a.m. but improved following medication, may need to consider regimen that is twice daily dosed. 3. Chart Hx of Anxiety depression/schizophrenia, recent ED evaluation prior with suicidal ideations: Patient during prior presentation with suicidal ideations however once he clinically improved he denied. He did deny any history of schizophrenia to prior physician however he did admit to auditory hallucinations and confirms that these are even when he is not withdrawing. Do suspect underlying history and would benefit from continued follow-up with counseling. 4. Tobacco Abuse: Encouraged cessation, inpatient consultation per RT, NR if desired. 5. DVT prophylaxis: Low risk, encourage ambulation. Charges/Coding Visit Charges Inpatient E&M: 15158 Subs Hosp L2
[2021-03-12 06:51] VITALS: BP 98/72; PULSE 61; RESP 16; TEMP 36.7; O2SAT 98
[2021-03-12] MEDS: Thiamine Hydrochloride 100 MG Tablet PO (07:30)
[2021-03-12] MEDS: Folic Acid 1 MG Tablet PO (07:30)
[2021-03-12] MEDS: Multivitamins,Therapeutic Tablet 1 TABLET PO (07:30)
[2021-03-12 07:34] VITALS: O2SAT 96
[2021-03-12 10:47] VITALS: BP 110/71; PULSE 96; RESP 16; TEMP 37; O2SAT 100
[2021-03-12] MEDS: hydroCHLOROthiazide 12.5mg 12.5 MG PO (10:50)
[2021-03-12] MEDS: Lisinopril 20 MG Tablet PO (10:55)
[2021-03-12 16:03] VITALS: RESP 18
[2021-03-12 17:00] VITALS: BP 142/75; PULSE 78; RESP 16; TEMP 37.2; O2SAT 100
[2021-03-12] MEDS: traZODone 100 MG Tablet PO (22:41)
[2021-03-12] MEDS: Ondansetron 8 MG Tablet PO (22:49)
[2021-03-12] MEDS: Loperamide 2 MG Capsule PO (22:49)
[2021-03-12] MEDS: Gabapentin 300 MG Capsule PO (22:49)
[2021-03-12 23:00] VITALS: BP 106/64; PULSE 74; RESP 16; TEMP 36.9; O2SAT 99
[2021-03-13 05:00] VITALS: BP 121/99; PULSE 65; RESP 16; TEMP 36.5; O2SAT 100
[2021-03-13] MEDS: Phenobarbital 32.4 MG Tablet 64.8 MG PO ×4 (06:24→18:12)
[2021-03-13 07:25] VITALS: O2SAT 97
[2021-03-13 09:20] VITALS: BP 121/78; PULSE 88; RESP 16; TEMP 36.6; O2SAT 94
[2021-03-13] MEDS: Thiamine Hydrochloride 100 MG Tablet PO (09:27)
[2021-03-13] MEDS: Folic Acid 1 MG Tablet PO (09:27)
[2021-03-13] MEDS: Multivitamins,Therapeutic Tablet 1 TABLET PO (09:27)
[2021-03-13] MEDS: hydroCHLOROthiazide 12.5mg 12.5 MG PO (09:27)
[2021-03-13] MEDS: Lisinopril 20 MG Tablet PO (09:27)
[2021-03-13] MEDS: hydrOXYzine PAM 25 MG Capsule 50 MG PO ×2 (09:40→14:33)
[2021-03-13] MEDS: Loperamide 2 MG Capsule PO ×2 (09:40→14:33)
[2021-03-13] MEDS: Dicyclomine 10 MG Capsule 20 MG PO (09:40)
--- NOTE | 2021-03-13 10:22 | PCM.PN.HOSP ---
Subjective Subjective No new issues, doing well Objective Data Objective Data Vital Signs: Vital Signs Temp Pulse Resp BP Pulse Ox 97.8 F 88 16 121/78 H 94 03/13/21 09:20 03/13/21 09:20 03/13/21 09:20 03/13/21 09:20 03/13/21 09:20 Oxygen Delivery Method Room Air Weight: 141 lb 5.061 oz Body Mass Index (BMI) 21.4 Intake & Output: Intake and Output for Last 24 Hours 03/12/21 03/13/21 03/14/21 03:59 03:59 03:59 Intake Total 1783.33 / 1783.33 2180 / 2180 Output Total 0 / 0 Balance 1783.33 / 1783.33 2180 / 2180 Lab / Micro Data Result Diagrams: 03/11/21 08:50 03/12/21 05:18 Physical Exam Const alert, oriented x3 and no apparent distress General Appearance: cooperative HEENT normocephalic and moist oral mucous membranes Eyes PERRL, EOMs intact bilaterally and conjunctivae normal Neck supple and no JVD Resp normal respiratory effort, no retractions, no use of accessory muscles and clear to auscultation bilaterally Auscultation: Negative for crackles, rales, rhonchi or wheezes Cardio regular rate, regular rhythm, S1 normal heart sound, S2 normal heart sound and no murmurs GI soft to palpation, non-tender and non-distended; Negative for hepatosplenomegaly Extremity no clubbing, cyanosis or edema Skin no rashes or lesions noted Neuro no focal motor deficits and no sensory deficits noted Psych affect normal Appearance: appropriate Assessment & Plan Assessment/Plan (1) Alcohol withdrawal: QUALIFIERS: Complication of substance-induced condition: with unspecified complication Qualified Code(s): F10.239 - Alcohol dependence with withdrawal, unspecified PLAN: 1. Acute EtOH Withdrawal with Hx DT/anxiety/depression -Continue with alcohol withdrawal protocol, f/u with 180 -Not sure he wants to do residential treatment because of his job -We will need outpatient medication regimen for his mood disorder 2. Hypertension -Tolerating the lisinopril and hydrochlorothiazide -Renal function remains normal 3. Tobacco Abuse -Encouraged cessation, inpatient consultation per RT, NR if desired. DVT: Low risk, encourage ambulation. Charges/Coding Visit Charges Inpatient E&M: 13407 Subs Hosp L2
[2021-03-13 17:00] VITALS: BP 115/83; PULSE 90; RESP 14; TEMP 36.6; O2SAT 98
[2021-03-13 22:16] VITALS: BP 121/86; PULSE 75; RESP 18; TEMP 37.2; O2SAT 100
[2021-03-14] MEDS: Phenobarbital 32.4 MG Tablet 64.8 MG PO ×2 (00:04→06:14)
[2021-03-14 04:10] VITALS: BP 126/61; PULSE 72; RESP 18; TEMP 36.8; O2SAT 100
--- NOTE | 2021-03-14 07:25 | PCM.DC ---
Discharge Instructions Diet Discharge Diet: No restrictions Activity Discharge Activity: Return to Normal Activity Dressing / Incision Call your doctor if you observe: Fever of 101 or Higher, Shortness of breath, Dizziness, Swelling in the ankles, Chest pain and Increased palpitations (irregular heartbeat) Follow Up Care Test Results: Test results from this visit will be discussed in further detail at your follow-up appointment, if applicable. Discharge Plan Admission Admit Date/Time: 03/11/21 09:55 Attending Provider: Josef Lieberman Primary Care Provider: Care Physician,Rosalie Primary Discharge Orders/Prescriptions Prescriptions: Continued lisinopril-hydrochlorothiazide 20-12.5 mg tablet 1 tab PO DAILY Qty: 30 RF: 0 Referrals / Follow Up: Care Physician,No Primary [Primary Care Provider] - Disposition Disposition (needs filled in before D/C Order can be placed): Home, Self Care
[2021-03-14 08:09] VITALS: BP 110/73; PULSE 87; RESP 16; TEMP 36.6; O2SAT 100
[2021-03-14] MEDS: Folic Acid 1 MG Tablet PO (08:11)
[2021-03-14] MEDS: Multivitamins,Therapeutic Tablet 1 TABLET PO (08:11)
[2021-03-14] MEDS: Lisinopril 20 MG Tablet PO (08:12)
[2021-03-14] MEDS: Thiamine Hydrochloride 100 MG Tablet PO (08:12)
[2021-03-14] MEDS: hydroCHLOROthiazide 12.5mg 12.5 MG PO (08:12)
--- NOTE | 2021-03-14 09:42 | PHA.DC.MR ---
Pharmacy Service has performed discharge medication reconciliation for this patient. The patient's discharge medication list was reviewed for discrepancies and discrepancies were resolved. Home Medications lisinopril-hydrochlorothiazide 1 tab PO DAILY #30 tab 02/28/21
--- NOTE | 2021-03-14 11:48 | DS.PCM_ITS ---
Providers Date of Admission: 03/11/21 Primary Care Physician: Rosalie Primary Care Phys Reason For Visit: ETOH ABUSE, WITHDRAWAL Diagnosis Discharge Diagnosis (1) Alcohol withdrawal: Status: Acute Code(s): F10.239 - Alcohol dependence with withdrawal, unspecified Qualifiers: Complication of substance-induced condition: with unspecified complication Qualified Code(s): F10.239 - Alcohol dependence with withdrawal, unspecified Medications at Discharge Home Medications lisinopril-hydrochlorothiazide 1 tab PO DAILY #30 tab 02/28/21 Hospital Course Operations None Procedures None Summary of Care Provided Minutes Spent on Discharge: 35 Hospital Course: Per HPI: The patient is a 50 y/o M w/ PMHx: EtOH abuse w/ Hx DT (> 8 tall boys daily, prior to initial ED presentation last intake ~ 16 hours ago), Tobacco use, ? Schizophrenia/Anxiety and Depression (denied during prior admission, but noted in history and admits to auditory hallucinations even when no in withdrawal) recently admitted to 02/25/21 secondary to EtOH withdrawal who now re-presents to the [facility] ED on 03/11/21 with history of immediately restarting EtOH abuse within 1-2 days of his recent discharge reporting that when he had been evaluated and treated the prior admission he still had EtOH left in him home. He notes prior to current presentation he removed all EtOH from his home. He reports interest in re-attempting treatment/sobriety because he wants to be a better father and grandfather. He notes last intake in the very early AM with mild stomach upset, nausea, tremors, agitation, tactile disturbances. Work-up in the ED included T 99, heart rate 114, BP initially 184/114 with repeat 176/106, respiratory rate 24, 96% on room air, CBC with WBC 6.7, hemoglobin 15.1, platelet 167 without marked shift CMP with sodium 135, total bilirubin 0.80, AST/ALT 168/166, alk phos 68 otherwise not marked appearing hepatic profile, EtOH level 150, UDS pending upon requested evaluation of patient. In the ED patient administered NR, ativan and phenobarbital. Hospital Course: 1. Acute alcohol withdrawal with a history of DTs/anxiety and depression with recent [id number] male with alcohol withdrawal and suicidal ideation presents to the hospital requesting detox. He was offered residential treatment however he refused states that he would like to continue working and trying to do outpatient rehab if possible. On his previous admission it was noted that he was potentially schizophrenic and did have some auditory hallucinations, it is difficult to ascertain how accurate this is as a diagnosis and I discussed with him that it would be beneficial for him to meet with a psychiatrist for management of any medications he may need and to establish a diagnosis. Plan will be for discharge today, and I did discuss this with him and he expressed understanding of the risk benefits of going home and would like to go home today and be evaluated for outpatient therapy. 2. Hypertension-continue on lisinopril and hydrochlorothiazide, creatinine has been stable since his previous admission to today. We will continue with his hypertensive medications on discharge. Physical Exam Const alert, oriented x3 and no apparent distress General Appearance: cooperative HEENT normocephalic and moist oral mucous membranes Eyes PERRL, EOMs intact bilaterally and conjunctivae normal Neck supple and no JVD Resp normal respiratory effort, no retractions, no use of accessory muscles and clear to auscultation bilaterally Auscultation: Negative for crackles, rales, rhonchi or wheezes Cardio regular rate, regular rhythm, S1 normal heart sound, S2 normal heart sound and no murmurs GI soft to palpation, non-tender and non-distended; Negative for hepatosplenomegaly Extremity no clubbing, cyanosis or edema Skin no rashes or lesions noted Neuro no focal motor deficits and no sensory deficits noted Psych affect normal Appearance: appropriate Weight / BMI Weight Weight: 141 lb 5.061 oz Body Mass Index (BMI) 21.4 ABG / Lab / Microbiology Data Result Diagrams: 03/11/21 08:50 03/12/21 05:18 D/C Instructions Discharge Diet: No restrictions Call your doctor if you observe: Fever of 101 or Higher, Shortness of breath, Dizziness, Swelling in the ankles, Chest pain and Increased palpitations (irregular heartbeat) Meaningful Use Info Meaningful Use Diagnoses (Choose all that apply): None applicable Discharge Plan Admission Admit Date/Time: 03/11/21 09:55 Attending Provider: Josef Lieberman Primary Care Provider: Ino Physician,No Primary Discharge Orders/Prescriptions Prescriptions: Continued lisinopril-hydrochlorothiazide 20-12.5 mg tablet 1 tab PO DAILY Qty: 30 RF: 0 Referrals / Follow Up: Care Physician,No Primary [Primary Care Provider] - Disposition Disposition (needs filled in before D/C Order can be placed): Home, Self Care Charges/Coding Visit Charges Inpatient E&M: 69236 Disch Hosp
== END 2021-03-14 11:55 | disposition home or self-care (01) | DRG 775 ==
LOC: ED 09:59 → MS3 10:04
PROVIDERS: Admitting Provider Family Medicine; Emergency Provider Emergency Medicine; Visit Provider Family Medicine
DX: F10.239 Alcohol dependence with withdrawal, unspecified (principal); I10 Essential (primary) hypertension; Z79.899 Other long term (current) drug therapy; Y90.6 Blood alcohol level of 120-199 mg/100 ml; Z59.0 Homelessness; F17.210 Nicotine dependence, cigarettes, uncomplicated
CPT/HCPCS: 36415; 80053; 82077; 83735; 84100; 85025; 99285; J7120; A4216

== ENCOUNTER 2021-03-16 20:20 | Emergency (ER) | payer MEDICAID, SELFPAY ==
[2021-03-11 10:22] VITALS: BMI 21.4
[2021-03-16 20:21] VITALS: BP 94/71; PULSE 115; RESP 18; TEMP 36.6; O2SAT 98; BMI 22.8
--- NOTE | 2021-03-16 20:30 | ED.RN ---
RN CALLED FOR EKG, PULLED OLD EKGS FOR
--- NOTE | 2021-03-16 20:43 | RAD_ITS ---
EXAM: XR CHEST, 1 VIEW : 1970 CLINICAL INDICATION: cp TECHNIQUE: Frontal view of the chest. This report was created using [employer] report generation technology. COMPARISON: 12/24/2020 FINDINGS: LUNGS AND PLEURAL SPACES: Unremarkable. No consolidation or edema. No pneumothorax. No effusion. HEART: Unremarkable. Cardiac silhouette not enlarged. MEDIASTINUM: Central airways and mediastinal contour are unremarkable. BONES/JOINTS: Unremarkable. SOFT TISSUES: Unremarkable. RAD/Chest 1 View (Portable) IMPRESSION: No radiographic evidence of acute cardiopulmonary disease. at 2122 Reported and signed by: Casey Lloyd MD Electronically Signed: Casey Lloyd MD at 21:21 EDT Tel , Service support ,
--- NOTE | 2021-03-16 20:44 | EKG12_ITS ---
Test Reason : CP Blood Pressure : / mmHG Vent. Rate : 094 BPM Atrial Rate : 094 BPM P-R Int : 148 ms QRS Dur : 080 ms QT Int : 334 ms P-R-T Axes : 044 020 032 degrees QTc Int : 417 ms Normal sinus rhythm Possible Left atrial enlargement Borderline ECG Confirmed by CAMILA WOOD, CRUZ ([id number]), pictures editor LUIS ALBERTO LITTLE ([id number]) on 03/20/2021 1:21:02 PM Referred By: FRANCES Confirmed By:CRUZ JENSEN MD
--- NOTE | 2021-03-16 20:45 | EX.ED.DYSGE1 ---
HPI History of Present Illness Chief Complaint: Anxiety Informant: patient Onset/Context/Timing Onset: Today Current Severity: Moderate Maximum Severity: Severe Narrative Narrative: Patient presents with chest pain and dizziness after having a panic attack. Patient was recently admitted to the hospital the to the for alcohol detox. Patient admits he started drinking soon as he was discharged. This evening he had a panic attack and started drinking a lot of alcohol. He also took his blood pressure medication. He now states he has chest pain and is concerned. He feels that the panic attack has resolved but still has chest pressure and feels dizzy. PFSH PFSH Medical History Alcohol abuse Anxiety Depression Hypertension Migraines Schizophrenia Smoker Tobacco use Home Medications lisinopril-hydrochlorothiazide 1 tab PO DAILY #30 tab 02/28/21 [Rx Last Taken 03/09/21] ondansetron 4 mg PO Q8H PRN #10 tab 03/16/21 [Rx Last Taken Unknown] Allergy/AdvReac Type Severity Reaction Status Date / Time Penicillins AdvReac Nausea Verified 03/16/21 20:20 Family History Father Heart disease Hypertension HLD (hyperlipidemia) Mother Alzheimer's dementia Social History housing: homeless Smoking Status: Current every day smoker tobacco type: cigarettes alcohol intake: current alcohol intake frequency: other Alcohol type: beer details: > 8 tall boys daily. substance use type: does not use ROS ROS ED Constitutional Constitutional ED: Denies chills or fever(s) Eyes Eyes: Denies change in vision ENT ENT ED: Denies sore throat Cardiovascular Cardiovascular: Reports chest pain Respiratory/Chest Respiratory/Chest: Denies cough or dyspnea Gastrointestinal Gastrointestinal: Denies abdominal pain, diarrhea, nausea or vomiting Genitourinary Genitourinary ED: Denies dysuria Musculoskeletal Musculoskeletal: Denies back pain Integumentary Denies rash Neurologic Neurologic: Denies headache(s) or weakness Psychiatric Psychiatric: Denies anxiety or depression Endocrine Endocrinology: Denies polydipsia or polyuria Allergic/Immunologic Allergic/Immunologic ED: Denies urticaria EXAM Physical Exam Const Vital Signs: 03/16/21 20:21 03/16/21 21:06 Temperature 97.8 F 98.4 F Temperature Source Temporal Temporal Pulse Rate 115 H 82 Respiratory Rate 18 10 L Blood Pressure 94/71 104/80 Blood Pressure Mean 78 88 Blood Pressure Source Monitor Blood Pressure Position Sitting Blood Pressure Location Right Arm Pulse Ox 98 98 Oxygen Delivery Method Room Air Room Air Positive well nourished and well developed General Appearance ED: well developed HEENT Reports normocephalic and head/scalp atraumatic Eyes PERRL and EOMs intact bilaterally Neck supple Chest Wall inspection of chest normal and palpation of chest normal Resp normal respiratory effort and clear to auscultation bilaterally Cardio regular rate and regular rhythm GI normal to inspection, nondistended, normoactive bowel sounds Palpation: soft Extremity normal to inspection Neuro oriented x3 and no sensory deficits noted Sensorium / Orientation: alert Motor Exam: strength 5/5 throughout Psych mental status grossly normal Skin no rashes or lesions noted MDM MDM MDM Narrative Medical decision making narrative: Patient was placed on cardiac catheterization technician. EKG was obtained. Patient was given Zofran and Protonix. Lab Data Attestation: I reviewed the patient's lab results. Labs: Laboratory Results - last 24 hr 03/16/21 03/16/21 03/16/21 21:00 21:00 21:00 WBC 5.1 RBC 4.06 L Hgb 13.5 Hct 38.1 L MCV 93.8 MCH 33.3 H MCHC 35.4 RDW Std Deviation 44.8 H RDW Coeff of Roger 12.9 Plt Count 194 MPV 9.1 Immature Gran % (Auto) 1.000 H Neut % (Auto) 39.4 L Lymph % (Auto) 36.6 [place] % (Auto) 20.2 H Eos % (Auto) 2.2 Baso % (Auto) 0.6 Absolute Neuts (auto) 2.0 Absolute Lymphs (auto) 1.87 Nucleated RBC % 0 Sodium 136 Potassium 4.2 Chloride 104 Carbon Dioxide 20.0 L Anion Gap 12 BUN 12 Creatinine 0.66 L Estim Creat Clear Calc 126.00 Est GFR (MDRD) Af Amer 163 Est GFR (MDRD) Non-Af 135 BUN/Creatinine Ratio 18.2 Glucose 85 Calcium 8.1 L Total Bilirubin 0.30 Direct Bilirubin 0.17 AST 104 H ALT 143 H Alkaline Phosphatase 50 Troponin I High Sens 5.4 Total Protein 7.9 Albumin 3.8 Globulin 4.1 Lipase 290 Ethyl Alcohol 115.0 Radiography Diagnostic Testing: Radiology Impression Chest X-Ray 03/16/21 20:43 IMPRESSION: No radiographic evidence of acute cardiopulmonary disease. at 2122 Reported and signed by: Casey Lloyd MD Electronically Signed: Casey Lloyd MD at 21:21 EDT Tel , Service support , EKG Initial EKG: Attestation: I personally reviewed and interpreted this EKG as follows: Interpretation: Sinus Rhythm (Sinus at 94 with no acute ischemia. No significant change when compared to prior study of December 24, 2020.) Treatment and Re-Evaluation Comments:: On repeat evaluation patient is feeling improved. He had mentioned to nursing staff that he wished to come in for the detox program again. Patient was just discharged from this program 48 hours ago and started drinking immediately. He was also admitted to the program earlier this month. Patient was advised he has not qualify for another admission at this time. I will discharge him with information about [facility] for follow-up. Discharge Plan Triage Chief Complaint: Anxiety ED Provider: Noa Chatterjee Dx/Rx/DC Orders Clinical Impression: Anxiety Instructions: ED Panic Attack Prescriptions: New ondansetron 4 mg tablet,disintegrating 4 mg PO Q8H PRN (Reason: nausea and vomiting) Qty: 10 RF: 0 No Action lisinopril-hydrochlorothiazide 20-12.5 mg tablet 1 tab PO DAILY Qty: 30 RF: 0 Primary Care Provider: Care Physician,No Primary Referrals: Care Physician,No Primary [Primary Care Provider] - [facility] [STAFF PHYSICIAN] - As soon as possible Disposition Disposition: Home, Self Care
[2021-03-16] MEDS: 0.9% Normal Saline 1,000 ML 150 ML IV (20:57)
[2021-03-16] MEDS: Ondansetron 4 MG/2 ML Vial IV (20:57)
[2021-03-16 21:06] VITALS: BP 104/80; PULSE 82; PULSE 85; RESP 10; RESP 13; TEMP 36.9; O2SAT 98
[2021-03-16 21:22] LABS: Absolute Lymphocyte Count 1.87 X10^3/uL (0.83-4.51); Basophil# 0.03 X10^3/uL; Basophil% 0.6 % (0-1); Eosinophil# 0.11 X10^3/uL; Eosinophils% 2.2 % (0-5); Hematocrit 38.1 % (40-54); Hemoglobin 13.5 g/dL (13.0-16.5); Lymphocyte # 1.87 X10^3/ul (0.83-4.51); Lymphocyte % 36.6 % (19-41); Mean Corp Hgb Conc 35.4 g/dL (32-36); Mean Corpuscular Hgb 33.3 pg (27.0-32.0); Mean Corpuscular Volume 93.8 fL (80-94); Mean Platelet Vol. 9.1 fl (6.2-12.0); Monocyte# 1.03 X10^3/uL; Monocyte% 20.2 % (0-10); NRBC Flagged by Analyzer 0 % (0-5); Neutrophil # 2.02 X10^3/uL (2.7-7.7); Neutrophil % 39.4 % (47-70); Platelet Count 194 K/mm3 (150-450); RBC Distribution Width CV 12.9 % (11.6-14.6); RBC Distribution Width SD 44.8 fl (35.1-43.9); Red Blood Count 4.06 M/mm3 (4.6-6.2); White Blood Count 5.1 K/mm3 (4.4-11.0)
[2021-03-16 21:41] LABS: AST(SGOT) 104 U/L (15-37); Alanine Aminotransfer ALT/SGPT 143 U/L (16-61); Albumin, Serum 3.8 g/dL (3.2-5.0); Alkaline Phosphatase 50 U/L (45-117); Anion Gap 12 (5-15); BUN 12 mg/dL (7-18); BUN/Creat Ratio 18.2 RATIO (10-20); Bilirubin, Direct 0.17 mg/dL (0.00-0.30); Calcium,Total 8.1 mg/dL (8.5-10.1); Chloride 104 mmol/L (98-107); Creatinine, Serum 0.66 mg/dL (0.70-1.30); EST Glomerular Filtration Rate 135 mL/min (>60); Est Glom Filt Rate - Afr Amer 163 mL/min (>60); Globulin 4.1 g/dL (2.2-4.2); Glucose 85 mg/dL (74-106); Lipase 290 U/L (73-393); Potassium 4.2 mmol/L (3.5-5.1); Protein, Total 7.9 g/dL (6.4-8.2); Sodium Level 136 mmol/L (136-145); Troponin-I HS 5.4 pg/mL (3.0-78.5)
[2021-03-16 22:56] VITALS: BP 106/65; PULSE 91; RESP 18; O2SAT 97
== END 2021-03-16 22:57 | disposition home or self-care (01) ==
PROVIDERS: Emergency Provider Emergency Medicine
DX: F41.9 Anxiety disorder, unspecified (principal); F17.210 Nicotine dependence, cigarettes, uncomplicated; I10 Essential (primary) hypertension; Z79.899 Other long term (current) drug therapy
CPT/HCPCS: 71045; 80048; 80076; 82077; 83690; 84484; 85025; 93005; 96365; 96375; 99284; J7030; A4216; J2405

== ENCOUNTER 2021-04-11 18:31 | Emergency (ER) | payer MEDICAID, SELFPAY ==
[2021-04-11 18:32] VITALS: BP 188/113; PULSE 91; RESP 18; TEMP 35.7; O2SAT 99; BMI 22.8
--- NOTE | 2021-04-11 18:55 | EX.ED.DYSGE1 ---
HPI History of Present Illness Chief Complaint: Suicidal Informant: patient Narrative Narrative: Patient brought in by PD from the [facility] for evaluation for increasing depression. Records history of depression schizophrenia he states he is not on any current medications. He does have alcohol history however cannot recall the last time he drank. Has been homeless for 2 months was staying with a friend prior to that in an apartment. He states he went to [facility] for IOP for the first time today. He states depression symptoms has progressed. He tried going back to [facility] however they were closed therefore he went to [facility] and spoke with somebody who called police this bring him here. He states he does have suicidal ideation today with no specific plan he states he does not want to be alone. He states if he was alone there is a chance he can hurt himself. He states smokes marijuana occasionally last time a week ago. Denies any auditory or visual hallucinations. Prior similar symptoms: Yes PFSH PFSH Medical History Alcohol abuse Anxiety Depression Hypertension Migraines Schizophrenia Smoker Tobacco use Home Medications ondansetron 4 mg PO Q8H PRN #10 tab 03/16/21 [Rx Last Taken Unknown] Allergy/AdvReac Type Severity Reaction Status Date / Time Penicillins AdvReac Nausea Verified 04/11/21 18:35 Family History Father Heart disease Hypertension HLD (hyperlipidemia) Mother Alzheimer's dementia Social History (Updated 04/11/21 @ 19:06 by Milly Diamond) housing: homeless current occupational status: unemployed history of recent travel: No Smoking Status: Current every day smoker tobacco type: cigarettes Smoking packs per day: 2 Smoking cigarettes per day: 40.0 Years smoked: 30 Smoking pack-years: 60.00 alcohol intake: former details: I don't remember the last time I had a drink. substance use type: marijuana ROS ROS ED Constitutional Constitutional ED: Denies chills, fever(s) or sweats Eyes Eyes: Denies change in vision ENT ENT ED: Denies dysphagia or sore throat Cardiovascular Cardiovascular: Denies chest pain, leg edema, palpitations or racing heartbeat Respiratory/Chest Respiratory/Chest: Denies cough, dyspnea or dyspnea on exertion Gastrointestinal Gastrointestinal: Denies abdominal pain, diarrhea, nausea or vomiting Genitourinary Genitourinary ED: Denies dysuria, hematuria or urinary frequency Musculoskeletal Musculoskeletal: Denies back pain, extremity pain or neck pain Integumentary Denies rash or wounds Neurologic Neurologic: Denies headache(s), paresthesias or weakness Psychiatric Psychiatric: Reports depression and suicidal ideation EXAM Physical Exam Const Vital Signs: 04/11/21 18:32 04/11/21 19:18 04/11/21 20:06 Temperature 96.2 F L Temperature Source Temporal Pulse Rate 91 Respiratory Rate 18 12 12 Blood Pressure 188/113 H Blood Pressure Mean 138 Pulse Ox 99 Oxygen Delivery Method Room Air 04/11/21 22:00 Temperature Temperature Source Pulse Rate 68 Respiratory Rate 18 Blood Pressure 164/60 H Blood Pressure Mean 94 Pulse Ox 98 Oxygen Delivery Method Room Air Positive well nourished and well developed General Appearance ED: well developed and NAD HEENT Reports moist mucous membranes normocephalic and atraumatic Eyes PERRL, EOMs intact bilaterally and conjunctivae normal General Eye ED: Yes normal appearance of both eyes Neck no lymphadenopathy and supple General: Negative for tenderness Chest Wall Chest: Negative for tenderness Resp normal respiratory effort and normal air movement Effort and Inspection: symmetric chest movement; Negative for respiratory distress Cardio regular rate, regular rhythm and no murmurs Peripheral Pulses: pulses 2+ throughout GI normal to inspection, nondistended, normoactive bowel sounds and non-tender Palpation: Negative for guarding or rebound tenderness present Back/Spine no CVA tenderness and no thoracic nor lumbar tenderness Extremity normal to inspection General Extremety ED: Negative for edema or tenderness General Extremity: Negative for edema Neuro oriented x3 and no sensory deficits noted Sensorium / Orientation: awake and alert Psych Psych Narrative: Cooperative, flat affect, depression symptoms, admits to suicidal ideations. Skin no rashes or lesions noted and no wounds MDM MDM MDM Narrative Medical decision making narrative: Patient depression with suicidal ideations no specific plans. Medical clearance labs normal with tox screen noting THC for which she admits to. He is evaluated by case management in the ED. They discussed with the counseling center who knows him well. He has no specific plan, further screening he is very low risk. He does have appointment with his PCP tomorrow along with established is [facility]. In addition they did rediscuss with him to have him follow-up in the counseling center tomorrow he agrees with this plan. Return if any worsening symptoms. All questions were answered. Lab Data Attestation: I reviewed the patient's lab results. Labs: Laboratory Results - last 24 hr 04/11/21 04/11/21 04/11/21 19:10 19:10 19:10 WBC 9.2 RBC 4.40 L Hgb 14.7 Hct 43.2 MCV 98.2 H MCH 33.4 H MCHC 34.0 RDW Std Deviation 50.2 H RDW Coeff of Roger 13.8 Plt Count 269 MPV 9.1 Immature Gran % (Auto) 0.300 Neut % (Auto) 52.6 Lymph % (Auto) 30.3 [place] % (Auto) 15.0 H Eos % (Auto) 1.1 Baso % (Auto) 0.7 Absolute Neuts (auto) 4.8 Absolute Lymphs (auto) 2.77 Nucleated RBC % 0 Sodium 138 Potassium 3.4 L Chloride 107 Carbon Dioxide 25.0 Anion Gap 6 BUN 7 Creatinine 0.51 L Estim Creat Clear Calc 163.06 Est GFR (MDRD) Af Amer 220 Est GFR (MDRD) Non-Af 182 BUN/Creatinine Ratio 13.8 Glucose 92 Calcium 9.3 Urine Opiates Screen Urine Methadone Screen Ur Barbiturates Screen Ur Phencyclidine Scrn Ur Amphetamines Screen U Methamphetamin-MDMA U Benzodiazepines Scrn Urine Cocaine Screen U Cannabinoids Screen Ur Drug Screen Comment Ethyl Alcohol < 3.0 04/11/21 19:17 WBC RBC Hgb Hct MCV MCH MCHC RDW Std Deviation RDW Coeff of Roger Plt Count MPV Immature Gran % (Auto) Neut % (Auto) Lymph % (Auto) [place] % (Auto) Eos % (Auto) Baso % (Auto) Absolute Neuts (auto) Absolute Lymphs (auto) Nucleated RBC % Sodium Potassium Chloride Carbon Dioxide Anion Gap BUN Creatinine Estim Creat Clear Calc Est GFR (MDRD) Af Amer Est GFR (MDRD) Non-Af BUN/Creatinine Ratio Glucose Calcium Urine Opiates Screen NEGATIVE Urine Methadone Screen NEGATIVE Ur Barbiturates Screen NEGATIVE Ur Phencyclidine Scrn NEGATIVE Ur Amphetamines Screen NEGATIVE U Methamphetamin-MDMA NEGATIVE U Benzodiazepines Scrn NEGATIVE Urine Cocaine Screen NEGATIVE U Cannabinoids Screen POSITIVE H Ur Drug Screen Comment Ethyl Alcohol Discharge Plan Triage Chief Complaint: Suicidal ED Provider: Lance Webb Dx/Rx/DC Orders Clinical Impression: Acute depression Instructions: Counseling for Depression Prescriptions: No Action ondansetron 4 mg tablet,disintegrating 4 mg PO Q8H PRN (Reason: nausea and vomiting) Qty: 10 RF: 0 Primary Care Provider: Care Physician,No Primary Referrals: Counseling,Center [GROUP OF PHYSICIANS] - (You can walk-in to the Center for evaluation tomorrow.) Care Physician,No Primary [Primary Care Provider] - Disposition Disposition: Home, Self Care
[2021-04-11 19:18] VITALS: RESP 12
[2021-04-11 19:42] LABS: Absolute Lymphocyte Count 2.77 X10^3/uL (0.83-4.51); Absolute Neutrophil Count 4.8 X10^3/uL (2.0-7.7); Basophil# 0.06 X10^3/uL; Basophil% 0.7 % (0-1); Eosinophils% 1.1 % (0-5); Hematocrit 43.2 % (40-54); Hemoglobin 14.7 g/dL (13.0-16.5); Lymphocyte # 2.77 X10^3/ul (0.83-4.51); Lymphocyte % 30.3 % (19-41); Mean Corpuscular Hgb 33.4 pg (27.0-32.0); Mean Corpuscular Volume 98.2 fL (80-94); Mean Platelet Vol. 9.1 fl (6.2-12.0); Monocyte# 1.37 X10^3/uL; NRBC Flagged by Analyzer 0 % (0-5); Neutrophil # 4.82 X10^3/uL (2.7-7.7); Neutrophil % 52.6 % (47-70); Platelet Count 269 K/mm3 (150-450); RBC Distribution Width CV 13.8 % (11.6-14.6); RBC Distribution Width SD 50.2 fl (35.1-43.9); White Blood Count 9.2 K/mm3 (4.4-11.0)
[2021-04-11] MEDS: Acetaminophen 500 MG Tablet 1000 MG PO (19:55)
[2021-04-11 19:58] LABS: Anion Gap 6 (5-15); BUN 7 mg/dL (7-18); BUN/Creat Ratio 13.8 RATIO (10-20); Calcium,Total 9.3 mg/dL (8.5-10.1); Chloride 107 mmol/L (98-107); Creatinine, Serum 0.51 mg/dL (0.70-1.30); EST Glomerular Filtration Rate 182 mL/min (>60); Est Glom Filt Rate - Afr Amer 220 mL/min (>60); Estimated Creatinine Clearance 163.06 ml/min; Glucose 92 mg/dL (74-106); Potassium 3.4 mmol/L (3.5-5.1); Sodium Level 138 mmol/L (136-145)
[2021-04-11 19:59] LABS: Alcohol, Blood (Medical)-Serum < 3.0 mg/dL
[2021-04-11 20:06] VITALS: RESP 12
[2021-04-11 20:16] LABS: Amphetamine Urine VISTA NEGATIVE (<1000 ng/mL); Barbiturate Urine VISTA NEGATIVE (< 200 ng/mL); Benzodiazepine Urine VISTA NEGATIVE (< 200 ng/mL); Cocaine Urine VISTA NEGATIVE (< 300 ng/mL); Ecstacy Urine VISTA NEGATIVE (< 500 ng/mL); Methadone Urine VISTA NEGATIVE (< 300 ng/mL); PCP Urine VISTA NEGATIVE (< 25 ng/mL); THC Urine VISTA POSITIVE (< 50 ng/mL); Vista UDS pH Range 6
[2021-04-11 22:00] VITALS: BP 164/60; PULSE 68; RESP 18; O2SAT 98
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
== END 2021-04-11 23:01 | disposition home or self-care (01) ==
PROVIDERS: Emergency Provider Emergency Medicine
DX: F32.9 Major depressive disorder, single episode, unspecified (principal); Z59.0 Homelessness; R45.851 Suicidal ideations; I10 Essential (primary) hypertension; F17.210 Nicotine dependence, cigarettes, uncomplicated
CPT/HCPCS: 80048; 80307; 82077; 85025; 99282

== ENCOUNTER 2021-04-27 08:07 | Emergency (ER) | payer MEDICAID, SELFPAY ==
[2021-04-27 08:07] VITALS: BP 125/98; PULSE 77; RESP 16; TEMP 36.7; O2SAT 99; BMI 23.8
--- NOTE | 2021-04-27 08:39 | CT_ITS ---
INDICATION: Injury/Pain EXAMINATION: CT CERVICAL SPINE - CT Spine Cervical W/O Contrast Injection TECHNIQUE: Helically acquired images were obtained of the cervical spine. 2D reformatted images were reviewed. A radiation dose optimization technique was used for this scan. IV Contrast dosage and agent: None. COMPARISON: None. FINDINGS: VERTEBRAE: No fracture or traumatic subluxation. No discrete lytic or blastic abnormality. Mild straightening of the normal alignment of the columns of the cervical spine is seen. Normal craniocervical junction and cervicothoracic junction. DISCS and SPINAL CANAL: Disc heights are preserved. No critical stenosis. NECK SOFT TISSUES: No prevertebral soft tissue swelling. There is no cervical adenopathy. Calcified plaque visualized in the carotid bifurcations bilaterally more prominent on the left where there appears to be approximately 50% luminal narrowing of the proximal left internal carotid artery, suboptimally evaluated. Recommend clinical correlation. LUNG APICES: Subtle emphysematous changes visualized in the upper lung gee bilaterally.. CT/Spine Cervical without Contras IMPRESSION: No evidence of acute cervical spinal fracture or spondylolisthesis. Calcified plaque visualized in the carotid bifurcations bilaterally more prominent on the left where there appears to be approximately 50% luminal narrowing of the proximal left internal carotid artery, suboptimally evaluated. Recommend clinical correlation. Electronically Signed: Richard oRd MD at 9:25 EDT Tel , Service support ,
[2021-04-27] MEDS: Morphine 4 MG/ML Syringe IV (08:59)
--- NOTE | 2021-04-27 09:20 | RAD_ITS ---
INDICATION: Injury/Pain EXAMINATION/TECHNIQUE: X-RAY - RIGHT XR Femur Min 2 Views 4 VIEWS COMPARISON: None. FINDINGS: SOFT TISSUES: No soft tissue swelling or gas. No radiopaque foreign body. BONES/JOINTS: No acute fracture or subluxation.. Normal alignment. Preservation of the joint spaces. No sclerotic or destructive changes observed. RAD/Femur Min 2 Views IMPRESSION: No evidence of acute osseous abnormality is seen. Electronically Signed: Richard Rod MD at 9:52 EDT Tel , Service support ,
--- NOTE | 2021-04-27 09:20 | RAD_ITS ---
INDICATION: Injury/Pain EXAMINATION/TECHNIQUE: X-RAY - RIGHT XR Shoulder Min 2 Views 4 VIEWS COMPARISON: None. FINDINGS: SOFT TISSUES: The overlying soft tissues are unremarkable, the underlying right lung demonstrates no evidence of parenchymal contusions, pneumothorax or pleural fluid. BONES/JOINTS: No acute fracture or subluxation.. Unremarkable alignment of the suprascapular femoral line is no evidence of dislocation. Mild degenerative changes visualized in the acromioclavicular joint and greater tuberosity. No sclerotic or destructive changes observed. RAD/Shoulder min 2 Views IMPRESSION: No evidence of acute osseous abnormality is seen. Electronically Signed: Richard Rod MD at 9:53 EDT Tel , Service support ,
--- NOTE | 2021-04-27 09:20 | RAD_ITS ---
INDICATION: Injury/Pain EXAMINATION/TECHNIQUE: X-RAY - RIGHT XR Wrist Min 3 Views 3 VIEWS COMPARISON: None. FINDINGS: SOFT TISSUES: No soft tissue swelling or gas. No radiopaque foreign body. BONES/JOINTS: No acute fracture or subluxation.. Normal alignment. Preservation of the joint spaces. No sclerotic or destructive changes observed. RAD/Wrist min 3 Views IMPRESSION: No evidence of acute osseous abnormality is seen. Electronically Signed: Richard Rod MD at 9:54 EDT Tel , Service support ,
--- NOTE | 2021-04-27 09:20 | RAD_ITS ---
INDICATION: Injury/Pain EXAMINATION/TECHNIQUE: X-RAY - RIGHT XR Elbow Min 3 Views COMPARISON: None. FINDINGS: SOFT TISSUES: No soft tissue swelling or gas. No radiopaque foreign body. BONES/JOINTS: There is no displacement of the anterior or posterior fat pads. No acute fracture or subluxation. Normal alignment. Preservation of the joint space. No sclerotic or destructive changes observed. RAD/Elbow min 3 Views IMPRESSION: No evidence of acute osseous abnormality seen Electronically Signed: Richard Rod MD at 9:51 EDT Tel , Service support ,
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
[2021-04-27 11:01] VITALS: PULSE 78; RESP 17; O2SAT 97
== END 2021-04-27 11:05 | disposition home or self-care (01) ==
PROVIDERS: Emergency Provider Emergency Medicine
DX: S50.01XA Contusion of right elbow, initial encounter (principal); S40.011A Contusion of right shoulder, initial encounter; S70.11XA Contusion of right thigh, initial encounter; S20.211A Contusion of right front wall of thorax, initial encounter; S16.1XXA Strain of muscle, fascia and tendon at neck level, initial encounter; F17.210 Nicotine dependence, cigarettes, uncomplicated; F32.9 Major depressive disorder, single episode, unspecified; F41.9 Anxiety disorder, unspecified; Z79.899 Other long term (current) drug therapy; V03.10XA Pedestrian on foot injured in collision with car, pick-up truck or van in traffic accident, initial encounter
CPT/HCPCS: 71101; 72125; 73030; 73080; 73110; 73552; 96374; 99285; A4216

== ENCOUNTER 2025-03-13 11:58 | Emergency (ER) | payer MEDICAID, SELFPAY ==
[2025-03-13] VITALS (9 sets, daily range): BP systolic 130–148; BP diastolic 75–87; PULSE 66–80; RESP 16–22; TEMP 36.9; O2SAT 93–97; BMI 25.4
--- NOTE | 2025-03-13 12:04 | RAD_ITS ---
PROCEDURE: CHEST 1 VIEW (PORTABLE) 03/13/2025 REASON FOR EXAM: CHEST PAIN TECHNIQUE: Frontal view of the chest. COMPARISON: Chest x-ray studies dated 03/16/2021 and 12/24/2020 FINDINGS: Hardware: Cardiac leads overlie the chest. Heart: Unremarkable. Heart size and configuration are within normal limits. Lungs: Unremarkable. Lungs are expanded and clear without evidence of atelectasis, consolidation, effusion or pneumonic infiltrate. Bones: Unremarkable. Bony thorax appears unremarkable. There is no acute osseous abnormality. Other: Soft tissues appear unremarkable. RAD/Chest 1 View (Portable) IMPRESSION: No acute cardiopulmonary process identified radiographically. Reading Location: [id number]
--- NOTE | 2025-03-13 12:10 | EDS_ITS ---
HPI History of Present Illness Chief Complaint: Chest Pain Detail of Chief Complaint: Anxiety attack. Depressed. Suicidal thoughts. Informant: patient Onset/Context/Timing Onset: Today Activity at onset: sudden Timing: Intermittent Quality: Positive for Sharp Current Severity: Gone Maximum Severity: Mild Worsened By: Nothing Relieved By: Nothing Associated Symptoms: Negative for Nausea, Vomiting, Diaphoresis, Dyspnea, Cough, Fever, Acid Reflux or Palpitations Narrative Narrative: 55-year-old male [address] is a history of anxiety hypertension. No cardiac history no history of DVT or PE no recent travel, surgery or immobilization. No recent hospitalization. He believes he had anxiety attack today. He has had similar events happen before. He does state he had some sha rp chest pain with it. He denies ever having a stress test or heart cath. He has no known history of cardiac disease. He is a smoker. He does admit that he drank at least 2 beers today. He is on medications for his mental health. He has had no recent mental health admissions. Recent Illness/Hospitalization: No CVD Risk Factors: Positive for Hypertension PE Risk Factors: Negative for Recent Travel/Surgery, Recent Immobilization, Prior DVT or PE, Cancer or OCP + Smoking + >/=35 TAD Risk Factors: Negative for Marfan's Syndrome PFSH PFS Medical History Smoker Migraines Tobacco use Alcohol abuse Schizophrenia Anxiety Depression Hypertension Home Medications ?Medication ?Instructions ?Recorded ?Last Taken ?Type hydrocodone-acetaminophen 5-325mg 1 tab PO Q6H PRN PRN Pain 3 days 04/27/21 Unknown Rx 5mg-325mg #10 TABLETS hydroxyzine HCl 25 mg tablet 25 mg PO 4X/DAY 04/27/21 Unknown History trazodone 50 mg tablet 50 mg PO QHS 04/27/21 Unknow n History Allergy/AdvReac Type Severity Reaction Status Date / Time Penicillins AdvReac Nausea Verified 04/11/21 18:35 Family History Father Heart disease Hypertension HLD (hyperlipidemia) Mother Alzheimer's dementia Social History housing: homeless current occupational status: unemployed history of recent travel: No Smoking Status: Heavy Smoker (>10/day) alcohol intake: former details: I don't remember the last time I had a drink. substance use type: marijuana ROS ROS ED ROS Narrative Denies recent illness other and some mild diarrhea. Constitutional Constitutional ED: Denies chills or fever(s) Eyes Eyes: Reports none ENT ENT ED: Denies ear pain Cardiovascular Cardiovascular: Reports as per HPI and chest pain; Denies palpitations or racing heartbeat Respiratory/Chest Respiratory/Chest: Denies cough or dyspnea Gastrointestinal Gastrointestinal: Reports diarrhea; Denies abdominal pain, melena, nausea or vomiting Genitourinary Genitourinary ED: Denies dysuria or hematuria Musculoskeletal Musculoskeletal: Denies arthralgias Integumentary Denies abscess Neurologic Neurologic: Denies headache(s) Psychiatric Psychiatric: Reports anxiety, depression and suicidal thoughts Endocrine Endocrinology: Denies cold intolerance Hematologic/Lymphatic Hematologic/Lymphatic: Denies easy bleeding or easy bruising Allergic/Immunologic Allergic/Immunologic ED: Denies mouth swelling, tongue swelling or urticaria EXAM Physical Exam Narrative Exam Narrative: 55-year-old male sitting upright in bed. Vital signs stable afebrile. Pulse ox 93% on room air no hypoxia. He is anxious but otherwise in no acute distress. He does smell of alcohol may be intoxicated. There is no family present. Police are here speaking with him. Paramedics brought him in. H EENT exam pupils round reactive light. Smell of alcohol. Moist mucous membranes. No trauma. Neck nontender no JVD. Lungs coarse breath sounds. Bilaterally. Few scattered expiratory wheezes. He is a smoker. No respiratory distress. Heart regular rhythm rate about 80 no murmur. Chest wall and ribs nontender. Abdomen soft nontender. Moving all 4 extremities. Nontender no edema. No cords. Calves nontender. Normal senior drafter strength. Normal dorsi plantarflexion. Neurologically he is awake and alert. Answering questions following commands. He does smell of alcohol he may be acutely intoxicated. He is cooperative. He is neither violent nor verbally abusive. Const Vital Signs: 03/13/25 11:59 03/13/25 12:04 03/13/25 12:58 Temperature 98.5 F Temperature Source Oral Pulse Rate 80 75 Respiratory Rate 22 H 21 H Blood Pressure 130/75 H Blood Pressure Mean 93 Pulse Ox 93 94 97 Oxygen Delivery Method Room Air Room Air Room Air 03/13/25 13:00 03/13/25 14:00 03/13/25 15:00 Temperature Temperature Source Pulse Rate 75 66 72 Respiratory Rate 21 H 19 H 18 Blood Pressure 134/87 H Blood Pressure Mean 102 Pulse Ox 97 95 94 Oxygen Delivery Method Room Air Room Air 03/13/25 16:00 Temperature Temperature Source Pulse Rate 71 Respiratory Rate 16 Blood Pressure 148/78 H Blood Pressure Mean 101 Pulse Ox 97 Oxygen Delivery Method Room Air Positive well nourished and well developed; Negative for cachectic, contractures or unkempt General Appearance ED: well developed and NAD; Negative for unkempt, cachectic or contractures Nutritional Appearance: Negative for cachectic HEENT Reports moist mucous membranes normocephalic and atraumatic Eyes PERRL and EOMs intact bilaterally Neck no lymphadenopathy, supple and no JVD Chest Wall inspection of chest normal and palpation of chest normal Resp normal respiratory effort and clear to auscultation bilaterally Auscultation: Negative for rales Cardio regular rate, regular rhythm, S1 normal heart sound, S2 normal heart sound and no murmurs Rate: Negative for bradycardia or tachycardic Peripheral Pulses: pulses 2+ throughout GI normal to inspection, nondistended, normoactive bowel sounds, soft to palpation, non-tender, non-distended and no masses Back/Spine no CVA tenderness and no thoracic nor lumbar tenderness Extremity normal to inspection General Extremety ED: Negative for edema, pulses abnormal or tenderness General Extremity: Negative for edema or pulses abnormal Neuro oriented x3 and CN's II-XII intact bilaterally Sensorium / Orientation: awake, alert, oriented to person, oriented to place and oriented to time Motor Exam: strength 5/5 throughout Psych Appearance: Negative for unkempt Mood & Affect: depressed and anxious Skin no rashes or lesions noted and no wounds Rashes: No rashes noted Trauma: Negative for abrasion MDM MDM MDM Narrative Medical decision making narrative: 55-year-old male acute anxiety attack depressed. May remain off his suicidal. He is trying alcohol today. I will go through ED mental health evaluation. He had sharp chest pain I do not think this is cardiac he will undergoing cardiac workup. Multiple repeat exams at 4:40 PM patient is doing well. He is calm and relaxed. His cardiac workup is negative. There are no redrawn alcohol levels within the show alcohol was 186. Around 5:30 PM. If that around 80 the case management social worker will evaluate him and make a determination along with the oncoming physician if he can go home or not. History & Record Review Discussion w/independent historian: Patient Lab Data Attestation: I reviewed the patient's lab results. Lab results narrative: CBC shows a white count of 5. H&H 15 and 41. Platelets 337. Electrolytes show sodium 140. Gap 18. BUN/creatinine is seven 0.6 Liver enzymes have an elevated AST of 78 and elevated ALT 81. Initial troponin is 9. Alcohol is 186 likely intoxicated. Tox screen negative. Labs: Laboratory Results - last 24 hr 03/13/25 03/13/25 03/13/25 12:00 12:21 13:09 WBC 5.4 RBC 4.53 L Hgb 15.3 Hct 41.9 MCV 92.5 MCH 33.8 H MCHC 36.5 H RDW Std Deviation 49.1 H RDW Coeff of Roger 14.4 Plt Count 337 MPV 8.9 Immature Gran % (Auto) 0.700 Neut % (Auto) 40.3 L Lymph % (Auto) 40.6 [place] % (Auto) 14.3 H Eos % (Auto) 3.0 Baso % (Auto) 1.1 H Absolute Neuts (auto) 2.2 Absolute Lymphs (auto) 2.19 Nucleated RBC % 0 Sodium 140 Potassium 4.1 Chloride 102 Carbon Dioxide 19.8 L Anion Gap 18 H BUN 7 Creatinine 0.66 L Estim Creat Clear Calc 120.91 Est GFR (MDRD) Non-Af 110 BUN/Creatinine Ratio 10.1 Glucose 99 Calcium 9.4 Total Bilirubin 0.48 Direct Bilirubin 0.21 AST 78 H ALT 81 H Alkaline Phosphatase 53 Troponin T High Sens 9 Total Protein 7.4 Albumin 4.7 Globulin 2.8 Urine Opiates Screen NEGATIVE U Buprenorphine Qual NEGATIVE Ur Oxycodone Screen NEGATIVE Urine Methadone Screen NEGATIVE Urine Fentanyl Screen NEGATIVE Ur Barbiturates Screen NEGATIVE Ur Phencyclidine Scrn NEGATIVE Ur Amphetamines Screen NEGATIVE U Benzodiazepines Scrn NEGATIVE Urine Cocaine Screen NEGATIVE U Cannabinoids Screen NEGATIVE Ethyl Alcohol 186.0 H Radiography Chest X-Ray - ED: 1 View, Read by ED Physician, Read by Radiologist, Heart, Lungs, Mediastinum, Bony Structures, No Acute Disease and Chronic Changes Diagnostic Testing: Clinical Impression(s) from Imaging Studies Chest X-Ray 03/13/25 12:04 IMPRESSION: No acute cardiopulmonary process identified radiographically. Reading Location: [facility] Chest x-ray, portable, single view interpreted by by myself and the radiologist shows no acute abnormality. Normal coronary silhouette. Normal mediastinum. Normal lung gee. Chronic changes. No acute process. Rhythm Strip Rhythm Strip: Sinus Rhythm Rate: 76 Ectopy: None EKG Initial EKG: Attestation: I personally reviewed and interpreted this EKG as follows: Interpretation: Sinus Rhythm and No Acute Injury Pattern Comments: Normal sinus rhythm rate of 78 no acute signs of OK or ischemia. Discharge Plan Triage Chief Complaint: Chest Pain Other Complaint: Suicidal ED Provider: Michael Nugent Dx/Rx/DC Orders Clinical Impression: Acute depression, Suicidal ideation, Anxiety, Alcohol intoxication, Atypical chest pain Prescriptions: No Action trazodone 50 mg tablet 50 mg PO QHS hydroxyzine HCl 25 mg tablet 25 mg PO 4X/DAY Patient Comments: take 1 tablet by mouth four times a day hydrocodone-acetaminophen [hydrocodone-acetaminophen] 1 TABLET tablet 1 tab PO Q6H PRN PRN (Reason: Pain) 3 Days Qty: 10 0RF Primary Care Provider: Care Physician,No Primary Referrals: Bashir Uribe DO [Non-Staff] - Print Language: Faroese
[2025-03-13 12:15] LABS: Hematocrit 41.9 % (40-54); Hemoglobin 15.3 g/dL (13.0-16.5); Immature Granulocytes Count 0.040 X10^3/uL (0.0-0.0); Mean Corp Hgb Conc 36.5 g/dL (32-36); Mean Corpuscular Volume 92.5 fL (80-94); Mean Platelet Vol. 8.9 fl (6.2-12.0); NRBC Flagged by Analyzer 0 % (0-5); Platelet Count 337 K/mm3 (150-450); RBC Distribution Width CV 14.4 % (11.6-14.6); RBC Distribution Width SD 49.1 fl (35.1-43.9); Red Blood Count 4.53 M/mm3 (4.6-6.2); White Blood Count 5.4 K/mm3 (4.4-11.0)
--- OUTSIDE RECORDS SUMMARY | 2025-03-13 12:38 | XMS RPT_ITS | CCD ---
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 Age of Onset Heart Father Heart Maternal Grandfather Social History Tobacco Use Smoking status: Every Day Current packs/day: 1.00 Types: Cigarettes Smokeless tobacco: Never Tobacco comments: 20 years. planning to quit. Vaping Use Vaping status: Never Used Substance Use Topics Alcohol use: Not Currently Comment: Sober since 03/22/2021 Drug use: Yes Types: Marijuana PHYSICAL EXAM BP 131/88 Pulse 90 Ht 172.7 cm (5' 8) Wt 82.1 kg (181 lb) SpO2 97% BMI 27.52 kg/m? General appearance: appears well but a little disheveled, alert, in no acute distress, well-hydrated, well nourished. Skin: Skin color, texture, turgor normal, no suspicious rashes or lesions Head: Normocephalic, no masses, lesions, tenderness or abnormalities Eyes: Anicteric sclera. Pupils are equally round and reactive to light. Extraocular movements are intact. Ears: External ears normal, canals clear Nose/Sinuses: Nares normal, septum midline, mucosa normal, no drainage or sinus tenderness Oropharynx: teeth are highly stained other pires they are normal. Lungs: Lungs clear to auscultation. No wheezing, rhonchi, rales Heart: S1 and S2 are normal. Peripheral pulses: Normal Neuro: Gait normal. Reflexes normal and symmetric. Sensation grossly intact. 02/17/2024 PIERRE-7 ANXIETY SCALE Feeling nervous, anxious, or on edge 3 Nearly every day Not being able to stop or control worrying 3 Nearly every day Worrying too much about different things 2 Over half the days Trouble relaxing 2 Over half the days Being so restless that it's hard to sit still 2 Over half the days Being easily annoyed or irritable 3 Nearly every day Feeling afraid as if something awful might happen 3 Nearly every day PIERRE-7 Anxiety Score 18 If you checked off any problems, how difficult have these problems made it for you to do your work, take care of things at home, or get along with other people? Very difficult CP PHQ9 Little interest or pleasure 2 - More than half the days Feeling down, depressed, hopeless 2 - More than half the days Trouble falling or staying asleep, sleeping too much 3 - nearly every day Feeling tired, having little energy 3 - Nearly every day Poor appetite or overeating 3 - Nearly every day Feeling bad about yourself, failure or you have let yourself/family down 2 - More than half the days Trouble concentrating on things 3 - Nearly every day Moving or speaking so slowly, or fidgety or restless 3 - Nearly every day Thoughts that you would be better off , or of hurting yourself in some way 0 - Not at all How difficult have these problems made things Very difficult Interpretation of Total Score 15-19 Moderately severe depression Health maintenance reviewed with patient: Dick (more content not included)... 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 PMH significant for ACTIVE PROBLEM LIST Shoulder Pain Allergic Rhinitis Elevated Blood Pressure Hip Pain Brandon Involving Less Than 10% of Body Surface Insomnia Tobacco Abuse Disorder Alcohol Abuse Smoker Respiratory Failure (Hcc) Altered Mental Status, Unspecified Elevated Lfts Presents today for work excuse. Reports being off work for 10 days due to illness. Did not seek care for this illness, notes multiple family members with illness, all cared for at home, no diagnoses. He reports having fever, nausea and vomiting an cough. States no current symptoms and would like to return to work, he is in need of a return to work letter. He notes a history of anxiety depression and insomnia. Notes he did not have insurance for a couple of months and did not have his medication due to lack of insurance coverage. HTN: Has not previously treated blood pressure. Without report of headache, chest pain, palpitations, peripheral edema, orthopnea, fatigue, and PND. He notes chronic shortness of breath which he attributes to smoking 2 packs of cigarettes a day.Trying to quit smoking. Last 14 Encounter BP Readings: Date: BP: 07/06/2024 173/112[average bp[ 02/17/2024 162/88 09/25/2021 142/70 09/22/2021 122/82 07/25/2021 122/80 05/03/2021 124/76 04/12/2021 130/80 10/23/2018 145/104 10/22/2018 106/73 01/13/2018 126/62 12/03/2017 102/74 02/17/2015 118/88[BP MARNI AVERAGE[ 02/14/2015 110/88 04/20/2014 124/74 Review of Systems Constitutional: Negative. Respiratory: Positive for shortness of breath (chornic mild SOBOE). Cardiovascular: Negative. Gastrointestinal: Negative. Objective BP 173/112 Pulse 96 Resp 16 Wt 79.7 kg (175 lb 11.3 oz) SpO2 100% BMI 26.72 kg/m? Physical Exam Vitals and nursing note reviewed. Constitutional: Appearance: Normal appearance. HENT: Head: Normocephalic and atraumatic. Mouth/Throat: Dentition: Abnormal dentition. Dental caries present. Eyes: Conjunctiva/sclera: Conjunctivae normal. Neck: Thyroid: No thyromegaly. Cardiovascular: Rate and Rhythm: Normal rate and regular rhythm. Pulmonary: Effort: Pulmonary effort is normal. Breath sounds: Normal breath sounds. Abdominal: General: Bowel sounds are normal. Palpations: Abdomen is soft. Musculoskeletal: Right lower leg: No edema. Left lower leg: No edema. Skin: General: Skin is warm and dry. Neurological: General: No focal deficit present. Mental Status: He is alert and oriented to person, place, and time. ALLERGIES Allergen Reactions Penicillin GI Upset traZODone (DESYREL) 50 mg tablet Take 1 tablet by mouth daily at bedtime. sertraline (ZOLOFT) 50 mg tablet Take 1 tablet by mouth once daily. hydrOXYzine HCl (ATARAX) 25 mg tablet Take 1 tablet by mouth every 4 hours as needed. PAST MEDICAL HISTORY Diagnosis Date No disease found Social History Tobacco Use Smoking status: Every Day Current packs/day: 1.00 Types: Cigarettes Smokeless tobacco: Never Tobacco comments: 20 years. planning to quit. Vaping Use Vaping status: Never Used Substance Use Topics Alcohol use: Not Currently Comment: Sober since 03/22/2021 Drug use: Yes Types: Marijuana Latest Ref Rng 02/17/2024 Protein, Total 6.3 - 8.0 g/dL 7.4 Albumin 3.9 - 4.9 g/dL 4.3 Calcium 8.5 - 10.2 mg/dL 9.7 Bilirubin, Total 0.2 - 1.3 mg/dL 0.2 Alkaline Phosphatase 38 - 113 U/L 49 AST 14 - 40 U/L 55 (H) ALT 10 - 54 U/L 74 (H) Glucose 74 - 99 mg/dL 91 BUN 9 - 24 mg/dL 10 Creatinine 0.73 - 1.22 mg/dL 0.50 (L) Sodium 136 - 144 mmol/L 138 Potassium 3.7 - 5.1 mmol/L 4.5 Chloride 98 - 107 mmol/L 104 CO2 22 - 30 mmol/L 21 (L) Anion Gap 8 - 15 mmol/L 13 eGFR >=60 mL/min/1.73m? 121 WBC 3.70 - 11.00 k/uL 8.42 RBC 4.20 - 6.00 m/uL 4.08 (L) Hemoglobin 13.0 - 17.0 g/dL 13.6 Hematocrit 39.0 - 51.0 % 40.7 MCV 80.0 - 100.0 fL 99.8 MCH 26.0 - 34.0 pg 33.3 MCHC 30.5 - 36.0 g/dL 33.4 RDW-CV 11.5 - 15.0 % 13.1 Platelet Co (more content not included)... Normal [facility] CBC panel Auto (Bld)on 02-16 Erythrocyte distribution width (RBC) [Ratio] 13.1 % Normal 11.5-15.0 [facility] Comment on above: Order Comment: Speci men Type: BLOOD SPECIMEN Ordering Facility: [facility] Address: [address] [place] [address] Performed By: #### 5 8410-2 #### [facility] CLIA [id number] [address] [place] [address] [place] Hematocrit (Bld) [Volume fraction] 40.7 % Normal 39.0-51.0 [facility] Comment on above: Order Comment: Speci men Type: BLOOD SPECIMEN Ordering Facility: [facility] Address: [address] [place] [address] Performed By: #### 5 8410-2 #### [facility] CLIA [id number] [address] [place] [address] [place] Hemoglobin (Bld) [Mass/Vol] 13.6 g/dL Normal 13.0-17.0 [facility] Comment on above: Order Comment: Speci men Type: BLOOD SPECIMEN Ordering Facility: [facility] Address: [address] [place] [address] Performed By: #### 5 8410-2 #### [facility] CLIA [id number] [address] [place] [address] [place] MCH (RBC) [Entitic mass] 33.3 pg Normal 26.0-34.0 [facility] Comment on above: Order Comment: Speci men Type: BLOOD SPECIMEN Ordering Facility: [facility] Address: [address] [place] [address] Performed By: #### 5 8410-2 #### [facility] CLIA [id number] [address] [place] [address] [place] MCHC (RBC) [Mass/Vol] 33.4 g/dL Normal 30.5-36.0 [facility] Comment on above: Order Comment: Speci men Type: BLOOD SPECIMEN Ordering Facility: [facility] Address: [address] [place] [address] Performed By: #### 5 8410-2 #### [facility] CLIA [id number] [address] [place] [address] [place] MCV (RBC) [Entitic vol] 99.8 fL Normal 80.0-100.0 [facility] Comment on above: Order Comment: Speci men Type: BLOOD SPECIMEN Ordering Facility: [facility] Address: [address] [place] [address] Performed By: #### 5 8410-2 #### [facility] CLIA [id number] [address] [place] [address] [place] Nucleated RBC (Bld) [#/Vol] 10*3/uL Normal <0.01 [facility] Comment on above: Order Comment: Speci men Type: BLOOD SPECIMEN Ordering Facility: [facility] Address: [address] [place] [address] Performed By: #### 5 8410-2 #### [facility] CLIA [id number] [address] [place] [address] [place] Platelet mean volume (Bld) [Entitic vol] 9.5 fL Normal 9.0-12.7 [facility] Comment on above: Order Comment: Speci men Type: BLOOD SPECIMEN Ordering Facility: [facility] Address: [address] [place] [address] Performed By: #### 5 8410-2 #### [facility] CLIA [id number] [address] [place] [address] [place] Platelets (Bld) [#/Vol] 529 10*3/uL High 150-400 [facility] Comment on above: Order Comment: Speci men Type: BLOOD SPECIMEN Ordering Facility: [facility] Address: [address] [place] [address] Performed By: #### 5 8410-2 #### [facility] CLIA [id number] [address] [place] [address] [place] RBC (Bld) [#/Vol] 4.08 10*6/uL Low 4.20-6.00 [facility] Comment on above: Order Comment: Speci men Type: BLOOD SPECIMEN Ordering Facility: [facility] Address: [address] [place] [address] Performed By: #### 5 8410-2 #### [facility] CLIA [id number] [address] [place] [address] [place] WBC (Bld) [#/Vol] 8.42 10*3/uL Normal 3.70-11.00 [facility] Comment on above: Order Comment: Speci men Type: BLOOD SPECIMEN Ordering Facility: [facility] Address: [address] [place] [address] Performed By: #### 5 8410-2 #### [facility] CLIA [id number] [address] [place] [address] [place] CNOVon 02-17-2024 CNOV Office Visit (INTMWS ) LORENZO SERNA ([id number]) 1970 M T Date Time Provider Department 02/17/24 8:20 AM POLINA WARD INTMWS During your visit today, we recorded the following information about you: Pulse Respiration Blood pressure Weight 84/minute 16/minute 162/88 78.5 kg 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 Has not been seen in 2.5 years. Depression and Anxiety: Has been out of control for the last year and a half Sleep: difficulty staying asleep, difficulty falling asleep. Feels like he is sleep deprived Alcohol use: does not drink any alcohol Drug use: Uses low dose of cannabis to help relax and sleep. Also smokes over the counter Kratom to relax and for aches and pain. Appetite: varies Stresses: slight stress at work but does have family stresses Suicidal Thoughts: No suicidal or homicidal ideation, intent or plan Support: Comes from multiple sources including family Counseling: No longer in counseling. Had been in years ago when quitting alcohol. Personal mental health hx: anxiety and depression. Medication history: sertraline and trazadone and tolerated well. Unsure why he stopped. Family mental health hx: denies REVIEW OF SYSTEMS See HPI PAST MEDICAL HISTORY Diagnosis Date No disease found PAST SURGICAL HISTORY Procedure Laterality Date NONE ALLERGIES Penicillin MEDICATIONS sertraline (ZOLOFT) 50 mg tablet Take 1 tablet by mouth once daily. traZODone (DESYREL) 50 mg tablet Take 1 tablet by mouth daily at bedtime. hydrOXYzine HCl (ATARAX) 25 mg tablet Take 1 tablet by mouth every 4 hours as needed. FAMILY HISTORY Problem Relation Age of Onset Heart Father Heart Maternal Grandfather Social History Tobacco Use Smoking status: Every Day Packs/day: .5 Types: Cigarettes Smokeless tobacco: Never Tobacco comments: 20 years. planning to quit. Vaping Use Vaping Use: Never used Substance Use Topics Alcohol use: Not Currently Comment: Sober since 03/22/2021 Drug use: Not Currently Types: Marijuana PHYSICAL EXAM BP 162/88 Pulse 84 Resp 16 Wt 78.5 kg (173 lb) SpO2 97% BMI 26.30 kg/m? Appearance: well dressed well groomed, cooperative, and pleasant Behavior: good eye contact Speech: fast Mood: anxious and happy Affect: appropriate Perceptions: none Thought process: goal directed but quickly changes subjects. Thought Content: normal Intelligence level: normal Insight: good Judgment: good 02/17/2024 PIERRE-7 ANXIETY SCALE Feeling nervous, anxious, or on edge 3 Nearly every day Not being able to stop or control worrying 3 Nearly every day Worrying too much about different things 2 Over half the days Trouble relaxing 2 Over half the days Being so restless that it's hard to sit still 2 Over half the days Being easily annoyed or irritable 3 Nearly every day Feeling afraid as if something awful might happen 3 Nearly every day PIERRE-7 Anxiety Score 18 If you checked off any problems, how difficult have these problems made it for you to do your work, take care of things at home, or get along with other people? Very difficult CP PHQ9 Little interest or pleasure 2 - More than half the days Feeling down, depressed, hopeless 2 - More than half the days Trouble falling or staying asleep, sleeping too much 3 - nearly every day Feeling tired, having little energy 3 - Nearly every day Poor appetite or overeating 3 - Nearly every day Feeling bad about yourself, failure or you have let yourself/family down 2 - More than half the days Trouble concentrating on things 3 - Nearly every day Moving or speaking so slowly, or fidgety or restless 3 - Nearly every day Thoughts that you would be better off , or of hurting yourself in some way 0 - Not at all How difficult have these problems made things Very difficult Interpretation of Total Score 15-19 Moderately severe depression Health maintenance reviewed with patient: HIV Screening Never done Hepatitis B Vaccine(1 of 3 - 19+ 3-dose series) Never done Lipid Screening Never done Colorectal Cancer Screening Never done Pneumococcal Vaccine(2 of 2 - PCV) due on 04/07/2015 Shingrix Vaccine(1 of 2) Never done Diabetes Screening due on 10/25/2021 Covid-19 Vaccine(3 - 2022- season) due on 04/26/2023 Behavioral Health Screening Never done DTaP,Tdap,Td Vaccine(2 - Td or Tdap) due on 04/07/2024 Influenza Vaccine(Season Ended) due on 04/26/2024 Hepatitis C Screening Completed DATA REVIEWED: No new labs ASSESSMENT/PLAN: 1. Insomnia, unspecified type - ICD9: 780.52, ICD10: G47.00 (primary diagnosis) Trazadone as ordered. Has been on this previously and reports it working and tolerated well. 2. Anxiety and depression - ICD9: 300.00, 311, (more content not included)... Normal [facility] Comprehensive metabolic 2000 panelon 02-17-2024 Albumin [Mass/Vol] 4.3 g/dL Normal 3.9-4.9 [facility] Comment on above: Order Comment: Speci men Type: BLOOD SPECIMEN Ordering Facility: [facility] Address: [address] [place] [address] Performed By: #### 2 4331-1, #### [facility] CLIA [id number] [address] [place] [address] [place] ALP [Catalytic activity/Vol] 49 U/L Normal 38-113 [facility] Comment on above: Order Comment: Speci men Type: BLOOD SPECIMEN Ordering Facility: [facility] Address: [address] [place] [address] Performed By: #### 2 4331-1, #### [facility] CLIA [id number] [address] [place] [address] [place] ALT [Catalytic activity/Vol] 74 U/L High 10-54 [facility] Comment on above: Order Comment: Speci men Type: BLOOD SPECIMEN Ordering Facility: [facility] Address: [address] [place] [address] Performed By: #### 2 4331-1, #### [facility] CLIA [id number] [address] [place] [address] [place] Anion gap [Moles/Vol] 13 mmol/L Normal 8-15 [facility] Comment on above: Order Comment: Speci men Type: BLOOD SPECIMEN Ordering Facility: [facility] Address: [address] [place] [address] Performed By: #### 2 4331-1, #### [facility] CLIA [id number] [address] [place] [address] [place] AST [Catalytic activity/Vol] 55 U/L High 14-40 [facility] Comment on above: Order Comment: Speci men Type: BLOOD SPECIMEN Ordering Facility: [facility] Address: [address] [place] [address] Performed By: #### 2 4331-1, 21126-0 #### [facility] CLIA [id number] [address] [place] [address] [place] Bilirubin [Mass/Vol] 0.2 mg/dL Normal 0.2-1.3 [facility] Comment on above: Order Comment: Speci men Type: BLOOD SPECIMEN Ordering Facility: [facility] Address: [address] [place] [address] Performed By: #### 2 4331-1, 63222-6 #### [facility] CLIA [id number] [address] [place] [address] [place] Calcium [Mass/Vol] 9.7 mg/dL Normal 8.5-10.2 [facility] Comment on above: Order Comment: Speci men Type: BLOOD SPECIMEN Ordering Facility: [facility] Address: [address] [place] [address] Performed By: #### 2 4331-1, 85088-3 #### [facility] CLIA [id number] [address] [place] [address] [place] Chloride [Moles/Vol] 104 mmol/L Normal 98-107 [facility] Comment on above: Order Comment: Speci men Type: BLOOD SPECIMEN Ordering Facility: [facility] Address: [address] [place] [address] Performed By: #### 2 4331-1, 68736-6 #### [facility] CLIA [id number] [address] [place] [address] [place] CO2 [Moles/Vol] 21 mmol/L Low 22-30 [facility] Comment on above: Order Comment: Speci men Type: BLOOD SPECIMEN Ordering Facility: [facility] Address: [address] [place] [address] Performed By: #### 2 4331-1, 01472-6 #### [facility] CLIA [id number] [address] [place] [address] [place] Creatinine [Mass/Vol] 0.50 mg/dL Low 0.73-1.22 [facility] Comment on above: Order Comment: Speci men Type: BLOOD SPECIMEN Ordering Facility: [facility] Address: [address] [place] [address] Performed By: #### 2 4331-1, 58404-1 #### [facility] [place] [id number] [address] [place] [address] [place] Creatinine and Glomerular filtration rate.predicted panel (S/P/Bld) 121 mL/min/1.73m??? Normal >=60 [facility] Comment on above: Order Comment: Speci men Type: BLOOD SPECIMEN Ordering Facility: [facility] Address: [address] [place] [address] Result Comment: Jimena mated Glomerular Filtration Rate (eGFR) is calculated using the 2020 CKD-EPI creatinine equation. This equation utilizes serum creatinine, sex, and age as parameters. The creatinine assay has traceable calibration to isotope dilution-mass spectrometry. Refer to KDIGO guidelines for clinical interpretation. In patients with unstable renal function, e.g. those with acute kidney injury, the eGFR may not accurately reflect actual GFR. Performed By: #### 2 4331-1, 48841-6 #### [facility] CLIA [id number] [address] [place] [address] [place] Glucose [Mass/Vol] 91 mg/dL Normal 74-99 [facility] Comment on above: Order Comment: Speci men Type: BLOOD SPECIMEN Ordering Facility: [facility] Address: [address] [place] [address] Result Comment: The [place] [employer] (ADA) provides guidance for cutoff values for fasting glucose and random glucose. The ADA defines fasting as no caloric intake for at least 8 hours. Fasting plasma glucose results between 100 to 125 mg/dL indicate increased risk for diabetes (prediabetes). Fasting plasma glucose results greater than or equal to 126 mg/dL meet the criteria for diagnosis of diabetes. In the absence of unequivocal hyperglycemia, results should be confirmed by repeat testing. In a patient with classic symptoms of hyperglycemia or hyperglycemic crisis, random plasma glucose results greater than or equal to 200 mg/dL meet the criteria for diagnosis of diabetes. Reference: Standards of Medical Care in Diabetes 2016, [place] [employer]. Diabetes Care. 2016.39(Suppl 1). Performed By: #### 2 4331-, 51662-6 #### [facility] CLIA [id number] [address] [place] [address] [place] Potassium [Moles/Vol] 4.5 mmol/L Normal 3.7-5.1 [facility] Comment on above: Order Comment: Speci men Type: BLOOD SPECIMEN Ordering Facility: [facility] Address: [address] [place] [address] Performed By: #### 2 433-, 69176-0 #### [facility] CLIA [id number] [address] [place] [address] [place] Protein [Mass/Vol] 7.4 g/dL Normal 6.3-8.0 [facility] Comment on above: Order Comment: Speci men Type: BLOOD SPECIMEN Ordering Facility: [facility] Address: [address] [place] [address] Performed By: #### 2 433-, #### [facility] CLIA [id number] [address] [place] [address] [place] Sodium [Moles/Vol] 138 mmol/L Normal 136-144 [facility] Comment on above: Order Comment: Speci men Type: BLOOD SPECIMEN Ordering Facility: [facility] Address: [address] [place] [address] Performed By: #### 2 4331-, #### [facility] CLIA [id number] [address] [place] [address] [place] Urea nitrogen [Mass/Vol] 10 mg/dL Normal 9-24 [facility] Comment on above: Order Comment: Speci men Type: BLOOD SPECIMEN Ordering Facility: [facility] Address: [address] [place] [address] Performed By: #### 2 4331-1, 96069-1 #### [facility] CLIA [id number] [address] [place] [address] [place] Lipid 1996 panelon 4 Cholesterol [Mass/Vol] 195 mg/dL Normal <200 [facility] Comment on above: Order Comment: Speci men Type: BLOOD SPECIMEN Ordering Facility: [facility] Address: [address] [place] [address] Result Comment: <200 mg/dL, Desirable 200-239 mg/dL, Borderline high >239 mg/dL, High Performed By: #### 2 4331-1, 72648-3 #### [facility] CLIA [id number] [address] [place] [address] [place] Cholesterol in HDL [Mass/Vol] 45 mg/dL Normal >39 [facility] Comment on above: Order Comment: Speci men Type: BLOOD SPECIMEN Ordering Facility: [facility] Address: [address] [place] [address] Result Comment: 40-5 9 mg/dL, Acceptable >59 mg/dL, High: Negative risk factor for coronary heart disease <40 mg/dL, Low: Positive risk factor for coronary heart disease Performed By: #### 2 4331-1, 98041-0 #### [facility] CLIA [id number] [address] [place] [address] [place] Cholesterol in LDL [Mass/Vol] 124 mg/dL High <100 [facility] Comment on above: Order Comment: Speci men Type: BLOOD SPECIMEN Ordering Facility: [facility] Address: [address] [place] [address] Result Comment: <100 mg/dL, Optimal 100-129 mg/dL, Near optimal/above optimal 130-159 mg/dL, Borderline high 160-189 mg/dL, High >189 mg/dL, Very high Secondary prevention optimal LDL Cholesterol levels are recommended to be < 70 mg/dL Performed By: #### 2 4331-1, 63870-5 #### [facility] CLIA [id number] [address] [place] [address] [place] Cholesterol in LDL/Cholesterol in HDL [Mass ratio] 2.76 {ratio} High <2.54 [facility] Comment on above: Order Comment: Criss simmons Type: BLOOD SPECIMEN Ordering Facility: [facility] Address: [address] [place] [address] Result Comment: Refe rence: 1. National Cholesterol Education Program ATP III Guideline At-A-Glance Quick Desk Reference: National Heart, Lung, and Blood [place]. National Institutes of Health. 2001: NIH Publication No. 01-3305. 2. An International Atherosclerosis Society position paper: global recommendations for the management of dyslipidemia: executive summary, Atherosclerosis. 2014: 232(2):410-413. Performed By: #### 2 4331-1, 40034-1 #### [facility] CLIA [id number] [address] [place] [address] [place] Cholesterol in VLDL [Mass/Vol] 26 mg/dL Normal <30 [facility] Comment on above: Order Comment: Criss simmons Type: BLOOD SPECIMEN Ordering Facility: [facility] Address: [address] [place] [address] Performed By: #### 2 4331-1, #### [facility] CLIA [id number] [address] [place] [address] [place] Cholesterol non HDL [Mass/Vol] 150 mg/dL High <130 [facility] Comment on above: Order Comment: Criss simmons Type: BLOOD SPECIMEN Ordering Facility: [facility] Address: [address] [place] [address] Result Comment: <130 mg/dL, Optimal 130-159 mg/dL, Near optimal/above optimal 160-189 mg/dL, Borderline high 190-219 mg/dL, High >219 mg/dL, Very high Secondary prevention optimal non HDL Cholesterol levels are recommended to be <100 mg/dL Performed By: #### 2 4331-1, #### [facility] CLIA [id number] [address] [place] [address] [place] Cholesterol.total/Cho lesterol in HDL [Mass ratio] 4.33 {ratio} Normal <5.10 [facility] Comment on above: Order Comment: Speci men Type: BLOOD SPECIMEN Ordering Facility: [facility] Address: [address] [place] [address] Performed By: #### 2 4331-1, #### [facility] CLIA [id number] [address] [place] [address] [place] FASTING TIME 14 hrs Normal [facility] Comment on above: Order Comment: Criss men Type: BLOOD SPECIMEN Ordering Facility: [facility] Address: [address] [place] [address] Performed By: #### 2 4331-1, #### [facility] CLIA [id number] [address] [place] [address] [place] Triglyceride [Mass/Vol] 129 mg/dL Normal <150 [facility] Comment on above: Order Comment: Criss men Type: BLOOD SPECIMEN Ordering Facility: [facility] Address: [address] [place] [address] Result Comment: <150 mg/dL, Normal 150-199 mg/dL, Borderline high 200-499 mg/dL, High >499 mg/dL, Very high Performed By: #### 2 4331-1, #### [facility] CLIA [id number] [address] [place] [address] [place] .GFRon 12-12-2022 GFR Non- 101 ml/min/1.73sqm Normal [facility] [place] Comment on above: Result Comment: GFR Population mean for , Non- Americans Ages 20-29 = 116 mL/min/1.73 sq.m. Ages 30-39 = 107 mL/min/1.73 sq.m. Ages 40-49 = 99 mL/min/1.73 sq.m. Ages 50-59 = 93 mL/min/1.73 sq.m. Ages 60-69 = 85 mL/min/1.73 sq.m. Ages 70+ = 75 mL/min/1.73 sq.m. Chronic Kidney Disease: Less than 60 mL/min/1.73 square meters End Stage Renal Disease: Less than 15 mL/min/1.73 square meters Performed By: #### B MP, GFR #### [facility] [address] [address] GFR 123 ml/min/1.73sqm Normal [facility] [place] Comment on above: Result Comment: GFR Population mean for , Non- Americans Ages 20-29 = 116 mL/min/1.73 sq.m. Ages 30-39 = 107 mL/min/1.73 sq.m. Ages 40-49 = 99 mL/min/1.73 sq.m. Ages 50-59 = 93 mL/min/1.73 sq.m. Ages 60-69 = 85 mL/min/1.73 sq.m. Ages 70+ = 75 mL/min/1.73 sq.m. Chronic Kidney Disease: Less than 60 mL/min/1.73 square meters End Stage Renal Disease: Less than 15 mL/min/1.73 square meters Performed By: #### B MP, GFR #### [facility] [address] [address] BMPon 12-12-2022 BUN/Creatinine Ratio 14 ratio Normal 7-27 [facility] ([place] Comment on above: Performed By: #### B MP, GFR #### [facility] [address] [address] Calcium [Mass/Vol] 9.8 mg/dL Normal 8.4-10.2 [facility] ([place] Comment on above: Performed By: #### B MP, GFR #### [address] [address] Chloride [Moles/Vol] 105 mmol/L Normal 98-107 [facility] ([place] Comment on above: Performed By: #### B MP, GFR #### [address] [address] CO2 [Moles/Vol] 26 mmol/L Normal 22-29 [facility] [place] Comment on above: Performed By: #### B MP, GFR #### [address] [address] Creatinine [Mass/Vol] 0.80 mg/dL Normal 0.70-1.30 [facility] ([place] Comment on above: Performed By: #### B MP, GFR #### [address] [address] Electrolyte Balance 11.0 mEq/L Normal 4.0-15.0 [facility] ([place] Comment on above: Performed By: #### B MP, GFR #### [address] [address] Glucose [Mass/Vol] 82 mg/dL Normal 70-105 [facility] ([place] Comment on above: Performed By: #### B MP, GFR #### [address] [address] Potassium [Moles/Vol] 4.6 mmol/L Normal 3.5-5.1 [facility] ([place] Comment on above: Performed By: #### B MP, GFR #### [address] [address] Sodium [Moles/Vol] 142 mmol/L Normal 136-145 [facility] ([place] Comment on above: Performed By: #### B MP, GFR #### [address] [address] Urea nitrogen [Mass/Vol] 11 mg/dL Normal 7-18 [facility] Comment on above: Performed By: #### B MP, GFR #### [address] [address] LABORATORYOrdered By: SYSTEM SYSTEM on 12-12-2022 Calcium [Mass/Vol] 9.8 mg/dL Invalid Interpretation Code 8.4 - 10.2 mg/dL AO ADM SS Chloride [Moles/Vol] 105 mmol/L Invalid Interpretation Code 98 - 107 mmol/L AO ADM SS CO2 [Moles/Vol] 26 mmol/L Invalid Interpretation Code 22 - 29 mmol/L AO ADM SS Creatinine [Mass/Vol] 0.80 mg/dL Invalid Interpretation Code 0.70 - 1.30 mg/dL AO ADM SS Electrolyte Balance 11.0 mEq/L Invalid Interpretation Code 4.0 - 15.0 mEq/L AO ADM SS GFR/1.73 sq M.predicted among blacks MDRD (S/P/Bld) [Vol rate/Area] 123 ml/min/1.73sqm Invalid Interpretation Code AO Chemistry S GFR/1.73 sq M.predicted among non-blacks MDRD (S/P/Bld) [Vol rate/Area] 101 ml/min/1.73sqm Invalid Interpretation Code AO Chemistry S Glucose [Mass/Vol] 82 mg/dL Invalid Interpretation Code 70 - 105 mg/dL AO ADM SS Potassium [Moles/Vol] 4.6 mmol/L Invalid Interpretation Code 3.5 - 5.1 mmol/L AO ADM SS Sodium [Moles/Vol] 142 mmol/L Invalid Interpretation Code 136 - 145 mmol/L AO ADM SS Urea nitrogen [Mass/Vol] 11 mg/dL Invalid Interpretation Code 7 - 18 mg/dL AO ADM SS Urea nitrogen/Creatinine [Mass ratio] 14 ratio Invalid Interpretation Code 7 - 27 ratio AO ADM SS XR CHEST 2 VIEWSon 3 XR CHEST 2 VIEWS ORIGINAL EXAMINATION: TWO XRAY VIEWS OF THE CHEST11/28/2022 4:36 pm HISTORY: ORDERING SYSTEM PROVIDED HISTORY: Reason for Exam: Shortness of breath FINDINGS: No prior studies are available for comparison. The heart is normal in size and configuration. Pulmonary vascular pattern is normal. The lungs are clear and normally aerated. Biapical pleural scarring is present. The bony thorax is unremarkable. IMPRESSION: No acute process is seen in the chest. Interpreted by: Carter Wright MD Preliminary Report By: Carter Wright MD Electronically signed By Carter Wright MD Dictated Date: 11/29/2022 3:08:05 AM Prelim Date: 11/29/2022 3:09:10 AM Sign Date: 11/29/2022 3:09:10 AM Ordering Provider: BASHIR Burgess [facility] [place] .Auto Diffon 11-28-2022 Basophil, Absolute 0.1 10 3/mcL Normal 0.0-0.2 [facility] ([place] Comment on above: Performed By: #### A DIFF, ANEU, GFR, CBC, TSH, CMP #### [address] [address] Basophils/100 WBC (Bld) 1.0 % Normal 0.0-2.5 [facility] ([place] Comment on above: Performed By: #### A DIFF, ANEU, GFR, CBC, TSH, CMP #### [address] [address] Eosinophil, Absolute 0.4 10 3/mcL Normal 0.0-0.4 [facility] ([place] Comment on above: Performed By: #### A DIFF, ANEU, GFR, CBC, TSH, CMP #### [address] [address] Eosinophils/100 WBC (Bld) 3.6 % Normal 0.0-7.0 [facility] ([place] Comment on above: Performed By: #### A DIFF, ANEU, GFR, CBC, TSH, CMP #### [address] [address] Lymphocyte, Absolute 4.3 10 3/mcL High 0.8-3.9 [facility] ([place] Comment on above: Performed By: #### A DIFF, ANEU, GFR, CBC, TSH, CMP #### [address] [address] Lymphocytes/100 WBC (Bld) 37.0 % Normal 10.0-50.0 [facility] ([place] Comment on above: Performed By: #### A DIFF, ANEU, GFR, CBC, TSH, CMP #### [address] [address] Monocyte, Absolute 1.2 10 3/mcL High 0.2-1.0 [facility] ([place] Comment on above: Performed By: #### A DIFF, ANEU, GFR, CBC, TSH, CMP #### [address] [address] Monocytes/100 WBC (Bld) 10.3 % Normal 1.7-13.0 [facility] ([place] Comment on above: Performed By: #### A DIFF, ANEU, GFR, CBC, TSH, CMP #### [address] [address] Neutrophils/100 WBC (Bld) 48.1 % Normal 37.0-80.0 [facility] ([place] Comment on above: Performed By: #### A DIFF, ANEU, GFR, CBC, TSH, CMP #### [address] [address] .GFRon 11-28-2022 GFR 107 ml/min/1.73sqm Normal [facility] ([place] Comment on above: Result Comment: GFR Population mean for , Non- Americans Ages 20-29 = 116 mL/min/1.73 sq.m. Ages 30-39 = 107 mL/min/1.73 sq.m. Ages 40-49 = 99 mL/min/1.73 sq.m. Ages 50-59 = 93 mL/min/1.73 sq.m. Ages 60-69 = 85 mL/min/1.73 sq.m. Ages 70+ = 75 mL/min/1.73 sq.m. Chronic Kidney Disease: Less than 60 mL/min/1.73 square meters End Stage Renal Disease: Less than 15 mL/min/1.73 square meters Performed By: #### A DIFF, ANEU, GFR, CBC, TSH, CMP #### [address] [address] GFR Non- 88 ml/min/1.73sqm Normal [facility] ([place] Comment on above: Result Comment: GFR Population mean for , Non- Americans Ages 20-29 = 116 mL/min/1.73 sq.m. Ages 30-39 = 107 mL/min/1.73 sq.m. Ages 40-49 = 99 mL/min/1.73 sq.m. Ages 50-59 = 93 mL/min/1.73 sq.m. Ages 60-69 = 85 mL/min/1.73 sq.m. Ages 70+ = 75 mL/min/1.73 sq.m. Chronic Kidney Disease: Less than 60 mL/min/1.73 square meters End Stage Renal Disease: Less than 15 mL/min/1.73 square meters Performed By: #### A DIFF, ANEU, GFR, CBC, TSH, CMP #### [place] [id number] .NEUABSon 11-28-2022 Neutrophil, Absolute 5.6 10 3/mcL Normal 2.9-6.2 [facility] ([place] Comment on above: Performed By: #### A DIFF, ANEU, GFR, CBC, TSH, CMP #### [place] [address] CBCon 11-28-2022 Erythrocyte distribution width (RBC) [Ratio] 13.6 % Normal 11.5-14.5 [facility] ([place] Comment on above: Performed By: #### A DIFF, ANEU, GFR, CBC, TSH, CMP #### [place] [address] Hematocrit (Bld) [Volume fraction] 43.0 % Normal 42.0-52.0 [facility] ([place] Comment on above: Performed By: #### A DIFF, ANEU, GFR, CBC, TSH, CMP #### [place] [address] Hgb 14.9 G/dL Normal 14.0-18.0 [facility] ([place] Comment on above: Performed By: #### A DIFF, ANEU, GFR, CBC, TSH, CMP #### [place] [address] MCH (RBC) [Entitic mass] 32.1 pg High 27.0-31.2 [facility] ([place] Comment on above: Performed By: #### A DIFF, ANEU, GFR, CBC, TSH, CMP #### [address] [address] MCHC 34.6 G/dL Normal 31.8-35.4 [facility] ([place] Comment on above: Performed By: #### A DIFF, ANEU, GFR, CBC, TSH, CMP #### [address] [address] MCV (RBC) [Entitic vol] 92.6 fL Normal 80.0-94.0 [facility] ([place] Comment on above: Performed By: #### A DIFF, ANEU, GFR, CBC, TSH, CMP #### [address] [address] Platelet 318 10 3/mcL Normal 130-400 [facility] [place] Comment on above: Performed By: #### A DIFF, ANEU, GFR, CBC, TSH, CMP #### [address] [address] Platelet mean volume (Bld) [Entitic vol] 7.5 fL Normal 7.4-10.4 [facility] [place] Comment on above: Performed By: #### A DIFF, ANEU, GFR, CBC, TSH, CMP #### [address] [address] RBC 4.64 10 6/mcL Normal 4.04-6.13 [facility] ([place] Comment on above: Performed By: #### A DIFF, ANEU, GFR, CBC, TSH, CMP #### [address] [address] WBC 11.6 10 3/mcL High 4.6-10.8 [facility] ([place] Comment on above: Performed By: #### A DIFF, ANEU, GFR, CBC, TSH, CMP #### [address] [address] CMPon 11-28-2022 Albumin Level 4.2 G/dL Normal 3.5-5.0 [facility] ([place] Comment on above: Performed By: #### A DIFF, ANEU, GFR, CBC, TSH, CMP #### [address] [address] Albumin/Globulin [Mass ratio] 1.3 {ratio} Normal 1.1-2.5 [facility] ([place] Comment on above: Performed By: #### A DIFF, ANEU, GFR, CBC, TSH, CMP #### [address] [address] ALP [Catalytic activity/Vol] 84 U/L Normal 40-135 [facility] ([place] Comment on above: Performed By: #### A DIFF, ANEU, GFR, CBC, TSH, CMP #### [address] [address] ALT [Catalytic activity/Vol] 43 U/L Normal 16-63 [facility] ([place] Comment on above: Performed By: #### A DIFF, ANEU, GFR, CBC, TSH, CMP #### [address] [address] AST [Catalytic activity/Vol] 26 U/L Normal 10-40 [facility] ([place] Comment on above: Performed By: #### A DIFF, ANEU, GFR, CBC, TSH, CMP #### [address] [address] Bili Total 0.4 mg/dL Normal 0.2-1.0 [facility] ([place] Comment on above: Result Comment: Use of this assay is not recommended for patients undergoing treatment with eltrombopag due to the potential for falsely elevated results. Performed By: #### A DIFF, ANEU, GFR, CBC, TSH, CMP #### [address] [address] BUN/Creatinine Ratio 11 ratio Normal 7-27 [facility] ([place] Comment on above: Performed By: #### A DIFF, ANEU, GFR, CBC, TSH, CMP #### [address] [address] Calcium [Mass/Vol] 9.4 mg/dL Normal 8.4-10.2 [facility] ([place] Comment on above: Performed By: #### A DIFF, ANEU, GFR, CBC, TSH, CMP #### [address] [address] Chloride [Moles/Vol] 100 mmol/L Normal 98-107 [facility] ([place] Comment on above: Performed By: #### A DIFF, ANEU, GFR, CBC, TSH, CMP #### [address] [address] CO2 [Moles/Vol] 30 mmol/L High 22-29 [facility] ([place] Comment on above: Performed By: #### A DIFF, ANEU, GFR, CBC, TSH, CMP #### [address] [address] Creatinine [Mass/Vol] 0.90 mg/dL Normal 0.70-1.30 [facility] ([place] Comment on above: Performed By: #### A DIFF, ANEU, GFR, CBC, TSH, CMP #### [address] [address] Electrolyte Balance -3.0 mEq/L Low 4.0-15.0 [facility] ([place] Comment on above: Performed By: #### A DIFF, ANEU, GFR, CBC, TSH, CMP #### [address] [address] Globulin 3.3 G/dL Normal [facility] Comment on above: Performed By: #### A DIFF, ANEU, GFR, CBC, TSH, CMP #### [address] [address] Glucose [Mass/Vol] 71 mg/dL Normal 70-105 [facility] ([place] Comment on above: Performed By: #### A DIFF, ANEU, GFR, CBC, TSH, CMP #### [address] [address] Potassium [Moles/Vol] 3.7 mmol/L Normal 3.5-5.1 [facility] ([place] Comment on above: Performed By: #### A DIFF, ANEU, GFR, CBC, TSH, CMP #### [place] [address] Sodium [Moles/Vol] 127 mmol/L Low 136-145 [facility] ([place] Comment on above: Performed By: #### A DIFF, ANEU, GFR, CBC, TSH, CMP #### [address] [address] Total Protein 7.5 G/dL Normal 6.4-8.2 [facility] Comment on above: Performed By: #### A DIFF, ANEU, GFR, CBC, TSH, CMP #### [address] [address] Urea nitrogen [Mass/Vol] 10 mg/dL Normal 7-18 [facility]) Comment on above: Performed By: #### A DIFF, ANEU, GFR, CBC, TSH, CMP #### [address] [address] LABORATORYOrdered By: SYSTEM SYSTEM on 11-28-2022 Albumin BCP dye [Mass/Vol] 4.2 G/dL Invalid Interpretation Code 3.5 - 5.0 G/dL AO ADM SS Albumin/Globulin [Mass ratio] 1.3 {ratio} Invalid Interpretation Code 1.1 - 2.5 ratio AO ADM SS ALP [Catalytic activity/Vol] 84 U/L Invalid Interpretation Code 40 - 135 U/L AO ADM SS ALT With P-5'-P [Catalytic activity/Vol] 43 U/L Invalid Interpretation Code 16 - 63 U/L AO ADM SS AST With P-5'-P [Catalytic activity/Vol] 26 U/L Invalid Interpretation Code 10 - 40 U/L AO ADM SS Bilirubin [Mass/Vol] 0.4 mg/dL Invalid Interpretation Code 0.2 - 1.0 mg/dL AO ADM SS Calcium [Mass/Vol] 9.4 mg/dL Invalid Interpretation Code 8.4 - 10.2 mg/dL AO ADM SS Chloride [Moles/Vol] 100 mmol/L Invalid Interpretation Code 98 - 107 mmol/L AO ADM SS CO2 [Moles/Vol] 30 mmol/L Invalid Interpretation Code 22 - 29 mmol/L AO ADM SS Creatinine [Mass/Vol] 0.90 mg/dL Invalid Interpretation Code 0.70 - 1.30 mg/dL AO ADM SS Electrolyte Balance -3.0 mEq/L Invalid Interpretation Code 4.0 - 15.0 mEq/L AO ADM SS GFR 107 ml/min/1.73sqm Invalid Interpretation Code AO Chemistry S GFR Non- 88 ml/min/1.73sqm Invalid Interpretation Code AO Chemistry S Globulin 3.3 G/dL Invalid Interpretation Code AO ADM SS Glucose [Mass/Vol] 71 mg/dL Invalid Interpretation Code 70 - 105 mg/dL AO ADM SS Potassium [Moles/Vol] 3.7 mmol/L Invalid Interpretation Code 3.5 - 5.1 mmol/L AO ADM SS Protein [Mass/Vol] 7.5 G/dL Invalid Interpretation Code 6.4 - 8.2 G/dL AO ADM SS Sodium [Moles/Vol] 127 mmol/L Invalid Interpretation Code 136 - 145 mmol/L AO ADM SS TSH Qn 0.85 m[IU]/L Invalid Interpretation Code 0.36 - 3.74 mcIU/mL AO ADM SS Urea nitrogen [Mass/Vol] 10 mg/dL Invalid Interpretation Code 7 - 18 mg/dL AO ADM SS Urea nitrogen/Creatinine [Mass ratio] 11 ratio Invalid Interpretation Code 7 - 27 ratio AO ADM SS LABORATORYOrdered By: Paige Narvaez on 11-28-2022 Basophil, Absolute 0.1 103/mcL Invalid Interpretation Code 0.0 - 0.2 10^3/mcL AO Workflow SS Basophils/100 WBC (Bld) 1.0 % Invalid Interpretation Code 0.0 - 2.5 % AO Workflow SS Eosinophil, Absolute 0.4 103/mcL Invalid Interpretation Code 0.0 - 0.4 10^3/mcL AO Workflow SS Eosinophils/100 WBC (Bld) 3.6 % Invalid Interpretation Code 0.0 - 7.0 % AO Workflow SS Erythrocyte distribution width (RBC) [Ratio] 13.6 % Invalid Interpretation Code 11.5 - 14.5 % AO Workflow SS Hematocrit (Bld) [Volume fraction] 43.0 % Invalid Interpretation Code 42.0 - 52.0 % AO Workflow SS Hemoglobin (Bld) [Mass/Vol] 14.9 G/dL Invalid Interpretation Code 14.0 - 18.0 G/dL AO Workflow SS Lymphocyte, Absolute 4.3 103/mcL Invalid Interpretation Code 0.8 - 3.9 10^3/mcL AO Workflow SS Lymphocytes/100 WBC (Bld) 37.0 % Invalid Interpretation Code 10.0 - 50.0 % AO Workflow SS MCH (RBC) [Entitic mass] 32.1 pg Invalid Interpretation Code 27.0 - 31.2 pg AO Workflow SS MCHC 34.6 G/dL Invalid Interpretation Code 31.8 - 35.4 G/dL AO Workflow SS MCV (RBC) [Entitic vol] 92.6 fL Invalid Interpretation Code 80.0 - 94.0 fL AO Workflow SS Monocyte, Absolute 1.2 103/mcL Invalid Interpretation Code 0.2 - 1.0 10^3/mcL AO Workflow SS Monocytes/100 WBC (Bld) 10.3 % Invalid Interpretation Code 1.7 - 13.0 % AO Workflow SS Neutrophil, Absolute 5.6 103/mcL Invalid Interpretation Code 2.9 - 6.2 10^3/mcL AO Workflow SS Neutrophils/100 WBC (Bld) 48.1 % Invalid Interpretation Code 37.0 - 80.0 % AO Workflow SS Platelet mean volume (Bld) [Entitic vol] 7.5 fL Invalid Interpretation Code 7.4 - 10.4 fL AO Workflow SS Platelets (Bld) [#/Vol] 318 103/mcL Invalid Interpretation Code 130 - 400 10^3/mcL AO Workflow SS RBC (Bld) [#/Vol] 4.64 106/mcL Invalid Interpretation Code 4.04 - 6.13 10^6/mcL AO Workflow SS WBC (Bld) [#/Vol] 11.6 103/mcL Invalid Interpretation Code 4.6 - 10.8 10^3/mcL AO Workflow SS TSHon 11-28-2022 TSH Qn 0.85 m[IU]/L Normal 0.36-3.74 [facility] Comment on above: Performed By: #### A DIFF, ANEU, GFR, CBC, TSH, CMP #### [address] [address] XR Elbow - right AP and Late ral and obliqueon 09-25-2021 IMPRESSION: Negative 3 views of the right elbow. 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 CLINICAL INDICATION/HISTORY: Injury. TECHNIQUE: AP, lateral and radial head views of the right elbow are presented. FINDINGS: No acute fractures or subluxations are noted. The elbow joint spaces are well preserved. No fat pad sign to suggest joint effusion. The mineralization of the bones is normal. There is no significant soft tissue swelling. DIVISION OF RADIOLOGY Provider, [facility] - 09/25/2021 * * *Final Report* * * DATE OF EXAM: Sep 25 2021 4:21PM WOX [id number] - XR ELBOW 3V AP/LAT/OTHER RT / PROCEDURE REASON: Pain of right upper extremity * * * * Physician Interpretation * * * * EXAM TITLE: XR ELBOW 3V AP/LAT/OTHER RT EXAM DATE/TIME: 09/25/2021 4:21 PM COMPARISON: None. CLINICAL INDICATION/HISTORY: Injury. TECHNIQUE: AP, lateral and radial head views of the right elbow are presented. FINDINGS: No acute fractures or subluxations are noted. The elbow joint spaces are well preserved. No fat pad sign to suggest joint effusion. The mineralization of the bones is normal. There is no significant soft tissue swelling. IMPRESSION IMPRESSION: Negative 3 views of the right elbow. Product/Industry Consultant: [employer] Transcribe Date/Time: Sep 25 2021 4:23P Dictated by : NORIS MICHELE MD This examination was interpreted and the report reviewed and electronically signed by: NORIS MICHELE MD on Sep 25 2021 4:25PM EST [facility] Radiology Study observation (narrative) [facility] XR Elbow - right AP and Late ral and obliqueOrdered By: Ccf Provider on 09-25-2021 [facility] .Auto Diffon 07-14-2020 Ammonia (P) [Mass/Vol] 1.00 10 3/mcL Normal 0.15-1.00 [facility] ([place] Comment on above: Performed By: #### G FR, CBC, CMP, ANEU, ADIFF #### [address] [address] Basophils (Bld) [#/Vol] 0.00 10 3/mcL Normal 0.00-0.19 [facility] ([place] Comment on above: Performed By: #### G FR, CBC, CMP, ANEU, ADIFF #### [address] [address] Basophils/100 WBC (Bld) 0.3 % Normal 0.0-2.5 [facility] ([place]) Comment on above: Performed By: #### G FR, CBC, CMP, ANEU, ADIFF #### [address] [address] Eosinophils (Bld) [#/Vol] 0.00 10 3/mcL Normal 0.00-0.40 [facility] ([place]) Comment on above: Performed By: #### G FR, CBC, CMP, ANEU, ADIFF #### [address] [address] Eosinophils/100 WBC (Bld) 0.3 % Normal 0.0-7.0 [facility] ([place] Comment on above: Performed By: #### G FR, CBC, CMP, ANEU, ADIFF #### [address] [address] Lymphocytes (Bld) [#/Vol] 1.00 10 3/mcL Normal 0.77-3.85 [facility] [place] Comment on above: Performed By: #### G FR, CBC, CMP, ANEU, ADIFF #### [address] [address] Lymphocytes/100 WBC (Bld) 16.7 % Normal 10.0-50.0 [facility] [place] Comment on above: Performed By: #### G FR, CBC, CMP, ANEU, ADIFF #### [address] [address] Monocytes/100 WBC (Bld) 16.9 % High 1.7-13.0 [facility] [place] Comment on above: Performed By: #### G FR, CBC, CMP, ANEU, ADIFF #### [address] [address] Neutrophils/100 WBC (Bld) 65.8 % Normal 37.0-80.0 [facility] [place] Comment on above: Performed By: #### G FR, CBC, CMP, ANEU, ADIFF #### [address] [address] .GFRon 07-14-2020 GFR 81 ml/min/1.73sqm Normal [facility] ([place] Comment on above: Result Comment: GFR Population mean for , Non- Americans Ages 20-29 = 116 mL/min/1.73 sq.m. Ages 30-39 = 107 mL/min/1.73 sq.m. Ages 40-49 = 99 mL/min/1.73 sq.m. Ages 50-59 = 93 mL/min/1.73 sq.m. Ages 60-69 = 85 mL/min/1.73 sq.m. Ages 70+ = 75 mL/min/1.73 sq.m. Chronic Kidney Disease: Less than 60 mL/min/1.73 square meters End Stage Renal Disease: Less than 15 mL/min/1.73 square meters Performed By: #### G FR, CBC, CMP, ANEU, ADIFF #### [address] [address] GFR Non- 67 ml/min/1.73sqm Normal [facility] ([place] Comment on above: Result Comment: GFR Population mean for , Non- Americans Ages 20-29 = 116 mL/min/1.73 sq.m. Ages 30-39 = 107 mL/min/1.73 sq.m. Ages 40-49 = 99 mL/min/1.73 sq.m. Ages 50-59 = 93 mL/min/1.73 sq.m. Ages 60-69 = 85 mL/min/1.73 sq.m. Ages 70+ = 75 mL/min/1.73 sq.m. Chronic Kidney Disease: Less than 60 mL/min/1.73 square meters End Stage Renal Disease: Less than 15 mL/min/1.73 square meters Performed By: #### G FR, CBC, CMP, ANEU, ADIFF #### [address] [address] .NEUABSon 07-14-2020 Neutrophils (Bld) [#/Vol] 3.90 10 3/mcL Normal 2.85-6.16 [facility] [place] Comment on above: Performed By: #### G FR, CBC, CMP, ANEU, ADIFF #### [place] [id number] CBCon 07-14-2020 Erythrocyte distribution width (RBC) [Ratio] 13.6 % Normal 11.5-14.5 [facility] ([place] Comment on above: Performed By: #### G FR, CBC, CMP, ANEU, ADIFF #### [place] [address] Hematocrit (Bld) [Volume fraction] 47.6 % Normal 42.0-52.0 [facility] ([place] Comment on above: Performed By: #### G FR, CBC, CMP, ANEU, ADIFF #### [place] [address] Hemoglobin (Bld) [Mass/Vol] 16.7 G/dL Normal 14.0-18.0 [facility] ([place] Comment on above: Performed By: #### G FR, CBC, CMP, ANEU, ADIFF #### [place] [phone] MCH (RBC) [Entitic mass] 34.7 pg High 27.0-31.2 [facility] ([place] Comment on above: Performed By: #### G FR, CBC, CMP, ANEU, ADIFF #### [place] [address]237 MCHC (RBC) [Mass/Vol] 35.1 G/dL Normal 31.8-35.4 [facility] ([place] Comment on above: Performed By: #### G FR, CBC, CMP, ANEU, ADIFF #### [place] [phone] MCV (RBC) [Entitic vol] 98.8 fL High 80.0-94.0 [facility] ([place] Comment on above: Performed By: #### G FR, CBC, CMP, ANEU, ADIFF #### [address] [address] Platelet mean volume (Bld) [Entitic vol] 8.1 fL Normal 7.4-10.4 [facility] ([place] Comment on above: Performed By: #### G FR, CBC, CMP, ANEU, ADIFF #### [address] [address] Platelets (Bld) [#/Vol] 80 10 3/mcL Low 130-400 [facility] ([place] Comment on above: Result Comment: Slid e review verified. Performed By: #### G FR, CBC, CMP, ANEU, ADIFF #### [address] [address] RBC (Bld) [#/Vol] 4.82 10 6/mcL Normal 4.04-6.13 [facility] ([place] Comment on above: Performed By: #### G FR, CBC, CMP, ANEU, ADIFF #### [address] [address] WBC (Bld) [#/Vol] 6.00 10 3/mcL Normal 4.60-10.80 [facility] ([place] Comment on above: Performed By: #### G FR, CBC, CMP, ANEU, ADIFF #### [address] [address] CMPon 07-14-2020 Albumin [Mass/Vol] 4.0 G/dL Normal 3.5-5.0 [facility] ([place] Comment on above: Performed By: #### G FR, CBC, CMP, ANEU, ADIFF #### [address] [address] Albumin/Globulin [Mass ratio] 1.0 {ratio} Low 1.1-2.5 [facility] ([place] Comment on above: Performed By: #### G FR, CBC, CMP, ANEU, ADIFF #### [address] [address] ALP [Catalytic activity/Vol] 95 U/L Normal 40-135 [facility] ([place]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 L ALC3 #### [facility] [address] [place] [address] WBC #/vol (Bld) 14.11 thou/cmm High 4.23-9.07 [facility] Comment on above: Performed By: #### L ALC3 #### [facility] [address] [place] [address] PROGRESSon 10-29-2018 Protein mass conc HNO ID: [id number] Author: Graham Stevenson Service: Critical Care Author Type: Physician Type: Progress Notes Filed: 10/29/2018 10:03 AM Note Text: MICU - PROGRESS NOTE SERVICE DATE: October 29, 2018 Admission Date: 10/23/2018 AGE: [age] year old LOS: 6 days Subjective S/p extubation yesterday Feeling anxious Denied drug use He said that he is an alcoholic but quit 3 weeks ago Objective PROBLEMS: ACTIVE PROBLEM LIST Shoulder Pain Allergic Rhinitis Elevated Blood Pressure Hip Pain Brandon Involving Less Than 10% of Body Surface Insomnia Tobacco Abuse Disorder Alcohol Abuse Smoker Respiratory Failure (Hcc) Altered Mental Status, Unspecified PAST MEDICAL HISTORY Diagnosis Date - No disease found PAST SURGICAL HISTORY Procedure Laterality Date - NONE Social History Socioeconomic History Marital status: Spouse name: Not on file Number of children: Not on file Years of education: Not on file Highest education level: Not on file Social Needs Financial resource strain: Not on file Food insecurity - worry: Not on file Food insecurity - inability: Not on file Transportation needs - medical: Not on file Transportation needs - non-medical: Not on file Occupational History Not on file Tobacco Use Smoking status: Current Every Day Smoker Packs/day: 1.00 Smokeless tobacco: Never Used Tobacco comment: 20 years. planning to quit. Substance and Sexual Activity Alcohol use: No Comment: last drank one month ago Drug use: No Sexual activity: Yes Partners: Female Other Topics Concerns: Not on file Social History Narrative Not on file VITAL SIGNS (last 24hrs min/max): Temp Av.2 ?C (99 ?F) Min: 36.9 ?C (98.4 ?F) Max: 37.5 ?C (99.5 ?F) Pulse Av.7 Min: 78 Max: 91 No data recorded Cuff BP Min: 116/78 Max: 159/101 Pain Level: 0 Vital signs reviewed. BP 116/78 Pulse 91 Temp (Src) 98.4 (Axillary) Resp 24 Ht 5' 8 (1.73m) Wt 143 lb 4.8 oz (65.0kg) SpO2 98% BMI 21.79 kg/(m2). Temp (24hrs), Av.2 ?C (99 ?F), Min:36.9 ?C (98.4 ?F), Max:37.5 ?C (99.5 ?F) NET FLUID BALANCE Intake/Output Summary (Last 24 hours) at 10/29/2018 0955 Last data filed at 10/29/2018 0735 Gross per 24 hour Intake 1155 ml Output 2720 ml Net -1565 ml MEDICATIONS Current Facility-Administered Medications Medication Dose Route Frequency - docusate 100 mg oral liquid (DIOCTO, COLACE) 100 mg ORAL BID - LORazepam 1 mg injection (ATIVAN) 1 mg INTRAVENOUS q 4 H PRN - guaiFENesin 200 mg oral liquid (ROBITUSSIN) 200 mg ORAL q 6 H - sodium chloride 0.65 % 2 [place] (AYR, OCEAN) 2 [place] EACH NOSTRIL PRN - acetaminophen 325 mg tab(s) (TYLENOL) 325 mg ORAL q 6 H PRN - QUEtiapine 25 mg tab(s) (SEROquel) 25 mg ORAL BID - potassium chloride 80-120 mEq oral liquid 80-120 mEq ORAL/FEEDING TUBE PRN - potassium chloride iv piggyback 20 mEq/100 mL 20 mEq INTRAVENOUS PRN - magnesium sulfate in water 2 g in sterile water 50 ml 2 g INTRAVENOUS PRN - sodium glycerophosphate 45 mmol in NaCl 0.9% 250 mL (GLYCOPHOS) 45 mmol INTRAVENOUS PRN - calcium gluconate 4 g in NaCl 0.9% 250 mL 4 g INTRAVENOUS PRN - enoxaparin 40 mg injection (LOVENOX) 40 mg SUBCUTANEOUS DAILY - albuterol 2.5 mg /3 mL (0.083 %) 2.5 mg (PROVENTIL) 2.5 mg INHALATION q 4 H PRN - famotidine 20 mg tab(s) (PEPCID) 20 mg ORAL/FEEDING TUBE BID - lactated ringers infusion 5-30 mL/hr INTRAVENOUS CONTINUOUS Lines, Drains, and Airways Line Peripheral 10/25/18 0200 Forearm 20 Gauge 4 days Peripheral 10/25/18 0200 Short Right Arm 18 Gauge 4 days Drain GI Feed/Drain Assessment Nasogastric Left Naris -- days Indwelling Urinary Catheter 10/27/182252 Reed 16 Fr 1 day PHYSICAL EXAM PERFORMED: General: no acute distress, looking anxious and shaking Cardiovascular: Regular rhythm and NO M/B/G Respiratory: Clear to auscultation Abdomen: Soft and Nontender Extremities: Edema- No Neurologic: Awake, oriented, Alert and Follows commands Respiratory/Nursing Documentation: O2 Therapy: Room Air (10/29/18 020) Invasive Ventilator Mode: Continuous Mandatory Ventilation (10/28/18829) Set Ventilator Respiratory Rate (BPM): 18 (10/28/18829) Total Respiratory Rate (BPM): 21 (10/28/18 0721) Tidal Volume Set (mL): 350 (10/28/18829) Exhaled Tidal Volume (mL): 468 (10/28/18829) Minute Volume (L): 7.22 (10/28/18 0337) Peak Inspiratory Pressure (cm H2O): 14 (10/28/18829) PEEP/CPAP (cm H2O): 5 (10/28/18829) HEMODYNAMIC DATA: Reviewed NUTRITION: DATA: Diagnostic tests reviewed for today's visit, films/specimens were personally reviewed by me: Most recent labs and imaging results. LABS: Recent Labs 10/29/18 0530 10/27/18 1100 WBC 14.11* < > 14.30* RBC 4.17* < > 3.94* HB 14.1 < > 13.4* HCT 41.9 < > 40.8 MCV 100.5* < > 103.6* PLT 458* < > 393* GLUC 105* < > 110* BUN 18 < > 12 CREAT 0.45* < > 0.51* NA 142 < > 141 K 3.7 < > 3.9 CHLOR 110* < > 107 CO2 25 < > 26 TPROT -- -- 7.2 ALB 2.9* < > 2.7* CA 9.7 < > 9.2 ALKPHOS -- -- 63 TBILI -- -- 0.6 AST -- -- 26 ALT -- -- 50 < > = values in this interval not displayed. ABG: Invalid input(s): [id number] Assessment/Plan IMPRESSION: Critical Care Documentation: The patient has the following organ/system impairment(s): Acute hypoxic respiratory failure requiring intubation and mechanical ventilation s/p extubation on 10/28/18 Acute encephalopathy( unkown etiology)/delirium/ag itation?of unclear etiology ?? Drug intoxication improved ETOH abuse with likely withdrawal transaminitis improved Anemia Increase upper airway secretions likely chronic sinusitis ?? 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 Nasal spray and mucinex for chronic sinusitis holding on ABx therapy Ok to transfer to the floor SIGNATURE: Graham Stevenson MD PATIENT NAME: Lorenzo Steiner DATE: October 29, 2018 TIME: 9:55 AM Normal [facility] Renal Panelon 10-29-2018 Creatinine mass conc 0.45 mg/dL Low 0.67-1.17 [facility] Comment on above: Performed By: #### L ALC3 #### [facility] [address] [place], [place] [address] Phosphate mass conc 3.6 mg/dL Normal 2.5-4.9 [facility] Comment on above: Performed By: #### L ALC3 #### [facility] [address] [place], [place] [address] Albumin mass conc 2.9 g/dL Low 3.4-5.0 [facility] Comment on above: Performed By: #### L ALC3 #### [facility] [address] [place] [address] Calcium mass conc 9.7 mg/dL Normal 8.5-10.1 [facility] Comment on above: Performed By: #### L ALC3 #### [facility] [address] [place] [address] CO2 molar conc 25 mmol/L Normal 21-32 [facility] Comment on above: Performed By: #### L ALC3 #### [facility] [address] [place] [address] Glucose mass conc 105 mg/dL High 70-99 [facility] Comment on above: Performed By: #### L ALC3 #### [facility] [address] [place] [address] Urea nitrogen mass conc 18 mg/dL Normal 7-18 [facility] Comment on above: Performed By: #### L ALC3 #### [facility] [address] [place] [address] Chloride molar conc 110 mmol/L High 98-107 [facility] Comment on above: Performed By: #### L ALC3 #### [facility] [address] [place] [address] Potassium molar conc 3.7 mmol/L Normal 3.5-5.1 [facility] Comment on above: Performed By: #### L ALC3 #### [facility] [address] [place] [address] Sodium molar conc 142 mmol/L Normal 136-145 [facility] Comment on above: Performed By: #### L ALC3 #### [facility] [address] [place] [address] THERAPY NTon 10-29-2018 THERAPY NT HNO ID: [id number] Author: Bailee (Ccc-Junior Analyst) SHIRLEY Hutchinson/FLOOR WAXER Service: Speech/Swallow Author Type: Speech Language Pathologist Type: Therapy (PT/OT/Speech/Resp) Filed: 10/29/2018 2:01 PM Note Text: Speech Therapy MBSS Evaluation SERVICE DATE: 10/29/2018 SERVICE TIME: 1315 to 1335 ROOM: [place] [address] Nursing Recommendations: See swallow guide posted in patients room;Reinforce use of swallowing strategies;Reinforce use of communication strategies Diet Recommendations: Regular Consistency; Thin liquids Swallowing Precautions Recommendations: Alert (patient should be fully alert for P.O. Intake); Alternate bites and sips; Double swallows; Feed / Eat at a slow rate; Sit upright 90 degrees for all PO; Small Bite/Sip; Supervision/Assistanc e for meals.; Throat clear, reswallow; No straws Results and Recommendations Discussed With: Patient;Nurse Recommended Discharge Disposition: Acute Rehab Justification For Post Acute Needs: Patient can tolerate 3 hours of therapy per day;Medically complex;Motivated;Davis ling to participate IMPRESSION: Patient demonstrates oropharyngeal dysphagia which is negatively impacting his/her ability to effectively maintain adequate nutrition and hydration and/or airway safety. Patient demonstrates cognitive deficits which is negatively impacting the patient's ability to effectively communicate basic ADL medical and social wants/needs with familiar and unfamiliar communication partners. Rehabilitation Precautions: Aspiration Precautions;Dysphagia ;Cognitive Linguistics Deficits;NPO NPO Precautions: (n/a) ASSESSMENT: Tolerated Full Session Prior to the start of the procedure, a time out was taken to verbally confirm the identification of the patient utilizing but not limited to name and date of and to verify a Modified Barium Swallow is being conducted according to standard operating procedure. Instrumental Swallow Assessment Type: Modified Barium Swallow Study Modified Barium Swallow Views: Lateral position MBS Consistencies Tested: Thin Barium Liquids;[place] Thick Barium Liquids;Puree With Barium Paste;Solid With Barium Paste Oral Phase: Lip Closure: No labial escape/anterior loss of bolus Tongue Control During Bolus Hold: Posterior escape of less than half of the bolus Bolus Preparation/Masticati on: Timely and efficient mastication skills Bolus Transport/Lingual Motion: Brisk tongue motion for A-P movement of the bolus Oral Residue: Trace residue lining oral structures Initiation Of Pharyngeal Swallow: Bolus head at pit of pyriforms Pharyngeal Phase: Soft Palate Elevation: No bolus between soft palate/pharyngeal wall Laryngeal Elevation: Partial superior movement of thyroid cartilage and/or partial approximation of arytenoids to epiglottic petiole Anterior Hyoid Excursion: Complete anterior movement Epiglottic Movement: Complete inversion Laryngeal Vestibular Closure/Height of the Swallow: Incomplete - narrow column of air/contrast in laryngeal vestibule Pharyngeal Stripping Wave: Present, however, diminished Pharyngeal Contraction (A/P View Only): Not tested Pharyngoesophageal Segment Opening: Partial distension/partial duration with partial obstruction of flow of bolus Tongue Base Retraction: Narrow column of contrast or air between tongue base and pharyngeal wall Pharyngeal Residue: Collection of residue within or on the pharyngeal structures Esophageal Clearance In An Upright Position: Esophageal retention Penetration: During the swallow Penetration With: Thin Liquids;[place]-Thicke raghavendra Liquids Penetration/Aspiratio n Scale: 4-Material enters the airway, contacts the vocal folds, and is ejected from the airway -Patient confused, suspect could be impulsive, able to follow commands for compensatory strategies, will require supervision during meals for implementation -At times spontaneous re-swallow assisted in clearing pharyngeal residue, otherwise cued double swallow effective -FLOOR WAXER facilitated liquid wash to clear pharyngeal residue post solids, effective -Cued throat clear, re-swallow effective in clearing trace material that remained in laryngeal vestibule following penetration with liquids Goals for Plan of Care: New goals 10/29/18 Cognitive Goals: Patient will demonstrate orientation to time, situation to 90% accuracy given minimal cues so that the patient can more actively engage in own personal care and recovery. Patient will demonstrate use of complex higher level cognitive tasks including insight/judgement skills with 90% accuracy given minimal cues so that the patient may participate in personal discharge planning. Patient will demonstrate adequate return of knowledge of all compensatory strategies/instructio n to effectively assist the patient in immediate cognitive linguistic skills. Speech Goals: Patient will improve speech intelligibility at the word, sentence and conversation level to 90% intelligibility given minimal cues so that the patient can functionally communicate with caregivers. Patient will demonstrate adequate return of knowledge of all compensatory strategies/instructio n to effectively assist the patient in immediate speech production skills. (Slow rate, loud voice, enunciate words) Swallow Goals: Patient will participate in a Modified Barium Swallow Study (MBS) to thoroughly evaluate the oral and pharyngeal phase of the swallow, which cannot be substantiated through a clinical swallowing evaluation only. Through further diagnostic testing a definitive diagnosis/identificat ion of the patient's current swallowing function and recommended treatment plan can be established. Completed 10/29/18 New Goals 10/29/18 Patient will tolerate Regular Consistency diet consistency while utilizing compensatory/swallowi ng strategies given moderate cues in 90% of trials so that the patient will minimize the signs/symptoms of dysphagia. Patient will tolerate Thin Liquids consistency while utilizing compensatory/swallowi ng strategies given moderate cues in 90% of trials so that the patient will minimize the signs/symptoms of dysphagia. Patient, Caregiver, Family will demonstrate adequate return of knowledge of all compensatory strategies/instructio n to effectively assist the patient in immediate safety with oral intake and swallowing. (slow rate, small bites/sips, double swallow, throat clear re-swallow, alternate liquids/solids) Therapeutic Tasks: Lingual/Pharyngeal/La ryngeal strengthening tasks to improve swallowing function Patient /Caregiver Goals: Eat/Drink Without Restrictions;Improve Cognition;Improve Communication Progress Toward Goals: Progressing as expected Speech Rehab Potential: Good PLAN: Treatment Frequency (times per week): 3 Current admission Treatment Interventions: Dysphagia Management;Cognitive- Linguistic Management Plan of Care Developed with: Patient;Caregiver TREATMENT INTERVENTIONS: Therapy Diagnosis: Unspecified symbolic dysfunctions;Dysphagi a, oropharyngeal phase Interventions Provided: Modified Barium Swallow Study (40771) $ Modified Barium Swallow Study (04693) Billed Units: 1 unit Total Treatment Time (minutes): 20 SUBJECTIVE: Current Hospital Course: Chart reviewed; 10/28/18 Chest xray: no acute abnormality Reason for Speech Therapy Consult: Encephalopathy: assess swallowing and speech/cognition Relevant Past Medical History: None Patient Report: When do I get to take off? Home Environment Prior Functional Level: Within Functional Limits Assistance Available: PRN Prior Swallowing Function/Diet Textures: Regular Consistency;Thin liquids Please see discipline specific clinical documentation flowsheet for complete details for this therapy evaluation/treatment. SIGNATURE: Bailee Hutchinson CCC-FLOOR WAXER PATIENT NAME: Lorenzo Steiner DATE: October 29, 2018 TIME: 1:51 PM Normal [facility] THERAPY NT HNO ID: [id number] Author: Dominick RamseyCcc-Junior Analyst) SHIRLEY [place]/FLOOR WAXER Service: Speech/Swallow Author Type: Speech Language Pathologist Type: Therapy (PT/OT/Speech/Resp) Filed: 10/29/2018 12:42 PM Note Text: Speech Therapy Speech Evaluation Dysphagia Treatment SERVICE DATE: 10/29/2018 SERVICE TIME: 909 to 944 ROOM: [id number] Nursing Recommendations: See swallow guide posted in patients room Reinforce use of communication strategies Diet Recommendations: NPO with alternative means of nutrition/hydration/m edication Swallowing Precautions Recommendations: Frequent mouth care Instrumental Swallow Assessment Recommendations: Modified Barium Swallow Study (MBSS) Results and Recommendations Discussed With: Patient;Nurse;Physici an Recommended Discharge Disposition: Acute Rehab Justification For Post Acute Needs: Patient can tolerate 3 hours of therapy per day;Motivated;Willing to participate;Good sitting tolerance;Medically complex IMPRESSION: Patient demonstrates severe oral pharyngeal dysphagia which is negatively impacting his/her ability to effectively maintain adequate nutrition and hydration and/or airway safety. Patient demonstrates cognitive-linguistic deficits which are negatively impacting the patient's ability to effectively communicate basic ADL medical and social wants/needs with familiar and unfamiliar communication partners. Rehabilitation Precautions: Dysphagia;Aspiration Precautions;Cognitive Linguistics Deficits;NPO ASSESSMENT: - Patient in chair upon arrival, alert and able to participate in therapy - Patient pulling at NG when FLOOR WAXER first walked by room; FLOOR WAXER told nursing staff, and instructed patient to stop holding onto the tubing - Copious amounts of excess secretions running down NG tubing and coming up from throat; attached extra tubing to lengthen distance of suction and re-educated patient on importance of suctioning instead of re-swallowing pharyngeal secretions - Re-assessed swallow; trialed thin liquids, nectar thick liquids, and puree - Good lip seal on cup, spoon, and straw - Thin liquids immediately re-emerged through nose - Patient pulled out NG once liquid came through his nose - FLOOR WAXER told RN, instructed patient to clear his nose of secretions, and assisted patient with suctioning secretions out of his mouth - Trialed nectar thick liquids via cup, spoon, and straw; able to swallow with no immediate signs/symptoms of aspiration - Trialed puree; able to swallow with no immediate signs/symptoms of aspiration - After trials of nectar thick liquids and puree were completed, patient began to cough up large amounts of secretions - While FLOOR WAXER was writing note, patient attempted to leave the unit twice while in his chair - Concerns for swallowing safety, due to poor awareness of deficits, impulsivity, and amount of secretions present in oropharynx - Recommend NPO and Modified Barium Swallow Study to determine the safest diet texture - Assessed speech, language, and cognitive skills: - Speech: Intelligibility: 60% intelligible; cluttering noted - talking fast and blending words together Dysarthria/Apraxia: not noted; within functional limits - Language: Receptive: within functional limits Expressive: within functional limits - Cognition: Problem solving: moderately impaired for higher-level tasks Memory: within functional limits Reasoning: moderately impaired for higher-level tasks Attention: within functional limits Sequencing: within functional limits Organization: moderately impaired for higher-level tasks - Insight: Poor insight - Pragmatics: Mildly impaired - Patient presents with deficits in the following areas: Insight, impulsivity, speech fluency, and higher level executive functioning tasks, including reasoning and real-world problem solving - ST to follow to improve cognitive skills, speech fluency, and dysphagia Tolerated Full Session Goals for Plan of Care: Patient will participate in Speech-Language, Cognitive evaluation to further assess cognitive abilities to facilitate progress in therapy. - Goal met 10/29/2018 Cognitive Goals: Patient will demonstrate orientation to time, situation to 90% accuracy given minimal cues so that the patient can more actively engage in own personal care and recovery. Patient will demonstrate use of complex higher level cognitive tasks including insight/judgement skills with 90% accuracy given minimal cues so that the patient may participate in personal discharge planning. Patient will demonstrate adequate return of knowledge of all compensatory strategies/instructio n to effectively assist the patient in immediate cognitive linguistic skills. Speech Goals: Patient will improve speech intelligibility at the word, sentence and conversation level to 90% intelligibility given minimal cues so that the patient can functionally communicate with caregivers. Patient will demonstrate adequate return of knowledge of all compensatory strategies/instructio n to effectively assist the patient in immediate speech production skills. (Slow rate, loud voice, enunciate words) Swallow Goals: Patient will participate in swallow reassessment to determine safety of diet vs instrumentation vs alternate means of hydration/nutrition. - Goal met 10/29/2018 Patient will participate in a Modified Barium Swallow Study (MBS) to thoroughly evaluate the oral and pharyngeal phase of the swallow, which cannot be substantiated through a clinical swallowing evaluation only. Through further diagnostic testing a definitive diagnosis/identificat ion of the patient's current swallowing function and recommended treatment plan can be established. ? Therapeutic Tasks: Lingual/Pharyngeal/La ryngeal strengthening tasks to improve swallowing function ? Patient /Caregiver Goals: Eat/Drink Without Restrictions;Improve Cognition;Improve Communication Progress Toward Goals: Progressing as expected Speech Rehab Potential: Good PLAN: Treatment Frequency (times per week): 3 Current admission Treatment Interventions: Dysphagia Management;Cognitive- Linguistic Management Plan of Care Developed with: Patient;Caregiver TREATMENT INTERVENTIONS: Therapy Diagnosis: Dysphagia, oropharyngeal phase;Other speech and language deficits following unspecified cerebrovascular disease Interventions Provided: Speech Language Eval (26865);Dysphagia Therapy (90911) $ Speech Language Eval (32800) Billed Units: 1 unit $ Dysphagia Therapy (39625) Billed Units: 1 unit Skilled Interventions: Reassessed swallow ability with various liquid and food textures to determine if safe for current food/drink textures versus at risk for aspiration. Educated and advised patient / caregiver on texture and liquid consistency recommendations., Instructed patient / caregiver on recommended compensatory strategies to maximize safety with oral intake while maintaining nutrition, hydration and medication stability. Total Treatment Time (minutes): 35 SUBJECTIVE: Current Hospital Course: Chart reviewed and no significant medical updates relevant to therapy were noted Reason for Speech Therapy Consult: Encephalopathy: assess swallowing and speech/cognition Relevant Past Medical History: None Patient Report: I want water. Home Environment Prior Functional Level: Within Functional Limits Assistance Available: PRN Prior Swallowing Function/Diet Textures: Regular Consistency;Thin liquids Please see discipline specific clinical documentation flowsheet for complete details for this therapy evaluation/treatment. I reviewed and agree with the documentation corresponding to this therapy visit. Evaluation and/or treatment directly supervised by licensed Speech Therapist Dominick Mayfield CCC-FLOOR WAXER. SIGNATURE: BHARATH Andrews PATIENT NAME: Lorenzo Steiner DATE: October 29, 2018 TIME: 10:22 AM Normal [facility] Cult Bloodon 10-28-2018 Cult Blood Test performed at [facility] No growth Normal [facility] Comment on above: Performed By: #### L TSH #### [place] [address] Cult Blood Test performed at [facility] No growth Normal [facility] Comment on above: Performed By: #### L ALC3 #### [place] [address] Cult and Smr Respiratoryon 0 10-28-2018 Cult and Smr Respiratory Test performed at [facility] Normal oropharyngeal rishi present. Moderate Gram positive cocci Moderate Gram positive bacilli, diphtheroids Many Polymorphonuclear leukocytes Few Mononuclear cells Normal [facility] Comment on above: Performed By: #### L ALC3 #### [place] [address] Hemogram/Diffon 10-28-2018 Abs Immature Grans 0.05 thou/cmm Normal 0.00-0.05 [facility] Comment on above: Performed By: #### L ALC3 #### [facility] [address] [place] [address] Abs. Baso 0.11 thou/cmm High 0.01-0.08 [facility] Comment on above: Result Comment: Smea r scanned; tech agrees with automated differential Performed By: #### L ALC3 #### [facility] [address] [place] [address] Abs. [place] 1.97 thou/cmm High 0.30-0.82 [facility] Comment on above: Performed By: #### L ALC3 #### [facility] [address] [place] [address] Abs. Neut (ANC) 7.01 thou/cmm High 1.78-5.38 [facility] Comment on above: Performed By: #### L ALC3 #### [place] [address] Basophils/100 WBC (Bld) 1.0 % Normal [facility] Comment on above: Performed By: #### L ALC3 #### [facility] [address] [place] [address] Eosinophils #/vol (Bld) 0.42 thou/cmm Normal 0.04-0.54 [facility] Comment on above: Performed By: #### L ALC3 #### [place] [address] Eosinophils/100 WBC (Bld) 3.7 % Normal [facility] Comment on above: Performed By: #### L ALC3 #### [place] [address] Immature Grans 0.40 % Normal [facility] Comment on above: Performed By: #### L ALC3 #### [facility] [address] [place] [address] Lymphocytes #/vol (Bld) 1.78 thou/cmm Normal 0.84-2.85 [facility] Comment on above: Performed By: #### L ALC3 #### [place] [address] Lymphocytes/100 WBC (Bld) 15.7 % Normal [facility] Comment on above: Performed By: #### L ALC3 #### [facility] [address] [place] [address] Monocytes/100 WBC (Bld) 17.4 % Normal [facility] Comment on above: Performed By: #### L ALC3 #### [facility] [address] [place] [address] Seg Neutrophil 61.8 % Normal [facility] Comment on above: Performed By: #### L ALC3 #### [facility] [address] [place] [address] Interpreted by See below Normal [facility] Comment on above: Result Comment: Asad Joyce M.D., Pathologist Performed By: #### L ALC3 #### [facility] [address] [place] [address] Erythrocyte distribution width Ratio (RBC) 12.7 % Normal 11.6-14.4 [facility] Comment on above: Performed By: #### L ALC3 #### [facility] [address] [place] [address] Hematocrit Volume Fraction (Bld) 41.3 % Normal 40.1-51.0 [facility] Comment on above: Performed By: #### L ALC3 #### [facility] [address] [place] [address] Hemoglobin mass conc (Bld) 13.7 g/dL Normal 13.7-17.5 [facility] Comment on above: Performed By: #### L ALC3 #### [facility] [address] [place] [address] MCH Entitic mass (RBC) 34.1 pg High 25.7-32.2 [facility] Comment on above: Performed By: #### L ALC3 #### [facility] [address] [place] [address] MCHC mass conc (RBC) 33.2 % Normal 32.3-36.5 [facility] Comment on above: Performed By: #### L ALC3 #### [facility] [address] [place] [address] MCV Entitic volume (RBC) 102.7 fL High 83.2-95.6 [facility] Comment on above: Performed By: #### L ALC3 #### [facility] [address] [place] [address] Platelet mean volume Entitic volume (Bld) 9.8 fL Normal 8.7-12.0 [facility] Comment on above: Performed By: #### L ALC3 #### [facility] [address] [place] [address] Platelets #/vol (Bld) 394 thou/cmm High 141-365 [facility] Comment on above: Performed By: #### L ALC3 #### [facility] [address] [place] [address] RBC #/vol (Bld) 4.02 mil/cmm Low 4.63-6.08 [facility] Comment on above: Performed By: #### L ALC3 #### [facility] [address] [place] [address] RDW SD 47.9 fl High 36.1-45.8 [facility] Comment on above: Performed By: #### L ALC3 #### [facility] [address] [place] [address] WBC #/vol (Bld) 11.34 thou/cmm High 4.23-9.07 [facility] Comment on above: Performed By: #### L ALC3 #### [place] [address] NURSING PROGon 10-28-2018 Protein mass conc HNO ID: [id number] Author: Missy (Rn) JOSHUA Klein Service: Nursing Author Type: Registered Nurse Type: Nursing Progress Note Filed: 10/28/2018 11:18 AM Note Text: Nursing Progress: Topic: RESTRAINT NON-VIOLENT PATIENT NAME: Lorenzo Steiner PATIENT LOCATION: [place] [address]/[place] [address]* The patient demonstrates Attempting to Remove Medical Devices Vital to Medical Stability, Confusion, Lack of Understanding/Ability to Comply with Safety Directions, Impulsive Behavior, Inability to be Redirected, Inability to Retain Information Regarding Safety Directions as evidenced by the following behaviors attempts to pull at tubes and lines which pose an imminent danger to self or others. The following interventions were attempted but were not effective in protecting the patient's safety: Contraindicated - Imminent Safety Risk Next, a comprehensive assessment was performed and warranted placing the patient in Soft Bilateral Wrists, the least restrictive restraint needed to protect the patient's safety. Ongoing safety assessments and evaluation for earliest removal of restraints will be performed. DATE: October 28, 2018 TIME: 11:18 AM Missy Klein RN [facility] PROGRESSon 10-28-2018 Protein mass conc HNO ID: [id number] Author: Graham Stevenson Service: Critical Care Author Type: Physician Type: Progress Notes Filed: 10/28/2018 7:32 AM Note Text: MICU - PROGRESS NOTE SERVICE DATE: October 28, 2018 Admission Date: 10/23/2018 AGE: [age] year old LOS: 5 days Subjective SAT started this am Patient with a lot of oral secretions but also with ET secretions yesterday per RN No ET tube secretions this am with suction Received Ativan overnight Objective PROBLEMS: ACTIVE PROBLEM LIST Shoulder Pain Allergic Rhinitis Elevated Blood Pressure Hip Pain Brandon Involving Less Than 10% of Body Surface Insomnia Tobacco Abuse Disorder Alcohol Abuse Smoker Respiratory Failure (Hcc) Altered Mental Status, Unspecified PAST MEDICAL HISTORY Diagnosis Date - No disease found PAST SURGICAL HISTORY Procedure Laterality Date - NONE Social History Socioeconomic History Marital status: Spouse name: Not on file Number of children: Not on file Years of education: Not on file Highest education level: Not on file Social Needs Financial resource strain: Not on file Food insecurity - worry: Not on file Food insecurity - inability: Not on file Transportation needs - medical: Not on file Transportation needs - non-medical: Not on file Occupational History Not on file Tobacco Use Smoking status: Current Every Day Smoker Packs/day: 1.00 Smokeless tobacco: Never Used Tobacco comment: 20 years. planning to quit. Substance and Sexual Activity Alcohol use: No Comment: last drank one month ago Drug use: No Sexual activity: Yes Partners: Female Other Topics Concerns: Not on file Social History Narrative Not on file VITAL SIGNS (last 24hrs min/max): Temp Av.3 ?C (99.1 ?F) Min: 36.4 ?C (97.5 ?F) Max: 38.2 ?C (100.8 ?F) Pulse Av.4 Min: 66 Max: 104 No data recorded Cuff BP Min: 105/75 Max: 160/104 Pain Level: 0 Vital signs reviewed. BP 111/78 Pulse 72 Temp (Src) 98.1 (Axillary) Resp 18 Ht 5' 8 (1.73m) Wt 143 lb 4.8 oz (65.0kg) SpO2 97% BMI 21.79 kg/(m2). Temp (24hrs), Av.3 ?C (99.1 ?F), Min:36.4 ?C (97.5 ?F), Max:38.2 ?C (100.8 ?F) NET FLUID BALANCE Intake/Output Summary (Last 24 hours) at 10/28/2018 0726 Last data filed at 10/28/2018 0541 Gross per 24 hour Intake 1793.2 ml Output 1200 ml Net 593.2 ml MEDICATIONS Current Facility-Administered Medications Medication Dose Route Frequency - LORazepam 2 mg injection (ATIVAN) 2 mg INTRAVENOUS q 4 H PRN - QUEtiapine 25 mg tab(s) (SEROquel) 25 mg ORAL BID - folic acid 1 mg tab(s) 1 mg ORAL DAILY - docusate 100 mg oral liquid (DIOCTO, COLACE) 100 mg ORAL BID PRN - glycopyrrolate 1 mg tab(s) (ROBINUL) 1 mg ORAL TID - potassium chloride 80-120 mEq oral liquid 80-120 mEq ORAL/FEEDING TUBE PRN - potassium chloride iv piggyback 20 mEq/100 mL 20 mEq INTRAVENOUS PRN - magnesium sulfate in water 2 g in sterile water 50 ml 2 g INTRAVENOUS PRN - sodium glycerophosphate 45 mmol in NaCl 0.9% 250 mL (GLYCOPHOS) 45 mmol INTRAVENOUS PRN - calcium gluconate 4 g in NaCl 0.9% 250 mL 4 g INTRAVENOUS PRN - enoxaparin 40 mg injection (LOVENOX) 40 mg SUBCUTANEOUS DAILY - propofol infusion (DIPRIVAN) 5-60 mcg/kg/min INTRAVENOUS CONTINUOUS - albuterol 2.5 mg /3 mL (0.083 %) 2.5 mg (PROVENTIL) 2.5 mg INHALATION q 4 H PRN - famotidine 20 mg tab(s) (PEPCID) 20 mg ORAL/FEEDING TUBE BID - lactated ringers infusion 5-30 mL/hr INTRAVENOUS CONTINUOUS - Chlorhexidine Gluconate 0.12 % 15 mL (PERIDEX) 15 mL ORAL q 12 H Lines, Drains, and Airways Line Peripheral 10/25/18 0200 Forearm 20 Gauge 3 days Peripheral 10/25/18 0200 Short Right Arm 18 Gauge 3 days Drain GI Feed/Drain Assessment Nasogastric Left Naris -- days Indwelling Urinary Catheter 10/27/182252 Reed 16 Fr less than 1 day Airway Airway Endotracheal Tube 10/23/18 0111 5 days PHYSICAL EXAM PERFORMED: General: no acute distress Cardiovascular: Regular rhythm Respiratory: Clear to auscultation Abdomen: Soft and Nontender Extremities: Edema- No Neurologic: Awake, oriented and Follows commands Respiratory/Nursing Documentation: O2 Therapy: Ventilator (10/28/18 0600) Invasive Ventilator Mode: Continuous Mandatory Ventilation (10/28/18336) Set Ventilator Respiratory Rate (BPM): 18 (10/28/18336) Total Respiratory Rate (BPM): 20 (10/28/18336) Tidal Volume Set (mL): 350 (10/28/18336) Exhaled Tidal Volume (mL): 399 (10/28/18336) Minute Volume (L): 7.22 (10/28/18336) Peak Inspiratory Pressure (cm H2O): 10 (10/28/18336) PEEP/CPAP (cm H2O): 5 (10/28/18336) HEMODYNAMIC DATA: Reviewed NUTRITION: Enteral Feeds: No TF on hold DATA: Diagnostic tests reviewed for today's visit, films/specimens were personally reviewed by me: Most recent labs and imaging results. LABS: Recent Labs 10/27/18 1100 WBC 14.30* RBC 3.94* HB 13.4* HCT 40.8 MCV 103.6* PLT 393* GLUC 110* BUN 12 CREAT 0.51* NA 141 K 3.9 CHLOR 107 CO2 26 TPROT 7.2 ALB 2.7* CA 9.2 ALKPHOS 63 TBILI 0.6 AST 26 ALT 50 ABG: Invalid input(s): [id number] Assessment/Plan IMPRESSION: Critical Care Documentation: The patient has the following organ/system impairment(s): ? Acute hypoxic respiratory failure requiring intubation and mechanical ventilation Acute encephalopathy( unkown etiology)/delirium/ag itation of unclear etiology ?? Drug intoxication transaminitis improving Anemia Increase oral and ?? ET secretions with an episode of low grade fever yesterday and leukocytosis Multiple chronic medical problems ? ? ? CRITICAL CARE PLAN: ? SAT SBT Continue with PRN ativan, will decrease the dose further Seroquel low dose If needed for agitation can switch to precedex Blood cx and will hold on ABx unless worsening leukocytosis/fever again Recheck CBC BMP CXR Seen by neuro, no seizure and no acute IC process This patient has a high probability of sudden, clinically significant deterioration, which requires the highest level of physician preparedness to intervene urgently. I managed/supervised life or organ supporting interventions that required frequent physician assessment. I devoted my full attention to the direct care of this patient for the amount of time indicated below. Time I spent with family or surrogate(s) is included only if the patient was incapable of providing the necessary information or participating in medical decision making. Time devoted to teaching is not included. Discussed with staff/patient/family Time spent providing critical care services: 30 minutes excluding procedures. SIGNATURE: Graham Stevenson MD PATIENT NAME: Lorenzo Steiner DATE: October 28, 2018 TIME: 7:26 AM Normal [facility] Renal Panelon 10-28-2018 Creatinine mass conc 0.43 mg/dL Low 0.67-1.17 [facility] Comment on above: Performed By: #### L ALC3 #### [facility] [address] [place], [place] [address] Phosphate mass conc 3.5 mg/dL Normal 2.5-4.9 [facility] Comment on above: Performed By: #### L ALC3 #### [facility] [address] [place], [place] [address] Albumin mass conc 2.8 g/dL Low 3.4-5.0 [facility] Comment on above: Performed By: #### L ALC3 #### [facility] [address] [place] [address] CO2 molar conc 28 mmol/L Normal 21-32 [facility] Comment on above: Performed By: #### L ALC3 #### [address] [address] Glucose mass conc 103 mg/dL High 70-99 [facility] Comment on above: Performed By: #### L ALC3 #### [facility] [address] [place] [address] Urea nitrogen mass conc 16 mg/dL Normal 7-18 [facility] Comment on above: Performed By: #### L ALC3 #### [facility] [address] [place] [address] Calcium mass conc 9.4 mg/dL Normal 8.5-10.1 [facility] Comment on above: Performed By: #### L ALC3 #### [facility] [address] [place] [address] Chloride molar conc 107 mmol/L Normal 98-107 [facility] Comment on above: Performed By: #### L ALC3 #### [facility] [address] [place] [address] Potassium molar conc 3.8 mmol/L Normal 3.5-5.1 [facility] Comment on above: Performed By: #### L ALC3 #### [facility] [address] [place] [address] Sodium molar conc 142 mmol/L Normal 136-145 [facility] Comment on above: Performed By: #### L ALC3 #### [facility] [address] [place] [address] THERAPY NTon 10-28-2018 THERAPY NT HNO ID: [id number] Author: Dominick (Ccc-Junior Analyst) Tran [facility]/FLOOR WAXER Service: Speech/Swallow Author Type: Speech Language Pathologist Type: Therapy (PT/OT/Speech/Resp) Filed: 10/28/2018 3:20 PM Note Text: Speech Therapy Clinical Swallow Evaluation SERVICE DATE: 10/28/2018 SERVICE TIME: 1445 to 1500 ROOM: [id number] Nursing Recommendations: See swallow guide posted in patients room Diet Recommendations: NPO with alternative means of nutrition/hydration/m edication Swallowing Precautions Recommendations: Frequent mouth care Results and Recommendations Discussed With: Patient;Nurse Recommended Discharge Disposition: Acute Rehab Justification For Post Acute Needs: Patient can tolerate 3 hours of therapy per day;Motivated;Willing to participate;Good sitting tolerance;Medically complex IMPRESSION: Patient demonstrates severe oropharyngeal dysphagia which is negatively impacting his/her ability to effectively maintain adequate nutrition and hydration and/or airway safety. Rehabilitation Precautions: Dysphagia;Aspiration Precautions;Cognitive Linguistics Deficits;NPO NPO Precautions: NG ASSESSMENT: - Patient in bed upon arrival, alert and able to participate in therapy - Voice is weak and aphonic at times - +excess secretion noted - Trialed thin via spoon: +cough after swallow, multiple swallow, effortful swallow - Trialed nectar-thick liquid via spoon: +similar results - Cued patient to cough and self suction: moderate secretions - Recommend NPO status d/t signs or symptoms of aspiration - ST to follow to reassess swallowing at the bedside and improve dysphagia as able Tolerated Full Session Goals for Plan of Care: Swallowing Goals: Patient will participate in swallow reassessment to determine safety of diet vs instrumentation vs alternate means of hydration/nutrition. Therapeutic Tasks: Lingual/Pharyngeal/La ryngeal strengthening tasks to improve swallowing function Patient will participate in Speech-Language, Cognitive evaluation to further assess cognitive abilities to facilitate progress in therapy. Patient /Caregiver Goals: Eat/Drink Without Restrictions Speech Rehab Potential: Good PLAN: Treatment Frequency (times per week): 3 Current admission Treatment Interventions: Dysphagia Management Plan of Care Developed with: Patient TREATMENT INTERVENTIONS: Therapy Diagnosis: Dysphagia, oropharyngeal phase Interventions Provided: Clinical Swallow Evaluation (97115) $ Clinical Swallow Evaluation (46615) Billed Units: 1 unit Total Treatment Time (minutes): 15 SUBJECTIVE: Current Hospital Course: Chart reviewed: Diagnosis: Respiratory failure Reason for admit: This is a 48 year old male with a past medical history significant for insomnia. He presented to [place] ED for hallucinations escorted by police. Per ED note the patients symptoms started several years ago and progressively became worse. He was previously taking trazodone for insomnia, but stopped over a year ago for unclear reasons. It was noted that the hallucinations are both visual and auditory for people attacking him. While in the ED the patient was noted to be agitated with concern for seizure activity. This was treated with ativan and Geodon. After which he was noted be still be agitated, but not ventilating well. He was subsequently intubated for airway protection. He also had a lumbar puncture for possible infection. Reason for Speech Therapy Consult: Encephalopathy: assess swallowing and speech/cognition Relevant Past Medical History: None Patient Report: I want some water. Home Environment Prior Functional Level: Within Functional Limits Assistance Available: PRN Prior Swallowing Function/Diet Textures: Regular Consistency;Thin liquids Please see discipline specific clinical documentation flowsheet for complete details for this therapy evaluation/treatment. SIGNATURE: Dominick Mayfield CCC-FLOOR WAXER PATIENT NAME: Lorenzo Steiner DATE: October 28, 2018 TIME: 3:17 PM Normal [facility] CASE MANAGEMon 10-27-2018 CASE MANAGEM HNO ID: [id number] Author: Anisa (Rn) JOSHUA Singleton Service: Care Management Author Type: Registered Nurse Type: Care Mgt Progress Note Filed: 10/27/2018 10:31 AM Note Text: CARE MANAGEMENT PROGRESS NOTE SERVICE DATE: 10/27/2018 SERVICE TIME: 1020 LOS: 4 days Needs Prior to Discharge: To Be Determined;OT/PT Evaluation Chart reviewed. Pt remains in NSICU on Vent, IV Diprivan and bilateral wrist restraints. Unable to determine appropriate DC needs at this time. Plan remains to be determined. Spoke with Rosie in [employer] ([phone]) to start medicaid process. Provided her mothers name of Arlen Serna and contact number. States she will call today. to follow for transitional needs. SIGNATURE: Anisa Singleton RN PATIENT NAME: Lorenzo Steiner DATE: October 27, 2018 TIME: 10:24 AM PAGER/CONTACT #: Normal [facility] Hemogram/Diffon 10-27-2018 Abs Immature Grans 0.09 thou/cmm High 0.00-0.05 [facility] Comment on above: Performed By: #### L ALC3 #### [facility] [address] [place] [address] Abs. Baso 0.07 thou/cmm Normal 0.01-0.08 [facility] Comment on above: Performed By: #### L ALC3 #### [facility] [address] [place] [address] Abs. [place] 2.40 thou/cmm High 0.30-0.82 [facility] Comment on above: Performed By: #### L ALC3 #### [address] [place], [place] [address] Abs. Neut (ANC) 10.34 thou/cmm High 1.78-5.38 [facility] Comment on above: Performed By: #### L ALC3 #### [facility] [address] [place], [place] [address] Basophils/100 WBC (Bld) 0.5 % Normal [facility] Comment on above: Performed By: #### L ALC3 #### [facility] [address] [place], [place] [address] Eosinophils #/vol (Bld) 0.16 thou/cmm Normal 0.04-0.54 [facility] Comment on above: Performed By: #### L ALC3 #### [facility] [address] [place], [place] [address] Eosinophils/100 WBC (Bld) 1.1 % Normal [facility] Comment on above: Performed By: #### L ALC3 #### [facility] [address] [place], [place] [address] Immature Grans 0.60 % Normal [facility] Comment on above: Performed By: #### L ALC3 #### [facility] [address] [place], [place] [address] Lymphocytes #/vol (Bld) 1.24 thou/cmm Normal 0.84-2.85 [facility] Comment on above: Performed By: #### L ALC3 #### [facility] [address] [place], [place] [address] Lymphocytes/100 WBC (Bld) 8.7 % Normal [facility] Comment on above: Performed By: #### L ALC3 #### [facility] [address] [place], [place] [address] Monocytes/100 WBC (Bld) 16.8 % Normal [facility] Comment on above: Performed By: #### L ALC3 #### [facility] [address] [place], [place] [address] Seg Neutrophil 72.3 % Normal [facility] Comment on above: Performed By: #### L ALC3 #### [facility] [address] [place] [address] Erythrocyte distribution width Ratio (RBC) 12.9 % Normal 11.6-14.4 [facility] Comment on above: Performed By: #### L ALC3 #### [facility] [address] [place] [address] Hematocrit Volume Fraction (Bld) 40.8 % Normal 40.1-51.0 [facility] Comment on above: Performed By: #### L ALC3 #### [facility] [address] [place] [address] Hemoglobin mass conc (Bld) 13.4 g/dL Low 13.7-17.5 [facility] Comment on above: Performed By: #### L ALC3 #### [facility] [address] [place] [address] MCH Entitic mass (RBC) 34.0 pg High 25.7-32.2 [facility] Comment on above: Performed By: #### L ALC3 #### [facility] [address] [place] [address] MCHC mass conc (RBC) 32.8 % Normal 32.3-36.5 [facility] Comment on above: Performed By: #### L ALC3 #### [facility] [address] [place] [address] MCV Entitic volume (RBC) 103.6 fL High 83.2-95.6 [facility] Comment on above: Performed By: #### L ALC3 #### [facility] [address] [place] [address] Platelet mean volume Entitic volume (Bld) 10.7 fL Normal 8.7-12.0 [facility] Comment on above: Performed By: #### L ALC3 #### [facility] [address] [place] [address] Platelets #/vol (Bld) 393 thou/cmm High 141-365 [facility] Comment on above: Performed By: #### L ALC3 #### [facility] [address] [place] [address] RBC #/vol (Bld) 3.94 mil/cmm Low 4.63-6.08 [facility] Comment on above: Performed By: #### L ALC3 #### [facility] [address] [place] [address] RDW SD 48.8 fl High 36.1-45.8 [facility] Comment on above: Performed By: #### L ALC3 #### [facility] [address] [place] [address] WBC #/vol (Bld) 14.30 thou/cmm High 4.23-9.07 [facility] Comment on above: Performed By: #### L ALC3 #### [facility] [address] [place] [address] Hepatic Panelon 10-27-2018 ALP enzyme act/vol 63 U/L Normal 46-116 [facility] Comment on above: Performed By: #### L ALC3 #### [facility] [address] [place] [address] AST enzyme act/vol 26 U/L Normal 9-37 [facility] Comment on above: Performed By: #### L ALC3 #### [facility] [address] [place] [address] Protein mass conc 7.2 g/dL Normal 6.4-8.2 [facility] Comment on above: Performed By: #### L ALC3 #### [facility] [address] [place] [address] Bilirubin mass conc 0.25 mg/dL High 0.00-0.20 [facility] Comment on above: Performed By: #### L ALC3 #### [facility] [address] [place] [address] Bilirubin mass conc 0.6 mg/dL Normal 0.2-1.0 [facility] Comment on above: Performed By: #### L ALC3 #### [facility] [address] [place] [address] ALT enzyme act/vol 50 U/L Normal 12-78 [facility] Comment on above: Performed By: #### L ALC3 #### [facility] [address] [place] [address] Ionized Calciumon 10-27-2018 Ionized Ca,PH7.4 4.86 mg/dL Normal 4.61-5.17 [facility] Comment on above: Performed By: #### L ALC3 #### [facility] [address] [place], [place] [address] pH (Bld) 7.422 [pH] Normal 7.320-7.430 [facility] Comment on above: Performed By: #### L ALC3 #### [facility] [address] [place], [place] [address] Ionized Calcium 4.81 mg/dL Normal 4.61-5.17 [facility] Comment on above: Performed By: #### L ALC3 #### [facility] [address] [place], [place] [address] NURSING PROGon 10-27-2018 Protein mass conc HNO ID: [id number] Author: Missy Chavez) JOSHUA Klein Service: Nursing Author Type: Registered Nurse Type: Nursing Progress Note Filed: 10/27/2018 3:29 PM Note Text: Nursing Progress: Topic: RESTRAINT NON-VIOLENT PATIENT NAME: Lorenzo Steiner PATIENT LOCATION: [place] [address]/[place] [address]* The patient demonstrates Attempting to Remove Medical Devices Vital to Medical Stability, Confusion, Lack of Understanding/Ability to Comply with Safety Directions, Impulsive Behavior, Inability to be Redirected, Inability to Retain Information Regarding Safety Directions as evidenced by the following behaviors attempts to pull at lines and tubes which pose an imminent danger to self or others. The following interventions were attempted but were not effective in protecting the patient's safety: Contraindicated - Imminent Safety Risk Next, a comprehensive assessment was performed and warranted placing the patient in Soft Bilateral Wrists, the least restrictive restraint needed to protect the patient's safety. Ongoing safety assessments and evaluation for earliest removal of restraints will be performed. DATE: October 27, 2018 TIME: 3:29 PM JOSHUA Palumbo [facility] NUTRITIONon 10-27-2018 NUTRITION HNO ID: [id number] Author: Daphne Naqvi RD Service: Nutrition Therapy Author Type: Registered Dietitian Type: Nutrition Filed: 10/27/2018 12:59 PM Note Text: NUTRITION THERAPY PROGRESS NOTE SERVICE DATE: 10/27/2018 SERVICE TIME: 12:31 PM RECOMMENDED DIAGNOSIS: NO MALNUTRITION IDENTIFIED NUTRITION CARE PLAN Intervention: Change TF of Impact Peptide to 48 ml/hr to provide 1728 kcals, 108 g protein, 890 ml free water. (25 kcals/kg of IBW of 68 kg) Collaborated with Dr Holder and Missy, RN. Pt with increased secretions per RN. Pt is agitated when not sedated. Monitor and Evaluation: Goal: Meet >75% of estimated needs Monitor fluid/electrolyte balance Monitor labs, I/Os, vital signs, weight Monitor tolerance to tube feeding Per HPI: Per Ej Solis, DO: This is a 48 year old male with a past medical history significant for insomnia. ?He presented to [place] ED for hallucinations escorted by police. Per ED note the patients symptoms started several years ago and progressively became worse. He was previously taking trazodone for insomnia, but stopped over a year ago for unclear reasons. It was noted that the hallucinations are both visual and auditory for people attacking him. ? While in the ED the patient was noted to be agitated with concern for seizure activity. This was treated with ativan and Geodon. ?After which he was noted be still be agitated, but not ventilating well. ?He was subsequently intubated for airway protection. He also had a lumbar puncture for possible infection. Interval History: Pt remains intubated with metabolic encephalopathy. Toxicity screen was negative. EEG was negative for seizure activity. MRI was negative. LP was negative. Increased secretions per RN. Nutritional Intake: >75% of estimated needs for 3 to 4 days r/t TF Orders Placed This Encounter DIET TUBE FEED - CONTIN (NO TRAY) Standing Status: Standing Number of Occurrences: 1 Order Specific Question: TF Product (26 years and up) Answer: IMPACT PEPTIDE 1.5 (RD APPROVAL) Order Specific Question: TF Total mL per 24 hours Answer: 1272 Order Specific Question: TF Goal Rate (mL/hr) Answer: 53 Order Specific Question: TF Route Answer: OROGASTRIC Order Specific Question: TF Initial Rate (mL/hr) Answer: 20 Order Specific Question: TF Advance by (mL/hr) Answer: 10 Order Specific Question: TF Advance every (hrs) Answer: 6 Order Specific Question: TF Water Flush Amount (mL) Answer: 30 Order Specific Question: TF Water Flush Frequency (times/day) Answer: 4 Order Specific Question: FOR RDs ONLY Provider Collaborated With Answer: MORIAH BROOKS [[id number]] Lines and Drains: Peripheral 10/25/18 0200 Short Right Arm 18 Gauge (Active) Peripheral 10/25/18 0200 Forearm 20 Gauge (Active) GI Feed/Drain Assessment Nasogastric Left Naris (Active) External Collection Device 10/26/18 1022 Assessment (Active) Height: 172.7 cm (5' 8) Admission Weight: 65.9 kg (145 lb 4.8 oz) Current Weight: 65 kg (143 lb 4.8 oz) Body mass index is 21.79 kg/m?. normal Recent Labs 10/27/18 1100 10/25/18 0425 GLUC 110* 118* BUN 12 8 CREAT 0.51* 0.57* NA 141 142 K 3.9 3.5 CHLOR 107 110* CO2 26 26 ALB 2.7* 2.5* P 4.2 2.9 HB -- 13.0* HCT -- 39.0* WBC -- 12.26* MG -- 1.9 Current Facility-Administered Medications Medication Dose Route Frequency - LORazepam 2 mg injection (ATIVAN) 2 mg INTRAVENOUS q 4 H PRN - QUEtiapine 25 mg tab(s) (SEROquel) 25 mg ORAL BID - folic acid 1 mg tab(s) 1 mg ORAL DAILY - docusate 100 mg oral liquid (DIOCTO, COLACE) 100 mg ORAL BID PRN - glycopyrrolate 1 mg tab(s) (ROBINUL) 1 mg ORAL TID - potassium chloride 80-120 mEq oral liquid 80-120 mEq ORAL/FEEDING TUBE PRN - potassium chloride iv piggyback 20 mEq/100 mL 20 mEq INTRAVENOUS PRN - magnesium sulfate in water 2 g in sterile water 50 ml 2 g INTRAVENOUS PRN - sodium glycerophosphate 45 mmol in NaCl 0.9% 250 mL (GLYCOPHOS) 45 mmol INTRAVENOUS PRN - calcium gluconate 4 g in NaCl 0.9% 250 mL 4 g INTRAVENOUS PRN - enoxaparin 40 mg injection (LOVENOX) 40 mg SUBCUTANEOUS DAILY - propofol infusion (DIPRIVAN) 5-60 mcg/kg/min INTRAVENOUS CONTINUOUS - albuterol 2.5 mg /3 mL (0.083 %) 2.5 mg (PROVENTIL) 2.5 mg INHALATION q 4 H PRN - famotidine 20 mg tab(s) (PEPCID) 20 mg ORAL/FEEDING TUBE BID - lactated ringers infusion 5-30 mL/hr INTRAVENOUS CONTINUOUS - Chlorhexidine Gluconate 0.12 % 15 mL (PERIDEX) 15 mL ORAL q 12 H - thiamine 200 mg tab(s) (VITAMIN B1) 200 mg ORAL TID Date 10/26/18699 - 10/27/1865810/27/18699 - 10/28/18 0659 Shift 3146-1409 3674-5377 8532-6801 24 Hour Total 0733-1174 5069-5374 6751-2167 24 Hour Total INTAKE IV 488.6 188.5 657 1334.1 112.4 112.4 NS 0.9% 368 368 LR 251.7 105.8 357.5 66.9 66.9 Propofol IV 236.9 82.7 289 608.6 45.5 45.5 Irrigants 230 60 290 0 0 Irrigant/Flush Amount In (GI Feed/Drain Assessment Nasogastric Left Naris) 230 60 290 0 0 Gastric Tube 436 159 781 6517 94 94 Tube Feed Intake (I/O) (GI Feed/Drain Assessment Nasogastric Left Naris) 436 495 341 9357 94 94 Shift Total 1154.6 330.5 1405 2890.1 206.4 206.4 OUTPUT Urine 250 255 481 3888 0 0 Void (ml) 533 648 0188 Output ([REMOVED] Indwelling Urinary Catheter 10/23/18 0131 Reed 16 Fr 10/26/18 1018) 250 250 Output ( External Collection Device 10/26/18 1022 Assessment) 0 0 0 0 0 Output ([REMOVED] Indwelling Urinary Catheter 10/26/18 1742 Assessment Straight Cath 10/26/18 1747) 350 350 # of BMs Number of BMs 0 x 0 x Shift Total 250 434 926 6307 0 0 Weight (kg) 65 65 65 65 65 65 65 65 MNT Billing Type: Re-assess/15 min 3 units SIGNATURE: Daphne Naqvi RD PATIENT NAME: Lorenzo Steiner DATE: October 27, 2018 TIME: 12:30 PM PAGER: [phone] [facility] PROGRESSon 10-27-2018 Protein mass conc HNO ID: [id number] Author: Kyle (Rn) JOSHUA Nnia Service: Nursing Author Type: Registered Nurse Type: Progress Notes Filed: 10/27/2018 7:38 PM Note Text: Nursing Progress: Topic: RESTRAINT NON-VIOLENT PATIENT NAME: Lorenzo Steiner PATIENT LOCATION: [place] [address]/[place] [address]* The patient demonstrates Attempting to Remove Medical Devices Vital to Medical Stability, Confusion, Lack of Understanding/Ability to Comply with Safety Directions, Impulsive Behavior, Inability to be Redirected, Inability to Retain Information Regarding Safety Directions as evidenced by the following behaviors pt impulsive reaching for ET Tube,, IV lines, attempting to exit bed without assistance which pose an imminent danger to self or others. The following interventions were attempted but were not effective in protecting the patient's safety: Contraindicated - Imminent Safety Risk Next, a comprehensive assessment was performed and warranted placing the patient in Soft Bilateral Wrists, the least restrictive restraint needed to protect the patient's safety. Ongoing safety assessments and evaluation for earliest removal of restraints will be performed. DATE: October 27, 2018 TIME: 7:37 PM Kyle Nina RN [facility] Protein mass conc HNO ID: [id number] Author: Graham Stevenson Service: Critical Care Author Type: Physician Type: Progress Notes Filed: 10/27/2018 8:45 AM Note Text: MICU - PROGRESS NOTE SERVICE DATE: October 27, 2018 Admission Date: 10/23/2018 AGE: [age] year old LOS: 4 days Subjective S/p intubation on 10/23 for acute encephalopathy Pino is negative for seizure and CT brain within normal limits as well as brain MRI Was following commands per nurse this morning Received Ativan as he was sweating and ?? Anxious Propofol on hold Objective PROBLEMS: ACTIVE PROBLEM LIST Shoulder Pain Allergic Rhinitis Elevated Blood Pressure Hip Pain Brandon Involving Less Than 10% of Body Surface Insomnia Tobacco Abuse Disorder Alcohol Abuse Smoker Respiratory Failure (Hcc) Altered Mental Status, Unspecified PAST MEDICAL HISTORY Diagnosis Date - No disease found PAST SURGICAL HISTORY Procedure Laterality Date - NONE Social History Socioeconomic History Marital status: Spouse name: Not on file Number of children: Not on file Years of education: Not on file Highest education level: Not on file Social Needs Financial resource strain: Not on file Food insecurity - worry: Not on file Food insecurity - inability: Not on file Transportation needs - medical: Not on file Transportation needs - non-medical: Not on file Occupational History Not on file Tobacco Use Smoking status: Current Every Day Smoker Packs/day: 1.00 Smokeless tobacco: Never Used Tobacco comment: 20 years. planning to quit. Substance and Sexual Activity Alcohol use: No Comment: last drank one month ago Drug use: No Sexual activity: Yes Partners: Female Other Topics Concerns: Not on file Social History Narrative Not on file VITAL SIGNS (last 24hrs min/max): Temp Av.9 ?C (98.5 ?F) Min: 35.8 ?C (96.4 ?F) Max: 37.5 ?C (99.5 ?F) Pulse Av.1 Min: 69 Max: 96 No data recorded Cuff BP Min: 95/62 Max: 144/100 Pain Level: 0 Vital signs reviewed. BP 125/84 Pulse 85 Temp (Src) 98.6 (Temporal Artery) Resp 26 Ht 5' 8 (1.73m) Wt 143 lb 4.8 oz (65.0kg) SpO2 97% BMI 21.79 kg/(m2). Temp (24hrs), Av.9 ?C (98.5 ?F), Min:35.8 ?C (96.4 ?F), Max:37.5 ?C (99.5 ?F) NET FLUID BALANCE Intake/Output Summary (Last 24 hours) at 10/27/2018 0829 Last data filed at 10/27/2018 0800 Gross per 24 hour Intake 2808.3 ml Output 1700 ml Net 1108.3 ml MEDICATIONS Current Facility-Administered Medications Medication Dose Route Frequency - potassium chloride 80-120 mEq oral liquid 80-120 mEq ORAL/FEEDING TUBE PRN - potassium chloride iv piggyback 20 mEq/100 mL 20 mEq INTRAVENOUS PRN - magnesium sulfate in water 2 g in sterile water 50 ml 2 g INTRAVENOUS PRN - sodium glycerophosphate 45 mmol in NaCl 0.9% 250 mL (GLYCOPHOS) 45 mmol INTRAVENOUS PRN - calcium gluconate 4 g in NaCl 0.9% 250 mL 4 g INTRAVENOUS PRN - enoxaparin 40 mg injection (LOVENOX) 40 mg SUBCUTANEOUS DAILY - propofol infusion (DIPRIVAN) 5-60 mcg/kg/min INTRAVENOUS CONTINUOUS - albuterol 2.5 mg /3 mL (0.083 %) 2.5 mg (PROVENTIL) 2.5 mg INHALATION q 4 H PRN - famotidine 20 mg tab(s) (PEPCID) 20 mg ORAL/FEEDING TUBE BID - lactated ringers infusion 5-30 mL/hr INTRAVENOUS CONTINUOUS - LORazepam 2-4 mg injection (ATIVAN) 2-4 mg INTRAVENOUS q 2 H PRN - Chlorhexidine Gluconate 0.12 % 15 mL (PERIDEX) 15 mL ORAL q 12 H - thiamine 200 mg tab(s) (VITAMIN B1) 200 mg ORAL TID Lines, Drains, and Airways Line Peripheral 10/25/18 0200 Forearm 20 Gauge 2 days Peripheral 10/25/18 0200 Short Right Arm 18 Gauge 2 days Drain GI Feed/Drain Assessment Nasogastric Left Naris -- days External Collection Device 10/26/18 1022 Assessment less than 1 day Airway Airway Endotracheal Tube 10/23/18 0111 4 days PHYSICAL EXAM PERFORMED: General: no acute distress Cardiovascular: Regular rhythm Respiratory: Clear to auscultation Abdomen: Soft and Nontender Extremities: Edema- No Neurologic: Sedated Respiratory/Nursing Documentation: O2 Therapy: Ventilator (10/27/18810) Invasive Ventilator Mode: Continuous Mandatory Ventilation (10/27/18810) Set Ventilator Respiratory Rate (BPM): 18 (10/27/18810) Total Respiratory Rate (BPM): 31 (10/27/18810) Tidal Volume Set (mL): 350 (10/27/18810) Exhaled Tidal Volume (mL): 304 (10/27/18810) Minute Volume (L): 12.4 (10/27/18810) Peak Inspiratory Pressure (cm H2O): 16 (10/27/18810) PEEP/CPAP (cm H2O): 5 (10/27/18810) HEMODYNAMIC DATA: Reviewed NUTRITION: Enteral Feeds: Yes TF at goal DATA: Diagnostic tests reviewed for today's visit, films/specimens were personally reviewed by me: Most recent labs and imaging results. LABS: Recent Labs 10/25/18 0425 WBC 12.26* RBC 3.81* HB 13.0* HCT 39.0* MCV 102.4* PLT 354 GLUC 118* BUN 8 CREAT 0.57* NA 142 K 3.5 CHLOR 110* CO2 26 TPROT 6.1* ALB 2.5* CA 8.3* ALKPHOS 58 TBILI 0.4 AST 32 ALT 87* MG 1.9 ABG: Invalid input(s): [id number] Brain MRI 1. ?No acute intracranial abnormality. 2. ?Mild degree supratentorial chronic microvascular ischemic changes. 3. ?Chronic rhinosinusitis, most prominent left ethmoid and maxillary sinus. ?Mild mucosal changes of the ethmoid, left maxillary and frontal sinus. ?No fluid levels are seen. Assessment/Plan IMPRESSION: Critical Care Documentation: The patient has the following organ/system impairment(s): Acute hypoxic respiratory failure Acute encephalopathy( unkown etiology)/delirium/ag itation of unclear etiology ?? Drug intoxication transaminitis improving Anemia Multiple chronic medical problems CRITICAL CARE PLAN: Keep holding propofol Change Ativan to 2 mg every 4 hrs as needed ( apparently received multiple dose at night) not clear if this is true ETOH withdrawal Start seroquel low dose If needed for agitation can switch to precedex Full vent support for now, will try SBT once following commands Seen by neuro, no seizure and no acute IC process This patient has a high probability of sudden, clinically significant deterioration, which requires the highest level of physician preparedness to intervene urgently. I managed/supervised life or organ supporting interventions that required frequent physician assessment. I devoted my full attention to the direct care of this patient for the amount of time indicated below. Time I spent with family or surrogate(s) is included only if the patient was incapable of providing the necessary information or participating in medical decision making. Time devoted to teaching is not included. Discussed with staff Time spent providing critical care services: 30 minutes excluding procedures. SIGNATURE: Graham Stevenson MD PATIENT NAME: Lorenzo Steiner DATE: October 27, 2018 TIME: 8:29 AM Normal [facility] Renal Panelon 10-27-2018 Creatinine mass conc 0.51 mg/dL Low 0.67-1.17 [facility] Comment on above: Performed By: #### L ALC3 #### [facility] [address] [place] [address] Phosphate mass conc 4.2 mg/dL Normal 2.5-4.9 [facility] Comment on above: Performed By: #### L ALC3 #### [facility] [address] [place], [place] [address] Albumin mass conc 2.7 g/dL Low 3.4-5.0 [facility] Comment on above: Performed By: #### L ALC3 #### [facility] [address] [place], [place] [address] CO2 molar conc 26 mmol/L Normal 21-32 [facility] Comment on above: Performed By: #### L ALC3 #### [facility] [address] [place] [address] Glucose mass conc 110 mg/dL High 70-99 [facility] Comment on above: Performed By: #### L ALC3 #### [facility] [address] [place] [address] Urea nitrogen mass conc 12 mg/dL Normal 7-18 [facility] Comment on above: Performed By: #### L ALC3 #### [facility] [address] [place] [address] Calcium mass conc 9.2 mg/dL Normal 8.5-10.1 [facility] Comment on above: Performed By: #### L ALC3 #### [facility] [address] [place] [address] Chloride molar conc 107 mmol/L Normal 98-107 [facility] Comment on above: Performed By: #### L ALC3 #### [facility] [address] [place] [address] Potassium molar conc 3.9 mmol/L Normal 3.5-5.1 [facility] Comment on above: Performed By: #### L ALC3 #### [facility] [address] [place] [address] Sodium molar conc 141 mmol/L Normal 136-145 [facility] Comment on above: Performed By: #### L ALC3 #### [facility] [address] [place] [place] [address] NURSING PROGon 10-26-2018 Protein mass conc HNO ID: [id number] Author: Anisa (Rn) JOSHUA Patel Service: Nursing Author Type: Registered Nurse Type: Nursing Progress Note Filed: 10/26/2018 9:08 AM Note Text: Nursing Progress: Topic: RESTRAINT NON-VIOLENT PATIENT NAME: Lorenzo Steiner PATIENT LOCATION: [place] [address]/[place] [address]* The patient demonstrates Inability to Retain Information Regarding Safety Directions, Inability to be Redirected, Impulsive Behavior, Lack of Understanding/Ability to Comply with Safety Directions, Attempting to Remove Medical Devices Vital to Medical Stability as evidenced by the following behaviors restless and aggitated with intervention and reaches for et tube and lines pt does not follow commands restraints maintained to protect airway management which pose an imminent danger to self or others. The following interventions were attempted but were not effective in protecting the patient's safety: Bed in Low/Locked Position, Call Light Within Reach, Medications Reviewed, Modify Environment, IV/Feeding Bag/Pump Out of Vision, Modify Equipment, Frequent Observation, Pain/Discomfort Relief, Re-Orientation Methods Next, a comprehensive assessment was performed and warranted placing the patient in Soft Bilateral Wrists, the least restrictive restraint needed to protect the patient's safety. Ongoing safety assessments and evaluation for earliest removal of restraints will be performed. DATE: October 26, 2018 TIME: 9:07 AM Anisa Patel RN [facility] Protein mass conc HNO ID: [id number] Author: Alysia RamseyRn) JOSHUA Friedman Service: Nursing Author Type: Registered Nurse Type: Nursing Progress Note Filed: 10/25/2018 10:18 PM Note Text: Nursing Progress: Topic: RESTRAINT NON-VIOLENT PATIENT NAME: Lorenzo Steiner PATIENT LOCATION: [place] [address]/[place] [address]* The patient demonstrates Inability to Retain Information Regarding Safety Directions, Inability to be Redirected, Impulsive Behavior, Lack of Understanding/Ability to Comply with Safety Directions, Attempting to Remove Medical Devices Vital to Medical Stability as evidenced by the following behaviors attempts to pull at ETT tube, cathedar, and OG tube which pose an imminent danger to self or others. The following interventions were attempted but were not effective in protecting the patient's safety: Bed in Low/Locked Position, Call Light Within Reach, Medications Reviewed, Modify Environment, IV/Feeding Bag/Pump Out of Vision, Modify Equipment, Frequent Observation, Pain/Discomfort Relief, Re-Orientation Methods Next, a comprehensive assessment was performed and warranted placing the patient in Soft Bilateral Wrists, the least restrictive restraint needed to protect the patient's safety. Ongoing safety assessments and evaluation for earliest removal of restraints will be performed. DATE: October 25, 2018 TIME: 10:13 PM Alysia Friedman RN [facility] PROGRESSon 10-26-2018 Protein mass conc HNO ID: [id number] Author: Kyle Nina RN Service: Nursing Author Type: Registered Nurse Type: Progress Notes Filed: 10/26/2018 8:13 PM Note Text: Nursing Progress: Topic: RESTRAINT NON-VIOLENT PATIENT NAME: Lorenzo Steiner PATIENT LOCATION: [place] [address]/[place] [address]* The patient demonstrates Attempting to Remove Medical Devices Vital to Medical Stability, Lack of Understanding/Ability to Comply with Safety Directions, Impulsive Behavior, Inability to be Redirected, Inability to Retain Information Regarding Safety Directions as evidenced by the following behaviors pt attempting to pull at IV lines, monitor leads, NG and ET tubes which pose an imminent danger to self or others. The following interventions were attempted but were not effective in protecting the patient's safety: Bed in Low/Locked Position, Call Light Within Reach, Partial Bedrails Up, Re-Orientation Methods, Frequent Observation, Modify Equipment, Modify Environment, Medications Reviewed, IV/Feeding Bag/Pump Out of Vision, Pain/Discomfort Relief Next, a comprehensive assessment was performed and warranted placing the patient in Soft Bilateral Wrists, the least restrictive restraint needed to protect the patient's safety. Ongoing safety assessments and evaluation for earliest removal of restraints will be performed. DATE: October 26, 2018 TIME: 8:11 PM Kyle Nina RN [facility] Protein mass conc HNO ID: [id number] Author: Satya Schultz Service: Critical Care Author Type: Physician Type: Progress Notes Filed: 10/26/2018 12:20 AM Note Text: CRITICAL CARE PROGRESS NOTE SERVICE DATE: October 26, 2018 SERVICE TIME: 12:19 AM Admission Date: 10/23/2018 AGE: [age] year old LOS: 3 days REASON FOR ICU ADMISSION: Acute hypoxic respiratory failure Acute encephalopathy/deliri um/agitation ACTIVE PROBLEM LIST Shoulder Pain Allergic Rhinitis Elevated Blood Pressure Hip Pain Brandon Involving Less Than 10% of Body Surface Insomnia Tobacco Abuse Disorder Alcohol Abuse Smoker Respiratory Failure (Hcc) Altered Mental Status, Unspecified Subjective Patient is resting comfortably in bed while sedated and intubated/on the ventilator without any current distress. Objective VITAL SIGNS: BP 112/75 Pulse 76 Temp 36.6 ?C (97.9 ?F) (Temporal Artery) Resp 23 Ht 172.7 cm (5' 8) Wt 65 kg (143 lb 4.8 oz) SpO2 99% BMI 21.79 kg/m? 24 hour Intake AND Output: Intake/Output Summary (Last 24 hours) at 10/26/2018 0019 Last data filed at 10/25/2018 1800 Gross per 24 hour Intake 2393.8 ml Output 1410 ml Net 983.8 ml PHYSICAL EXAM: RRR Minimal scattered crackles bilaterally without wheezing bilaterally anteriorly. Scattered bowel sounds, soft, nontender, nondistended. Mild peripheral edema. Dry, intact skin with fair turgor. VENTILATOR INFORMATION:WEANING DATA: Settings: Invasive Ventilator Mode: Continuous Mandatory Ventilation;Volume Control (10/25/18 193) %FIO2: 30 Set Ventilator Respiratory Rate (BPM): 18 Tidal Volume Set (mL): 350 PEEP/CPAP (cm H2O): 5 Patient Data: Inspiratory:Expirator y Ratio: 1:2.7 Peak Inspiratory Pressure (cm H2O): 14 Plateau Pressure (cm H2O): 12 Lines, Drains, and Airways Line Peripheral 10/25/18 0200 Forearm 20 Gauge less than 1 day Peripheral 10/25/18 0200 Short Right Arm 18 Gauge less than 1 day Drain GI Feed/Drain Assessment Nasogastric Left Naris -- days Indwelling Urinary Catheter 10/23/18 0131 Reed 16 Fr 2 days Airway Airway Endotracheal Tube 10/23/18 0111 2 days INPATIENT MEDICATIONS: Current Facility-Administered Medications Medication Dose Route Frequency - potassium chloride 80-120 mEq oral liquid 80-120 mEq ORAL/FEEDING TUBE PRN - potassium chloride iv piggyback 20 mEq/100 mL 20 mEq INTRAVENOUS PRN - magnesium sulfate in water 2 g in sterile water 50 ml 2 g INTRAVENOUS PRN - sodium glycerophosphate 45 mmol in NaCl 0.9% 250 mL (GLYCOPHOS) 45 mmol INTRAVENOUS PRN - calcium gluconate 4 g in NaCl 0.9% 250 mL 4 g INTRAVENOUS PRN - enoxaparin 40 mg injection (LOVENOX) 40 mg SUBCUTANEOUS DAILY - propofol infusion (DIPRIVAN) 5-60 mcg/kg/min INTRAVENOUS CONTINUOUS - albuterol 2.5 mg /3 mL (0.083 %) 2.5 mg (PROVENTIL) 2.5 mg INHALATION q 4 H PRN - famotidine 20 mg tab(s) (PEPCID) 20 mg ORAL/FEEDING TUBE BID - lactated ringers infusion 5-30 mL/hr INTRAVENOUS CONTINUOUS - LORazepam 2-4 mg injection (ATIVAN) 2-4 mg INTRAVENOUS q 2 H PRN - Chlorhexidine Gluconate 0.12 % 15 mL (PERIDEX) 15 mL ORAL q 12 H - thiamine 200 mg tab(s) (VITAMIN B1) 200 mg ORAL TID NUTRITION: Enteral Feeds: Yes DATA: BLOOD GAS: Recent Labs 10/24/18 0945 VPH 7.445* VPC2 37.0* VPO2C 171.0* RESPHCO3 25.0 W2QCQNPO 99.3* CBC: Recent Labs 10/25/1842410/24/1860910/23/18 0530 10/22/18 2313 WBC 12.26* 8.52 5.55 6.2 HB 13.0* 13.2* 12.9* 13.1* HCT 39.0* 39.8* 38.9* 39.5* PLT 354 332 291 334 MCV 102.4* 103.1* 104.6* 103.1* BMP: Recent Labs 10/25/1842410/24/1860910/23/18 0530 10/22/18 2313 GLUC 118* 101* 94 105* NA 142 140 142 146 K 3.5 3.4* 4.0 3.8 CHLOR 110* 109* 110* 110* CO2 26 24 23 24 ANION 10 10 13 16 BUN 8 6* 12 19 CREAT 0.57* 0.48* 0.48* 0.69 CHEM: Recent Labs 10/25/1842410/24/18 0610/23/18 1020 10/23/18 0530 10/22/18 2313 ALB 2.5* -- 3.3* -- 3.5 TPROT 6.1* -- 6.7 -- 7.4 CA 8.3* 8.0* -- 7.3* 8.9 MG 1.9 -- 2.4 2.5 2.1 ICAL 4.54* -- 4.37* -- -- HEPATIC: Recent Labs 10/25/18 0425 10/23/18 1020 10/22/18 2313 ALKPHOS 58 53 62 ALT 87* 139* 148* AST 32 86* 64* TBILI 0.4 0.7 0.4 URINALYSIS: Recent Labs 10/22/18 2317 SPGR 1.025 UGLUC NEGATIVE UBILI NEGATIVE UKET NEGATIVE UPROT 1+* UROBIL 1.0 UWBC NONE Assessment/Plan ASSESSMENT: Acute hypoxic respiratory failure Acute encephalopathy/deliri um/agitation Anemia Multiple chronic medical problems PLAN: Continue full ventilator support without wean for now. Continue to monitor patient's mentation. Attempt to wean patient to extubation after weekend. EEG was negative. MRI revealed no acute abnormalities. Neurology following. Continue supportive care. Continue ICU care and monitoring. This patient has a high probability of sudden, clinically significant deterioration, which requires the highest level of physician preparedness to intervene urgently. I managed/supervised life or organ supporting interventions that required frequent physician assessment. I devoted my full attention to the direct care of this patient for the amount of time indicated below. Time I spent with family or surrogate(s) is included only if the patient was incapable of providing the necessary information or participating in medical decision making. Time devoted to teaching and to any procedures I billed separately is not included. PROGNOSIS: Guarded Code status: Full Code. Discussed with Registered Nurse. Critical Care Documentation: The patient has the following organ/system impairment(s): Encephalopathy and Respiratory failure (Acute, with Hypoxemia) Time spent providing critical care services: 18 minutes. SIGNATURE: Satya Schultz MD [facility] PAGER:[phone] DATE of SERVICE: October 26, 2018 TIME of SERVICE: 12:19 AM Normal [facility] Comprehensive Panelon 2018 ALP enzyme act/vol 58 U/L Normal 46-116 [facility] Comment on above: Performed By: #### L MCBD #### [address] [address] Bilirubin mass conc 0.4 mg/dL Normal 0.2-1.0 [facility] Comment on above: Performed By: #### L MCBD #### [address] [address] Protein mass conc 6.1 g/dL Low 6.4-8.2 [facility] Comment on above: Performed By: #### L MCBD #### [facility] [address] [place], [place] [address] ALT enzyme act/vol 87 U/L High 12-78 [facility] Comment on above: Performed By: #### L MCBD #### [facility] [address] [place], [place] [address] AST enzyme act/vol 32 U/L Normal 9-37 [facility] Comment on above: Performed By: #### L MCBD #### [facility] [address] [place], [place] [address] Creatinine mass conc 0.57 mg/dL Low 0.67-1.17 [facility] Comment on above: Performed By: #### L MCBD #### [facility] [address] [place], [place] [address] Albumin mass conc 2.5 g/dL Low 3.4-5.0 [facility] Comment on above: Performed By: #### L MCBD #### [facility] [address] [place], [place] [address] Urea nitrogen mass conc 8 mg/dL Normal 7-18 [facility] Comment on above: Performed By: #### L MCBD #### [facility] [address] [place], [place] [address] Anion gap molar conc 10 mmol/L Normal 8-16 [facility] Comment on above: Performed By: #### L MCBD #### [facility] [address] [place], [place] [address] Calcium mass conc 8.3 mg/dL Low 8.5-10.1 [facility] Comment on above: Performed By: #### L MCBD #### [facility] [address] [place], [place] [address] CO2 molar conc 26 mmol/L Normal 21-32 [facility] Comment on above: Performed By: #### L MCBD #### [facility] [address] [place], [place] [address] Glucose mass conc 118 mg/dL High 70-99 [facility] Comment on above: Performed By: #### L MCBD #### [facility] [address] [place] [address] Chloride molar conc 110 mmol/L High 98-107 [facility] Comment on above: Performed By: #### L MCBD #### [facility] [address] [place] [address] Potassium molar conc 3.5 mmol/L Normal 3.5-5.1 [facility] Comment on above: Performed By: #### L MCBD #### [facility] [address] [place] [address] Sodium molar conc 142 mmol/L Normal 136-145 [facility] Comment on above: Performed By: #### L MCBD #### [facility] [address] [place] [address] Hemogramon 10-25-2018 Erythrocyte distribution width Ratio (RBC) 13.2 % Normal 11.6-14.4 [facility] Comment on above: Performed By: #### L MCBD #### [facility] [address] [place] [address] Hematocrit Volume Fraction (Bld) 39.0 % Low 40.1-51.0 [facility] Comment on above: Performed By: #### L MCBD #### [facility] [address] [place] [address] Hemoglobin mass conc (Bld) 13.0 g/dL Low 13.7-17.5 [facility] Comment on above: Performed By: #### L MCBD #### [facility] [address] [place] [address] MCH Entitic mass (RBC) 34.1 pg High 25.7-32.2 [facility] Comment on above: Performed By: #### L MCBD #### [facility] [address] [place] [address] MCHC mass conc (RBC) 33.3 % Normal 32.3-36.5 [facility] Comment on above: Performed By: #### L MCBD #### [facility] [address] [place] [address] MCV Entitic volume (RBC) 102.4 fL High 83.2-95.6 [facility] Comment on above: Performed By: #### L MCBD #### [facility] [address] [place] [address] Platelet mean volume Entitic volume (Bld) 9.8 fL Normal 8.7-12.0 [facility] Comment on above: Performed By: #### L MCBD #### [facility] [address] [place] [address] Platelets #/vol (Bld) 354 thou/cmm Normal 141-365 [facility] Comment on above: Performed By: #### L MCBD #### [facility] [address] [place] [address] RBC #/vol (Bld) 3.81 mil/cmm Low 4.63-6.08 [facility] Comment on above: Performed By: #### L MCBD #### [facility] [address] [place] [address] RDW SD 50.0 fl High 36.1-45.8 [facility] Comment on above: Performed By: #### L MCBD #### [facility] [address] [place] [address] WBC #/vol (Bld) 12.26 thou/cmm High 4.23-9.07 [facility] Comment on above: Performed By: #### L MCBD #### [facility] [address] [place] [address] Ionized Calciumon 10-25-2018 Ionized Ca,PH7.4 4.62 mg/dL Normal 4.61-5.17 [facility] Comment on above: Performed By: #### L MCBD #### [facility] [address] [place] [address] pH (Bld) 7.434 [pH] High 7.320-7.430 [facility] Comment on above: Performed By: #### L MCBD #### [place] [address] Ionized Calcium 4.54 mg/dL Low 4.61-5.17 [facility] Comment on above: Performed By: #### L MCBD #### [facility] [address] [place] [id number] Magnesium Bloodon 10-25-2018 Magnesium mass conc 1.9 mg/dL Normal 1.6-2.6 [facility] Comment on above: Performed By: #### L MCBD #### [facility] [address] [place], [place] [address] NURSING PROGon 10-25-2018 Protein mass conc HNO ID: [id number] Author: Anisa RamseyRn) JOSHUA Patel Service: Nursing Author Type: Registered Nurse Type: Nursing Progress Note Filed: 10/25/2018 1:06 PM Note Text: Nursing Progress: Topic: RESTRAINT NON-VIOLENT PATIENT NAME: Lorenzo Steiner PATIENT LOCATION: [place] [address]/[place] [address]* The patient demonstrates Lack of Understanding/Ability to Comply with Safety Directions, Attempting to Remove Medical Devices Vital to Medical Stability, Impulsive Behavior, Inability to be Redirected, Inability to Retain Information Regarding Safety Directions as evidenced by the following behaviors pt restless with interventions reaching for lines and et tube cont restraints to maintain patent safe airway which pose an imminent danger to self or others. The following interventions were attempted but were not effective in protecting the patient's safety: Alarms, Bed in Low/Locked Position, Call Light Within Reach, IV/Feeding Bag/Pump Out of Vision, Medications Reviewed, Modify Environment, Modify Equipment, Frequent Observation, Pain/Discomfort Relief, Re-Orientation Methods Next, a comprehensive assessment was performed and warranted placing the patient in Soft Bilateral Wrists, the least restrictive restraint needed to protect the patient's safety. Ongoing safety assessments and evaluation for earliest removal of restraints will be performed. DATE: October 25, 2018 TIME: 1:05 PM Anisa Patel RN Normal [facility] Protein mass conc HNO ID: [id number] Author: Alysia RamseyRnEvette Friedman RN Service: Nursing Author Type: Registered Nurse Type: Nursing Progress Note Filed: 10/25/2018 12:21 AM Note Text: Nursing Progress: Topic: RESTRAINT NON-VIOLENT PATIENT NAME: Lorenzo Steiner PATIENT LOCATION: [place] [address] [address]* The patient demonstrates Attempting to Remove Medical Devices Vital to Medical Stability, Confusion, Impulsive Behavior as evidenced by the following behaviors attempts to pull at ETT tube, NG tube, and cathedar which pose an imminent danger to self or others. The following interventions were attempted but were not effective in protecting the patient's safety: Alarms, Family/Significant Other Involvement, Bed in Low/Locked Position, Call Light Within Reach, Gauze Wrap/Sleeve IV Site, Medications Reviewed, Modify Equipment, Frequent Observation, Modify Environment, IV/Feeding Bag/Pump Out of Vision, Contraindicated - Imminent Safety Risk Next, a comprehensive assessment was performed and warranted placing the patient in Soft Bilateral Wrists, the least restrictive restraint needed to protect the patient's safety. Ongoing safety assessments and evaluation for earliest removal of restraints will be performed. DATE: October 25, 2018 TIME: 12:21 AM Alysia Friedman RN Normal [facility] PROGRESSon 10-25-2018 Protein mass conc HNO ID: [id number] Author: Shiloh Bernstein (Pa) Service: Neurology ICU Author Type: Physician Sales Inspector Type: Progress Notes Filed: 10/25/2018 12:31 PM Note Text: SERVICE DATE: 10/25/2018 SERVICE TIME: 8:21 AM NEURO ICU - PROGRESS NOTE DATE OF ADMISSION: 10/23/2018 Subjective HPI: This is Mr. Lorenzo Steiner a 48 year old male who presented to [facility] ED via EMS with hallucinations and altered mental status. Patient with agitation and hallucinations in ED. Was started on Ativan and Geodon. Patient was intubated for airway protection worsening somnolence. CTH was negative for acute process. LP was performed, which was unremarkable. Tox screen was unremarkable as well. Patient is currently intubated and on a propofol gtt. Of note, patient has had 3 admissions in the past with similar presentations. Patient with sleep deprivation. No prior hx of seizures. Hospital Course: Yesterday had 25 minute EEG which was negative for seizure activity. MRI still pending. 10/25: Patient sedated on propofol. He moves all extremities spontaneously. Does not open eyes for me or follow commands. Temp 99.3 and WBC count trending up this morning slightly. Objective BP 118/81 Pulse 86 Temp 37.4 ?C (99.3 ?F) Resp 26 Ht 172.7 cm (5' 8) Wt 65 kg (143 lb 4.8 oz) SpO2 100% BMI 21.79 kg/m? Weight change: Neuro: Patient intubated, ventilated and sedated. No eye opening for me. PERRL. Moves all extremities spontaneously. Does not follow commands. CV: RRR Pulm: Coarse breath sounds bilaterally. GI/: Abdomen soft, non tender, nondistended Skin/Extremities: Edema- No Peripheral pulses- Present all extremities Wounds/Drsgs- No Breakdown- No Diagnostic tests reviewed for today's visit: Most recent labs and imaging results. Lines, Drains, and Airways Line Peripheral 10/25/18 0200 Forearm 20 Gauge less than 1 day Peripheral 10/25/18 0200 Short Right Arm 18 Gauge less than 1 day Drain GI Feed/Drain Assessment Nasogastric Left Naris -- days Indwelling Urinary Catheter 10/23/18 0131 Reed 16 Fr 2 days Airway Airway Endotracheal Tube 10/23/18 0111 2 days PERSONAL INVOLVEMENT IN CARE: Reviewing initiation, responses and adjustments to therapies, coordination of care, and updating family with Staff Physician, Dr. Heart. ASSESSMENT AND PLAN Assessment AND Plan, all Hosp Problems Active Hospital Problems as of 10/25/2018 Noted - Resolved Hospital Respiratory failure (HCC) 10/23/2018 - Present Current Assessment AND Plan Assessment: Intubated and mechanically ventillated PLAN: Continue mechanical ventilation. Wean sedation and vent as tolerated per MICU. Altered mental status, unspecified 10/24/2018 - Present Current Assessment AND Plan Assessment: Altered mental status concerning for drug intoxication PLAN: EEG yesterday negative for seizure activity MRI w/wo contrast negative LP negative in ED No further neuro workup needed at this time. Further management per MICU team. Medication and Non-Pharmacologic VTE Prophylaxis/Anticoagu lants Anticoagulant AND Antiplatelet Medications (From admission, onward) Start Dose Route Frequency Ordered Stop 10/23/18 1500 enoxaparin 40 mg injection (LOVENOX) (Medical At Risk ) 40 mg SUBCUTANEOUS DAILY 10/23/18 0555 -- 10/23/18 0600 pneumatic compression stockings (mi,oh) VTE Prophylaxis: VTE prophylaxis appropriate Plan of care discussed with: Attending and RN SIGNATURE: Shiloh Bernstein PA-C PATIENT NAME: Lorenzo Steiner DATE: October 25, 2018 TIME: 8:21 AM PAGER/CONTACT #: Normal [facility] Protein mass conc HNO ID: [id number] Author: Downtime Note Service: ? Author Type: ? Type: Progress Notes Filed: 10/25/2018 5:28 AM Note Text: Epic Scheduled Downtime: 10/25/2018 1:00:00 AM to 10/25/2018 5:17:00 AM Normal [facility] Protein mass conc HNO ID: [id number] Author: Satya Schultz Service: Pulmonary Disease Author Type: Physician Type: Progress Notes Filed: 10/25/2018 12:44 AM Note Text: CRITICAL CARE PROGRESS NOTE SERVICE DATE: October 25, 2018 SERVICE TIME: 12:40 AM Admission Date: 10/23/2018 AGE: [age] year old LOS: 2 days REASON FOR ICU ADMISSION: Acute hypoxic respiratory failure Acute encephalopathy/deliri um/agitation ACTIVE PROBLEM LIST Shoulder Pain Allergic Rhinitis Elevated Blood Pressure Hip Pain Brandon Involving Less Than 10% of Body Surface Insomnia Tobacco Abuse Disorder Alcohol Abuse Smoker Respiratory Failure (Hcc) Altered Mental Status, Unspecified Subjective Patient is resting comfortably in bed while sedated and intubated/on the ventilator without any current distress. Objective VITAL SIGNS: BP 150/91 Pulse 101 Temp 37.4 ?C (99.3 ?F) (Temporal Artery) Resp 22 Ht 172.7 cm (5' 8) Wt 65 kg (143 lb 4.8 oz) SpO2 100% BMI 21.79 kg/m? 24 hour Intake AND Output: Intake/Output Summary (Last 24 hours) at 10/25/18 0040 Last data filed at 10/25/18 0000 Gross per 24 hour Intake 2978.3 ml Output 2222 ml Net 756.3 ml PHYSICAL EXAM: RRR Minimal scattered crackles bilaterally without wheezing bilaterally anteriorly. Scattered bowel sounds, soft, nontender, nondistended. Mild peripheral edema. Dry, intact skin with fair turgor. VENTILATOR INFORMATION: WEANING DATA: Settings: Invasive Ventilator Mode: Continuous Mandatory Ventilation (10/24/18 4347) %FIO2: 30 Set Ventilator Respiratory Rate (BPM): 18 Tidal Volume Set (mL): 350 PEEP/CPAP (cm H2O): 5 Patient Data: Inspiratory:Expirator y Ratio: 1:2.3 Peak Inspiratory Pressure (cm H2O): 15 Plateau Pressure (cm H2O): 14 Lines, Drains, and Airways Line Peripheral 10/23/18 0059 Left Forearm 20 Gauge 1 day Peripheral 10/23/18 0059 Left Wrist 20 Gauge 1 day Drain GI Feed/Drain Assessment Nasogastric Left Naris -- days Indwelling Urinary Catheter 10/23/18 0131 Reed 16 Fr 1 day Airway Airway Endotracheal Tube 10/23/18 0111 1 day INPATIENT MEDICATIONS: Current hospital medications Medication - potassium chloride 80-120 mEq oral liquidDisp: Rfl: - potassium chloride iv piggyback 20 mEq/100 mLDisp: Rfl: - magnesium sulfate in water 2 g in sterile water 50 mlDisp: Rfl: - sodium glycerophosphate 45 mmol in NaCl 0.9% 250 mL (GLYCOPHOS)Disp: Rfl: - calcium gluconate 4 g in NaCl 0.9% 250 mLDisp: Rfl: - enoxaparin 40 mg injection (LOVENOX)Disp: Rfl: - propofol infusion (DIPRIVAN)Disp: Rfl: - albuterol 2.5 mg /3 mL (0.083 %) 2.5 mg (PROVENTIL)Disp: Rfl: - famotidine 20 mg tab(s) (PEPCID)Disp: Rfl: - lactated ringers infusionDisp: Rfl: - folic acid 1 mg tab(s)Disp: Rfl: - LORazepam 2-4 mg injection (ATIVAN)Disp: Rfl: - Chlorhexidine Gluconate 0.12 % 15 mL (PERIDEX)Disp: Rfl: - thiamine 200 mg tab(s) (VITAMIN B1)Disp: Rfl: NUTRITION: Enteral Feeds: Yes DATA: BLOOD GAS: Recent Labs 10/24/18 0945 VPH 7.445* VPC2 37.0* VPO2C 171.0* RESPHCO3 25.0 [id number] 99.3* CBC: Recent Labs 10/24/18 0610 10/23/18 0530 10/22/18 2313 WBC 8.52 5.55 6.2 HB 13.2* 12.9* 13.1* HCT 39.8* 38.9* 39.5* PLT 332 291 334 MCV 103.1* 104.6* 103.1* COAG: No results for input(s): APTT, INR in the last 168 hours. BMP: Recent Labs 10/24/18 0610 10/23/18 0530 10/22/18 2313 GLUC 101* 94 105* NA 140 142 146 K 3.4* 4.0 3.8 CHLOR 109* 110* 110* CO2 24 23 24 ANION 10 13 16 BUN 6* 12 19 CREAT 0.48* 0.48* 0.69 CHEM: Recent Labs 10/24/18 0610 10/23/18 1020 10/23/18 0530 10/22/18 2313 ALB -- 3.3* -- 3.5 TPROT -- 6.7 -- 7.4 CA 8.0* -- 7.3* 8.9 MG -- 2.4 2.5 2.1 ICAL -- 4.37* -- -- HEPATIC: Recent Labs 10/23/18 1020 10/22/18 231 ALKPHOS 53 62 ALT 139* 148* AST 86* 64* TBILI 0.7 0.4 URINALYSIS: Recent Labs 10/22/182316 SPGR 1.025 UGLUC NEGATIVE UBILI NEGATIVE UKET NEGATIVE UPROT 1+* UROBIL 1.0 UWBC NONE CARDIAC: No results for input(s): CKTEST, CKMB, CKMBP, TROPT, PBNP in the last 168 hours. Assessment/Plan ASSESSMENT: Acute hypoxic respiratory failure Acute encephalopathy/deliri um/agitation Anemia Multiple chronic medical problems PLAN: Continue full ventilator support without wean for now. Continue to monitor patient's mentation. EEG was negative. MRI revealed no acute abnormalities. Await further input from Neurology. Continue supportive care. Continue ICU care and monitoring. This patient has a high probability of sudden, clinically significant deterioration, which requires the highest level of physician preparedness to intervene urgently. I managed/supervised life or organ supporting interventions that required frequent physician assessment. I devoted my full attention to the direct care of this patient for the amount of time indicated below. Time I spent with family or surrogate(s) is included only if the patient was incapable of providing the necessary information or participating in medical decision making. Time devoted to teaching and to any procedures I billed separately is not included. PROGNOSIS: Guarded Code status: Full Code. Discussed with Registered Nurse. Critical Care Documentation: The patient has the following organ/system impairment(s): Encephalopathy and Respiratory failure (Acute, with Hypoxemia) Time spent providing critical care services: 35 minutes. SIGNATURE: Satya Schultz MD [facility] PAGER:[phone] DATE of SERVICE: October 25, 2018 TIME of SERVICE: 12:40 AM Normal [facility] Phosphorus Bloodon 9 Phosphate mass conc 2.9 mg/dL Normal 2.5-4.9 [facility] Comment on above: Performed By: #### L MCBD #### [facility] [address] [place] [address] Basic Panelon 10-24-2018 Creatinine mass conc 0.48 mg/dL Low 0.67-1.17 [facility] Comment on above: Performed By: #### L P14 #### [facility] [address] [place] [address] Anion gap molar conc 10 mmol/L Normal 8-16 [facility] Comment on above: Performed By: #### L P14 #### [place] [address] CO2 molar conc 24 mmol/L Normal 21-32 [facility] Comment on above: Performed By: #### L P14 #### [facility] [address] [place] [address] Glucose mass conc 101 mg/dL High 70-99 [facility] Comment on above: Performed By: #### L P14 #### [facility] [address] [place] [address] Urea nitrogen mass conc 6 mg/dL Low 7-18 [facility] Comment on above: Performed By: #### L P14 #### [facility] [address] [place] [address] Calcium mass conc 8.0 mg/dL Low 8.5-10.1 [facility] Comment on above: Performed By: #### L P14 #### [facility] [address] [place] [address] Chloride molar conc 109 mmol/L High 98-107 [facility] Comment on above: Performed By: #### L P14 #### [facility] [address] [place] [address] Potassium molar conc 3.4 mmol/L Low 3.5-5.1 [facility] Comment on above: Performed By: #### L P14 #### [facility] [address] [place] [address] Sodium molar conc 140 mmol/L Normal 136-145 [facility] Comment on above: Performed By: #### L P14 #### [facility] [address] [place] [address] Ethylene Glycolon 10-24-2018 Ethylene Glycol NONE DETECTED Normal None Detected [facility] Comment on above: Performed By: #### L MCBD #### [facility] [address] [place] [address] Hemogramon 10-24-2018 Erythrocyte distribution width Ratio (RBC) 13.3 % Normal 11.6-14.4 [facility] Comment on above: Performed By: #### L P14 #### [facility] [address] [place] [address] Hematocrit Volume Fraction (Bld) 39.8 % Low 40.1-51.0 [facility] Comment on above: Performed By: #### L P14 #### [facility] [address] [place] [address] Hemoglobin mass conc (Bld) 13.2 g/dL Low 13.7-17.5 [facility] Comment on above: Performed By: #### L P14 #### [facility] [address] [place] [address] MCH Entitic mass (RBC) 34.2 pg High 25.7-32.2 [facility] Comment on above: Performed By: #### L P14 #### [facility] [address] [place] [address] MCHC mass conc (RBC) 33.2 % Normal 32.3-36.5 [facility] Comment on above: Performed By: #### L P14 #### [facility] [address] [place] [address] MCV Entitic volume (RBC) 103.1 fL High 83.2-95.6 [facility] Comment on above: Performed By: #### L P14 #### [facility] [address] [place] [address] Platelet mean volume Entitic volume (Bld) 9.8 fL Normal 8.7-12.0 [facility] Comment on above: Performed By: #### L P14 #### [facility] [address] [place] [address] Platelets #/vol (Bld) 332 thou/cmm Normal 141-365 [facility] Comment on above: Performed By: #### L P14 #### [facility] [address] [place] [address] RBC #/vol (Bld) 3.86 mil/cmm Low 4.63-6.08 [facility] Comment on above: Performed By: #### L P14 #### [place] [address] RDW SD 50.9 fl High 36.1-45.8 [facility] Comment on above: Performed By: #### L P14 #### [place] [address] WBC #/vol (Bld) 8.52 thou/cmm Normal 4.23-9.07 [facility] Comment on above: Performed By: #### L P14 #### [place] [address] Hepatitis Acute Panelon HAV Ab IgM Negative Normal Negative [facility] Comment on above: Performed By: #### L MCBD #### [place] [address] HB Core Ab IgM Negative Normal Negative [facility] Comment on above: Performed By: #### L MCBD #### [place] [address] Hepatitis C Ab Negative Normal Negative [facility] Comment on above: Performed By: #### L MCBD #### [place] [address] Hep.B Surface Ag Negative Normal Negative [facility] Comment on above: Performed By: #### L MCBD #### [place] [address] Isopropyl Alcoholon 03-01-20 19 Acetone NONE DETECTED Normal [facility] Comment on above: Result Comment: Toxi c >20 mg/dL Reporting Limit: 5 mg/dL Testing performed at [facility]/ [place], [place] Performed By: #### L MCBD #### [facility] [address] [place], [place] [address] Protein mass conc NONE DETECTED Normal [facility] Comment on above: Result Comment: Toxi c >150 mg/dL Reporting Limit: 5 mg/dL Performed By: #### L MCBD #### [facility] [address] [place], [place] [address] Methyl Alcoholon 10-24-2018 Methyl Alcohol NONE DETECTED Normal None Detected [facility] Comment on above: Result Comment: Toxi c >20 mg/dL Reporting Limit: 5 mg/dL Performed By: #### L MCBD #### [place] [address] NURSING PROGon 10-24-2018 Protein mass conc HNO ID: [id number] Author: Ishmael (Rn) JOSHUA Lane Service: Nursing Author Type: Registered Nurse Type: Nursing Progress Note Filed: 10/24/2018 3:28 PM Note Text: Nursing Progress Note Patient Name: Lorenzo Steiner Patient Location: [place] [address]/[place] [address]* Daily Note: Discussed need for MRI and reviewed pt mri screening forme with father. I called and discussed with MRI technichian, and RT, anticipating a 1700 mri time today. This note was completed by: Ishmael Lane RN Normal [facility] Protein mass conc HNO ID: [id number] Author: Ishmael RamseyRn) JOSHUA Lane Service: Nursing Author Type: Registered Nurse Type: Nursing Progress Note Filed: 10/24/2018 7:39 AM Note Text: Nursing Progress: Topic: RESTRAINT NON-VIOLENT PATIENT NAME: Lorenzo Steiner PATIENT LOCATION: [id number]* The patient demonstrates Attempting to Remove Medical Devices Vital to Medical Stability, Inability to Retain Information Regarding Safety Directions as evidenced by the following behaviors pulling at tubes, mechanical ventilation which pose an imminent danger to self or others. The following interventions were attempted but were not effective in protecting the patient's safety: Alarms, Family/Significant Other Involvement, Bed in Low/Locked Position, Call Light Within Reach, Contraindicated - Imminent Safety Risk, Medications Reviewed Next, a comprehensive assessment was performed and warranted placing the patient in Soft Bilateral Wrists, the least restrictive restraint needed to protect the patient's safety. Ongoing safety assessments and evaluation for earliest removal of restraints will be performed. DATE: October 24, 2018 TIME: 7:[address] RN [facility] Protein mass conc HNO ID: [id number] Author: Mainor Stallworth RN Service: Nursing Author Type: Registered Nurse Type: Nursing Progress Note Filed: 10/24/2018 12:03 AM Note Text: Nursing Progress: Topic: RESTRAINT NON-VIOLENT PATIENT NAME: Lorenzo Steiner PATIENT LOCATION: [id number] 320* The patient demonstrates Attempting to Remove Medical Devices Vital to Medical Stability, Inability to Retain Information Regarding Safety Directions as evidenced by the following behaviors self extubation which pose an imminent danger to self or others. The following interventions were attempted but were not effective in protecting the patient's safety: Alarms, Family/Significant Other Involvement, Bed in Low/Locked Position, Call Light Within Reach, Contraindicated - Imminent Safety Risk, Medications Reviewed Next, a comprehensive assessment was performed and warranted placing the patient in Soft Bilateral Wrists, the least restrictive restraint needed to protect the patient's safety. Ongoing safety assessments and evaluation for earliest removal of restraints will be performed. DATE: October 24, 2018 TIME: 12:03 AM Mainor Stallworth RN [facility] PROGRESSon 10-24-2018 Protein mass conc HNO ID: [id number] Author: [place] Heart Service: Neurology ICU Author Type: Physician Type: Progress Notes Filed: 10/24/2018 3:09 PM Note Text: SERVICE DATE: 10/24/2018 SERVICE TIME: 9:14 AM NEURO ICU - PROGRESS NOTE DATE OF ADMISSION: 10/23/2018 Subjective HPI: This is Mr. Lorenzo Steiner a 48 year old male who [facility] via EMS with hallucinations and altered mental status. Patient with agitation and hallucinations in ED. Was started on Ativan and Geodon. Patient was intubated for airway protection worsening somnolence. CTH was negative for acute process. LP was performed, which was unremarkable. Tox screen was unremarkable as well. Patient is currently intubated and on a propofol gtt. Of note, patient has had 3 admissions in the past with similar presentations. Patient with sleep deprivation. No prior hx of seizures. Hospital Course: Yesterday had 25 minute EEG which was negative for seizure activity. Objective BP 134/94 Pulse 83 Temp 37 ?C (98.6 ?F) (Temporal Artery) Resp 25 Ht 172.7 cm (5' 8) Wt 65.9 kg (145 lb 4.8 oz) SpO2 96% BMI 22.09 kg/m? Weight change: Neuro: Patient sedated, moving spontaneously with eyes closed and intermittently moaning, not following commands CRANIAL NERVES: CNII-XII grossly intact. MOTOR STRENGTH: Upper and lower extremity 5/5 bilaterally SENSATION: Not assessed COORDINATION: Not assessed CV: RRR Pulm: Diffuse coarse breath sounds , Mechanical Ventilation: GI/: Bowel sounds present, abdomen soft and non-distended. Reed catheter in place Skin/Extremities: Edema- No Peripheral pulses- Present all extremities Wounds/Drsgs- No Breakdown- No Diagnostic tests reviewed for today's visit: Most recent labs and imaging results. Lines, Drains, and Airways Line Peripheral 10/23/18 0059 Left Forearm 20 Gauge 1 day Peripheral 10/23/18 0059 Left Wrist 20 Gauge 1 day Drain Indwelling Urinary Catheter 10/23/18 0131 Reed 16 Fr 1 day Airway Airway Endotracheal Tube 10/23/18 0111 1 day PERSONAL INVOLVEMENT IN CARE: Reviewing initiation, responses and adjustments to therapies, coordination of care, and updating family with Staff Physician, Dr. Heart. ASSESSMENT AND PLAN Assessment AND Plan, all Hosp Problems Active Hospital Problems as of 10/24/2018 Noted - Resolved Hospital Respiratory failure (HCC) 10/23/2018 - Present Current Assessment AND Plan Assessment: Intubated and mechanically ventillated PLAN: Continue mechanical ventilation MICU primary team and managing respiratory failure Altered mental status, unspecified 10/24/2018 - Present Current Assessment AND Plan Assessment: Altered mental status concerning for drug intoxication, consult for possible seizure activity PLAN: EEG yesterday negative for seizure activity F/U MRI results Medication and Non-Pharmacologic VTE Prophylaxis/Anticoagu lants Anticoagulant AND Antiplatelet Medications Start Dose Route Frequency Ordered Stop 10/23/18 1500 enoxaparin 40 mg injection (LOVENOX) (Medical At Risk ) 40 mg SUBCUTANEOUS DAILY 10/23/18 0555 -- 10/23/18 0600 pneumatic compression stockings (mi,oh) VTE Prophylaxis: VTE prophylaxis appropriate Plan of care discussed with: Attending SIGNATURE: Yael Garibay MD PATIENT NAME: Lorenzo Steiner DATE: October 24, 2018 TIME: 9:14 AM PAGER/CONTACT #: [phone] NSICU STAFF ADDENDUM Jersey Heart MD Pt seen and examined independently. Labs/vitals/imaging reviewed personally. Agree with above, reflecting my direct input. TPO and anti-TG Ab's negative. EEG negative. Awaiting contrast MRI. Suspect drug intox ie with cathinones as cause for encephalopathy. Will follow up when MRI done. PERSONAL INVOLVEMENT IN CARE: ? ?Patient/Family Updated: Patient and/or family were updated regarding the goals of care,?medical plan for the day, sales enablement consultant recommendations, medical disposition and current medical condition/prognosis as and if clinically indicated. All questions and concerns were answered and addressed at this juncture. I agree with the resident MD note as above, except as otherwise indicated; my additional comments, if necessary, are in bold. ? This patient has a high probability of sudden, clinically significant deterioration, which requires the highest level of physician preparedness to intervene urgently. I managed/supervised life or organ supporting interventions that required frequent physician assessment. I devoted my full attention to the direct care of this patient for the amount of time indicated below. Time I spent with family or surrogate(s) is included only if the patient was incapable of providing the necessary information or participating in medical decision making. Time devoted to teaching and to any procedures I billed separately is not included. ? Critical Care Documentation: The patient has the following organ/system impairment(s): As above Time spent providing critical care services: 31 minutes. ? SIGNATURE: [place] Heart MD PATIENT NAME: Lorenzo Steiner DATE: 10/24/18 TIME: 3:08 PM PAGER/CONTACT #: [phone] [facility] Protein mass conc HNO ID: [id number] Author: Moriah Brooks Service: Pulmonary Disease Author Type: Physician Type: Progress Notes Filed: 10/24/2018 8:31 AM Note Text: MICU - PROGRESS NOTE SERVICE DATE: October 24, 2018 Admission Date: 10/23/2018 AGE: [age] year old LOS: 1 days Subjective Patient seen. Chart reviewed. Mr. Steiner is a 48-year-old male who presented from [place] emergency room with a history of hallucinations and change in mental status. He was brought to the emergency room by police. He has a history of insomnia. Supposedly was on trazodone in the past but according to chart is not taking this for about a year. He was agitated hallucinating. He was started on Ativan and Geodon. He developed progressive somnolence and was eventually intubated for airway control. There is a concern for seizure activity. Or puncture was performed to rule out meningitis which was negative. Toxic ingestion with suspected however his tox screen is essentially negative. Alcohol level was negative. An osmolality gap was negative. Serum osmolality was obtained. He is currently on a mechanical ventilator. He is on a propofol drip. He is still agitated when stimulated. He does not follow commands. He appears to move all extremities. Patient arouses to tactile stimuli. He does not follow commands this morning. He remains on a propofol drip. He was started on a CIWA protocol yesterday. He does have an NG tube and was started on tube feedings. I did review his abdominal x-ray which does show what I feel is an enlarged liver. His liver function tests are elevated. Will check a formal ultrasound today. Appreciate neurology input Objective PROBLEMS: ACTIVE PROBLEM LIST Shoulder Pain Allergic Rhinitis Elevated Blood Pressure Hip Pain Brandon Involving Less Than 10% of Body Surface Insomnia Tobacco Abuse Disorder Alcohol Abuse Smoker Respiratory Failure (Hcc) PAST MEDICAL HISTORY Diagnosis Date - No disease found PAST SURGICAL HISTORY Procedure Laterality Date - NONE Social History Marital status: Spouse name: Years of education: Number of children: Social History Main Topics Smoking status: Current Every Day Smoker Packs/day: 1.00 Years: 0.00 Smokeless tobacco: Never Used Comment: 20 years. planning to quit. Alcohol use: No Comment: last drank one month ago Drug use: No Sexual activity: Yes Partners with: Female VITAL SIGNS (last 24hrs min/max): Temp Av.3 ?C (97.3 ?F) Min: 36.1 ?C (97 ?F) Max: 36.4 ?C (97.5 ?F) Pulse Av.6 Min: 72 Max: 86 No Data Recorded Cuff BP Min: 105/73 Max: 210/129 Pain Score: 0/10 Vital signs reviewed. BP 134/94 Pulse 83 Temp (Src) 98.6 (Temporal Artery) Resp 25 Ht 5' 8 (1.73m) Wt 145 lb 4.8 oz (65.9kg) SpO2 96% BMI 22.10 kg/(m2). Temp (24hrs), Av.9 ?C (98.5 ?F), Min:36.6 ?C (97.9 ?F), Max:37.3 ?C (99.1 ?F) NET FLUID BALANCE Intake/Output Summary (Last 24 hours) at 10/24/18 0824 Last data filed at 10/23/18 2300 Gross per 24 hour Intake 1476.9 ml Output 900 ml Net 576.9 ml MEDICATIONS Current Facility-Administered Medications Medication Dose Route Frequency - potassium chloride 40 mEq oral powder (KLOR-CON) 40 mEq OROGASTRIC ONCE - potassium chloride 80-120 mEq oral liquid 80-120 mEq ORAL/FEEDING TUBE PRN - potassium chloride iv piggyback 20 mEq/100 mL 20 mEq INTRAVENOUS PRN - magnesium sulfate in water 2 g in sterile water 50 ml 2 g INTRAVENOUS PRN - sodium glycerophosphate 45 mmol in NaCl 0.9% 250 mL (GLYCOPHOS) 45 mmol INTRAVENOUS PRN - calcium gluconate 4 g in NaCl 0.9% 250 mL 4 g INTRAVENOUS PRN - enoxaparin 40 mg injection (LOVENOX) 40 mg SUBCUTANEOUS DAILY - propofol infusion (DIPRIVAN) 5-60 mcg/kg/min INTRAVENOUS CONTINUOUS - albuterol 2.5 mg /3 mL (0.083 %) 2.5 mg (PROVENTIL) 2.5 mg INHALATION q 4 H PRN - famotidine 20 mg tab(s) (PEPCID) 20 mg ORAL/FEEDING TUBE BID - lactated ringers infusion 75 mL/hr INTRAVENOUS CONTINUOUS - folic acid 1 mg tab(s) 1 mg ORAL DAILY - iv contrast (radiology procedure) INTRAVENOUS DIRECTED PRN - LORazepam 2-4 mg injection (ATIVAN) 2-4 mg INTRAVENOUS q 2 H PRN - Chlorhexidine Gluconate 0.12 % 15 mL (PERIDEX) 15 mL ORAL q 12 H - thiamine 200 mg tab(s) (VITAMIN B1) 200 mg ORAL TID Lines, Drains, and Airways Line Peripheral 10/23/18 0059 Left Forearm 20 Gauge 1 day Peripheral 10/23/18 0059 Left Wrist 20 Gauge 1 day Drain Indwelling Urinary Catheter 10/23/18130 Reed 16 Fr 1 day Airway Airway Endotracheal Tube 10/23/18 011 1 day PHYSICAL EXAM PERFORMED: General: no acute distress. On mechanical ventilator. Endotracheal tube in place in the oropharynx. NG tube in place Cardiovascular: Regular rhythm Respiratory: Mild inspiratory and expiratory upper airway sounds mostly cleared with suctioning Abdomen: Soft, Nontender and Positive bowel sounds Extremities: Edema- No Neurologic: Sedated. On mechanical ventilator. Does not follow commands. Toes are downgoing. Pupils are round and reactive to light. Left pupil is downgoing Respiratory/Nursing Documentation: O2 Therapy: Ventilator (10/24/18740) Invasive Ventilator Mode: Continuous Mandatory Ventilation (10/24/18740) Set Ventilator Respiratory Rate (BPM): 18 (10/24/18740) Total Respiratory Rate (BPM): 20 (10/24/18740) Tidal Volume Set (mL): 350 (10/24/18740) Exhaled Tidal Volume (mL): 356 (10/24/18740) Minute Volume (L): 7.6 (10/24/18740) Peak Inspiratory Pressure (cm H2O): 14 (10/24/18740) PEEP/CPAP (cm H2O): 5 (10/24/18740) HEMODYNAMIC DATA: Reviewed NUTRITION: Enteral Feeds: No NPO DATA: Diagnostic tests reviewed for today's visit, films/specimens were personally reviewed by me: Most recent labs and imaging results. LABS: Recent Labs 10/24/18 0610 10/23/18 1020 10/22/18 2313 CK -- -- -- 370* WBC 8.52 -- < > 6.2 RBC 3.86* -- < > 3.83* HB 13.2* -- < > 13.1* HCT 39.8* -- < > 39.5* MCV 103.1* -- < > 103.1* PLT 332 -- < > 334 GLUC 101* -- < > 105* BUN 6* -- < > 19 CREAT 0.48* -- < > 0.69 NA 140 -- < > 146 K 3.4* -- < > 3.8 CHLOR 109* -- < > 110* CO2 24 -- < > 24 TPROT -- 6.7 -- 7.4 ALB -- 3.3* -- 3.5 CA 8.0* -- < > 8.9 ALKPHOS -- 53 -- 62 TBILI -- 0.7 -- 0.4 AST -- 86* -- 64* ALT -- 139* -- 148* MG -- 2.4 < > 2.1 < > = values in this interval not displayed. ABG: Invalid input(s): [id number] Results CT BRAIN WO IVCON (Order [id number]) Patient Info Patient Name Sex Lorenzo Murray ([id number]) Male 1970 10/23/2018 1:12 AM - Radiology, Oru In Impression IMPRESSION: No acute intracranial abnormality. Product/Industry Consultant: [facility] Transcribe Date/Time: Oct 23 2018 1:08A Dictated by : CRISTIAN CROWLEY MD This examination was interpreted and the report reviewed and electronically signed by: CRISTIAN CROWLEY MD on Oct 23 2018 1:10AM EST Results XR CHEST 1V FRONTAL (Order [id number]) Patient Info Patient Name Sex Lorenzo Murray ([id number]) Male 1970 10/23/2018 1:38 AM - Radiology, Oru In Impression IMPRESSION: Lines, tubes, and devices: Endotracheal tube tip projects 1 to 2 cm above the milagros. Enteric tube tip and sidehole project over the left upper quadrant. Lungs and pleura: No confluent airspace disease. No obvious pleural effusion or pneumothorax on this limited supine technique. Mild right hemithorax volume loss Cardiomediastinal silhouette: Within normal limits. Other: No acute bony abnormality identified. Results XR ABDOMEN 1V SUPINE (Order [id number]) Patient Info Patient Name Sex Lorenzo Murray ([id number]) Male 1970 10/23/2018 7:57 AM - Radiology, Oru In Impression IMPRESSION: The tip of the NG tube is in the left upper quadrant likely in the body the stomach. Nonobstructive nonspecific bowel gas pattern. Product/Industry Consultant: [employer] Transcribe Date/Time: Oct 23 2018 7:53A Dictated by : JORGE SINGLETON MD This examination was interpreted and the report reviewed and electronically signed by: JORGE SINGLETON MD on Oct 23 2018 7:55AM EST Assessment/Plan IMPRESSION: Critical Care Documentation: The patient has the following organ/system impairment(s): Encephalopathy Metabolic encephalopathy?etiolo gy uncertain. Rule out secondary to toxic ingestion. Rule out withdrawal from trazodone Acute respiratory failure Anemia CRITICAL CARE PLAN: Continue Propofol Continue mechanical vbentilation VBG EEG Neuro evaluation Enteral feedings MRI brain pending. Still agitated when aroused. Follow liver function tests. Neck ultrasound the liver and gallbladder Supplement potassium EEG pending This patient has a high probability of sudden, clinically significant deterioration, which requires the highest level of physician preparedness to intervene urgently. I managed/supervised life or organ supporting interventions that required frequent physician assessment. I devoted my full attention to the direct care of this patient for the amount of time indicated below. Time I spent with family or surrogate(s) is included only if the patient was incapable of providing the necessary information or participating in medical decision making. Time devoted to teaching is not included. Discussed with staff/patient/family Time spent providing critical care services: 40 minutes excluding procedures. SIGNATURE: Moriah Brooks DO PATIENT NAME: Lorenzo Steiner DATE: October 24, 2018 TIME: 8:24 AM Normal [facility] Thyro. Peroxidase Abon 10-24 Thyroperoxidase Ab Qn 45.7 IU/ml Normal 0.0-60.0 [facility] Comment on above: Performed By: #### L P14 #### [facility] [address] [place] [address] Thyroglobulin Abon 9 Thyroglobulin Ab Qn 24.3 [IU]/mL Normal 0.0-60.0 [facility] Comment on above: Performed By: #### L P14 #### [facility] [address] [place] [address] Venous Blood Gason 9 Base Excess 1.6 mmol/L Normal -3.0-3.0 [facility] Comment on above: Performed By: #### L P14 #### [facility] [address] [place] [address] HCO3 molar conc (Bld) 25.0 mmol/L Normal 21.0-30.0 [facility] Comment on above: Performed By: #### L P14 #### [facility] [address] [place] [address] O2% Sat Venous 99.3 % High 18.0-74.8 [facility] Comment on above: Performed By: #### L P14 #### [facility] [address] [place] [address] PCO2 Venous 37.0 mm Hg Low 40.6-60.0 [facility] Comment on above: Performed By: #### L P14 #### [facility] [address] [place] [address] pH Venous 7.445 High 7.320-7.430 [facility] Comment on above: Performed By: #### L P14 #### [facility] [address] [place] [address] PO2 Venous 171.0 mm Hg High 15.9-37.5 [facility] Comment on above: Performed By: #### L P14 #### [facility] [address] [place] [address] Alcohol, Bloodon 10-23-2018 Alcohol, Blood <10 Normal <10 [facility] Comment on above: Performed By: #### L ALC3 #### [facility] [address] [place] [address] Ammoniaon 10-23-2018 Ammonia mass conc (P) 29 umol/L Normal 11-32 [facility] Comment on above: Performed By: #### L URIN #### [facility] [address] [place] [address] Basic Panelon 10-23-2018 Urea nitrogen mass conc 12 mg/dL Normal 7-18 [facility] Comment on above: Performed By: #### L URIN #### [facility] [address] [place] [address] Creatinine mass conc 0.48 mg/dL Low 0.67-1.17 [facility] Comment on above: Performed By: #### L URIN #### [facility] [address] [place] [address] Glucose mass conc 94 mg/dL Normal 70-99 [facility] Comment on above: Performed By: #### L URIN #### [facility] [address] [place] [address] Anion gap molar conc 13 mmol/L Normal 8-16 [facility] Comment on above: Performed By: #### L URIN #### [facility] [address] [place] [address] Calcium mass conc 7.3 mg/dL Low 8.5-10.1 [facility] Comment on above: Performed By: #### L URIN #### [facility] [address] [place] [address] CO2 molar conc 23 mmol/L Normal 21-32 [facility] Comment on above: Performed By: #### L URIN #### [facility] [address] [place] [address] Chloride molar conc 110 mmol/L High 98-107 [facility] Comment on above: Performed By: #### L URIN #### [facility] [address] [place] [address] Potassium molar conc 4.0 mmol/L Normal 3.5-5.1 [facility] Comment on above: Performed By: #### L URIN #### [facility] [address] [place] [address] Sodium molar conc 142 mmol/L Normal 136-145 [facility] Comment on above: Performed By: #### L URIN #### [facility] [address] [place] [address] CASE MANAGEMon 10-23-2018 CASE MANAGEM HNO ID: [id number] Author: Rand Mattson (Sw) Service: Care Management Author Type: Associate Team Physician Type: Care Mgt Progress Note Filed: 10/23/2018 10:47 AM Note Text: CARE MANAGEMENT PROGRESS NOTE SERVICE DATE: 10/23/2018 SERVICE TIME: 10:26 AM LOS: 0 days Substance abuse, mental health Patient on ventilator and unable to be assessed for above. Also requested by staff to assist with locating/confirming next of kin as multiple people calling the unit asking for updates. Contacted patient's father, Vitaly Steiner ( cell). He confirms he does not have much information about his son, he moved in with a girlfriend, Ann, in [place]. about a month ago. Father not close to patient but patient has 3 adult children and he will try to locate their phone numbers.and have someone call this worker with their information. Got a phone call from daughter Madison. She confirms she is patient's daughter and patient is not close to any of his children. Patient moves residences a lot, changes phones and jobs often so they do not always know how to contact him. They can go months without contact from him.Daughter confirms this has happened previously;where he was hospitalized and intubated. Was at [facility] for this within the last year. Patient was discharged and daughter never found out reason for hospitalization, etc. Daughter does confirm a patient has a history of alcohol abuse. She is not aware of any mental health diagnosis, although he has talked of seeing shadow people [place] the [place], etc in the past. Family contacts : Daughter: Madison Rapp [phone] Son Mesfin Davis No phone, family contacts him via facebook Son Jr Davis [phone], he is in [facility] Daughter also confirms patient mother is Arlen Serna [phone], although she does not know how close patient is to his mother (This worker attempted to contact mother, but no answer and phone would not take a message). Daughter Madison, consents that if family/girlfriend calls they can be given general information about patient. SIGNATURE: MARY ANN Pascual PATIENT NAME: Lorenzo Steiner DATE: October 23, 2018 TIME: 10:25 AM PAGER/CONTACT #: [phone] [facility] CASE MGT INIT Jabier 2018 CASE MGT INIT BIB HNO ID: [id number] Author: Rand Mattson (Sw) Service: Care Management Author Type: Associate Team Physician Type: Care Mgt Initial Assessment Filed: 10/23/2018 12:07 PM Note Text: CARE MANAGEMENT: ASSESSMENT AND DISCHARGE PLAN SERVICE DATE: 10/23/2018 SERVICE TIME: 11:38 AM PRIMARY CARE PHYSICIAN: LEORA CAMPOS MD ADMISSION STATUS: Inpatient MEDICAL: Patient/Representativ e Stated Goals: To have reduction in symptoms To improve my functional status To return home to life as it was Health Insurance: N/A unknown Health Issues Impacting Discharge Plan: Chronic alcohol use Last Admission Date: none Is this Within the Past 30 days? No Advance Directive: Current Advance Directive: Other Document: See Comment (unknown) In Chart: No Booth Usher Attempted to Assist with AD Completion: No Unable to Assist Due To:: Delirium;Sedation Health Literacy Assessment: Patient is unable to complete at this time due to patient on ventilator and unable to communicate. FUNCTIONAL AND COGNITIVE/BEHAVIORAL PRIOR TO ADMISSION: Baseline Mental Status: Alert AND Oriented, Person, Place , Time, Situation and Age Appropriate Functional Status: Independent Does Patient Currently Receive Any Community Services or Home Care? None Equipment Prior to Admission: None Has the Patient Been in a Jail Facility in the Past 30 days? No SOCIAL: Living Arrangement: Home Lives With: girlfreind Financial Resources: Unemployed Primary Contact: Extended Emergency Contact Information Primary Emergency Contact: Arlen Serna Mobile Relation: Mother Secondary Emergency Contact: Madison Rapp Mobile Relation: daughter Supportive: Unable to assess at this time Other Important Patient Contacts: Family: Name: son Mesfin Davis Cell Caregiver Assessment: Caregiver is ready, willing and able to meet the patient's needs as recommended by the inter-professional team? No Patient's transition needs and plan for meeting these needs: TBD Does the patient have an acute stroke diagnosis, or has the patient had a stroke during this admission? No Medicaiton Adherence: Patient is unable to complete at this time due to on ventilator and unable to answer quesstions. Are you interested in bedside delivery of your medications? Food Concerns: In the Last Month, Have You had Trouble Getting Food? No trouble getting food During the Last Month, Have You Worried Whether Your Food Would Run Out Before You Had Enough Money to Buy More? No Is the Patient Psychosocially Complex? Yes, refer to Social Work. ASSESSMENT AND PLAN: Medical Needs: . Psychosocial Needs: Chemical Dependency - Drug of choice: alcohol Years of use: unknown Treatment: unknown FREEDOM OF CHOICE EXPLAINED: No as patient on ventilator and needs are unknown POTENTIAL TRANSITION PLANS To Be Determined Met patient's girlfriend when she came to visit patient ( Tricia Conde [phone].) She explains she has known patient about 3 weeks and he resides with her in her home. She explains that patient was independent in his ADLs, is unemployed and was to start looking for a job. Patient does drink beer on a daily basis ( usually 3 or 4 big, tall ones) but has not had any alcohol in approximately a week as they ran out of money for beer. Girlfriend said that 2 days ago, he started seeing people and things that were not there, getting restless, pacing, not sleeping, he insisted the police be called at one time as he was sure someone was going to hurt him, although no one else saw anyone nearby. She came home from medical appointment this morning and he was gone from the home, he called her and told her that he was in [place] [facility], but she does not know how he got there. [place] [facility] told her that he had been transferred to [facility]. Girlfriend thinks patient may go to a PCP at [facility] office, but not know name. He is not on any medications and does not use any illegal drugs. Girlfriend has medical issues ( dialysis, uses wheelchair, walker, and needs assistance with her ADLs); she will not be able to care for patient if he is not independent in his care and medical needs Social work to continue to follow and assess after off ventilator SIGNATURE: MARY ANN Pascual PATIENT NAME: Lorenzo Steiner DATE: October 23, 2018 TIME: 11:38 AM PAGER/CONTACT #: [phone] [facility] CONSULTon 10-23-2018 CONSULT HNO ID: [id number] Author: [facility] Service: Neurology General Author Type: Physician Type: Consults Filed: 10/23/2018 2:47 PM Note Text: INITIAL CONSULT - GENERAL NEUROLOGY SERVICE DATE: 10/23/2018 SERVICE TIME: 9:14 AM Team Requesting Consult: MICU Current Attending Provider: Yossi Coronado Neurology was asked by the primary team to evaluate Lorenzo Steiner, a 48 year old male for a chief complaint of AMS - concern for seizures. Our recommendations of care will be communicated by shared medical record. Reason for Evaluation: AMS - concern for seizures Subjective HPI: This is Mr. Lorenzo Steiner a 48 year old male who presented [facility] via EMS with hallucinations and altered mental status. Patient with agitation and hallucinations in ED. Was started on Ativan and Geodon. Patient was intubated for airway protection worsening somnolence. CTH was negative for acute process. LP was performed, which was unremarkable. Tox screen was unremarkable as well. Patient is currently intubated and on a propofol gtt. Of note, patient has had 3 admissions in the past with similar presentations. Patient with sleep deprivation. No prior hx of seizures. Current hospital medications Medication - potassium chloride 80-120 mEq oral liquidDisp: Rfl: - potassium chloride iv piggyback 20 mEq/100 mLDisp: Rfl: - magnesium sulfate in water 2 g in sterile water 50 mlDisp: Rfl: - sodium glycerophosphate 45 mmol in NaCl 0.9% 250 mL (GLYCOPHOS)Disp: Rfl: - calcium gluconate 4 g in NaCl 0.9% 250 mLDisp: Rfl: - enoxaparin 40 mg injection (LOVENOX)Disp: Rfl: - propofol infusion (DIPRIVAN)Disp: Rfl: - Chlorhexidine Gluconate 0.12 % 15 mL (PERIDEX)Disp: Rfl: - albuterol 2.5 mg /3 mL (0.083 %) 2.5 mg (PROVENTIL)Disp: Rfl: - famotidine 20 mg tab(s) (PEPCID)Disp: Rfl: - thiamine 200 mg in NaCl 0.9% 50 mLDisp: Rfl: - [START ON 10/26/2018] thiamine 100 mg tab(s) (VITAMIN B1)Disp: Rfl: - lactated ringers infusionDisp: Rfl: - folic acid 1 mg tab(s)Disp: Rfl: PAST MEDICAL HISTORY Diagnosis Date - No disease found PAST SURGICAL HISTORY Procedure Laterality Date - NONE Social History Marital status: Spouse name: Years of education: Number of children: Social History Main Topics Smoking status: Current Every Day Smoker Packs/day: 1.00 Years: 0.00 Smokeless tobacco: Never Used Comment: 20 years. planning to quit. Alcohol use: No Comment: last drank one month ago Drug use: No Sexual activity: Yes Partners with: Female FAMILY HISTORY Problem Relation Age of Onset - Heart Father - Heart Maternal Grandfather ALLERGIES Allergen Reactions - Penicillin GI Upset REVIEW OF SYSTEMS: Unable to obtain Objective PHYSICAL EXAM: Head: normocephalic, atraumatic Lungs: Lungs clear to auscultation. No wheezing, rhonchi, rales Heart: RRR without murmur, gallop, or rubs. No ectopy Abdomen: Abdomen soft, non-tender. Bowel sounds normal. No masses, organomegaly Extremities: No deformities, edema, skin discoloration, clubbing or cyanosis. Good capillary refill. Neurologic: sedated, becomes agitated with stimulation, PERRL but sluggish bilaterally, no gaze deviation, no focal neuro deficits LABS/DATA: WBC Date Value 10/23/2018 5.55 thou/cmm 10/22/2018 6.2 thou/cmm 12/04/2017 9.07 k/uL RBC Date Value 10/23/2018 3.72 mil/cmm 10/22/2018 3.83 mil/cmm 12/04/2017 4.09 m/uL Platelet Count Date Value 10/23/2018 291 thou/cmm 10/22/2018 334 thou/cmm 12/04/2017 425 k/uL BUN (mg/dL) Date Value 10/23/2018 12 10/22/2018 19 Creatinine (mg/dL) Date Value 10/23/2018 0.48 10/22/2018 0.69 Lab Results Component Value Date NEUTP 48.1 12/04/2017 ABSNEUT 4.36 12/04/2017 LYMPHP 34.6 12/04/2017 ABSLYMPH 3.14 12/04/2017 ABSMONO 1.19 12/04/2017 EODINP 3.5 12/04/2017 ABSEOSIN 0.32 12/04/2017 BASOP 0.7 12/04/2017 ABSBASO 0.06 12/04/2017 Lab Results Component Value Date PLT 291 10/23/2018 HB 12.9 10/23/2018 HB 13.6 12/04/2017 HCT 38.9 10/23/2018 ALB 3.5 10/22/2018 CA 7.3 10/23/2018 TBILI 0.4 10/22/2018 ALKPHOS 62 10/22/2018 AST 64 10/22/2018 GLUC 94 10/23/2018 BUN 12 10/23/2018 NA 142 10/23/2018 K 4.0 10/23/2018 CHLOR 110 10/23/2018 CO2 23 10/23/2018 ANION 13 10/23/2018 ALT 148 10/22/2018 No results found for: WSR, CRP, IGG No results found for: USCRP No results found for: CHOL No results found for: LDL No results found for: HDL No results found for: TG No results found for: HBA1C DATA: Diagnostic tests reviewed for today's visit: Most recent labs and imaging results. Impression/Recommenda tions 48 M presenting with AMS and hallucinations in setting of sleep deprivation. ? Urine tox negative. Synthetic drug use? ? LP performed - unremarkable ? CTH unremarkable ? EEG - f/u on results ? MRI brain wwo contrast - f/u on results SIGNATURE: Raul Jaimes PA-C PATIENT NAME: Lorenzo Steiner DATE: October 23, 2018 TIME: 9:14 AM PAGER/CONTACT #: [phone] [facility] STAFF ADDENDUM [facility] MD Pt seen and examined independently. Labs/vitals/imaging reviewed personally. Agree with above, reflecting my direct input. Pt is deeply sedated on vent, no focal deficits appreciated within the limits of my exam. Suspect metabolic encephalopathy due to toxic exposure, but would check EEG and get contrast MRI-brain, TFTs and TPO antibodies. Will follow. PERSONAL INVOLVEMENT IN CARE: ? ?Patient/Family Updated: Patient and/or family were updated regarding the goals of care,?medical plan for the day, sales enablement consultant recommendations, medical disposition and current medical condition/prognosis as and if clinically indicated. All questions and concerns were answered and addressed at this juncture. I agree with the TAY note as above, except as otherwise indicated; my additional comments, if necessary, are in bold. ? This patient has a high probability of sudden, clinically significant deterioration, which requires the highest level of physician preparedness to intervene urgently. I managed/supervised life or organ supporting interventions that required frequent physician assessment. I devoted my full attention to the direct care of this patient for the amount of time indicated below. Time I spent with family or surrogate(s) is included only if the patient was incapable of providing the necessary information or participating in medical decision making. Time devoted to teaching and to any procedures I billed separately is not included. ? Critical Care Documentation: The patient has the following organ/system impairment(s): As above Time spent providing critical care services: 31 minutes. ? SIGNATURE: [facility] MD PATIENT NAME: Lorenzo Steiner DATE: 10/23/18 TIME: 2:44 PM PAGER/CONTACT #: [phone] Normal [facility] CPKon 10-23-2018 CPK 370 U/L High 39-308 [facility] Comment on above: Performed By: #### L CK #### [place] [address] CSF Cell Count/Diffon 2018 CSF Appearance Clear Normal [facility] Comment on above: Performed By: #### L URIN #### [place] [address] CSF Color Colorless Normal [facility] Comment on above: Performed By: #### L URIN #### [place] [address] Vial# 2 Normal [facility] Comment on above: Performed By: #### L URIN #### [place] [address] Xanthochromia No xantho Normal [facility] Comment on above: Performed By: #### L URIN #### [place] [address] CSF/RBC 0 /cmm Normal 0 [facility] Comment on above: Performed By: #### L URIN #### [facility] [address] [place] [address] CSF/Seg see below Normal [facility] Comment on above: Result Comment: No d ifferential required, nucleated cell count < 6. Performed By: #### L URIN #### [facility] [address] [place] [address] WBC #/vol (Bld) 1 /cmm Normal 0-5 [facility] Comment on above: Performed By: #### L URIN #### [facility] [address] [place] [address] Total Volume CSF 4.0 ml Normal [facility] Comment on above: Performed By: #### L URIN #### [facility] [address] [place] [address] Comprehensive Panelon 2018 Albumin mass conc 3.5 g/dL Normal 3.4-5.0 [facility] Comment on above: Performed By: #### L P14 #### [facility] [address] [place] [address] ALP enzyme act/vol 62 U/L Normal 46-116 [facility] Comment on above: Performed By: #### L P14 #### [facility] [address] [place] [address] ALT-SGPT Blood 148 U/L High 14-63 [facility] Comment on above: Performed By: #### L P14 #### [facility] [address] [place] [address] AST-SGOT Blood 64 U/L High 15-37 [facility] Comment on above: Performed By: #### L P14 #### [facility] [address] [place] [address] Bilirubin Ql (U) 0.4 mg/dL Normal 0.2-1.0 [facility] Comment on above: Performed By: #### L P14 #### [facility] [address] [place] [address] Calcium mass conc 8.9 mg/dL Normal 8.5-10.1 [facility] Comment on above: Performed By: #### L P14 #### [facility] [address] [place], [place] [address] Creatinine mass conc 0.69 mg/dL Normal 0.67-1.17 [facility] Comment on above: Performed By: #### L P14 #### [facility] [address] [place], [place] [address] Glucose mass conc 105 mg/dL High 70-99 [facility] Comment on above: Performed By: #### L P14 #### [facility] [address] [place], [place] [address] Protein mass conc 7.4 g/dL Normal 6.4-8.2 [facility] Comment on above: Performed By: #### L P14 #### [facility] [address] [place], [place] [address] Urea nitrogen mass conc 19 mg/dL Normal 7-25 [facility] Comment on above: Performed By: #### L P14 #### [facility] [address] [place], [place] [address] Urea nitrogen/Creatinine mass ratio 28 mg/mg High 10-20 [facility] Comment on above: Performed By: #### L P14 #### [facility] [address] [place], [place] [address] Anion gap molar conc 16 mmol/L Normal 8-20 [facility] Comment on above: Performed By: #### L P14 #### [facility] [address] [place], [place] [address] CO2 Blood 24 mEq/L Normal 21-32 [facility] Comment on above: Performed By: #### L P14 #### [facility] [address] [place], [place] [address] Chloride molar conc 110 mmol/L High 98-109 [facility] Comment on above: Result Comment: Test ing performed on an Her i-STAT. Performed By: #### L P14 #### [facility] [address] [place] [address] Potassium molar conc 3.8 mmol/L Normal 3.5-4.9 [facility] Comment on above: Result Comment: Test ing performed on an Her i-STAT. Performed By: #### L P14 #### [facility] [address] [place] [address] Sodium molar conc 146 mmol/L Normal 138-146 [facility] Comment on above: Result Comment: Test ing performed on an Thwapr i-STAT. Performed By: #### L P14 #### [facility] [address] [place] [address] Cult and Smr Body Fluidon Cult and Smr Body Fluid Test performed at [facility] No growth No organisms seen Rare Mononuclear cells Rare RBCs Rare Squamous epithelial cells Gram stain was performed on a cytospun specimen Normal [facility] Comment on above: Performed By: #### L URIN #### [facility] [address] [place] [address] ECG COMPLETEon 10-23-2018 ECG COMPLETE NAME : LORENZO STEINER PID : [id number] : 1970 Gender : Male Race : ORD : [id number] Procedure Date : Oct 23 2018 00:15:01 Edit Date : Oct 23 2018 16:14:22 Diagnosis:SINUS RHYTHM WITH OCCASIONAL PREMATURE VENTRICULAR COMPLEXES SEPTAL INFARCT , AGE UNDETERMINED ABNORMAL ECG NO PREVIOUS ECGS AVAILABLE Confirmed by MD RUELAS VINAYAK ([id number]) on 10/23/2018 4:14:14 PM Ventricular Rate : 83 BPM Atrial Rate : 83 BPM P-R Interval : 160 ms QRS Duration : 84 ms Q-T Interval : 372 ms QTC Calculation(Bezet) : 437 ms P Emm[place] : 74 degrees R [place] : 71 degrees T [place] : 36 degrees Test Reason : Chest Pain Location : 150 : [place] 1 Overread By : MD RUELAS VINAYAK Edited By : MD RUELAS VINAYAK Referred By : , Acquired by : TREY GRAHAM Normal [facility] Glucose,CSFon 10-23-2018 Glucose,CSF 63 mg/dl Normal 60-70% of blood sugar. [facility] Comment on above: Performed By: #### L URIN #### [facility] [address] [place] [address] HISTORY PHYSICALon 9 HISTORY PHYSICAL HNO ID: [id number] Author: Ej (Fe Solis DO Service: Critical Care Author Type: Resident Type: HANDP Filed: 10/23/2018 6:09 AM Note Text: Attestation signed by Yossi Coronado at 10/23/2018 6:[address] [facility] STAFF PHYSICIAN NOTE OF PERSONAL INVOLVEMENT IN CARE I have reviewed the consult note obtained and documented by the resident and I personally participated in the hanks components. I have discussed the case and management of the patient's care. The following comments revise or confirm relevant hanks components of the note. IMPRESSION: - Acute Hypoxic Respiratory Failure on MV - Acute Encephalopathy/Haluci nations - Hx of EtOH abuse - Mild Rhabdomyolysis PLAN: - Overall, etiology of acute encephalopathy/halluc inations not entirely clear. Agree, that this likely is secondary to either EtOH withdrawal or toxic/metabolic etiology. Also, drug abuse, (ie bath salts) which may not be detected on drug screen is also in differential. Obtain serum osm to r/o osmolar gap. Will also screen for aditional alcohols (ie ethylene glycol, etc). - Continue w/ mechanical ventilation at this time and adjust as needed - Continue sedation. Recommend weaning off sedation later today to assess mental status and consider SBT/extubation - Negative CSF/lumbar tap, doubt meningitis or infectious etiology - Gentle hydration - Lovenox/H2B - ICU care This patient has a high probability of sudden, clinically significant deterioration, which requires the highest level of physician preparedness to intervene urgently. I managed/supervised life or organ supporting interventions that required frequent physician assessment. I devoted my full attention to the direct care of this patient for the amount of time indicated below. Time I spent with family or surrogate(s) is included only if the patient was incapable of providing the necessary information or participating in medical decision making. Time devoted to teaching and to any procedures I billed separately is not included. Critical Care Documentation: The patient has the following organ/system impairment(s): Encephalopathy and Respiratory failure (Acute, with Hypoxemia) Time spent providing critical care services: 30 minutes. SIGNATURE: Yossi Coronado MD [facility] PAGER: [phone] DATE of SERVICE: October 23, 2018 TIME of SERVICE: 6:30 AM CRITICAL CARE CONSULT NOTE SERVICE DATE: 10/23/2018 SERVICE TIME: 5:28 AM REASON FOR CONSULT: Respiratory Failure REQUESTING PHYSICIAN: Dr. Duckworth? ADMITTING PROVIDER: Yossi Coronado SERVICE DATE: 10/23/2018 SERVICE TIME: 5:28 AM Admission Date: 10/23/2018 AGE: [age] year old LOS: 0 days Subjective This is a 48 year old male with a past medical history significant for insomnia. He presented to [place] ED for hallucinations escorted by police. Per ED note the patients symptoms started several years ago and progressively became worse. He was previously taking trazodone for insomnia, but stopped over a year ago for unclear reasons. It was noted that the hallucinations are both visual and auditory for people attacking him. While in the ED the patient was noted to be agitated with concern for seizure activity. This was treated with ativan and Geodon. After which he was noted be still be agitated, but not ventilating well. He was subsequently intubated for airway protection. He also had a lumbar puncture for possible infection. Objective PROBLEMS: ACTIVE PROBLEM LIST Shoulder Pain Allergic Rhinitis Elevated Blood Pressure Hip Pain Brandon Involving Less Than 10% of Body Surface Insomnia Tobacco Abuse Disorder Alcohol Abuse Smoker PAST MEDICAL HISTORY Diagnosis Date - No disease found PAST SURGICAL HISTORY Procedure Laterality Date - NONE Social History Marital status: Spouse name: Years of education: Number of children: Social History Main Topics Smoking status: Current Every Day Smoker Packs/day: 1.00 Years: 0.00 Smokeless tobacco: Never Used Comment: 20 years. planning to quit. Alcohol use: No Comment: last drank one month ago Drug use: No Sexual activity: Yes Partners with: Female ROS REVIEW OF SYSTEMS Unable to obtain as patient is intubated and sedated. VITAL SIGNS (last 24hrs min/max): Temp Av.4 ?C (97.5 ?F) Min: 36.4 ?C (97.5 ?F) Max: 36.4 ?C (97.5 ?F) Pulse Av Min: 86 Max: 86 No Data Recorded Cuff BP Min: 210/129 Max: 210/129 Pain Score: 0/10 Vital signs reviewed. BP 210/129 Pulse 86 Temp (Src) 97.5 (Temporal Artery) Resp 17 Ht 5' 8 (1.73m) Wt 145 lb 4.8 oz (65.9kg) SpO2 100% BMI 22.10 kg/(m2). Temp (24hrs), Av.4 ?C (97.5 ?F), Min:36.4 ?C (97.5 ?F), Max:36.4 ?C (97.5 ?F) NET FLUID BALANCE Intake/Output Summary (Last 24 hours) at 10/23/18527 Last data filed at 10/23/18 050 Gross per 24 hour Intake 0 ml Output 200 ml Net -200 ml MEDICATIONS No current facility-administered medications for this encounter. Lines, Drains, and Airways Line Peripheral 10/23/18 0059 Left Forearm 20 Gauge less than 1 day Peripheral 10/23/18 0059 Left Wrist 20 Gauge less than 1 day Drain GI Feed/Drain 10/23/18 0108 Nasogastric Left Naris 16 Fr less than 1 day Indwelling Urinary Catheter 10/23/18 0131 Reed 16 Fr less than 1 day Airway Airway Endotracheal Tube 10/23/18 0111 less than 1 day PHYSICAL EXAM PERFORMED: Eye: Pin point pupils, minimally reactive Cardiovascular: Regular rhythm, no m/g/r Respiratory: Clear to auscultation, on mechanical vent %FIO2 Min: 40 Max: 40 Abdomen: Soft, Nontender and Positive bowel sounds Extremities: Edema- No Neurologic: Sedated Respiratory/Nursing Documentation: O2 Therapy: Ventilator (10/23/18 050) Invasive Ventilator Mode: Continuous Mandatory Ventilation (10/23/18502) Set Ventilator Respiratory Rate (BPM): 14 (10/23/18502) Total Respiratory Rate (BPM): 18 (10/23/18502) Tidal Volume Set (mL): 500 (10/23/18502) Exhaled Tidal Volume (mL): 548 (10/23/18502) Minute Volume (L): 9.7 (10/23/18 0503) Peak Inspiratory Pressure (cm H2O): 26 (10/23/18 050) PEEP/CPAP (cm H2O): 5 (10/23/18502) HEMODYNAMIC DATA: Reviewed NUTRITION: Enteral Feeds: No NPO DATA: Diagnostic tests reviewed for today's visit, films/specimens were personally reviewed by me: Most recent labs and imaging results. LABS: Recent Labs 10/22/18 2313 CK 370* WBC 6.2 RBC 3.83* HB 13.1* HCT 39.5* MCV 103.1* PLT 334 GLUC 105* BUN 19 CREAT 0.69 NA 146 K 3.8 CHLOR 110* CO2 24 TPROT 7.4 ALB 3.5 CA 8.9 ALKPHOS 62 TBILI 0.4 AST 64* ALT 148* MG 2.1 Imagin/28 CXR: no focal consolidation, pneumothorax or effusion 10/23 CT Brain: No acute intracranial abnormality ABG 02:04: 7.25/47/292 Lumbar puncture: Clear appearance Protein: 32 Glucose: 63 RBC: 0 WBC: 1 Assessment/Plan Critical Care Documentation: The patient has the following organ/system impairment(s): Encephalopathy #Acute hypoxic respiratory failure -Continue mechanical ventilation. Wean FiO2. -Continue supportive care -Reassess off sedation later today #Encephalopathy -Unclear etiology at this point. Can be secondary to underlying psychiatric illness, alcohol withdrawal, metabolic/toxic -Urine tox was durham negative -Unlikely infectious cause given normal WBC, LP results. CXR was negative for infiltrate or effusion, UA not suspicious for infection. -CT brain negative #Hallucinations -Hx of alcohol withdrawal -Concern for psych component given hx of insomnia #Hx of alcohol abuse -Thiamine and Folic acid -Social work consult DVT PPx: Lovenox GI PPx: Pepcid MMP SIGNATURE: Ej Solis DO PATIENT NAME: Lorenzo Steiner DATE: October 23, 2018 TIME: 5:28 AM Normal [facility] Hemogramon 10-23-2018 Erythrocyte distribution width Ratio (RBC) 13.5 % Normal 11.6-14.4 [facility] Comment on above: Performed By: #### L URIN #### [place] [address] Hematocrit Volume Fraction (Bld) 38.9 % Low 40.1-51.0 [facility] Comment on above: Performed By: #### L URIN #### [facility] [address] [place] [address] Hemoglobin mass conc (Bld) 12.9 g/dL Low 13.7-17.5 [facility] Comment on above: Performed By: #### L URIN #### [facility] [address] [place] [address] MCH Entitic mass (RBC) 34.7 pg High 25.7-32.2 [facility] Comment on above: Performed By: #### L URIN #### [facility] [address] [place] [address] MCHC mass conc (RBC) 33.2 % Normal 32.3-36.5 [facility] Comment on above: Performed By: #### L URIN #### [place] [address] MCV Entitic volume (RBC) 104.6 fL High 83.2-95.6 [facility] Comment on above: Performed By: #### L URIN #### [facility] [address] [place] [address] Platelet mean volume Entitic volume (Bld) 9.6 fL Normal 8.7-12.0 [facility] Comment on above: Performed By: #### L URIN #### [facility] [address] [place] [address] Platelets #/vol (Bld) 291 thou/cmm Normal 141-365 [facility] Comment on above: Performed By: #### L URIN #### [facility] [address] [place] [address] RBC #/vol (Bld) 3.72 mil/cmm Low 4.63-6.08 [facility] Comment on above: Performed By: #### L URIN #### [facility] [address] [place] [address] RDW SD 52.8 fl High 36.1-45.8 [facility] Comment on above: Performed By: #### L URIN #### [facility] [address] [place] [address] WBC #/vol (Bld) 5.55 thou/cmm Normal 4.23-9.07 [facility] Comment on above: Performed By: #### L URIN #### [facility] [address] [place] [address] Hemogram/Manual Diffon 10-23 Abs. Baso 0.12 thou/cmm High 0.00-0.08 [facility] Comment on above: Performed By: #### L MCBD #### [facility] [address] [place] [address] Abs. [place] 1.24 thou/cmm High 0.20-1.00 [facility] Comment on above: Performed By: #### L MCBD #### [facility] [address] [place] [address] Abs. Neut (ANC) 2.92 thou/cmm Low 3.00-5.67 [facility] Comment on above: Performed By: #### L MCBD #### [facility] [address] [place] [address] Anisocytosis Ql (Bld) Few Normal [facility] Comment on above: Performed By: #### L MCBD #### [facility] [address] [place] [address] Atypical Lymph 5.0 % Normal [facility] Comment on above: Performed By: #### L MCBD #### [facility] [address] [place] [address] Basophils/100 WBC (Bld) 2.0 % Normal [facility] Comment on above: Performed By: #### L MCBD #### [facility] [address] [place] [address] Eosinophils #/vol (Bld) 0.06 thou/cmm Normal 0.00-0.41 [facility] Comment on above: Performed By: #### L MCBD #### [place] [address] Eosinophils/100 WBC (Bld) 1.0 % Normal [facility] Comment on above: Performed By: #### L MCBD #### [facility] [address] [place] [address] Lymphocytes #/vol (Bld) 1.86 thou/cmm Normal 1.50-3.65 [facility] Comment on above: Performed By: #### L MCBD #### [facility] [address] [place] [address] Lymphocytes/100 WBC (Bld) 25.0 % Normal [facility] Comment on above: Performed By: #### L MCBD #### [facility] [address] [place] [address] Monocytes/100 WBC (Bld) 20.0 % Normal [facility] Comment on above: Performed By: #### L MCBD #### [facility] [address] [place] [address] Platelets #/vol (Bld) Normal Normal [facility] Comment on above: Performed By: #### L MCBD #### [facility] [address] [place] [address] Polychromasia Few Normal [facility] Comment on above: Performed By: #### L MCBD #### [facility] [address] [place] [address] Seg Neutrophil 47.0 % Normal [facility] Comment on above: Performed By: #### L MCBD #### [place] [address] Diff Type Manual Diff Normal [facility] Comment on above: Performed By: #### L MCBD #### [facility] [address] [place] [address] Erythrocyte distribution width Ratio (RBC) 13.1 % Normal 11.5-15.9 [facility] Comment on above: Performed By: #### L MCBD #### [facility] [address] [place] [address] Hematocrit Volume Fraction (Bld) 39.5 % Low 42.0-52.0 [facility] Comment on above: Performed By: #### L MCBD #### [facility] [address] [place] [address] Hemoglobin mass conc (Bld) 13.1 g/dL Low 14.0-18.0 [facility] Comment on above: Performed By: #### L MCBD #### [facility] [address] [place] [address] MCH Entitic mass (RBC) 34.2 pg High 27.0-31.0 [facility] Comment on above: Performed By: #### L MCBD #### [facility] [address] [place] [address] MCHC mass conc (RBC) 33.2 % Normal 32.0-36.0 [facility] Comment on above: Performed By: #### L MCBD #### [place] [address] MCV Entitic volume (RBC) 103.1 fL High 80.0-94.0 [facility] Comment on above: Performed By: #### L MCBD #### [place] [address] Platelet mean volume Entitic volume (Bld) 9.7 fL Normal 7.1-10.5 [facility] Comment on above: Performed By: #### L MCBD #### [place] [address] Platelets #/vol (Bld) 334 thou/cmm Normal 150-400 [facility] Comment on above: Performed By: #### L MCBD #### [place] [address] RBC #/vol (Bld) 3.83 mil/cmm Low 4.60-6.20 [facility] Comment on above: Performed By: #### L MCBD #### [place] [address] WBC #/vol (Bld) 6.2 thou/cmm Normal 4.8-10.8 [facility] Comment on above: Performed By: #### L MCBD #### [place] [address] Hepatic Panelon 10-23-2018 ALP enzyme act/vol 53 U/L Normal 46-116 [facility] Comment on above: Performed By: #### L P14 #### [facility] [address] [place], [place] [address] Bilirubin mass conc 0.7 mg/dL Normal 0.2-1.0 [facility] Comment on above: Performed By: #### L P14 #### [facility] [address] [place], [place] [address] Protein mass conc 6.7 g/dL Normal 6.4-8.2 [facility] Comment on above: Performed By: #### L P14 #### [facility] [address] [place], [place] [address] ALT enzyme act/vol 139 U/L High 12-78 [facility] Comment on above: Performed By: #### L P14 #### [facility] [address] [place], [place] [address] AST enzyme act/vol 86 U/L High 9-37 [facility] Comment on above: Performed By: #### L P14 #### [facility] [address] [place], [place] [address] Bilirubin mass conc 0.27 mg/dL High 0.00-0.20 [facility] Comment on above: Performed By: #### L P14 #### [facility] [address] [place], [place] [address] Albumin mass conc 3.3 g/dL Low 3.4-5.0 [facility] Comment on above: Performed By: #### L P14 #### [facility] [address] [place], [place] [address] Ionized Calciumon 10-23-2018 Ionized Ca,PH7.4 4.07 mg/dL Low 4.61-5.17 [facility] Comment on above: Performed By: #### L P14 #### [facility] [address] [place], [place] [address] pH (Bld) 7.272 [pH] Low 7.320-7.430 [facility] Comment on above: Performed By: #### L P14 #### [facility] [address] [place], [place] [address] Ionized Calcium 4.37 mg/dL Low 4.61-5.17 [facility] Comment on above: Performed By: #### L P14 #### [facility] [address] [place] [address] Lactic acidon 10-23-2018 Lactate molar conc 1.2 mmol/L Normal 0.4-2.0 [facility] Comment on above: Performed By: #### L LA #### [place] [address] MDRD eGFRon 10-23-2018 GFR/1.73 sq M predicted among non-blacks MDRD vol rate/area (S/P/Bld) mL/min/{1.73_m2} Normal >60mL/min/1. 73m2 [facility] Comment on above: Result Comment: If t he patient is , multiply the result by 1.210. Performed By: #### L GFR #### [place] [address] MRSA Screenon 10-23-2018 MRSA DNA SHILO+probe Ql (Unsp spec) Test performed at [facility] No MRSA detected. Normal [facility] Comment on above: Performed By: #### L MCBD #### [place] [address] Magnesium Bloodon 10-23-2018 Magnesium mass conc 2.4 mg/dL Normal 1.6-2.6 [facility] Comment on above: Performed By: #### L P14 #### [place] [address] Magnesium mass conc 2.5 mg/dL Normal 1.6-2.6 [facility] Comment on above: Performed By: #### L URIN #### [place] [address] Magnesium mass conc 2.1 mg/dL Normal 1.8-2.4 [facility] Comment on above: Performed By: #### L MAG #### [place] [address] NURSING PROGon 10-23-2018 Protein mass conc HNO ID: [id number] Author: Kiki Chavez) JOSHUA Hanson Service: Nursing Author Type: Registered Nurse Type: Nursing Progress Note Filed: 10/23/2018 7:19 AM Note Text: Nursing Progress: Topic: RESTRAINT NON-VIOLENT PATIENT NAME: Lorenzo Steiner PATIENT LOCATION: [place] [address]/[place] [address]* The patient demonstrates Impulsive Behavior, Inability to be Redirected, Other: See Comment (placed on at lodi) as evidenced by the following behaviors pt is restless, non redirectable, and at danger of pulling medical devices which pose an imminent danger to self or others. The following interventions were attempted but were not effective in protecting the patient's safety: Alarms, Bed in Low/Locked Position, Call Light Within Reach, Frequent Observation, Medications Reviewed, Modify Environment, Partial Bedrails Up Next, a comprehensive assessment was performed and warranted placing the patient in Soft Bilateral Wrists, the least restrictive restraint needed to protect the patient's safety. Ongoing safety assessments and evaluation for earliest removal of restraints will be performed. DATE: October 23, 2018 TIME: 7:19 AM Kiki Hanson RN [facility] NUTRITIONon 10-23-2018 NUTRITION HNO ID: [id number] Author: Daphne Naqvi RD Service: Nutrition Therapy Author Type: Registered Dietitian Type: Nutrition Filed: 10/23/2018 11:20 AM Note Text: NUTRITION THERAPY INITIAL ASSESSMENT SERVICE DATE: 10/23/2018 SERVICE TIME: 10:05 AM RECOMMENDED MALNUTRITION DIAGNOSIS: NO MALNUTRITION IDENTIFIED NUTRITION CARE PLAN: Problem, Etiology and Signs/Symptoms: Suboptimal oral intake with need for enteral feeding related to respiratory failure as evidenced by mechanical intubation. Intervention: Recommend Impact Peptide 1.5 @ goal of 53 mL/hr to provide 1908 kcals, 120 gm protein, 979 mL free water. To provide 100% of estimated fluid needs recommend 160 mL flush 6 times/day. Collaborated with Dr. Brooks. Coordination of Care: Discussed with JOSHUA Chan Monitor and Evaluation: Goal: Meet >75% of estimated needs Monitor fluid/electrolyte balance Monitor labs, I/Os, vital signs, weight Monitor tolerance to tube feeding Discharge Nutrition Recommendations: To be determined Per HPI: Per Ej Solis, DO: This is a 48 year old male with a past medical history significant for insomnia. He presented to [place] ED for hallucinations escorted by police. Per ED note the patients symptoms started several years ago and progressively became worse. He was previously taking trazodone for insomnia, but stopped over a year ago for unclear reasons. It was noted that the hallucinations are both visual and auditory for people attacking him. ? While in the ED the patient was noted to be agitated with concern for seizure activity. This was treated with ativan and Geodon. After which he was noted be still be agitated, but not ventilating well. He was subsequently intubated for airway protection. He also had a lumbar puncture for possible infection. PAST MEDICAL HISTORY Diagnosis Date - No disease found PAST SURGICAL HISTORY Procedure Laterality Date - NONE Current Diet Order DIET TUBE FEED - CONTIN (NO TRAY) Order Specific Question: TF Product (26 years and up) Answer: IMPACT PEPTIDE 1.5 (RD APPROVAL) Order Specific Question: TF Total mL per 24 hours Answer: 980 Order Specific Question: TF Goal Rate (mL/hr) Answer: 40 Order Specific Question: TF Initial Rate (mL/hr) Answer: 20 Order Specific Question: TF Advance by (mL/hr) Answer: 10 Order Specific Question: TF Advance every (hrs) Answer: 6 Order Specific Question: TF Water Flush Amount (mL) Answer: 30 Order Specific Question: TF Water Flush Frequency (times/day) Answer: 4 Lines and Drains: Peripheral 10/23/1858 Left Forearm 20 Gauge (Active) Peripheral 10/23/1858 Left Wrist 20 Gauge (Active) Indwelling Urinary Catheter 10/23/18130 Reed 16 Fr (Active) Nutritional Intake Prior to Admission: Unable to determine GI symptoms: unable to determine at this time Nutrition Abdominal Exam: not assessed ANTHROPOMETRICS Height: 172.7 cm (5' 8) Admission Weight: 65.9 kg (145 lb 4.8 oz) Current Weight: 65.9 kg (145 lb 4.8 oz) Body mass index is 22.09 kg/m?. normal Weight has decreased by 6.8 kg over 8 months representing 10.3 % weight change potentially clinically significant but does not meet criteria to support a malnutrition diagnosis Last Wt 10/23/18 : 65.9 kg (145 lb 4.8 oz) 10/22/18 : 68 kg (150 lb) 01/13/18 : 72.6 kg (160 lb) 12/03/17 : 73.5 kg (162 lb) [place] Body Weight: 70.0kg Resting Metabolic Rate: 1501 Estimated kilocalorie needs: 9623-1287 kilocalories determined by 25-30 kcal/kg Estimated protein needs: 84-112 grams determined by 1.2-1.6 g/kg [place] weight Estimated fluid needs: 7520-8244 milliliters based on 1 mL per kcal NUTRITION FOCUSED PHYSICAL EXAM: Subcutaneous Fat Loss Orbital Mild Triceps No fat loss Mid-axillary at the iliac crest No fat loss Muscle Loss Locations: Temporalis Mild Pectoralis Mild Deltoids No muscle loss Interosseous No muscle loss Latissimus dorsi, trapezius No muscle loss Quadriceps No muscle loss Gastrocnemius No muscle loss Potential micronutrient deficiency revealed in: Hair - thin Edema: No Ascites: No Assessment of Functional Status: Functional, yet not normal, able to be up and about with fairly normal activities for a duration of 8 months Temperature Max in 24 hours: Temp (24hrs), Av.3 ?C (97.3 ?F), Min:36.1 ?C (97 ?F), Max:36.4 ?C (97.5 ?F) BP 101/75 Pulse 88 Temp 36.1 ?C (97 ?F) (Temporal Artery) Resp 18 Ht 172.7 cm (5' 8) Wt 65.9 kg (145 lb 4.8 oz) SpO2 95% BMI 22.09 kg/m? Recent Labs 10/23/18 0530 10/22/18 2313 GLUC 94 105* BUN 12 19 CREAT 0.48* 0.69 NA 142 146 K 4.0 3.8 CHLOR 110* 110* CO2 23 24 ALB -- 3.5 P 2.7 -- HB 12.9* 13.1* HCT 38.9* 39.5* WBC 5.55 6.2 MG 2.5 2.1 Potential Signs of Inflammation: hyperglycemia and critically ill ALLERGIES Allergen Reactions - Penicillin GI Upset Current Facility-Administered Medications Medication Dose Route Frequency - potassium chloride 80-120 mEq oral liquid 80-120 mEq ORAL/FEEDING TUBE PRN - potassium chloride iv piggyback 20 mEq/100 mL 20 mEq INTRAVENOUS PRN - magnesium sulfate in water 2 g in sterile water 50 ml 2 g INTRAVENOUS PRN - sodium glycerophosphate 45 mmol in NaCl 0.9% 250 mL (GLYCOPHOS) 45 mmol INTRAVENOUS PRN - calcium gluconate 4 g in NaCl 0.9% 250 mL 4 g INTRAVENOUS PRN - propofol infusion (DIPRIVAN) 5-60 mcg/kg/min INTRAVENOUS CONTINUOUS - Chlorhexidine Gluconate 0.12 % 15 mL (PERIDEX) 15 mL ORAL QID - albuterol 2.5 mg /3 mL (0.083 %) 2.5 mg (PROVENTIL) 2.5 mg INHALATION q 4 H PRN - famotidine 20 mg tab(s) (PEPCID) 20 mg ORAL/FEEDING TUBE BID - thiamine 200 mg in NaCl 0.9% 50 mL 200 mg INTRAVENOUS q 8 H - lactated ringers infusion 75 mL/hr INTRAVENOUS CONTINUOUS - folic acid 1 mg tab(s) 1 mg ORAL DAILY Date 10/22/18699 - 10/23/18 06(Not Admitted) 10/23/18 07 - 10/24/18 0659 Shift 1036-5308 8614-7090 7246-6292 24 Hour Total 7232-7627 4786-4384 9393-4561 24 Hour Total I N T A K E IV 325.4 325.4 LR 235.4 235.4 Propofol IV 90 90 Shift Total 325.4 325.4 O U T P U T Urine 200 200 50 50 Output ( Indwelling Urinary Catheter 10/23/18 0131 Reed 16 Fr) 200 200 50 50 Shift Total 200 200 50 50 Weight (kg) 65.9 65.9 65.9 65.9 65.9 65.9 Vitamin and Mineral Labs in the past year: Recent Labs 12/04/17 1330 VITB1 129 B12 531 TIBC 361 FE 155 BREE 344.9 MNT Billing Type: Initial Assess/15 min 3 units SIGNATURE: Debra Marsh, Archeologist [employer] PATIENT NAME: Lorenzo Steiner DATE: October 23, 2018 TIME: 10:04 AM PAGER: [phone] Normal [facility] Osmolality Serumon 9 Osmolality 292 mOsm/kg Normal 276-298 [facility] Comment on above: Performed By: #### L P14 #### [facility] [address] [place] [address] PLAN OF CAREon 10-23-2018 PLAN OF CARE HNO ID: [id number] Author: Judy Koroma (Pharmacist) Service: Pharmacy Author Type: Pharmacist Type: Plan of Care Filed: 10/23/2018 11:37 AM Note Text: MEDICATION HISTORY AND MEDICATION RECONCILIATION Patient Name:Demetri Steiner : 1970 Source of history:Family: Reliability of source: States patient no longer takes medications at home Medication Nonadherence Identified: No barriers noted The above information represents the best possible medication history: Yes Reconciliation completed? Yes All [employer] medications addressed by LIP Additional comments: Removed pedroe, family states patient no longer takes Allergies: ALLERGIES Allergen Reactions - Penicillin GI Upset Preferred Pharmacy: Patient does not take regular medications at home Current [employer] Medications: Prior to Admission medications as of 10/23/18 1135 Not on File WALI AGUERO October 23, 2018 11:36 AM Normal [facility] PROGRESSon 10-23-2018 Protein mass conc HNO ID: [id number] Author: Moriah Brooks Service: Pulmonary Disease Author Type: Physician Type: Progress Notes Filed: 10/23/2018 8:46 AM Note Text: MICU - PROGRESS NOTE SERVICE DATE: October 23, 2018 Admission Date: 10/23/2018 AGE: [age] year old LOS: 0 days Subjective Patient seen. Chart reviewed. Mr. Steiner is a 48-year-old male who presented from [place] emergency room with a history of hallucinations and change in mental status. He was brought to the emergency room by police. He has a history of insomnia. Supposedly was on trazodone in the past but according to chart is not taking this for about a year. He was agitated hallucinating. He was started on Ativan and Geodon. He developed progressive somnolence and was eventually intubated for airway control. There is a concern for seizure activity. Or puncture was performed to rule out meningitis which was negative. Toxic ingestion with suspected however his tox screen is essentially negative. Alcohol level was negative. An osmolality gap was negative. Serum osmolality was obtained. He is currently on a mechanical ventilator. He is on a propofol drip. He is still agitated when stimulated. He does not follow commands. He appears to move all extremities. Objective PROBLEMS: ACTIVE PROBLEM LIST Shoulder Pain Allergic Rhinitis Elevated Blood Pressure Hip Pain Brandon Involving Less Than 10% of Body Surface Insomnia Tobacco Abuse Disorder Alcohol Abuse Smoker Respiratory Failure (Hcc) PAST MEDICAL HISTORY Diagnosis Date - No disease found PAST SURGICAL HISTORY Procedure Laterality Date - NONE Social History Marital status: Spouse name: Years of education: Number of children: Social History Main Topics Smoking status: Current Every Day Smoker Packs/day: 1.00 Years: 0.00 Smokeless tobacco: Never Used Comment: 20 years. planning to quit. Alcohol use: No Comment: last drank one month ago Drug use: No Sexual activity: Yes Partners with: Female VITAL SIGNS (last 24hrs min/max): Temp Av.3 ?C (97.3 ?F) Min: 36.1 ?C (97 ?F) Max: 36.4 ?C (97.5 ?F) Pulse Av.6 Min: 72 Max: 86 No Data Recorded Cuff BP Min: 105/73 Max: 210/129 Pain Score: 0/10 Vital signs reviewed. BP 147/66 Pulse 74 Temp (Src) 97 (Temporal Artery) Resp 18 Ht 5' 8 (1.73m) Wt 145 lb 4.8 oz (65.9kg) SpO2 100% BMI 22.10 kg/(m2). Temp (24hrs), Av.3 ?C (97.3 ?F), Min:36.1 ?C (97 ?F), Max:36.4 ?C (97.5 ?F) NET FLUID BALANCE Intake/Output Summary (Last 24 hours) at 10/23/18 0896 Last data filed at 10/23/18 0736 Gross per 24 hour Intake 162.8 ml Output 250 ml Net -87.2 ml MEDICATIONS Current Facility-Administered Medications Medication Dose Route Frequency - potassium chloride 80-120 mEq oral liquid 80-120 mEq ORAL/FEEDING TUBE PRN - potassium chloride iv piggyback 20 mEq/100 mL 20 mEq INTRAVENOUS PRN - magnesium sulfate in water 2 g in sterile water 50 ml 2 g INTRAVENOUS PRN - sodium glycerophosphate 45 mmol in NaCl 0.9% 250 mL (GLYCOPHOS) 45 mmol INTRAVENOUS PRN - calcium gluconate 4 g in NaCl 0.9% 250 mL 4 g INTRAVENOUS PRN - propofol infusion (DIPRIVAN) 5-60 mcg/kg/min INTRAVENOUS CONTINUOUS - Chlorhexidine Gluconate 0.12 % 15 mL (PERIDEX) 15 mL ORAL QID - albuterol 2.5 mg /3 mL (0.083 %) 2.5 mg (PROVENTIL) 2.5 mg INHALATION q 4 H PRN - famotidine 20 mg tab(s) (PEPCID) 20 mg ORAL/FEEDING TUBE BID - thiamine 200 mg in NaCl 0.9% 50 mL 200 mg INTRAVENOUS q 8 H - lactated ringers infusion 75 mL/hr INTRAVENOUS CONTINUOUS - folic acid 1 mg tab(s) 1 mg ORAL DAILY Lines, Drains, and Airways Line Peripheral 10/23/1858 Left Forearm 20 Gauge less than 1 day Peripheral 10/23/189 Left Wrist 20 Gauge less than 1 day Drain Indwelling Urinary Catheter 10/23/18 0131 Reed 16 Fr less than 1 day Airway Airway Endotracheal Tube 10/23/18 0111 less than 1 day PHYSICAL EXAM PERFORMED: General: no acute distress. On mechanical ventilator. Endotracheal tube in place in the oropharynx Cardiovascular: Regular rhythm Respiratory: Clear to auscultation Abdomen: Soft, Nontender and Positive bowel sounds Extremities: Edema- No Neurologic: Sedated Respiratory/Nursing Documentation: O2 Therapy: Ventilator (10/23/18735) Invasive Ventilator Mode: Continuous Mandatory Ventilation (10/23/18734) Set Ventilator Respiratory Rate (BPM): 18 (10/23/18734) Total Respiratory Rate (BPM): 18 (10/23/18734) Tidal Volume Set (mL): 380 (10/23/18611) Exhaled Tidal Volume (mL): 548 (10/23/18502) Minute Volume (L): 6.9 (10/23/18734) Peak Inspiratory Pressure (cm H2O): 15 (10/23/18734) PEEP/CPAP (cm H2O): 5 (10/23/18734) HEMODYNAMIC DATA: Reviewed NUTRITION: Enteral Feeds: No NPO DATA: Diagnostic tests reviewed for today's visit, films/specimens were personally reviewed by me: Most recent labs and imaging results. LABS: Recent Labs 10/23/18 0530 10/22/18 2313 CK -- 370* WBC 5.55 6.2 RBC 3.72* 3.83* HB 12.9* 13.1* HCT 38.9* 39.5* MCV 104.6* 103.1* PLT 291 334 GLUC 94 105* BUN 12 19 CREAT 0.48* 0.69 NA 142 146 K 4.0 3.8 CHLOR 110* 110* CO2 23 24 TPROT -- 7.4 ALB -- 3.5 CA 7.3* 8.9 ALKPHOS -- 62 TBILI -- 0.4 AST -- 64* ALT -- 148* MG 2.5 2.1 ABG: Invalid input(s): [id number] Results CT BRAIN WO IVCON (Order [id number]) Patient Info Patient Name Sex Lorenzo Murray ([id number]) Male 1970 10/23/2018 1:12 AM - Radiology, Oru In Impression IMPRESSION: No acute intracranial abnormality. Product/Industry Consultant: PSCB Transcribe Date/Time: Oct 23 2018 1:08A Dictated by : CRISTIAN CROWLEY MD This examination was interpreted and the report reviewed and electronically signed by: CRISTIAN CROWLEY MD on Oct 23 2018 1:10AM EST Results XR CHEST 1V FRONTAL (Order [id number]) Patient Info Patient Name Sex Lorenzo Murray ([id number]) Male 1970 10/23/2018 1:38 AM - Radiology, Oru In Impression IMPRESSION: Lines, tubes, and devices: Endotracheal tube tip projects 1 to 2 cm above the milagros. Enteric tube tip and sidehole project over the left upper quadrant. Lungs and pleura: No confluent airspace disease. No obvious pleural effusion or pneumothorax on this limited supine technique. Mild right hemithorax volume loss Cardiomediastinal silhouette: Within normal limits. Other: No acute bony abnormality identified. Results XR ABDOMEN 1V SUPINE (Order [id number]) Patient Info Patient Name Sex Lorenzo Murray ([id number]) Male 1970 10/23/2018 7:57 AM - Radiology, Oru In Impression IMPRESSION: The tip of the NG tube is in the left upper quadrant likely in the body the stomach. Nonobstructive nonspecific bowel gas pattern. Product/Industry Consultant: HEMAL Transcribe Date/Time: Oct 23 2018 7:53A Dictated by : JORGE SINGLETON MD This examination was interpreted and the report reviewed and electronically signed by: JORGE SINGLETON MD on Oct 23 2018 7:55AM EST Assessment/Plan IMPRESSION: Critical Care Documentation: The patient has the following organ/system impairment(s): Encephalopathy Metabolic encephalopathy?etiolo gy uncertain. Rule out secondary to toxic ingestion. Rule out withdrawal from trazodone Acute respiratory failure Anemia CRITICAL CARE PLAN: Continue Propofol Continue mechanical vbentilation VBG EEG Neuro evaluation Enteral feedings This patient has a high probability of sudden, clinically significant deterioration, which requires the highest level of physician preparedness to intervene urgently. I managed/supervised life or organ supporting interventions that required frequent physician assessment. I devoted my full attention to the direct care of this patient for the amount of time indicated below. Time I spent with family or surrogate(s) is included only if the patient was incapable of providing the necessary information or participating in medical decision making. Time devoted to teaching is not included. Discussed with staff/patient/family Time spent providing critical care services: 40 minutes excluding procedures. SIGNATURE: Moriah Brooks DO PATIENT NAME: Lorenzo Steiner DATE: October 23, 2018 TIME: 8:35 AM Normal [facility] Phosphorus Bloodon 9 Phosphate mass conc 2.9 mg/dL Normal 2.5-4.9 [facility] Comment on above: Performed By: #### L P14 #### [address] [address] Phosphate mass conc 2.7 mg/dL Normal 2.5-4.9 [facility] Comment on above: Performed By: #### L URIN #### [address] [address] Protein CSFon 10-23-2018 Protein CSF 32 mg/dL Normal 15-45 [facility] Comment on above: Performed By: #### L URIN #### [address] [address] TSHon 10-23-2018 Thyrotropin Qn 1.43 uIU/mL Normal 0.34-4.82 [facility] Comment on above: Performed By: #### L TSH #### [facility] [address] [place] [address] Urinalysis Routineon 019 Appearance Nom (U) CLEAR Normal [facility] Comment on above: Performed By: #### L URIN #### [facility] [address] [place] [address] Bilirubin Urine Negative Normal Negative [facility] Comment on above: Performed By: #### L URIN #### [place] [address] Color Nom (U) YELLOW Normal [facility] Comment on above: Performed By: #### L URIN #### [place] [address] Ep Cells Urine NONE Normal 0-5 [facility] Comment on above: Performed By: #### L URIN #### [place] [address] Glucose Ql (U) Negative Normal Negative [facility] Comment on above: Performed By: #### L URIN #### [place] [address] Hemoglobin,Urine Negative Normal Negative [facility] Comment on above: Performed By: #### L URIN #### [place] [address] Ketone Urine Negative Normal Negative [facility] Comment on above: Performed By: #### L URIN #### [place] [address] Leukocytes Esterase Negative Normal Negative [facility] Comment on above: Performed By: #### L URIN #### [place] [address] Nitrites Urine Negative Normal Negative [facility] Comment on above: Performed By: #### L URIN #### [place] [address] pH (U) 5.5 [pH] Normal 5.0-8.0 [facility] Comment on above: Performed By: #### L URIN #### [place] [address] Protein mass conc (U) 1+ Abnormal Negative Akr on [facility] Comment on above: Performed By: #### L URIN #### [place] [address] RBC LM.HPF #/area (Urine sed) NONE Normal 0-3 [facility] Comment on above: Performed By: #### L URIN #### [place] [address] Specific [place], Ur 1.025 Normal 1.005-1.030 Txr [facility] Comment on above: Performed By: #### L URIN #### [place] [address] Urobilinogen,Ur 1.0 EU/dL Normal 0.0-1.0 [facility] Comment on above: Performed By: #### L URIN #### [place] [address] WBC LM.HPF #/area (Urine sed) NONE Normal 0-5 [facility] Comment on above: Performed By: #### L URIN #### [place] [address] Urine Drug Screenon 10-23-19 19 Protein mass conc (U) Non-Detected Normal Non-Detected [facility] Comment on above: Performed By: #### L UDR2 #### [place] [address] Urine Amphetamine Non-Detected Normal Non-Detected Akr [facility] Comment on above: Performed By: #### L UDR2 #### [place] [address] Urine Barbiturates Non-Detected Normal Non-Detected [facility] Comment on above: Performed By: #### L UDR2 #### [place] [address] Urine Benzodiazepine Non-Detected Normal Non-Detected [facility] Comment on above: Performed By: #### L UDR2 #### [facility] [address] [place] [address] Urine Buprenorphine Non-Detected Normal Non-Detected A [facility] Comment on above: Result Comment: Urin e Drug Cutoff Levels Urine Amphetamine 500 ng/mL Urine Barbituate 200 ng/mL Urine Benzodiazepines 150 ng/mL Urine Cocaine 150 ng/mL Urine Methamphetamines 500 ng/mL Urine Methadone 200 ng/mL Urine Opiates 100 ng/mL Urine Oxycodone 100 ng/mL Urine Phencyclidine (PCP) 25 ng/mL Urine Propoxyphene 300 ng/mL Urine Tricyclics 300 ng/mL Urine THC 50 ng/mL Urine Buprenorphine 10 ng/mL The results of these analytes are unconfirmed and reported qualitatively as detected or non-detected relative to the cutoff value. Detected results indicate the sample is likely to contain the analyte. Non-detected results indicate that either the sample does not contain the analyte or it is present in concentrations below the cutoff level. This drug screen should be used for medical diagnostic purposes only. Testing Performed at: [place] [address] Performed By: #### L UDR2 #### [place] [address] Urine Cocaine Non-Detected Normal Non-Detected [facility] Comment on above: Performed By: #### L UDR2 #### [facility] [address] [place] [address] Urine Methadone Non-Detected Normal Non-Detected [facility] Comment on above: Performed By: #### L UDR2 #### [facility] [address] [place] [address] Urine Methamphetamine Non-Detected Normal Non-Detected [facility] Comment on above: Performed By: #### L UDR2 #### [facility] [address] [place] [address] Urine Opiate Non-Detected Normal Non-Detected [facility] Comment on above: Performed By: #### L UDR2 #### [place] [address] Urine Oxycodone Non-Detected Normal Non-Detected [facility] Comment on above: Performed By: #### L UDR2 #### [facility] [address] [place], [place] [address] Urine PCP Non-Detected Normal Non-Detected [facility] Comment on above: Performed By: #### L UDR2 #### [facility] [address] [place], [place] [address] Urine THC Non-Detected Normal Non-Detected [facility] Comment on above: Performed By: #### L UDR2 #### [facility] [address] [place], [place] [address] Urine Tricyclics Non-Detected Normal Non-Detected [facility] Comment on above: Performed By: #### L UDR2 #### [facility] [address] [place], [place] [address] Vital Signs Date Time Vital Sign Value Performing Clinician Facility 10-06-2024 15:36-0500 Body height 172.7 cm Leora Campos MD Work Phone: [facility] 10-06-2024 15:36-0500 Body mass index (BMI) [Ratio] 27.52 kg/m2 Leora Campos MD Work Phone: [facility] 10-06-2024 15:36-0500 Body weight 82.1 kg Leora Campos MD Work Phone: [facility] 10-06-2024 15:36-0500 Diastolic blood pressure 88 mm[Hg] Leora Campos MD Work Phone: [facility] 10-06-2024 15:36-0500 Heart rate 90 /min Leora Campos MD Work Phone: [facility] 10-06-2024 15:36-0500 SaO2% (BldA) [Mass fraction] 97 % Leora Campos MD Work Phone: [facility] 10-06-2024 15:36-0500 Systolic blood pressure 131 mm[Hg] Leora Campos MD Work Phone: [facility] 07-06-2024 14:11-0500 Diastolic blood pressure 112 mm[Hg] Anjum Briggs APRN.CNS Work Phone: [facility] Comment on above: average bp 07-06-2024 14:11-0500 Heart rate 96 /min Anjum Briggs BEVEL OPERATOR.CAR BODY DESIGNER Work Phone: [facility] 07-06-2024 14:11-0500 Systolic blood pressure 173 mm[Hg] Anjum Briggs BEVEL OPERATOR.CAR BODY DESIGNER Work Phone: [facility] Comment on above: average bp 07-06-2024 14:01-0500 Body mass index (BMI) [Ratio] 26.72 kg/m2 Anjum Briggs BEVEL OPERATOR.CAR BODY DESIGNER Work Phone: [facility] 07-06-2024 14:01-0500 Body weight 79.7 kg Anjum Briggs BEVEL OPERATOR.CAR BODY DESIGNER Work Phone: [facility] 07-06-2024 14:01-0500 Respiratory rate 16 /min Anjum Briggs BEVEL OPERATOR.CAR BODY DESIGNER Work Phone: [facility] 07-06-2024 14:01-0500 SaO2% (BldA) [Mass fraction] 100 % Ajnum Briggs BEVEL OPERATOR.CAR BODY DESIGNER Work Phone: [facility] 02-17-2024 08:22-0400 Body mass index (BMI) [Ratio] 26.3 kg/m2 Polina 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.[employer]ER [employer] Work Phone: [facility] 02-17-2024 08:22-0400 Body weight 78.47 kg Polina 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.[employer] Work Phone: [facility] 02-17-2024 08:22-0400 Diastolic blood pressure 88 mm[Hg] Polina 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.[employer] Work Phone: [facility] 02-17-2024 08:22-0400 Heart rate 84 /min Polina 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.[employer] Work Phone: [facility] 02-17-2024 08:22-0400 Respiratory rate 16 /min Polina 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.[employer] Work Phone: [facility] 02-17-2024 08:22-0400 SaO2% (BldA) [Mass fraction] 97 % Polina 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.[employer] Work Phone: [facility] 02-17-2024 08:22-0400 Systolic blood pressure 162 mm[Hg] Polina Ward BEVEL OPERATOR.[employer]ER [employer] Work Phone: [facility] 10-24-2018 12:07-0500 Body temperature 37.[address] [facility] Comment on above: Performed By: #### LP14 #### [address] [address] Encounters Encounter Date Encounter Type Care Provider Facility Start: 03-05-2025 End: 03-06-2025 Emergency department patient visit DEBRA TRIMBLE DO [facility] Start: 10-06-2024 End: 10-06-2024 ambulatory LEORA CAMPOS Facility:[facility] Start: 10-06-2024 End: 10-06-2024 Office outpatient visit 25 minutes Leora Campos MD Work Phone: [facility] Comment on above: Essential hypertensi on (Primary Dx); Encounter for immunization; Screening for prostate cancer; Screening for HIV (human immunodeficiency virus); Anxiety and depression; Colon cancer screening; Weight gain; Fatigue, unspecified type; Special screening for malignant neoplasms, colon; Alcohol abuse Start: 07-06-2024 End: 07-06-2024 Office outpatient visit 25 minutes Anjum Briggs BEVEL OPERATOR.[employer] B[employer] DESIGNER Work Phone: [facility] Comment on above: Anxiety and depressi on (Primary Dx); Insomnia, unspecified type; Tobacco abuse disorder; Primary hypertension; Flu-like symptoms Start: 07-06-2024 End: 07-06-2024 ambulatory [facility] Facility:[facility] Start: 02-17-2024 End: 02-17-2024 ambulatory [facility] Facility:[facility] Start: 02-17-2024 End: 02-17-2024 Patient encounter procedure Polina Ward BEVEL OPERATOR.[employer]ER [employer] Work Phone: [facility] Comment on above: Insomnia, unspecifie d type (Primary Dx); Anxiety and depression; Annual physical exam Start: 04-10-2023 ambulatory Bashir Lara Facility:[facility] Start: 01-15-2023 Refill Polina 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 .[employer] Work Phone: [facility] Comment on above: Refill Request Start: 12-12-2022 End: 12-13-[address] BASHIR LARA DO Facility:[facility] Start: 12-12-2022 End: 12-12-[address] BASHIR LARA DO [facility] Start: 11-28-2022 End: 11-29-[address] BASHIR LARA DO Facility:[facility] Start: 11-28-2022 End: 11-28-[address] BASHIR LARA DO [facility] Start: 11-27-2022 Refill Polina 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 .[employer] Work Phone: [facility] Comment on above: Refill Request Start: 09-25-2021 End: 09-25-2021 Subsequent hospital visit by physician Xr [facility] Work Phone: Radiology Comment on above: Pain of right upper extremity [M79.601] Start: 10-23-2018 End: 10-30-2018 Evaluation and management of inpatient YOSSI CORONADO [facility] Start: 10-23-2018 End: 10-23-2018 Emergency department patient visit VITALY DAS GUCCI [facility] Procedures Date Procedure Procedure Detail Performing Clinician Start: 02-17-2024 Lipid 1996 panel - S mónica or Plasma X[facility] [place] Work Phone: Start: 09-25-2021 Radex elbow complete minimum 3 views Leora Campos MD Work Phone: Plan of Treatment Date Care Activity Detail Author Start: 02-16-2029 Lipid panel Lipid Screening [facility] Start: 02-16-2027 Diabetes Screening Diabetes Screenin g [facility] Start: 10-06-2025 Annual PCP Team Director Of Special Education neil Disease Visit Annual PCP Team Chronic Disease Visit [facility] Start: 01-04-2025 End: 01-04-2025 Patient encounter procedure 01/04/2025 3:00 PM EDT Office Visit [facility] [address] [place] [address] Anjum Briggs APRN.CAR BODY DESIGNER [address] [place] [address] 6 month f/u [facility] [place] Comment on above: 6 month f/u Start: 10-06-2024 End: 01-05-2025 CBC W Auto Differential panel - Blood COMPLETE BLOOD COUNT AND DIFFERENTIAL Lab Routine Essential hypertension Expected: 10/06/2024, Expires: 01/05/2025 [facility] Comment on above: Expected: 10/06/2024 , Expires: 01/05/2025 Start: 10-06-2024 End: 01-05-2025 Comprehensive metabolic 2000 panel - Serum or Plasma COMPREHENSIVE METABOLIC PANEL Lab Routine Essential hypertension Expected: 10/06/2024, Expires: 01/05/2025 [facility] Comment on above: Expected: 10/06/2024 , Expires: 01/05/2025 Start: 10-06-2024 End: 01-05-2025 HIV 1+2 Ab [Presence] in Serum or Plasma by Immunoassay HIV 1/2 COMBO WITH REFLEX TO DIFFERENTIATION Lab Routine Screening for HIV (human immunodeficiency virus) Expected: 10/06/2024, Expires: 01/05/2025 [facility] Comment on above: Expected: 10/06/2024 , Expires: 01/05/2025 Start: 10-06-2024 End: 01-05-2025 PSA/PROSTATE SPECIFIC ANTIGEN SCREENING PSA/PROSTATE SPECIFIC ANTIGEN SCREENING Lab Routine Screening for prostate cancer Expected: 10/06/2024, Expires: 01/05/2025 [facility] Work Phone: Comment on above: Expected: 10/06/2024 , Expires: 01/05/2025 Start: 10-06-2024 End: 01-05-2025 Thyrotropin [Units/volume] in Serum or Plasma THYROID STIMULATING HORMONE Lab Routine Weight gain Fatigue, unspecified type Expected: 10/06/2024, Expires: 01/05/2025 [facility] Comment on above: Expected: 10/06/2024 , Expires: 01/05/2025 Start: 08-06-2024 End: 08-06-2024 Patient encounter procedure 08/06/2024 3:00 PM EST Office Visit [facility] [place] [address] [place] [address] Anjum Briggs APRN.CAR BODY DESIGNER [address] [place] [address] blood pressure check [facility] [place] Comment on above: blood pressure check Start: 04-26-2024 Covid-19 Vaccine () Covid-19 Vaccine () [facility] Start: 04-26-2024 Influenza vaccination [facility] Start: 04-07-2024 Urine microalbumin profile [facility] Start: 04-01-2024 End: 04-01-2024 Patient encounter procedure 04/01/2024 4:00 PM EDT Office Visit [facility] [place] [address] [place] [address] Polina Ward APRN.[employer] [address] [place] [address] Annual [facility] [place] Comment on above: Annual Start: 2024 Prostate specific antigen measurement Prostate Cancer Screening Discussion [facility] Start: 02-17-2024 End: 05-18-2024 CBC panel - Blood by Automated count [facility] Comment on above: Expected: 02/17/2024 , Expires: 05/18/2024 Start: 02-17-2024 End: 05-18-2024 Comprehensive metabolic 2000 panel - Serum or Plasma [facility] Comment on above: Expected: 02/17/2024 , Expires: 05/18/2024 Start: 02-17-2024 End: 05-18-2024 Lipid 1996 panel - Serum or Plasma [facility] Work Phone: Comment on above: Expected: 02/17/2024 , Expires: 05/18/2024 Start: 08-26-2023 Behavioral Health Screening Behavioral Health Screening [facility] Start: 04-26-2023 Covid-19 Vaccine ( season) Covid-19 Vaccine ( season) [facility] Start: 04-26-2023 Influenza vaccination INFLUENZA (Sea son Ended) [facility] Start: 08-26-2022 DEPRESSION ASSESSMENT DEPRESSION ASS ESSMENT [facility] Start: 11-22-2021 COVID-19 VACCINE (3 - Booster for Pfizer series) COVID-19 VACCINE (3 - Booster for Pfizer series) [facility] Start: 10-25-2021 DIABETES SCREEN DIABETES SCREEN [facility] Start: 10-25-2021 Diabetes Screening Diabetes Screenin g [facility] Start: 2019 SHINGRIX VACCINE (1 of 2) SHINGRIX VACCINE (1 of 2) [facility] Start: 04-07-2015 PNEUMOCOCCAL (2 - PCV) PNEUMOCOCCAL (2 - PCV) [facility] Start: 04-07-2015 Pneumococcal vaccination Pneumococcal Vaccine (2 of 2 - PCV) [facility] Start: 2014 COLOGUARD (FIT-DNA) COLOGUARD (FIT-D NA) [facility] [facility] Start: 2014 Colonoscopy COLONOSCOPY [facility] Start: 2014 COLORECTAL CANCER SCREENING COLORECTAL CANCER SCREENING [facility] Start: [address] COLONOGRAPHY [facility] Start: 2014 FECAL OCCULT BLOOD FECAL OCCULT BLOO D [facility] Start: 2014 Screening for malign ant neoplasm of colon [facility] Start: 2014 SIGMOIDOSCOPY SIGMOIDOSCOPY [facility] Start: 2004 Lipid panel Lipid Screening [facility] Start: 2004 LIPID SCREEN LIPID SCREEN [facility] Start: 1988 Hepatitis B Vaccine (1 of 3 - 19+ 3-dose series) Hepatitis B Vaccine (1 of 3 - 19+ 3-dose series) [facility] Start: 1987 Anxiety Screening Anxiety Screening [facility] Start: 1987 BP Controlled (<130/80) BP Controlle d (<130/80) [facility] Start: 1987 Depression Screening Depression Scre ening [facility] Start: 1987 HIV SCREENING HIV SCREENING [facility] Start: 1987 HIV screening HIV Screening [facility] Start: 1969 HEPATITIS B (1 of 3 - 3-dose series) HEPATITIS B (1 of 3 - 3-dose series) [facility] COLOGUARD COLOGUARD Lab Ro utine Colon cancer screening Ordered: 10/06/2024 [facility] Comment on above: Ordered: 10/06/2024 End: 10-06-2025 Screening colonoscopy COLONOSCOPY SCREENING Endoscopy Routine Special screening for malignant neoplasms, colon 1 Occurrences starting 10/06/2024 until 10/06/2025 [facility] Comment on above: 1 Occurrences starti ng 10/06/2024 until 10/06/2025 Immunizations Immunization Date Immunization Notes Care Provider Fa cility 10-06-2024 pneumococcal Conjuga te, unspecified formulation Leora Campos MD Work Phone: [facility] 10-06-2024 pneumococcal conjuga te (PCV20) vaccine, 20 valent (PREVNAR 20) Leora Campos MD Work Phone: [facility] 09-27-2021 COVID-19 original vaccine, age 12+ yr, monovalent (PFIZER-BIONTECH - HERNANDES TOP) Polina 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[employer] Work Phone: [facility] Work Phone: Comment on above: Result Comment: 2022: TPV50 08-01-2021 COVID-19 original vaccine, age 12+ yr, monovalent (PFIZER-BIONTECH - PURPLE TOP) Polina 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[employer] Work Phone: [facility] Work Phone: Comment on above: Result Comment: 2022: INDIVIDUALS AGE 50 TO 59 YEARS OF AGE 0804-07-2014 pneumococcal polysaccharide vaccine, 23 valent Polina 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[employer] Work Phone: [facility] Work Phone: 04-07-2014 tetanus toxoid, redu richelle diphtheria toxoid, and acellular pertussis vaccine, adsorbed Polina 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[employer] Work Phone: [facility] Work Phone: Payers Date Payer Category Payer Self-pay 2022 Unknown [id number] 2021 Medicaid [id number] 1970 Unknown [id number] 1969 Unknown [id number] 1969 Unknown [id number] Unknown [id number] Social History Date Type Detail Facility Start: 10-05-2021 End: 02-17-2024 Tobacco smoking status NHIS Smokes tobacco daily [facility] History of tobacco use Cigarette Smoker C [facility] Start: 10-05-2021 End: 02-17-2024 Cigarettes smoked current (pack per day) - Reported 0.5 [facility] Start: 10-05-2021 End: 02-17-2024 Tobacco use and exposure Smokeless tobacco non-user [facility] Start: 04-11-2022 End: 02-17-2024 Alcohol intake Ex-drinker (finding) [facility] Start: 04-07-2014 End: 02-17-2024 Tobacco Comment 20 years. planning to quit. [facility] Start: 10-05-2021 Alcohol Comment Sober since [facility] Start: 1970 Sex Assigned At Not on file C [facility] Start: 11-28-2022 Tobacco smoking status Heavy t obacco smoker (finding) [facility] Sex Assigned At [facility] Start: 10-23-2018 End: 02-17-2024 Tobacco use panel [facility] Start: 04-12-2021 Alcohol Comment alcohol use- l ast drink was one week ago [facility] Start: 08-26-2021 End: 09-25-2021 Exposure to SARS-CoV-2 (event) Not sure [facility] Sex Male (finding) [facility] Functional Status Date Assessment Result Facility 02-17-2015 Are you deaf, or do you have serious difficulty hearing No 02/17/2015 9:32 AM EDT Conner Cheryl Gallardo [facility] 02-17-2015 Are you blind, or do you have serious difficulty seeing, even when wearing glasses No 02/17/2015 9:32 AM EDT Cheryl Conner [facility] 02-17-2015 Do you have serious difficulty walking or climbing stairs No 02/17/2015 9:32 AM EDT Cheryl Conner [facility] 02-17-2015 Do you have difficul ty dressing or bathing No 02/17/2015 9:32 AM EDT Ubaldo GallardoCheryl [facility] 02-17-2015 Because of a physica l, mental, or emotional condition, do you have difficulty doing errands alone such as visiting a physician's office or shopping No 02/17/2015 9:32 AM EDT Ubaldo GallardoCheryl [facility] Mental Status Date Assessment Result Facility 02-17-2015 Because of a physica l, mental, or emotional condition, do you have serious difficulty concentrating, remembering, or making decisions No 02/17/2015 9:32 AM EDT Ubaldo GallardoCheryl [facility] Clinical Notes 09-25-2021 to 03-06-2025 Note Date & Type Note Facility 03-06-2025 Hospital Discharg e instructions Patient Education 03/06/2025 00:11:26 Your Body s Response to Anxiety Your Body s Response to Anxiety Normal anxiety is part of the body s natural defense system. It's an alert to a threat that is unknown, vague, or comes from your own internal fears. While you re in this state, your feelings can range from a vague sense of worry to physical sensations such as a pounding heartbeat. These feelings make you want to react to the threat. An anxiety response is normal in many situations. But when you have an anxiety disorder, the same response can occur at the wrong times. Anxiety can be helpful Normal anxiety is a signal from your brain that warns you of a threat and is a normal response to help you prevent something or decrease the bad effects of something you can't control. For example, anxiety is a normal response to situations that might damage your body, separate you from a loved one, or lose your job. The symptoms of anxiety can be physical and mental. How does it feel? At certain times, people with anxiety may have: Dizziness Muscle tension or pain Restlessness Sleeplessness Trouble concentrating Racing heartbeat Fast breathing Shaking or trembling Stomachache Diarrhea Loss of energy Sweating Cold, clammy hands Chest pain Dry mouth Anxiety can also be a problem Anxiety can become a problem when it is hard to control, occurs for months, and interferes with important parts of your life. With an anxiety disorder, your body has the response described above, but in inappropriate ways. The response a person has depends on the anxiety disorder he or she has. With some disorders, the anxiety is way out of proportion to the threat that triggers it. With others, anxiety may occur even when there isn t a clear threat or trigger. Who does it affect? Some people are more prone to persistent anxiety than others. It tends to run in families, and it affects more younger people than older people, and more women than men. But no age, race, or gender is immune to anxiety problems. Anxiety can be treated The good news is that the anxiety that s disrupting your life can be treated. Check with your healthcare provider and rule out any physical problems that may be causing the anxiety symptoms. If an anxiety disorder is diagnosed seek mental healthcare. This is an illness and it can respond to treatment. Most types of anxiety disorders will respond to talk therapy and medicines. Working with your doctor or other healthcare provider, you can develop skills to help you cope with anxiety. You can also gain the perspective you need to overcome your fears. Note: Good sources of support or guidance can be found at your local hospital, mental health clinic, or an employee assistance program. How to cope with anxiety If anxiety is wearing you down, here are some things you can do to cope: Keep in mind that you can t control everything about a situation. Change what you can and let the rest take its course. Exercise it s a great way to relieve tension and help your body feel relaxed. Avoid caffeine and nicotine, which can make anxiety symptoms worse. Fight the temptation to turn to alcohol or unprescribed drugs for relief. They only make things worse in the long run. Educate yourself about anxiety disorders. Keep track of helpful online resources and books you can use during stressful periods. Try stress management techniques such as meditation. Consider online or in-person support groups. [phone] [employer] [address] [place] [address]235. All rights reserved. This information is not intended as a substitute for professional medical care. Always follow your healthcare professional's instructions. 03/06/2025 00:11:09 Chest Pain, Uncertain Cause Uncertain Causes of Chest Pain Chest pain can happen for a number of reasons. Sometimes the cause can't be determined. If your condition does not seem serious, and your pain does not appear to be coming from your heart, your healthcare provider may recommend watching it closely. Sometimes the signs of a serious problem take more time to appear. Many problems not related to your heart can cause chest pain. These include: Musculoskeletal. Costochondritis is an inflammation of the tissues around the ribs that can occur from trauma or overuse injuries, or a strain of the muscles of the chest wall Respiratory. Pneumonia, collapsed lung (pneumothorax), or inflammation of the lining of the chest and lungs (pleurisy) Gastrointestinal. Esophageal reflux, heartburn, ulcers, or gallbladder disease Anxiety and panic disorders Nerve compression and inflammation Rare miscellaneous problems such as aortic aneurysm (a swelling of the large artery coming out of the heart) or pulmonary embolism (a blood clot in the lungs) Home care After your visit, follow these recommendations: Rest today and avoid strenuous activity. Take any prescribed medicine as directed. Be aware of any recurrent chest pain and notice any changes Follow-up care Follow up with your healthcare provider if you do not start to feel better within 24 hours, or as advised. Call 911 Call 911 if any of these occur: A change in the type of pain: if it feels different, becomes more severe, lasts longer, or begins to spread into your shoulder, arm, neck, jaw or back Shortness of breath or increased pain with breathing Weakness, dizziness, or fainting Rapid heart beat Crushing sensation in your chest When to seek medical advice Call your healthcare provider right away if any of the following occur: Cough with dark colored sputum (phlegm) or blood Fever of 100.4 F (38 C) or higher, or as directed by your healthcare provider Swelling, pain or redness in one leg [employer] [address] [place] [address]71. All rights reserved. This information is not intended as a substitute for professional medical care. Always follow your healthcare professional's instructions. Follow Up Care 03/05/2025 21:22:15 With:YOKASTA LARKIN Address: [address] [place] [address] [address] [place] [address] [phone] When:3-7 days With:Go to emergency room if symptoms worsen Address:Unknown When:2-4 days With:BASHIR LARA DO Address: [address] [place] [phone] When:2-4 days [facility] 03-06-2025 Note Discharge Instructions Thank you for allowing [facility] to assist you with your healthcare needs. The following is important discharge information regarding your hospital visit. Diagnosis from Today's Visit Anxiety Chest pain Hypomagnesemia What to Do Next Instructions from Your Care Team please call your doctor saturday for close outpatient follow up. you were also given cardiology follow up information as well. return to the ED for any acute worsening symptoms or concerns No qualifying data available. Post Acute Orders No qualifying data available. You Need to Schedule the Following Appointments Follow Up with YOKASTA LARKIN When:Within 3-7 days Where:[address] [place] [address] [id number] [place] [address] [phone] Follow Up with Go to emergency room if symptoms worsen When:Within 2-4 days Follow Up with BASHIR LARA DO When:Within 2-4 days Where:[address] [place] [phone]- [phone] Allergies penicillin (Moderate) Nausea Medications Please ask your primary doctor or pharmacist before taking any other medication not listed, including over the counter drugs, herbal medications, vitamins and or supplements as they may interact with your home medications. 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 Unchanged sertraline (sertraline 100 mg oral tablet) 1 tab(s) by mouth Once a day Duration: 60 Days Unchanged traZODone (traZODone 50 mg oral tablet) 1 tab(s) by mouth Daily at bedtime Please take this list to your next doctor s visit. Bring all medications you take, including over the counter medications, herbals and other supplements with you to your doctor s visit. Patients and families are reminded to discard old lists and to update any records with all medication providers or retail pharmacies. Education Materials Your Body s Response to Anxiety Normal anxiety is part of the body s natural defense system. It's an alert to a threat that is unknown, vague, or comes from your own internal fears. While you re in this state, your feelings can range from a vague sense of worry to physical sensations such as a pounding heartbeat. These feelings make you want to react to the threat. An anxiety response is normal in many situations. But when you have an anxiety disorder, the same response can occur at the wrong times. Anxiety can be helpful Normal anxiety is a signal from your brain that warns you of a threat and is a normal response to help you prevent something or decrease the bad effects of something you can't control. For example, anxiety is a normal response to situations that might damage your body, separate you from a loved one, or lose your job. The symptoms of anxiety can be physical and mental. How does it feel? At certain times, people with anxiety may have: Dizziness Muscle tension or pain Restlessness Sleeplessness Trouble concentrating Racing heartbeat Fast breathing Shaking or trembling Stomachache Diarrhea Loss of energy Sweating Cold, clammy hands Chest pain Dry mouth Anxiety can also be a problem Anxiety can become a problem when it is hard to control, occurs for months, and interferes with important parts of your life. With an anxiety disorder, your body has the response described above, but in inappropriate ways. The response a person has depends on the anxiety disorder he or she has. With some disorders, the anxiety is way out of proportion to the threat that triggers it. With others, anxiety may occur even when there isn t a clear threat or trigger. Who does it affect? Some people are more prone to persistent anxiety than others. It tends to run in families, and it affects more younger people than older people, and more women than men. But no age, race, or gender is immune to anxiety problems. Anxiety can be treated The good news is that the anxiety that s disrupting your life can be treated. Check with your healthcare provider and rule out any physical problems that may be causing the anxiety symptoms. If an anxiety disorder is diagnosed seek mental healthcare. This is an illness and it can respond to treatment. Most types of anxiety disorders will respond to talk therapy and medicines. Working with your doctor or other healthcare provider, you can develop skills to help you cope with anxiety. You can also gain the perspective you need to overcome your fears. Note: Good sources of support or guidance can be found at your local hospital, mental health clinic, or an employee assistance program. How to cope with anxiety If anxiety is wearing you down, here are some things you can do to cope: Keep in mind that you can t control everything about a situation. Change what you can and let the rest take its course. Exercise it s a great way to relieve tension and help your body feel relaxed. Avoid caffeine and nicotine, which can make anxiety symptoms worse. Fight the temptation to turn to alcohol or unprescribed drugs for relief. They only make things worse in the long run. Educate yourself about anxiety disorders. Keep track of helpful online resources and books you can use during stressful periods. Try stress management techniques such as meditation. Consider online or in-person support groups. [phone] [employer] [address] [place] [address]156. All rights reserved. This information is not intended as a substitute for professional medical care. Always follow your healthcare professional's instructions. Uncertain Causes of Chest Pain Chest pain can happen for a number of reasons. Sometimes the cause can't be determined. If your condition does not seem serious, and your pain does not appear to be coming from your heart, your healthcare provider may recommend watching it closely. Sometimes the signs of a serious problem take more time to appear. Many problems not related to your heart can cause chest pain. These include: Musculoskeletal. Costochondritis is an inflammation of the tissues around the ribs that can occur from trauma or overuse injuries, or a strain of the muscles of the chest wall Respiratory. Pneumonia, collapsed lung (pneumothorax), or inflammation of the lining of the chest and lungs (pleurisy) Gastrointestinal. Esophageal reflux, heartburn, ulcers, or gallbladder disease Anxiety and panic disorders Nerve compression and inflammation Rare miscellaneous problems such as aortic aneurysm (a swelling of the large artery coming out of the heart) or pulmonary embolism (a blood clot in the lungs) Home care After your visit, follow these recommendations: Rest today and avoid strenuous activity. Take any prescribed medicine as directed. Be aware of any recurrent chest pain and notice any changes Follow-up care Follow up with your healthcare provider if you do not start to feel better within 24 hours, or as advised. Call 911 Call 911 if any of these occur: A change in the type of pain: if it feels different, becomes more severe, lasts longer, or begins to spread into your shoulder, arm, neck, jaw or back Shortness of breath or increased pain with breathing Weakness, dizziness, or fainting Rapid heart beat Crushing sensation in your chest When to seek medical advice Call your healthcare provider right away if any of the following occur: Cough with dark colored sputum (phlegm) or blood Fever of 100.4 F (38 C) or higher, or as directed by your healthcare provider Swelling, pain or redness in one leg [phone] [employer] [address] [place] [address]. All rights reserved. This information is not intended as a substitute for professional medical care. Always follow your healthcare professional's instructions. Additional Information VACCINATE! IT SAVES LIVES! Members of the community who have not yet received the COVID-19 vaccine and would like to receive it can visit one of [facility] vaccine clinics. There are many vaccine clinic locations within the [facility]. For locations and available times, please visit [email or web address] It is important to note that some COVID mobile vaccine clinics are held outdoors and may be canceled in rainy or stormy conditions. To learn more about pediatric vaccinations (ages 5-11), we invite you to visit the [facility] webpage. [email or web address] [email or web address] [email or web address] To learn more about the COVID-19 vaccine, we invite you to visit the CDC website for a list of frequently asked questions. https://www.cdc.gov/coronavirus/ 2019-ncov/vaccines/faq.html [facility] Patient Portal Access Instructions: Stay connected with your healthcare team and access your personal medical information anytime with the [place] [facility] Patient Portal. If you would like a full copy of your medical records please contact the [facility] Medical Records Department Saturday through Saturday between 8a.m. and 4:30p.m. Please follow the directions below to access the portal: 1.Access the email account you provided upon registration to the [facility].2.Look for an invitation email from [facility].3.Open the email and access the invitation link: Accept Invitation to [place] [facility]4.Fill in the required gee to create your account. Sign into [email or web address] [employer] with your username and password that you created in the above steps to stay up to date. You can then view a summary of results, a summary of your visits, and the ability to download your summaries to your computer or send the information securely to a physician. Remember that your healthcare information is confidential, so carefully consider who you will allow to register on the [facility] [facility] Patient Portal for access to your information. You can also access the [place] [facility] Patient Portal on the [employer] tay. Simply click on Health Records under Health Data and then click on the [facility] logo. HOW TO SAFELY DISPOSE OF PRESCRIPTION MEDICATIONS Please use one of the following methods to safely dispose of your unused medications. 1.Use a drug disposal kit: the drug disposal pouch allows you to safely discard your old and unused drugs. Ask your nurse to give you one when you are discharged.2.Visit a local take-back location: Many local pharmacies and police departments have programs that collect old and unwanted prescription drugs. Call your local pharmacy or go to http://bit.Nitro PDF/2N8Tr2n to find one close to you.3.Make use of household items: Use cat litter or old coffee grounds to dispose medications if other options are not available. Mix your drugs with these household products, seal them in an airtight container and throw it into the garbage. Call [facility]: [phone] to be sure your drugs can be disposed of in this way. Some medicines may require a different approach.4.Never flush your medications down the toilet. IF YOU HAVE BEEN PRESCRIBED AN OPIOIDS FOR PAIN If you have been prescribed an opioid (such as hydrocodone, oxycodone or morphine), it is critical to understand the possible side effects and risks of opioid pain medications. Even when taken as directed, opioids can have several side effects including: Tolerance, meaning you might need to take more of a medication for the same pain relief. Nausea, vomiting and/or constipation. Sleepiness, dizziness, dry mouth, confusion, depression or itching. Physical dependence, meaning you have withdrawal symptoms when a medication is stopped ? this can develop within a few days. KNOW YOUR RESPONSIBILITIES It is important to know exactly how much and how often to take the opioid pain medications you are prescribed. Never take opioids in higher amounts or more often than prescribed. Do not combine opioids with alcohol or other drugs that cause drowsiness, such as benzodiazepines, also known as benzos, including diazepam and alprazolam, muscle relaxants or sleep aids. Never sell or share prescription opioids. This is illegal. Store opioids in a secure place and out of reach of others (including children, family, friends and visitors). The last page(s) of this document has been signed and retained as a CHART COPY Signatures Patient Education Materials Your Body s Response to Anxiety Chest Pain, Uncertain Cause Medication Leaflets My discharge plan and instructions have been reviewed and explained to me and I,LORENZO SERNA understand my current condition and have read and understand these discharge instructions. I have received a written copy of the plan/instructions. If I have questions, I am aware that I should contact my doctor. 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 There is no consolidation, vascular congestion, pleural effusion, or pneumothorax. There are no acute abnormalities to osseous structures. IMPRESSION: No acute radiographic findings. I have personally reviewed the images of this examination and agree with the resident's findings and interpretation. Interpreted by: Mihaela Salgado Preliminary Report By: Fredo Ceballos Electronically signed By Mihaela Salgado Dictated Date: 03/05/2025 10:14:49 PM Prelim Date: 03/05/2025 10:15:50 PM Sign Date: 03/05/2025 11:00:02 PM Ordering Provider: DEBRA TRIMBLE [facility]07-11-2025 Note* Exam Date Time Procedure Performing Provider Status 03/05/25 9:24 PM EKG [ED AO] - CV DEBRA TRIMBLE DO; [facility] (Verified) ECG Final Report Sinus rhythm Probable left atrial enlargement Minimal ST elevation, anterior leads Electronic Signature: DEBRA TRIMBLE DO 03/05/2025 22:29:48 [facility]02-11-2025 Instructions* Patient Instructions* Leora Campos MD - 10/06/2024 4:19 PM EST Health Information For Patients and the Community How to Prepare for Your Colonoscopy Using Golytely, Nulytely, Trilyte or Colyte Preparations IMPORTANT - Please Read These Instructions at Least 2 Weeks Before Your Colonoscopy Hanks Instructions: ?Your bowel must be empty so that your doctor can clearly view your colon. Follow all of the instructions in this handout EXACTLY as they are written. If you do NOT follow the directions for when to start drinking the bowel preparation (see next page), your colonoscopy WILL be cancelled. ?Do NOT eat any solid food the ENTIRE day before your colonoscopy. ?Buy your bowel preparation at least 5 days before your colonoscopy. ?Do NOT mix the solution until the day before your colonoscopy. Designated Sign Poster on the Day of Your Exam A responsible family member or friend MUST come with you to your colonoscopy and REMAIN in the endoscopy area until you are discharged! You are NOT ALLOWED to drive, take a taxi or bus, or leave the Endoscopy Center ALONE. If you do not have a responsible tour bus driver (family member or friend) with you to take you home, your exam cannot be done with sedation and will be cancelled. Medications Some of the medicines you take may need to be stopped or adjusted before your colonoscopy. You MUST call the doctor who ordered any of the following medicines at least 2 weeks before your colonoscopy. ?Blood thinners -- such as Coumadin (warfarin), Plavix (clopidogrel), Ticlid (ticlopidine hydrochloride), Agrylin (anagrelide), Xarelto (Rivaroxaban), Pradaxa (Dabigatran), Eliquis (Apixaban), and Effient (Prasugrel). ?Insulin or diabetes pills. Please call the doctor that monitors your glucose levels. Your insulin dosage may need to be adjusted due to the diet restrictions required with this bowel preparation. (Please bring your diabetes medicines with you on the day of your procedure.) If you take aspirin, take it and ALL other medications prescribed by your doctor. On the day of your colonoscopy, take your medications with a sip of water. Revised 09/2016 1 Five (5) Days Before Your Colonoscopy ?Do NOT take medicines that stop diarrhea -- such as Imodium , Kaopectate , or Pepto Bismol . ?Do NOT take fiber supplements -- such as Metamucil , Citrucel , or Perdiem . ?Do NOT take products that contain iron -- such as multi-vitamins -- (the label lists what is in the products). ?Do NOT take vitamin E. Buy the prescription bowel preparation solution at your local pharmacy or drugstore pharmacy. Three (3) Days Before Your Colonoscopy Do NOT eat high-fiber foods -- such as popcorn, beans, seeds (flax, sunflower, quinoa), multigrain bread, nuts, salad/vegetables, or fresh and dried fruit. One (1) Day Before Your Colonoscopy Only drink clear liquids the ENTIRE DAY before your colonoscopy. Do NOT eat any solid foods. Drink at least 8 ounces of clear liquids every hour after waking up. The clear liquids you can drink include: ?water, apple, or white grape juice; broth; coffee or tea (without milk or creamer); clear carbonated beverages such as jose roberto francisca or lemon-poarch soda; Gatorade or other sports drinks (not red); Wyatt-Aid or other flavored drinks (not red). You may eat plain jello or other gelatins (not red) or popsicles (not red). Do NOT drink alcohol on the day before or the day of the procedure. 2 Revised 09/2016 When to Mix and Drink Your Bowel Prep Follow the instructions on the label. After mixing, place the solution in the refrigerator for a couple of hours before drinking. You may add the flavor packet that came with the bowel preparation. DO NOT add ice, sugar or any flavorings to the solution. Evening Before Your Colonoscopy ?Start drinking the bowel preparation at 6 PM the evening before your colonoscopy. Drink an 8-oz glass of bowel preparation every 10 minutes. You must finish drinking the solution by 9 PM the night before your scheduled procedure. ?You may continue to drink clear liquids only until midnight. Do NOT eat or drink ANYTHING after midnight the night before your procedure or your procedure may be cancelled. This is for your safety and will reduce the risk of having any food or liquid in your stomach move into your lungs (aspiration) during a procedure. If you take aspirin, take it and ALL other prescribed medicines with a sip of water on the day of your colonoscopy. Contact Information: If you are unable to keep your appointment or have any questions about the instructions, please call the facility where the procedure is being performed. Call between the hours of 8:00 AM and 5:00 PM. If you are calling after 5:00 PM, please call Nurse application development specialist at [phone]. [facility] [address] [place] [id number] Index # [id number] Revised 09/2016 3 Colonoscopy Procedure Overview Please Read Prior to the Procedure What is a Colonoscopy A colonoscopy is an outpatient procedure in which the inside of the large intestine (colon and rectum) is examined. A colonoscopy is commonly used to evaluate gastrointestinal symptoms, such as rectal and intestinal bleeding, abdominal pain, or changes in bowel habits. Colonoscopies are also performed in individuals without symptoms to check for colorectal polyps or cancer. A screening colonoscopy is recommended for anyone 50 years of age and older, and for anyone with parents, siblings or children with a history of colorectal cancer or polyps. What Happens Before a Colonoscopy To have a successful colonoscopy, your bowel must be empty so that your physician can clearly view the colon. To do this, it is very important to read and follow all of the instructions given to you at least 2 weeks BEFORE your exam. If your bowel is not empty, your colonoscopy will not be successful and may have to be repeated. If you feel nauseated or vomit while taking the bowel preparation, wait 30 minutes before drinking more fluid and start with small sips of solution. Some activity (such as walking) or a few soda crackers may help decrease the nausea you are feeling. If the nausea persists, please contact nurse rehabilitation program coordinator at [phone]. You may experience skin irritation around the anus due to the passage of liquid stools. To prevent and treat skin irritation, you should: ?Apply Vaseline or Desitin ointment to the skin around the anus before drinking the bowel preparation medications. These products can be purchased at any drugstore. ?Wipe the skin after each bowel movement with disposable wet wipes instead of toilet paper. These are found in the toilet paper area of the store. ?Sit in a bathtub filled with warm water for 10 to 15 minutes after you finish passing a stool; after soaking, blot the skin dry with a soft cloth, apply Vaseline or Desitin ointment to the anal area, and place a cotton ball just outside your anus to absorb leaking fluid. What Happens During a Colonoscopy During a colonoscopy, an experienced physician uses a colonoscope (a long, flexible instrument about 1/2 inch in diameter) to view the lining of the colon. The colonoscope is inserted into the rectumand advanced through the large intestine. If necessary during a colonoscopy, small amounts of tissue can be removed for analysis (a biopsy) and polyps can be identified and entirely removed. In many cases, a colonoscopy allows accurate diagnosis and treatment of colorectal problems without the needfor a major operation. Revised 09/2016 5 ?You are asked to wear a hospital gown and an IV will be started. ?You are given a pain reliever and a sedative intravenously (in your vein). You will feel relaxed and somewhat drowsy. ?You will lie on your left side, with your knees drawn up towards your chest. ?A small amount of air is used to expand the colon so the physician can see the colon garcia. ?You may feel mild cramping during the procedure. Cramping can be reduced by taking slow, deep breaths. ?The colonoscope is slowly withdrawn while the lining of your bowel is carefully examined. ?The procedure lasts from 30 minutes to 1 hour. What Happens After a Colonoscopy ?You will stay in a recovery room for observation until you are ready for discharge. ?You may feel some cramping or a sensation of having gas, but this quickly passes. ?If sedation has been given, a responsible family member or friend must drive you home. ?Avoid alcohol, driving, and operating machinery for 24 hours following the procedure. ?Unless otherwise instructed, you may immediately return to your normal diet. We recommend you waituntil the day after your procedure to resume normal activities. ?If polyps were removed or a biopsy was taken, the physician performing your colonoscopy will tell you when it is safe to resume taking your blood thinners. ?If a biopsy was taken or a polyp was removed, you may notice a little amount of rectal bleeding for 1 to 2 days after the procedure. If you have a large amount of rectal bleeding, high or persistentfevers, or severe abdominal pain within the next 2 weeks, please go to your local emergency room and call the physician who performed your exam. 6 Revised 09/2016 Copyright 1304-1458 [facility]. All rights reserved. Revised 09/2016 [facility] NoteHNO ID: [id number] Author: LEORA CAMPOS MD Service: ? Author Type: Physician Type: Progress Notes Filed: 10/06/2024 16:32 Note Text: CC: Patient presents with: Recheck: Medication refills HPI Lorenzo Steiner is a 53 year old male follow up. Lost insurance for a while after Covid. He was on caresource and has finally got it back and is here to get back on medications Reports his bp is high lately, Depression and Anxiety: Has been out of control for the last year and a half Sleep: difficulty staying asleep, difficulty falling asleep. Feels like he is sleep deprived Alcohol use: does not drink any alcohol Drug use: he quit Marijuana. Also smokes over the counter Kratom to relax and for aches and pain. Appetite: Varies Stresses: slight stress at work but does have family stresses Suicidal Thoughts: No suicidal or homicidal ideation, intent or plan Support: Comes from multiple sources including family Counseling: No longer in counseling. Had been in years ago when quitting alcohol. Personal mental health hx: anxiety and depression. Medication history: sertraline and trazadone and tolerated well. Unsure why he stopped. Family mental health hx: denies REVIEW OF SYSTEMS See HPI PAST MEDICAL HISTORY Diagnosis Date No disease found PAST SURGICAL HISTORY Procedure Laterality Date NONE ALLERGIES Penicillin MEDICATIONS hydrOXYzine HCl (ATARAX) 25 mg tablet Take 1 tablet by mouth every 4 hours as needed. (Patient not taking: Reported on 10/06/2024) sertraline (ZOLOFT) 50 mg tablet Take 1 tablet by mouth once daily. (Patient not taking: Reported on 10/06/2024) traZODone (DESYREL) 50 mg tablet Take 1 tablet by mouth daily at bedtime. (Patient not taking: Reported on 10/06/2024) amLODIPine (NORVASC) 5 mg tablet Take 1 tablet by mouth once daily. (Patient not taking: Reported on 10/06/2024) FAMILY HISTORY Problem Relation Age of Onset Heart Father Heart Maternal Grandfather Social History Tobacco Use Smoking status: Every Day Current packs/day: 1.00 Types: Cigarettes Smokeless tobacco: Never Tobacco comments: 20 years. planning to quit. Vaping Use Vaping status: Never Used Substance Use Topics Alcohol use: Not Currently Comment: Sober since 03/22/2021 Drug use: Yes Types: Marijuana PHYSICAL EXAM BP 131/88 Pulse 90 Ht 172.7 cm (5' 8) Wt 82.1 kg (181 lb) SpO2 97% BMI 27.52 kg/m? General appearance: appears well but a little disheveled, alert, in no acute distress, well-hydrated, well nourished. Skin: Skin color, texture, turgor normal, no suspicious rashes or lesions Head: Normocephalic, no masses, lesions, tenderness or abnormalities Eyes: Anicteric sclera. Pupils are equally round and reactive to light. Extraocular movements are intact. Ears: External ears normal, canals clear Nose/Sinuses: Nares normal, septum midline, mucosa normal, no drainage or sinus tenderness Oropharynx: teeth are highly stained other pires they are normal. Lungs: Lungs clear to auscultation. No wheezing, rhonchi, rales Heart: S1 and S2 are normal. Peripheral pulses: Normal Neuro: Gait normal. Reflexes normal and symmetric. Sensation grossly intact. 02/17/2024 PIERRE-7 ANXIETY SCALE Feeling nervous, anxious, or on edge 3 Nearly every day Not being able to stop or control worrying 3 Nearly every day Worrying too much about different things 2 Over half the days Trouble relaxing 2 Over half the days Being so restless that it's hard to sit still 2 Over half the days Being easily annoyed or irritable 3 Nearly every day Feeling afraid as if something awful might happen 3 Nearly every day PIERRE-7 Anxiety Score 18 If you checked off any problems, how difficult have these problems made it for you to do your work, take care of things at home, or get along with other people? Very difficult CP PHQ9 Little interest or pleasure 2 - More than half the days Feeling down, depressed, hopeless 2 - More than half the days Trouble falling or staying asleep, sleeping too much 3 - nearly every day Feeling tired, having little energy 3 - Nearly every day Poor appetite or overeating 3 - Nearly every day Feeling bad about yourself, failure or you have let yourself/family down 2 - More than half the days Trouble concentrating on things 3 - Nearly every day Moving or speaking so slowly, or fidgety or restless 3 - Nearly every day Thoughts that you would be better off , or of hurting yourself in some way 0 - Not at all How difficult have these problems made things Very difficult Interpretation of Total Score 15-19 Moderately severe depression Health maintenance reviewed with patient: Depression Screening Never done Anxiety Screening Never done HIV Screening Never done Hepatitis B Vaccine(1 of 3 - 19+ 3-dose series) Never done Colorectal Cancer Screening Never done Pneumococcal Vaccine: 50+(2 of 2 - PCV) due on 04/07/2015 Shingrix Vaccine(1 of 2 (more content not included)...[facility] 10-06-2024 History of Present illness Narrative* Leora Campos MD - 10/06/2024 3:58 PM EST CC: Patient presents with: Recheck: Medication refills HPI Lorenzo Steiner is a 53 year old male follow up. Lost insurance for a while after Covid. He was on caresource and has finally got it back and is here to get back on medications Reports his bp is high lately, Depression and Anxiety: Has been out of control for the last year and a half Sleep: difficulty staying asleep, difficulty falling asleep. Feels like he is sleep deprived Alcohol use: does not drink any alcohol Drug use: he quit Marijuana. Also smokes over the counter Kratom to relax and for aches and pain. Appetite: Varies Stresses: slight stress at work but does have family stresses Suicidal Thoughts: No suicidal or homicidal ideation, intent or plan Support: Comes from multiple sources including family Counseling: No longer in counseling. Had been in years ago when quitting alcohol. Personal mental health hx: anxiety and depression. Medication history: sertraline and trazadone andtolerated well. Unsure why he stopped. Family mental health hx: denies REVIEW OF SYSTEMS See HPI PAST MEDICAL HISTORY Diagnosis Date No disease found PAST SURGICAL HISTORY Procedure Laterality Date NONE ALLERGIES Penicillin MEDICATIONS hydrOXYzine HCl (ATARAX) 25 mg tablet Take 1 tablet by mouth every 4 hours as needed. (Patient not taking: Reported on 10/06/2024) sertraline (ZOLOFT) 50 mg tablet Take 1 tablet by mouth once daily. (Patient not taking: Reported on 10/06/2024) traZODone (DESYREL) 50 mg tablet Take 1 tablet by mouth daily at bedtime. (Patient not taking: Reported on 10/06/2024) amLODIPine (NORVASC) 5 mg tablet Take 1 tablet by mouth once daily. (Patient not taking: Reported on 10/06/2024) FAMILY HISTORY Problem Relation Age of Onset Heart Father Heart Maternal Grandfather Social History Tobacco Use Smoking status: Every Day Current packs/day: 1.00 Types: Cigarettes Smokeless tobacco: Never Tobacco comments: 20 years. planning to quit. Vaping Use Vaping status: Never Used Substance Use Topics Alcohol use: Not Currently Comment: Sober since 03/22/2021 Drug use: Yes Types: Marijuana PHYSICAL EXAM BP 131/88 Pulse 90 Ht 172.7 cm (5' 8) Wt 82.1 kg (181 lb) SpO2 97% BMI 27.52 kg/m General appearance: appears well but a little disheveled, alert, in no acute distress, well-hydrated, well nourished. Skin: Skin color, texture, turgor normal, no suspicious rashes or lesions Head: Normocephalic, no masses, lesions, tenderness or abnormalities Eyes: Anicteric sclera. Pupils are equally round and reactive to light. Extraocular movements are intact. Ears: External ears normal, canals clear Nose/Sinuses: Nares normal, septum midline, mucosa normal, no drainage or sinus tenderness Oropharynx: teeth are highly stained other pires they are normal. Lungs: Lungs clear to auscultation. No wheezing, rhonchi, rales Heart: S1 and S2 are normal. Peripheral pulses: Normal Neuro: Gait normal. Reflexes normal and symmetric. Sensation grossly intact. 02/17/2024 PIERRE-7 ANXIETY SCALE Feeling nervous, anxious, or on edge 3 Nearly every day Not being able to stop or control worrying 3 Nearly every day Worrying too much about different things 2 Over half the days Trouble relaxing 2 Over half the days Being so restless that it's hard to sit still 2 Over half the days Being easily annoyed or irritable 3 Nearly every day Feeling afraid as if something awful might happen 3 Nearly every day PIERRE-7 Anxiety Score 18 If you checked off any problems, how difficult have these problems made it for you to do your work,take care of things at home, or get along with other people? Very difficult CP PHQ9 Little interest or pleasure 2 - More than half the days Feeling down, depressed, hopeless 2 - More than half the days Trouble falling or staying asleep, sleeping too much 3 - nearly every day Feeling tired, having little energy 3 - Nearly every day Poor appetite or overeating 3 - Nearly every day Feeling bad about yourself, failure or you have let yourself/family down 2 - More than half the days Trouble concentrating on things 3 - Nearly every day Moving or speaking so slowly, or fidgety or restless 3 - Nearly every day Thoughts that you would be better off , or of hurting yourself in some way 0 - Not at all How difficult have these problems made things Very difficult Interpretation of Total Score 15-19 Moderately severe depression Health maintenance reviewed with patient: Depression Screening Never done Anxiety Screening Never done HIV Screening Never done Hepatitis B Vaccine(1 of 3 - 19+ 3-dose series) Never done Colorectal Cancer Screening Never done Pneumococcal Vaccine: 50+(2 of 2 - PCV) due on 04/07/2015 Shingrix Vaccine(1 of 2) Never done Prostate Cancer Screening Discussion Never done DTaP,Tdap,Td Vaccine(2 - Td or Tdap) due on 04/07/2024 Influenza Vaccine(1) Never done Covid-19 Vaccine(3 - 2023- season) due on 04/26/2024 Diabetes Screening due on 02/16/2027 Lipid Screening due on 02/16/2029 Hepatitis C Screening Completed DATA REVIEWED: No new labs ASSESSMENT/PLAN: 1. Essential hypertension - ICD9: 401.9, ICD10: I10 (primary diagnosis) - not on medication so high readings today, restarted on norvasc. Labs are ordered - Recommend home blood pressure monitoring, to bring results to next visit - Encouraged sodium restriction, DASH or Mediterranean diet - Recommend regular aerobic exercise 2. Encounter for immunization - ICD9: V03.89, ICD10: Z23 - PNEUMOCOCCAL VACCINE, 20 VALENT (PREVNAR 20) 3. Screening for prostate cancer - ICD9: V76.44, ICD10: Z12.5 - Counseled on healthy diet and regular exercise - PSA/PROSTATE SPECIFIC ANTIGEN SCREENING 4. Screening for HIV (human immunodeficiency virus) - ICD9: V73.89, ICD10: Z11.4 - HIV 1/2 COMBO WITH REFLEX TO DIFFERENTIATION 5. Anxiety and depression - ICD9: 300.00, 311, ICD10: F41.9, F32.A Restarted the zolfot on the patient 6. Colon cancer screening - ICD9: V76.51, ICD10: Z12.11 - COLOGUARD Leora Campos MD [facility] OPEN ACCESS QUESTIONNAIRE 1. Are you currently having any new or unusual stomach/gastrointestinal issues at this time such asconstipation, diarrhea, abdominal pain, rectal bleeding etc?No 2. Do you have any difficulty swallowing? No 3. Do you have any implanted devices such as a defibrillator, pacemaker, cardiac stents or deep brain stimulator? No 4. Do you take any Blood thinners such as Coumadin, Plavix, Xarelto, Eliquis, Brilinta or any otherblood thinner? No 5. Do you have any new or past cardiac (heart) or pulmonary (lung) issues? No 6. Do you currently use any oxygen? No 7. Have you been hospitalized in the past 6 weeks? No 8. Have you had difficulty with anesthesia previously re: Difficult intubation? No Other difficulty or allergic reaction to anesthesia other than post op N/V? No 9. Are you on dialysis? No 10. Do you have any bleeding disorders such as hemophilia or Factor 5? No 11. Are you an Insulin Dependent Diabetic? No IF ANY OF THE TOP ELEVEN QUESTIONS ARE ANSWERED YES PLEASE SCHEDULE THE PATIENT FOR A CONSULT. N/A 12. Is the patient's BMI 40 or greater? No:Body mass index is 27.52 kg/m .. 13. Do you take any narcotics or anti-Anxiety medications? No 14. Do you use any illegal or recreational drugs including marijuana? No 15. Any alcohol use: YES: What type of alcohol, how much and how often do you drink? : daily 16. Have you been diagnosed with chronic liver disease such as hepatitis or cirrhosis? No 17. Do you have a seizure disorder? No 18. Do you have ulcerative colitis or Crohn's disease? No 19. Are you or could you be ? No 20. Any other important health information we should be made aware of prior to your colonoscopy? No To be completed by LIP: Did patient have MAC anesthesia with a previous endoscopy procedure? Yes: Patient will require a Gastro-General Surgery Consultation. Patient appropriate for Open Access Colonoscopy: Yes: appropriate for Open Access Procedure Checklist: Prior to closing the encounter: Complete questionnaire: Yes Confirm Prep order has been Ordered/Pended: Yes. Patient's procedure could be delayed if not given the script for the prep. Please ensure the prep is escripted to pharmacy or printed. Instructions for the prep will print upon filing or pending thissmartset. Please send all open access questionnaires to [facility] Pool #[id number] documented in this encounterBlanch[facility]24 NoteHNO ID: [id number] Author: ANJUM BRIGGS APRN.[employer] DES[employer] Service: ? Author Type: Nurse Specialist Type: Progress Notes Filed: 07/06/2024 14:58 Note Text: SUBJECTIVE: Depression Screening Never done Anxiety Screening Never done HIV Screening Never done Hepatitis B Vaccine(1 of 3 - 19+ 3-dose series) Never done Colorectal Cancer Screening Never done Pneumococcal Vaccine(2 of 2 - PCV) due on 04/07/2015 Shingrix Vaccine(1 of 2) Never done Prostate Cancer Screening Discussion Never done DTaP,Tdap,Td Vaccine(2 - Td or Tdap) due on 04/07/2024 Influenza Vaccine(1) Never done Covid-19 Vaccine( - 2023- season) due on 04/26/2024 HPI Lorenzo Serna is a 54 year old male. PMH significant for ACTIVE PROBLEM LIST Shoulder Pain Allergic Rhinitis Elevated Blood Pressure Hip Pain Brandon Involving Less Than 10% of Body Surface Insomnia Tobacco Abuse Disorder Alcohol Abuse Smoker Respiratory Failure (Hcc) Altered Mental Status, Unspecified Elevated Lfts Presents today for work excuse. Reports being off work for 10 days due to illness. Did not seek care for this illness, notes multiple family members with illness, all cared for at home, no diagnoses. He reports having fever, nausea and vomiting an cough. States no current symptoms and would like to return to work, he is in need of a return to work letter. He notes a history of anxiety depression and insomnia. Notes he did not have insurance for a couple of months and did not have his medication due to lack of insurance coverage. HTN: Has not previously treated blood pressure. Without report of headache, chest pain, palpitations, peripheral edema, orthopnea, fatigue, and PND. He notes chronic shortness of breath which he attributes to smoking 2 packs of cigarettes a day.Trying to quit smoking. Last 14 Encounter BP Readings: Date: BP: 07/06/2024 173/112[average bp[ 02/17/2024 162/88 09/25/2021 142/70 09/22/2021 122/82 07/25/2021 122/80 05/03/2021 124/76 04/12/2021 130/80 10/23/2018 145/104 10/22/2018 106/73 01/13/2018 126/62 12/03/2017 102/74 02/17/2015 118/88[BP MARNI AVERAGE[ 02/14/2015 110/88 04/20/2014 124/74 Review of Systems Constitutional: Negative. Respiratory: Positive for shortness of breath (chornic mild SOBOE). Cardiovascular: Negative. Gastrointestinal: Negative. Objective BP 173/112 Pulse 96 Resp 16 Wt 79.7 kg (175 lb 11.3 oz) SpO2 100% BMI 26.72 kg/m? Physical Exam Vitals and nursing note reviewed. Constitutional: Appearance: Normal appearance. HENT: Head: Normocephalic and atraumatic. Mouth/Throat: Dentition: Abnormal dentition. Dental caries present. Eyes: Conjunctiva/sclera: Conjunctivae normal. Neck: Thyroid: No thyromegaly. Cardiovascular: Rate and Rhythm: Normal rate and regular rhythm. Pulmonary: Effort: Pulmonary effort is normal. Breath sounds: Normal breath sounds. Abdominal: General: Bowel sounds are normal. Palpations: Abdomen is soft. Musculoskeletal: Right lower leg: No edema. Left lower leg: No edema. Skin: General: Skin is warm and dry. Neurological: General: No focal deficit present. Mental Status: He is alert and oriented to person, place, and time. ALLERGIES Allergen Reactions Penicillin GI Upset traZODone (DESYREL) 50 mg tablet Take 1 tablet by mouth daily at bedtime. sertraline (ZOLOFT) 50 mg tablet Take 1 tablet by mouth once daily. hydrOXYzine HCl (ATARAX) 25 mg tablet Take 1 tablet by mouth every 4 hours as needed. PAST MEDICAL HISTORY Diagnosis Date No disease found Social History Tobacco Use Smoking status: Every Day Current packs/day: 1.00 Types: Cigarettes Smokeless tobacco: Never Tobacco comments: 20 years. planning to quit. Vaping Use Vaping status: Never Used Substance Use Topics Alcohol use: Not Currently Comment: Sober since 03/22/2021 Drug use: Yes Types: Marijuana Latest Ref Rng 02/17/2024 Protein, Total 6.3 - 8.0 g/dL 7.4 Albumin 3.9 - 4.9 g/dL 4.3 Calcium 8.5 - 10.2 mg/dL 9.7 Bilirubin, Total 0.2 - 1.3 mg/dL 0.2 Alkaline Phosphatase 38 - 113 U/L 49 AST 14 - 40 U/L 55 (H) ALT 10 - 54 U/L 74 (H) Glucose 74 - 99 mg/dL 91 BUN 9 - 24 mg/dL 10 Creatinine 0.73 - 1.22 mg/dL 0.50 (L) Sodium 136 - 144 mmol/L 138 Potassium 3.7 - 5.1 mmol/L 4.5 Chloride 98 - 107 mmol/L 104 CO2 22 - 30 mmol/L 21 (L) Anion Gap 8 - 15 mmol/L 13 eGFR >=60 mL/min/1.73m? 121 WBC 3.70 - 11.00 k/uL 8.42 RBC 4.20 - 6.00 m/uL 4.08 (L) Hemoglobin 13.0 - 17.0 g/dL 13.6 Hematocrit 39.0 - 51.0 % 40.7 MCV 80.0 - 100.0 fL 99.8 MCH 26.0 - 34.0 pg 33.3 MCHC 30.5 - 36.0 g/dL 33.4 RDW-CV 11.5 - 15.0 % 13.1 Platelet Count 150 - 400 k/uL 529 (H) MPV 9.0 - 12.7 fL 9.5 Absolute nRBC <0.01 k/uL <0.01 Cholesterol, Total <200 mg/dL 195 Triglyceride <150 mg/dL 129 HDL Cholesterol >39 mg/dL 45 Non HDL Cholesterol <130 mg/dL 150 (H) Fasting Time hrs 14 VLDL Cholesterol <30 mg/ (more content not included)...[facility]11-11-2024 History of Present illness Narrative* Anjum Briggs, SOUTH.[employer] DES[employer]ER - 07/06/2024 2:26 PM EST SUBJECTIVE: Depression Screening Never done Anxiety Screening Never done HIV Screening Never done Hepatitis B Vaccine(1 of 3 - 19+ 3-dose series) Never done Colorectal Cancer Screening Never done Pneumococcal Vaccine(2 of 2 - PCV) due on 04/07/2015 Shingrix Vaccine(1 of 2) Never done Prostate Cancer Screening Discussion Never done DTaP,Tdap,Td Vaccine(2 - Td or Tdap) due on 04/07/2024 Influenza Vaccine(1) Never done Covid-19 Vaccine(2023- season) due on 04/26/2024 HPI Lorenzo Serna is a 54 year old male. PMH significant for ACTIVE PROBLEM LIST Shoulder Pain Allergic Rhinitis Elevated Blood Pressure Hip Pain Brandon Involving Less Than 10% of Body Surface Insomnia Tobacco Abuse Disorder Alcohol Abuse Smoker Respiratory Failure (Hcc) Altered Mental Status, Unspecified Elevated Lfts Presents today for work excuse. Reports being off work for 10 days due to illness. Did not seek care for this illness, notes multiple family members with illness, all cared for at home, no diagnoses. He reports having fever, nauseaand vomiting an cough. States no current symptoms and would like to return to work, he is in need of a return to work letter. He notes a history of anxiety depression and insomnia. Notes he did not have insurance for a coupleof months and did not have his medication due to lack of insurance coverage. HTN: Has not previously treated blood pressure. Without report of headache, chest pain, palpitations, peripheral edema, orthopnea, fatigue, and PND. He notes chronic shortness of breath which he attributes to smoking 2 packs of cigarettes a day.Trying to quit smoking. Last 14 Encounter BP Readings: Date: BP: 07/06/2024 173/112[average bp[ 02/17/2024 162/88 09/25/2021 142/70 09/22/2021 122/82 07/25/2021 122/80 05/03/2021 124/76 04/12/2021 130/80 10/23/2018 145/104 10/22/2018 106/73 01/13/2018 126/62 12/03/2017 102/74 02/17/2015 118/88[BP MARNI AVERAGE[ 02/14/2015 110/88 04/20/2014 124/74 Review of Systems Constitutional: Negative. Respiratory: Positive for shortness of breath (chornic mild SOBOE). Cardiovascular: Negative. Gastrointestinal: Negative. Objective BP 173/112 Pulse 96 Resp 16 Wt 79.7 kg (175 lb 11.3 oz) SpO2 100% BMI 26.72 kg/m Physical Exam Vitals and nursing note reviewed. Constitutional: Appearance: Normal appearance. HENT: Head: Normocephalic and atraumatic. Mouth/Throat: Dentition: Abnormal dentition. Dental caries present. Eyes: Conjunctiva/sclera: Conjunctivae normal. Neck: Thyroid: No thyromegaly. Cardiovascular: Rate and Rhythm: Normal rate and regular rhythm. Pulmonary: Effort: Pulmonary effort is normal. Breath sounds: Normal breath sounds. Abdominal: General: Bowel sounds are normal. Palpations: Abdomen is soft. Musculoskeletal: Right lower leg: No edema. Left lower leg: No edema. Skin: General: Skin is warm and dry. Neurological: General: No focal deficit present. Mental Status: He is alert and oriented to person, place, and time. ALLERGIES Allergen Reactions Penicillin GI Upset traZODone (DESYREL) 50 mg tablet Take 1 tablet by mouth daily at bedtime. sertraline (ZOLOFT) 50 mg tablet Take 1 tablet by mouth once daily. hydrOXYzine HCl (ATARAX) 25 mg tablet Take 1 tablet by mouth every 4 hours as needed. PAST MEDICAL HISTORY Diagnosis Date No disease found Social History Tobacco Use Smoking status: Every Day Current packs/day: 1.00 Types: Cigarettes Smokeless tobacco: Never Tobacco comments: 20 years. planning to quit. Vaping Use Vaping status: Never Used Substance Use Topics Alcohol use: Not Currently Comment: Sober since 03/22/2021 Drug use: Yes Types: Marijuana Latest Ref Rng 02/17/2024 Protein, Total 6.3 - 8.0 g/dL 7.4 Albumin 3.9 - 4.9 g/dL 4.3 Calcium 8.5 - 10.2 mg/dL 9.7 Bilirubin, Total 0.2 - 1.3 mg/dL 0.2 Alkaline Phosphatase 38 - 113 U/L 49 AST 14 - 40 U/L 55 (H) ALT 10 - 54 U/L 74 (H) Glucose 74 - 99 mg/dL 91 BUN 9 - 24 mg/dL 10 Creatinine 0.73 - 1.22 mg/dL 0.50 (L) Sodium 136 - 144 mmol/L 138 Potassium 3.7 - 5.1 mmol/L 4.5 Chloride 98 - 107 mmol/L 104 CO2 22 - 30 mmol/L 21 (L) Anion Gap 8 - 15 mmol/L 13 eGFR >=60 mL/min/1.73m 121 WBC 3.70 - 11.00 k/uL 8.42 RBC 4.20 - 6.00 m/uL 4.08 (L) Hemoglobin 13.0 - 17.0 g/dL 13.6 Hematocrit 39.0 - 51.0 % 40.7 MCV 80.0 - 100.0 fL 99.8 MCH 26.0 - 34.0 pg 33.3 MCHC 30.5 - 36.0 g/dL 33.4 RDW-CV 11.5 - 15.0 % 13.1 Platelet Count 150 - 400 k/uL 529 (H) MPV 9.0 - 12.7 fL 9.5 Absolute nRBC <0.01 k/uL <0.01 Cholesterol, Total <200 mg/dL 195 Triglyceride <150 mg/dL 129 HDL Cholesterol >39 mg/dL 45 Non HDL Cholesterol <130 mg/dL 150 (H) Fasting Time hrs 14 VLDL Cholesterol <30 mg/dL 26 TC:HDL Ratio <5.10 4.33 LDL Cholesterol <100 mg/dL 124 (H) LDL:HDL Ratio <2.54 2.76 (H) ASSESSMENT/PLAN: 1. Anxiety and depression - ICD9: 300.00, 311, ICD10: F41.9, F32.A (primary diagnosis) 2. Insomnia, unspecified type - ICD9: 780.52, ICD10: G47.00 Recommend resuming all previous medications. Avoid hydroxyzine use at work if needing to be alert. 3. Tobacco abuse disorder - ICD9: 305.1, ICD10: Z72.0 - Cessation encouraged. 4. Primary hypertension - ICD9: 401.9, ICD10: I10 - Uncontrolled - Start amlodipine 5 mg daily - Encouraged sodium restriction, DASH or Mediterranean diet - Recommend regular aerobic exercise 5. Flu-like symptoms - ICD9: 780.99, ICD10: R68.89 Reports illness x 10 days, did not seek care when this occurred. Symptoms now resolved and would like to return to work. Letter provided per request. 1 mo recheck BP Anjum Briggs APRN.[employer] B[employer] DESIGNER or Polina Ward CNP 6 mo follow up Polina Ward or MD Anjum Bettencourt APRN.CNS Medical Decision Making: Problems: Moderate: 1+ chronic illnesses with change Risk: Moderate: Drug management Medical Decision Making Level: 4 - Moderate documented in this encounterBlanchard Valley [facility] System06-24-2024 NoteHNO ID: [id number] Author: POLINA WARD APRN.CNP Service: ? Author Type: Nurse Practitioner Type: Progress Notes Filed: 02/17/2024 09:00 Note Text: CC: Patient presents with: Physical: Physical, anxiety HPI Lorenzo Steiner is a 53 year old male who presents today for anxiety. Has not been seen in 2.5 years. Depression and Anxiety: Has been out of control for the last year and a half Sleep: difficulty staying asleep, difficulty falling asleep. Feels like he is sleep deprived Alcohol use: does not drink any alcohol Drug use: Uses low dose of cannabis to help relax and sleep. Also smokes over the counter Kratom to relax and for aches and pain. Appetite: varies Stresses: slight stress at work but does have family stresses Suicidal Thoughts: No suicidal or homicidal ideation, intent or plan Support: Comes from multiple sources including family Counseling: No longer in counseling. Had been in years ago when quitting alcohol. Personal mental health hx: anxiety and depression. Medication history: sertraline and trazadone and tolerated well. Unsure why he stopped. Family mental health hx: denies REVIEW OF SYSTEMS See HPI PAST MEDICAL HISTORY Diagnosis Date No disease found PAST SURGICAL HISTORY Procedure Laterality Date NONE ALLERGIES Penicillin MEDICATIONS sertraline (ZOLOFT) 50 mg tablet Take 1 tablet by mouth once daily. traZODone (DESYREL) 50 mg tablet Take 1 tablet by mouth daily at bedtime. hydrOXYzine HCl (ATARAX) 25 mg tablet Take 1 tablet by mouth every 4 hours as needed. FAMILY HISTORY Problem Relation Age of Onset Heart Father Heart Maternal Grandfather Social History Tobacco Use Smoking status: Every Day Packs/day: .5 Types: Cigarettes Smokeless tobacco: Never Tobacco comments: 20 years. planning to quit. Vaping Use Vaping Use: Never used Substance Use Topics Alcohol use: Not Currently Comment: Sober since 03/22/2021 Drug use: Not Currently Types: Marijuana PHYSICAL EXAM BP 162/88 Pulse 84 Resp 16 Wt 78.5 kg (173 lb) SpO2 97% BMI 26.30 kg/m? Appearance: well dressed well groomed, cooperative, and pleasant Behavior: good eye contact Speech: fast Mood: anxious and happy Affect: appropriate Perceptions: none Thought process: goal directed but quickly changes subjects. Thought Content: normal Intelligence level: normal Insight: good Judgment: good 02/17/2024 PIERRE-7 ANXIETY SCALE Feeling nervous, anxious, or on edge 3 Nearly every day Not being able to stop or control worrying 3 Nearly every day Worrying too much about different things 2 Over half the days Trouble relaxing 2 Over half the days Being so restless that it's hard to sit still 2 Over half the days Being easily annoyed or irritable 3 Nearly every day Feeling afraid as if something awful might happen 3 Nearly every day PIERRE-7 Anxiety Score 18 If you checked off any problems, how difficult have these problems made it for you to do your work, take care of things at home, or get along with other people? Very difficult CP PHQ9 Little interest or pleasure 2 - More than half the days Feeling down, depressed, hopeless 2 - More than half the days Trouble falling or staying asleep, sleeping too much 3 - nearly every day Feeling tired, having little energy 3 - Nearly every day Poor appetite or overeating 3 - Nearly every day Feeling bad about yourself, failure or you have let yourself/family down 2 - More than half the days Trouble concentrating on things 3 - Nearly every day Moving or speaking so slowly, or fidgety or restless 3 - Nearly every day Thoughts that you would be better off , or of hurting yourself in some way 0 - Not at all How difficult have these problems made things Very difficult Interpretation of Total Score 15-19 Moderately severe depression Health maintenance reviewed with patient: HIV Screening Never done Hepatitis B Vaccine(1 of 3 - 19+ 3-dose series) Never done Lipid Screening Never done Colorectal Cancer Screening Never done Pneumococcal Vaccine(2 of 2 - PCV) due on 04/07/2015 Shingrix Vaccine(1 of 2) Never done Diabetes Screening due on 10/25/2021 Covid-19 Vaccine( - 2022- season) due on 04/26/2023 Behavioral Health Screening Never done DTaP,Tdap,Td Vaccine(2 - Td or Tdap) due on 04/07/2024 Influenza Vaccine(Season Ended) due on 04/26/2024 Hepatitis C Screening Completed DATA REVIEWED: No new labs ASSESSMENT/PLAN: 1. Insomnia, unspecified type - ICD9: 780.52, ICD10: G47.00 (primary diagnosis) Trazadone as ordered. Has been on this previously and reports it working and tolerated well. 2. Anxiety and depression - ICD9: 300.00, 311, ICD10: F41.9, F32.A Uncontrolled will treat insomnia as well. See above, restarting low dose sertraline also as he reports this worked well and helped. If this doesn't then I am concerned with possible mood disorder. - Reviewed concept of neurochemical (more content not included)...[facility]06-24-2024 History of Present illness Narrative* Polina Ward APRN.[employer] - 02/17/2024 8:34 AM EDT CC: Patient presents with: Physical: Physical, anxiety HPI Lorenzo Steiner is a 53 year old male who presents today for anxiety. Has not been seen in 2.5 years. Depression and Anxiety: Has been out of control for the last year and a half Sleep: difficulty staying asleep, difficulty falling asleep. Feels like he is sleep deprived Alcohol use: does not drink any alcohol Drug use: Uses low dose of cannabis to help relax and sleep. Also smokes over the counter Kratom to relax and for aches and pain. Appetite: varies Stresses: slight stress at work but does have family stresses Suicidal Thoughts: No suicidal or homicidal ideation, intent or plan Support: Comes from multiple sources including family Counseling: No longer in counseling. Had been in years ago when quitting alcohol. Personal mental health hx: anxiety and depression. Medication history: sertraline and trazadone andtolerated well. Unsure why he stopped. Family mental health hx: denies REVIEW OF SYSTEMS See HPI PAST MEDICAL HISTORY Diagnosis Date No disease found PAST SURGICAL HISTORY Procedure Laterality Date NONE ALLERGIES Penicillin MEDICATIONS sertraline (ZOLOFT) 50 mg tablet Take 1 tablet by mouth once daily. traZODone (DESYREL) 50 mg tablet Take 1 tablet by mouth daily at bedtime. hydrOXYzine HCl (ATARAX) 25 mg tablet Take 1 tablet by mouth every 4 hours as needed. FAMILY HISTORY Problem Relation Age of Onset Heart Father Heart Maternal Grandfather Social History Tobacco Use Smoking status: Every Day Packs/day: .5 Types: Cigarettes Smokeless tobacco: Never Tobacco comments: 20 years. planning to quit. Vaping Use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
[2025-03-13 12:47] LABS: AST(SGOT) 78 U/L (<=37); Alanine Aminotransfer ALT/SGPT 81 U/L (<=46); Albumin, Serum 4.7 g/dL (3.5-5.0); Alkaline Phosphatase 53 U/L (40-129); Bilirubin, Direct 0.21 mg/dL (0.00-0.30); Globulin 2.8 g/dL (2.2-4.2)
[2025-03-13 12:49] LABS: Anion Gap 18 (5-15); BUN 7 mg/dL (4-19); BUN/Creat Ratio 10.1 RATIO (10-20); Calcium,Total 9.4 mg/dL (7.6-11.0); Carbon Dioxide 19.8 mmol/L (21.0-32.0); Chloride 102 mmol/L (98-108); Estimated Creatinine Clearance 120.91 ml/min (50-250); Glucose 99 mg/dL (70-99); Potassium 4.1 mmol/L (3.3-5.1); Troponin T High Sensitivity 9 ng/L (<=22)
[2025-03-13 13:01] LABS: Alcohol, Blood (Medical)-Serum 186.0 mg/dL (<=10.0)
[2025-03-13 13:33] LABS: Barbiturate Urine NEGATIVE (< 200 ng/mL); Benzodiazepine Urine NEGATIVE (< 200 ng/mL); PCP Urine NEGATIVE (< 25 ng/mL); THC Urine NEGATIVE (< 50 ng/mL)
--- NOTE | 2025-03-13 15:26 | ED.RN ---
Meal tray and beverage provided to patient.
--- NOTE | 2025-03-13 17:53 | ED.RN ---
Verbal order to D/C pt teletypesetter monitor since pt is cleared medically and in SI precaution.
[2025-03-13 18:00] LABS: Alcohol, Blood (Medical)-Serum 75.8 mg/dL (<=10.0)
--- NOTE | 2025-03-13 18:12 | PCA ---
CALLED AND FAXED EVERYTHING OVER TO [facility] @ [phone]
== END 2025-03-14 00:21 ==
PROVIDERS: Emergency Provider Emergency Medicine; Referring Provider Emergency Medicine; Visit Provider Emergency Medicine
DX: R45.851 Suicidal ideations (principal); F32.A Depression, unspecified; F41.9 Anxiety disorder, unspecified; F10.129 Alcohol abuse with intoxication, unspecified; Y90.6 Blood alcohol level of 120-199 mg/100 ml; R07.89 Other chest pain; I10 Essential (primary) hypertension; F17.200 Nicotine dependence, unspecified, uncomplicated; Z59.01 Sheltered homelessness; Z79.899 Other long term (current) drug therapy
CPT/HCPCS: 71045; 80048; 80076; 80307; 82077; 84484; 85025; 93005; 99285; A4216